=== PATIENT | female | born 1950 | race Caucasian/White ===

== ENCOUNTER 2019-02-04 12:34 | Outpatient (CLI) | payer MEDICARE, OTHER, SELFPAY ==
[2019-02-04 14:06] LABS: Albumin Level 4.3 g/dL (3.5-5.1); Blood Urea Nitrogen 23 mg/dL (7-17); Calcium 9.9 mg/dL (8.4-10.2); Carbon Dioxide 30 mmol/L (22-30); Chloride 105 mmol/L (98-107); Estimated Glomerular Filt Rate 50; Glucose 92 mg/dL (65-105); Phosphorus 3.5 mg/dL (2.5-4.5); Potassium 4.3 mmol/L (3.4-5.0); Sodium 142 mmol/L (137-145)
[2019-02-04 14:13] LABS: Complement C3 115 mg/dL (88-165)
[2019-02-04 16:04] LABS: Creatinine Urine 83.5 mg/dL; Total Protein Urine Random 10 mg/dL
[2019-02-04 16:12] LABS: Sodium Urine Random 110 meq/L
[2019-02-08 18:30] LABS: Chloride Rand Ur 101 mmol/L (32-290); Chloride/Creatinine Rand Ur 122 (38-318); Creatinine Random Urine 83 mg/dL (20-275)
[2019-02-09 09:13] LABS: Creatinine, Random Urine 81 mg/dL (20-275); Total Protein/Creatinine Ratio 148 mg/g creat (21-161)
[2019-02-09 16:35] LABS: Anti Glomerular Basement Memb <1.0 AI (<1.0)
[2019-02-09 22:10] LABS: ANCA Screen Negative (Negative)
[2019-02-10 14:15] LABS: Hematocrit 41.1 % (35.0-45.0); Hemoglobin 13.1 g/dL (11.7-15.5); MCH 28.6 pg (27.0-33.0); MCV 89.7 FL (80.0-100.0); RDW 16.9 % (11.0-15.0); Red Blood Cell Count 4.58 Mill/uL (3.80-5.10)
== END 2019-02-04 12:35 | disposition home or self-care (01) ==
PROVIDERS: PCP Internal Medicine; Visit Provider Internal Medicine Nephrology
DX: N18.3 Chronic kidney disease, stage 3 (moderate) (principal); I12.9 Hypertensive chronic kidney disease with stage 1 through stage 4 chronic kidney disease, or unspecified chronic kidney disease; E11.29 Type 2 diabetes mellitus with other diabetic kidney complication; R80.8 Other proteinuria
CPT/HCPCS: 36415; 80069; 82436; 82570; 83021; 83520; 84156; 84166; 84300; 85014; 85018; 85041; 85999; 86021; 86038; 86160; 86225

== ENCOUNTER 2019-04-13 09:19 | Outpatient (CLI) | payer MEDICARE, OTHER, SELFPAY ==
[2019-04-13 10:27] LABS: Alanine Aminotransferase 16 U/L (4-35); Albumin Level 4.2 g/dL (3.5-5.1); Alkaline Phosphatase 94 U/L (38-126); Aspartate Amino Transferase 27 U/L (14-36); Bilirubin,Total 0.4 mg/dL (0.2-1.3); Blood Urea Nitrogen 18 mg/dL (7-17); Calcium 9.6 mg/dL (8.4-10.2); Carbon Dioxide 28 mmol/L (22-30); Chloride 106 mmol/L (98-107); Cholesterol 157 mg/dL (0-200); Estimated Glomerular Filt Rate 38; Glucose 87 mg/dL (65-105); HDL Direct 38 mg/dL; Potassium 4.7 mmol/L (3.4-5.0); Sodium 143 mmol/L (137-145); Triglycerides 131 mg/dL (<150)
[2019-04-13 10:38] LABS: LDL Cholesterol Direct 84 mg/dL
[2019-04-13 10:46] LABS: Hemoglobin A1C 5.7 % (<5.7)
[2019-04-13 10:59] LABS: Creatinine Urine 161.1 mg/dL
[2019-04-13 11:03] LABS: Iron 45 ug/dL (37-170)
[2019-04-13 11:08] LABS: MALB Creatinine Ratio < 3.7 mg/g (0-30); Microalbumin Urine Random < 6.0 mg/L (0-16.7)
[2019-04-13 11:13] LABS: Percent Iron Saturation 14 % (20-50)
[2019-04-13 11:17] LABS: Vitamin D 25 Hydroxy 52.8 ng/mL
[2019-04-13 11:58] LABS: Basophils Absolute Auto 0.1 K/mm3 (0.0-0.1); Basophils Percent Auto 0.9 % (0.2-1.2); Eosinophils Absolute Auto 0.1 K/mm3 (0-0.3); Eosinophils Percent Auto 1.5 % (0-4.4); Hematocrit 42.3 % (37.0-47.0); Hemoglobin 13.1 g/dL (12.0-15.0); Immature Granulocyte Absolute 0.04 K/mm3 (0.00-0.031); Immature Granulocyte Percent A 0.5 % (0-0.5); Lymphocytes Absolute Auto 1.57 K/mm3 (0.9-3.2); Lymphocytes Percent Auto 18.5 % (18.3-44.2); Mean Corpuscular Hemoglobin 27.7 pg (26-34); Mean Corpuscular Volume 89.4 fl (80-100); Mean Platelet Volume 10.1 fl (7.4-10.4); Monocytes Absolute Auto 0.7 K/mm3 (0.1-0.6); Monocytes Percent Auto 8.2 % (2.6-8.5); Neutrophils Percent Auto 70.4 % (45.5-73.1); Platelet Count Result 339 k/mm3 (150-375); Red Blood Count 4.73 M/mm3 (4.2-5.4); Red Cell Distribution Width 15.8 % (11.5-14.5); White Blood Count 8.5 K/mm3 (4.5-10.0)
== END 2019-04-13 09:20 | disposition home or self-care (01) ==
PROVIDERS: PCP Internal Medicine; Visit Provider Internal Medicine
DX: E11.9 Type 2 diabetes mellitus without complications (principal); E03.9 Hypothyroidism, unspecified; G25.81 Restless legs syndrome; E78.5 Hyperlipidemia, unspecified; E55.9 Vitamin D deficiency, unspecified
CPT/HCPCS: 36415; 80053; 80061; 82043; 82306; 82728; 83036; 83540; 83550; 84439; 84443; 85025

== ENCOUNTER 2019-11-02 10:19 | Outpatient (CLI) | payer MEDICARE, OTHER, SELFPAY ==
[2019-11-02 11:30] LABS: Creatinine Urine 213.9 mg/dL; Total Protein Urine Random 8 mg/dL
[2019-11-02 11:32] LABS: Albumin Level 4.3 g/dL (3.5-5.1); Anion Gap 6 mmol/L (8-16); Blood Urea Nitrogen 16 mg/dL (7-17); Calcium 9.8 mg/dL (8.4-10.2); Carbon Dioxide 27 mmol/L (22-30); Chloride 105 mmol/L (98-107); Estimated Glomerular Filt Rate 41; Glucose 100 mg/dL (65-105); Phosphorus 3.5 mg/dL (2.5-4.5); Potassium 5.1 mmol/L (3.4-5.0); Sodium 138 mmol/L (137-145)
[2019-11-02 12:11] LABS: Parathyroid Intact 68.4 pg/mL (7.5-53.5)
[2019-11-02 12:13] LABS: Vitamin D 25 Hydroxy 40.7 ng/mL
== END 2019-11-02 10:20 | disposition home or self-care (01) ==
PROVIDERS: PCP Internal Medicine; Visit Provider Internal Medicine Nephrology
DX: R80.8 Other proteinuria (principal); I12.9 Hypertensive chronic kidney disease with stage 1 through stage 4 chronic kidney disease, or unspecified chronic kidney disease; N18.3 Chronic kidney disease, stage 3 (moderate); E11.29 Type 2 diabetes mellitus with other diabetic kidney complication
CPT/HCPCS: 36415; 80069; 82306; 82570; 83970; 84156

== ENCOUNTER 2019-11-15 10:24 | Outpatient (CLI) | payer MEDICARE, OTHER, SELFPAY | END 2019-11-15 10:25 | disposition home or self-care (01) | PROVIDERS: PCP Internal Medicine; Visit Provider Internal Medicine | DX: E03.9 Hypothyroidism, unspecified (principal) | CPT/HCPCS: 36415; 84443 ==

== ENCOUNTER 2019-11-30 08:52 | Emergency (ER) | payer MEDICARE, OTHER, SELFPAY ==
--- NOTE | ~2019-11-30 | CT_ITS ---
EXAMINATION: CTA chest PE protocol DATE: 11/30/2019 09:44 INDICATION: Hemoptysis. TECHNIQUE: Computed tomography angiography (CTA) of the chest was performed with 100 mL Omnipaque-350 intravenous contrast timed to evaluate the pulmonary arteries. Coronal maximum intensity projection 3D-reconstructions were created by the technologist. Automated exposure control and iterative reconst ruction technique were employed. The dose-length product was 249.16 mGy-cm. COMPARISON: Chest CT 11/25/2018 FINDINGS: There is symmetric scarring at the lung apices. There is moderate emphysema. There are new airspace and groundglass opacities in apicoposterior segment left upper lobe. There are new patchy gr oundglass opacities in left lower lobe. No pleural effusion. The heart size is normal. There are rolf nary artery calcifications. No pericardial effusion. There is an implant in right ventricle. There is a stent graft in descending thoracic aorta. There is no pulmonary embolus. Calcified periportal lymp h nodes are consistent with old granulomatous disease. There is mild thoracic spondylosis. There is m ild chronic height loss of multiple thoracic vertebral bodies. IMPRESSION: 1. No pulmonary embolus. 2. Airspace and groundglass opacities in apicoposterior segment left upper lobe and patchy groundglas s opacities in left lower lobe, consistent with pneumonia versus hemorrhage. 3. Moderate emphysema. Reviewed, dictated and finalized at location A. IMPRESSION: 1. No pulmonary embolus. 2. Airspace and groundglass opacities in apicoposterior segment left upper lobe and patchy groundglass opacities in left lower lobe, consistent with pneumonia versus hemorrhage. 3. Moderate emphysema.
[2019-11-30 08:49] VITALS: BP 162/79; PULSE 95; RESP 21; TEMP 36.8; O2SAT 96
--- NOTE | 2019-11-30 08:53 | ED.GENADULT ---
HPI - General Adult General Chief complaint: Unspecified Stated complaint: COUGHING UP BLOOD Time Seen by Provider: 11/30/19 08:53 History of Present Illness HPI narrative: 69 yo female w/ h/o head and neck cancer, ruptured thoracic aneurysm presents today for hemoptysis. She awoke this morning coughing up bright red blood. Approximately 50-100 mg estimated by EMS. No CP, SOB, fever. She had one previous episode that was very similar. At that time she was transfered to [facility] and had to be intubated and taken to the OR emergently for what sounds like a ruptured aortic aneurysm. No blood thinners Related Data Home Medications Medication Instructions Recorded Confirmed aspirin 81 mg tablet,delayed 81 mg PO DAILY 04/12/19 11/08/19 release magnesium amino acid chelate 100 mg PO 04/12/19 11/08/19 mg tablet omega-3 fatty acids 1,000 mg 1,000 mg PO BID 04/12/19 11/08/19 capsule Allergies Allergy/AdvReac Type Severity Reaction Status Date / Time No Known Allergies Allergy Unknown Unknown Uncoded 11/30/19 10:31 Review of Systems Review of Systems: All systems reviewed & are unremarkable except as noted in HPI and below Constitutional: Constitutional: Denies chills and Denies fever(s) ENT: Denies sore throat Cardiovascular: Cardiovascular: Denies chest pain Respiratory: Respiratory: Reports cough and Denies dyspnea Gastrointestinal: Gastrointestinal: Denies nausea and Denies vomiting Genitourinary: Genitourinary: Denies hematuria and Denies dysuria Musculoskeletal: Musculoskeletal: Denies back pain Neurologic: Denies dizziness and Denies weakness Hematologic/Lymphatic: Hematologic/Lymphatic: Denies easy bleeding and Denies easy bruising PMFSH Past Medical History Medical History History of throat cancer Type 2 diabetes mellitus without complication, without long-term current use of insulin Family History Family History Mother Acute myocardial infarction Patient's mother is Father Family history of heart disease in male family member before age 55 Patient's father is Sibling Acute myocardial infarction Family history of coronary artery disease Patient's brother is Grandparent Family history of malignant neoplasm of breast Social History Social History Alcohol intake: never Exam Const: General: healthy appearing, no acute distress and alert Orientation/consciousness: patient oriented x3 HENMT: Head: normal to inspection Neck: Neck: normal visual inspection and no lymphadenopathy Chest: Chest palpation & inspection: no tenderness Resp: Effort & Inspection: normal respiratory effort Auscultation: clear to auscultation bilaterally, no rales, no rhonchi and no wheezes Cardio: Jugular venous distension: no JVD Rate: regular rate Rhythm: regular rhythm Heart sounds: no murmurs GI: Inspection: non-distended GI Palp: Yes Soft to palpation and No Tenderness to palpation present (GI) Skin: General skin exam: normal color Neuro: General: patient oriented x3 and moves all extremities Speech: normal speech Extrem: General: no edema Psych: Appearance: well kempt Affect: normal affect Course Vital Signs Vital signs: Vital Signs Temperature 36.8 C 11/30/19 08:49 Pulse Rate 95 11/30/19 08:49 Respiratory Rate 21 H 11/30/19 08:49 Blood Pressure 162/79 H 11/30/19 08:49 Pulse Oximetry 96 11/30/19 08:49 Temperature 36.8 C 11/30/19 08:49 Pulse Rate 87 11/30/19 12:04 Respiratory Rate 18 11/30/19 12:04 Blood Pressure 138/63 11/30/19 12:04 Pulse Oximetry 13 L 11/30/19 12:04 Medical Decision Making MDM Narrative Medical decision making narrative: SHe is stable at this time, but had a similar presentation in the past which lead to very rapid decompensat
[2019-11-30 08:54] VITALS: PULSE 90
[2019-11-30 09:12] LABS: Basophils Absolute Auto 0.1 K/mm3 (0.0-0.1); Basophils Percent Auto 0.8 % (0.2-1.2); Eosinophils Absolute Auto 0.1 K/mm3 (0-0.3); Eosinophils Percent Auto 1.7 % (0-4.4); Hematocrit 41.4 % (37.0-47.0); Hemoglobin 13.3 g/dL (12.0-15.0); Immature Granulocyte Absolute 0.02 K/mm3 (0.00-0.031); Immature Granulocyte Percent A 0.2 % (0-0.5); Lymphocytes Absolute Auto 1.98 K/mm3 (0.9-3.2); Lymphocytes Percent Auto 23.5 % (18.3-44.2); Mean Corpuscular HGB Conc 32.1 g/dl (32-36); Mean Corpuscular Hemoglobin 27.9 pg (26-34); Mean Corpuscular Volume 86.8 fl (80-100); Mean Platelet Volume 9.7 fl (7.4-10.4); Monocytes Absolute Auto 0.7 K/mm3 (0.1-0.6); Monocytes Percent Auto 8.2 % (2.6-8.5); Neutrophils Absolute Auto 5.5 K/mm3 (1.3-6.7); Neutrophils Percent Auto 65.6 % (45.5-73.1); Platelet Count Result 311 k/mm3 (150-375); Red Blood Count 4.77 M/mm3 (4.2-5.4); Red Cell Distribution Width 15.5 % (11.5-14.5); White Blood Count 8.4 K/mm3 (4.5-10.0)
[2019-11-30 09:21] LABS: INR 0.9; Prothrombin Time 11.9 Seconds (11.1-14.7)
[2019-11-30 09:22] LABS: Partial Thromboplastin Time 33.3 SECONDS (22.3-36.8)
[2019-11-30 09:24] LABS: Alanine Aminotransferase 13 U/L (4-35); Albumin Level 4.2 g/dL (3.5-5.1); Alkaline Phosphatase 132 U/L (38-126); Anion Gap 9 mmol/L (8-16); Aspartate Amino Transferase 24 U/L (14-36); Bilirubin,Total 0.3 mg/dL (0.2-1.3); Blood Urea Nitrogen 17 mg/dL (7-17); Calcium 9.7 mg/dL (8.4-10.2); Carbon Dioxide 24 mmol/L (22-30); Chloride 108 mmol/L (98-107); Estimated CRCL calculation 31 ml/min; Estimated Glomerular Filt Rate 41; Glucose 113 mg/dL (65-105); Potassium 4.4 mmol/L (3.4-5.0); Sodium 141 mmol/L (137-145)
[2019-11-30 09:55] VITALS: BP 146/59; PULSE 79; RESP 19; O2SAT 98
[2019-11-30 10:43] VITALS: BP 172/86; PULSE 73; RESP 18; O2SAT 99
[2019-11-30 12:04] VITALS: BP 138/63; PULSE 87; RESP 18; O2SAT 13
== END 2019-11-30 12:10 | disposition short-term general hospital (02) ==
PROVIDERS: Emergency Provider Emergency Medicine; PCP Internal Medicine
DX: R04.2 Hemoptysis (principal); E11.9 Type 2 diabetes mellitus without complications; Z79.82 Long term (current) use of aspirin; J43.9 Emphysema, unspecified; Z85.818 Personal history of malignant neoplasm of other sites of lip, oral cavity, and pharynx; R91.8 Other nonspecific abnormal finding of lung field
CPT/HCPCS: 36415; 71275; 80053; 85025; 85610; 85730; 86850; 86900; 86901; 99285; Q9967

== ENCOUNTER 2019-12-21 10:44 | Outpatient (CLI) | payer MEDICARE, OTHER, SELFPAY ==
[2019-12-21 13:11] LABS: Thyroid Stimulating Hormone 0.751 uIU/mL (0.465-4.680)
== END 2019-12-21 10:45 | disposition home or self-care (01) ==
PROVIDERS: PCP Internal Medicine; Visit Provider Internal Medicine
DX: Z09 Encounter for follow-up examination after completed treatment for conditions other than malignant neoplasm (principal)
CPT/HCPCS: 36415; 84443

== ENCOUNTER 2020-04-23 10:33 | Outpatient (CLI) | payer MEDICARE, OTHER, SELFPAY ==
[2020-04-23 11:12] LABS: Basophils Absolute Auto 0.1 K/mm3 (0.0-0.1); Basophils Percent Auto 0.9 % (0.2-1.2); Eosinophils Absolute Auto 0.1 K/mm3 (0-0.3); Hematocrit 38.4 % (37.0-47.0); Hemoglobin 12.1 g/dL (12.0-15.0); Immature Granulocyte Absolute 0.06 K/mm3 (0.00-0.031); Immature Granulocyte Percent A 0.7 % (0-0.5); Lymphocytes Percent Auto 15.5 % (18.3-44.2); Mean Corpuscular HGB Conc 31.5 g/dl (32-36); Mean Corpuscular Hemoglobin 25.4 pg (26-34); Mean Corpuscular Volume 80.5 fl (80-100); Mean Platelet Volume 8.7 fl (7.4-10.4); Monocytes Absolute Auto 0.6 K/mm3 (0.1-0.6); Neutrophils Absolute Auto 6.8 K/mm3 (1.3-6.7); Neutrophils Percent Auto 74.9 % (45.5-73.1); Platelet Count Result 397 k/mm3 (150-375); Red Blood Count 4.77 M/mm3 (4.2-5.4); Red Cell Distribution Width 16.2 % (11.5-14.5)
[2020-04-23 11:21] LABS: Alanine Aminotransferase 11 U/L (4-35); Albumin Level 4.1 g/dL (3.5-5.1); Alkaline Phosphatase 124 U/L (38-126); Anion Gap 5 mmol/L (8-16); Aspartate Amino Transferase 22 U/L (14-36); Bilirubin,Total 0.5 mg/dL (0.2-1.3); Blood Urea Nitrogen 15 mg/dL (7-17); Calcium 9.9 mg/dL (8.4-10.2); Carbon Dioxide 28 mmol/L (22-30); Chloride 106 mmol/L (98-107); Cholesterol 142 mg/dL (0-200); Estimated Glomerular Filt Rate 41; Glucose 99 mg/dL (65-105); HDL Direct 41 mg/dL; Potassium 4.3 mmol/L (3.4-5.0); Sodium 139 mmol/L (137-145); Triglycerides 140 mg/dL (<150)
[2020-04-23 11:23] LABS: Hemoglobin A1C 5.5 % (<5.7)
[2020-04-23 11:32] LABS: LDL Cholesterol Direct 66 mg/dL
[2020-04-23 11:46] LABS: Microalbumin Urine Random 44.6 mg/L (0-16.7)
[2020-04-23 11:57] LABS: Vitamin D 25 Hydroxy 22.5 ng/mL
[2020-04-23 12:25] LABS: Creatinine Urine 386.1 mg/dL; MALB Creatinine Ratio 11.6 mg/g (0-30)
[2020-04-23 12:26] LABS: Folic Acid 5.1 ng/mL (2.76->20)
== END 2020-04-23 10:34 | disposition home or self-care (01) ==
PROVIDERS: PCP Internal Medicine; Visit Provider Internal Medicine
DX: E11.9 Type 2 diabetes mellitus without complications (principal); J43.9 Emphysema, unspecified; E03.9 Hypothyroidism, unspecified; E78.2 Mixed hyperlipidemia; E55.9 Vitamin D deficiency, unspecified; G62.9 Polyneuropathy, unspecified; I12.9 Hypertensive chronic kidney disease with stage 1 through stage 4 chronic kidney disease, or unspecified chronic kidney disease; N18.30 Chronic kidney disease, stage 3 unspecified
CPT/HCPCS: 36415; 80053; 80061; 82043; 82306; 82607; 82746; 83036; 84443; 85025

== ENCOUNTER 2020-05-01 09:33 | Outpatient (CLI) | payer MEDICARE, OTHER, SELFPAY ==
[2020-05-01 11:28] LABS: Iron 35 ug/dL (37-170)
[2020-05-01 11:37] LABS: Percent Iron Saturation 12 % (20-50)
== END 2020-05-01 09:34 | disposition home or self-care (01) ==
PROVIDERS: PCP Internal Medicine; Visit Provider Internal Medicine
DX: R71.8 Other abnormality of red blood cells (principal)
CPT/HCPCS: 36415; 82728; 83540; 83550

== ENCOUNTER 2020-08-04 08:48 | Outpatient (CLI) | payer MEDICARE, OTHER, SELFPAY ==
[2020-08-04 09:39] LABS: Albumin Level 4.1 g/dL (3.5-5.1); Anion Gap 9 mmol/L (8-16); Blood Urea Nitrogen 19 mg/dL (7-17); Calcium 9.5 mg/dL (8.4-10.2); Carbon Dioxide 24 mmol/L (22-30); Chloride 109 mmol/L (98-107); Estimated Glomerular Filt Rate 45; Glucose 93 mg/dL (65-105); Phosphorus 3.3 mg/dL (2.5-4.5); Potassium 4.7 mmol/L (3.4-5.0); Sodium 142 mmol/L (137-145)
[2020-08-04 09:51] LABS: Creatinine Urine 108.5 mg/dL; Total Protein Urine Random 8 mg/dL; Ur Ttl Prot Creatinine Ratio 0.07 mg/mg (0-0.20)
== END 2020-08-04 08:49 | disposition home or self-care (01) ==
PROVIDERS: PCP Internal Medicine; Visit Provider Internal Medicine Nephrology
DX: E11.29 Type 2 diabetes mellitus with other diabetic kidney complication (principal); E55.9 Vitamin D deficiency, unspecified; I12.9 Hypertensive chronic kidney disease with stage 1 through stage 4 chronic kidney disease, or unspecified chronic kidney disease; N18.32 Chronic kidney disease, stage 3b
CPT/HCPCS: 36415; 80069; 82570; 84156

== ENCOUNTER 2020-12-31 09:08 | Outpatient (CLI) | payer MEDICARE, OTHER, SELFPAY ==
[2020-12-31 09:40] LABS: Hematocrit 37.9 % (37.0-47.0); Hemoglobin 12.7 g/dL (12.0-15.0); Mean Corpuscular HGB Conc 33.5 g/dl (32-36); Mean Corpuscular Hemoglobin 29.1 pg (26-34); Mean Corpuscular Volume 86.7 fl (80-100); Platelet Count Result 293 k/mm3 (150-375); Red Blood Count 4.37 M/mm3 (4.2-5.4); Red Cell Distribution Width 17.3 % (11.5-14.5); White Blood Count 9.6 K/mm3 (4.5-10.0)
[2020-12-31 10:01] LABS: Vitamin D 25 Hydroxy 27.1 ng/mL
[2020-12-31 11:52] LABS: Alanine Aminotransferase 21 U/L (4-35); Albumin Level 4.3 g/dL (3.5-5.1); Alkaline Phosphatase 88 U/L (38-126); Anion Gap 7 mmol/L (8-16); Aspartate Amino Transferase 34 U/L (14-36); Blood Urea Nitrogen 21 mg/dL (7-17); Calcium 9.4 mg/dL (8.4-10.2); Carbon Dioxide 26 mmol/L (22-30); Chloride 106 mmol/L (98-107); Estimated Glomerular Filt Rate 45; Glucose 109 mg/dL (65-110); Potassium 4.7 mmol/L (3.4-5.0); Sodium 139 mmol/L (137-145)
[2020-12-31 17:36] LABS: Bilirubin,Total 0.5 mg/dL (0.2-1.3)
== END 2020-12-31 09:09 | disposition home or self-care (01) ==
LOC: ANHLAB 09:15
PROVIDERS: PCP Internal Medicine; Visit Provider Internal Medicine
DX: E03.9 Hypothyroidism, unspecified (principal); E55.9 Vitamin D deficiency, unspecified; G25.81 Restless legs syndrome; G62.9 Polyneuropathy, unspecified; I49.5 Sick sinus syndrome
CPT/HCPCS: 36415; 80053; 82306; 84443; 85027

== ENCOUNTER 2021-02-08 11:20 | Outpatient (CLI) | payer MEDICARE, OTHER, SELFPAY ==
[2021-02-08 12:13] LABS: Creatinine Urine 183.5 mg/dL; Total Protein Urine Random 7 mg/dL; Ur Ttl Prot Creatinine Ratio 0.04 mg/mg (0-0.20)
[2021-02-08 12:17] LABS: Albumin Level 4.2 g/dL (3.5-5.1); Anion Gap 9 mmol/L (8-16); Blood Urea Nitrogen 17 mg/dL (7-17); Calcium 9.6 mg/dL (8.4-10.2); Carbon Dioxide 25 mmol/L (22-30); Chloride 105 mmol/L (98-107); Estimated Glomerular Filt Rate 49; Glucose 107 mg/dL (65-110); Phosphorus 3.4 mg/dL (2.5-4.5); Potassium 4.2 mmol/L (3.4-5.0); Sodium 139 mmol/L (137-145)
[2021-02-08 12:27] LABS: Parathyroid Intact 87.9 pg/mL (7.5-53.5)
[2021-02-08 13:02] LABS: Vitamin D 25 Hydroxy 32.4 ng/mL
== END 2021-02-08 11:21 | disposition home or self-care (01) ==
LOC: ANHLAB 11:25
PROVIDERS: PCP Internal Medicine; Visit Provider Internal Medicine Nephrology
DX: R79.89 Other specified abnormal findings of blood chemistry (principal); E11.29 Type 2 diabetes mellitus with other diabetic kidney complication; I12.9 Hypertensive chronic kidney disease with stage 1 through stage 4 chronic kidney disease, or unspecified chronic kidney disease; N18.31 Chronic kidney disease, stage 3a; R80.8 Other proteinuria; R53.83 Other fatigue
CPT/HCPCS: 36415; 80069; 82306; 82570; 83970; 84156; 84443

== ENCOUNTER 2021-02-15 09:47 | Outpatient (CLI) | payer MEDICARE, OTHER, SELFPAY ==
--- NOTE | ~2021-02-15 | MM_ITS ---
EXAMINATION: MM screening freddie BI w lien HISTORY: Screening TECHNIQUE: Craniocaudal and mediolateral oblique 3-D tomosynthesis images were obtained and synthetic 2-D images were generated. CAD analysis was submitted and interpreted. COMPARISON: 08/24/2018 BREAST PARENCHYMAL COMPOSITION: The breasts are almost entirely fatty. FINDINGS: There is no evidence of suspicious mass, calcification, or architectural distortion to sugg est malignancy in either breast. There has been no suspicious interval change. IMPRESSION: 1. No mammographic evidence of malignancy. 2. Recommend routine screening mammography in one year. BI-RADS Category 1: Negative Reviewed, dictated and finalized at location A. 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
== END 2021-02-15 09:48 | disposition home or self-care (01) ==
LOC: ANHIMG 09:49
PROVIDERS: PCP Internal Medicine; Visit Provider Internal Medicine
DX: Z12.31 Encounter for screening mammogram for malignant neoplasm of breast (principal)
CPT/HCPCS: 77063; 77067

== ENCOUNTER 2021-02-21 10:12 | Outpatient (CLI) | payer MEDICARE, OTHER, SELFPAY ==
--- NOTE | ~2021-02-21 | US_ITS ---
EXAMINATION: US carotid duplex BI DATE: 02/21/2021 11:37 INDICATION: Carotid occlusion TECHNIQUE: Grayscale, color Doppler, and pulsed Doppler images of the cervical carotid arteries were obtained. The degree of vessel stenosis is placed in one of the following categories: normal, <50%, 5 0-69%, >=70% but less than near-occlusion, near-occlusion, or total occlusion. Note that percent sten osis relative to normal distal artery lumen diameter is indirectly measured from velocity measurement s as described by Alfonso, et al. Radiology 2003; [id number]:[id number]. Notes: Normal: Peak systolic velocity <125 centimeters/sec and no plaque <50%. Peak systolic velocity <125 ( EDV <40; ICA/CCA PSV ratio <2.0; used these factors only a tandem lesions or low cardiac output or co ntralateral disease) 50-69 %: PSV 125-230 (EDV 40-100; ratio 2-4) >= 70% but less than near occlusion: PSV greater than 230 (EDV > 100; ratio> 4.0) Near Occlusion: PSV that is variable; markedly narrowed lumen Occlusion: Absent flow on color/spectral Doppler and no lumen on larios scale. COMPARISON: 05/23/2027. FINDINGS: RIGHT: The right common carotid artery (CCA) peak systolic velocity (PSV) is 145 cm/s. The right internal ca rotid artery (ICA) PSV is 140 cm/s. The right ICA end-diastolic velocity (EDV) is 25 cm/s. The right ICA/CCA PSV ratio is 1.0. The external carotid artery (ECA) PSV is 112 cm/s. There is antegrade flow in the right vertebral artery. LEFT: The left CCA PSV is 158 cm/s. The left ICA PSV is 97 cm/s. The left ICA EDV is 31 cm/s. The left ICA/ CCA PSV ratio is 0.6. The ECA PSV is 43 cm/s. There is antegrade flow in the left vertebral artery. IMPRESSION: 1. 50-69% stenosis in the right internal carotid artery by sonographic criteria. 2. Less than 50% stenosis in the left internal carotid artery by sonographic criteria. Reviewed, dictated and finalized at location A. ER JOINTER HELPER IMPRESSION: 1. 50-69% stenosis in the right internal carotid artery by sonographic criteria . 2. Less than 50% stenosis in the left internal carotid artery by sonographic cr iteria.
== END 2021-02-21 10:13 | disposition home or self-care (01) ==
PROVIDERS: PCP Internal Medicine; Visit Provider Internal Medicine
DX: I65.23 Occlusion and stenosis of bilateral carotid arteries (principal)
CPT/HCPCS: 93880

== ENCOUNTER 2021-03-07 13:27 | Outpatient (CLI) | payer MEDICARE, OTHER, SELFPAY ==
--- NOTE | 2021-03-07 13:33 | ECHO_ITS ---
Patient Info Name: Ange Tavera Age: 70 years : 1950 Gender: Female Ht: 63 in Wt: 146 lbs BSA: 1.73 m2 HR: 75 bpm BP: 154 / 77 mmHg Technical Quality: Good Exam Date: 03/07/2021 1:45 PM Exam Location: [facility] Patient Status: Outpatient Admit Date: 03/07/2021 Staff Ordering Physician: Manan Gil MD Executive Vice President Business Development: Lupillo Blount, MARY, RT Attending Provider: Manan Gil MD Exam Type: CA echo doppler color flow Study Info Indications R01.1 - Cardiac murmur, unspecified Complete two-dimensional, color flow and Doppler transthoracic echocardiogram is performed. Strain analysis performed. Summary 1. Complete two-dimensional, color flow and Doppler transthoracic echocardiogram is performed. 2. Left ventricular chamber dimension is normal. 3. Left ventricular systolic function is normal, estimated at 60-65%. 4. The left ventricular diastolic function is grade II diastolic dysfunction. 5. E/e' 11 is mildly elevated. 6. Global longitudinal strain is normal at -17.8%. 7. There is mild aortic valve regurgitation. Left Ventricle E/e' 11 is mildly elevated. Global longitudinal strain is normal at -17.8%. Left ventricular chamber dimension is normal. Left ventricular systolic function is normal, estimated at 60-65%. The left ventricular diastolic function is grade II diastolic dysfunction. Right Ventricle Right ventricular systolic function is normal and with normal TAPSE 2.1 cm. Right ventricular chamber dimension is normal. Left Atria Left atrial chamber dimension is normal. Right Atria Right atrial chamber dimension is normal. Aortic Valve The aortic valve is trileaflet. There is no aortic valve stenosis. There is mild aortic valve regurgitation. Pulmonic Valve There is no pulmonic regurgitation. Mitral Valve There is no mitral valve stenosis. There is no mitral valve regurgitation. Tricuspid Valve There is no tricuspid valve regurgitation. Pericardium/Pleural There is no pericardial effusion. Inferior Vena Cava Normal inferior vena cava with >50% collapse upon inspiration consistent with normal right atrial pressure, 5 mmHg. Aorta The aortic root size at the sinus of Valsalva is normal. Left Ventricular Outflow Tract Name Value Normal LVOT 2D LVOT Diameter 1.9 cm LVOT Doppler LVOT Peak Gradient 4 mmHg LVOT Mean Gradient 2 mmHg LVOT VTI 22 cm LVOT VTI/AV VTI Ratio 0.7 LVOT Stroke Volume 60 ml LVOT CO 4.5 l/min LVOT CI 2.6 l/min/m2 Mitral Valve Name Value Normal MV Doppler MV Decel [place] 408 cm/s2 MV PHT 59 ms
== END 2021-03-07 13:28 | disposition home or self-care (01) ==
LOC: ANHCARD 13:29
PROVIDERS: PCP Internal Medicine; Visit Provider Internal Medicine
DX: R01.1 Cardiac murmur, unspecified (principal); I35.1 Nonrheumatic aortic (valve) insufficiency
CPT/HCPCS: 93306

== ENCOUNTER 2021-07-15 11:05 | Outpatient (CLI) | payer MEDICARE, OTHER, SELFPAY ==
[2021-07-15 11:44] LABS: Basophils Absolute Auto 0.1 K/mm3 (0.0-0.1); Basophils Percent Auto 0.9 % (0.2-1.2); Eosinophils Absolute Auto 0.1 K/mm3 (0-0.3); Eosinophils Percent Auto 1.5 % (0-4.4); Hematocrit 41.3 % (37.0-47.0); Hemoglobin 13.3 g/dL (12.0-15.0); Immature Granulocyte Absolute 0.05 K/mm3 (0.00-0.031); Immature Granulocyte Percent A 0.6 % (0-0.5); Immature Platelet Fraction Pct 2.4 % (0.9-11.2); Lymphocytes Absolute Auto 1.46 K/mm3 (0.9-3.2); Lymphocytes Percent Auto 16.4 % (18.3-44.2); Mean Corpuscular HGB Conc 32.2 g/dl (32-36); Mean Corpuscular Hemoglobin 27.5 pg (26-34); Mean Corpuscular Volume 85.3 fl (80-100); Mean Platelet Volume 9.9 fl (7.4-10.4); Monocytes Absolute Auto 0.6 K/mm3 (0.1-0.6); Monocytes Percent Auto 7.1 % (2.6-8.5); Neutrophils Absolute Auto 6.5 K/mm3 (1.3-6.7); Neutrophils Percent Auto 73.5 % (45.5-73.1); Nucleated Red Blood Cells Perc 0.2 % (0.0-0.2); Platelet Count Result 313 k/mm3 (150-375); Red Blood Count 4.84 M/mm3 (4.2-5.4); Red Cell Distribution Width 17.1 % (11.5-14.5); White Blood Count 8.9 K/mm3 (4.5-10.0)
[2021-07-15 11:51] LABS: Alanine Aminotransferase 22 U/L (6-35); Albumin Level 4.3 g/dL (3.5-5.1); Alkaline Phosphatase 120 U/L (38-126); Anion Gap 4 mmol/L (8-16); Aspartate Amino Transferase 40 U/L (14-36); Bilirubin,Total 0.5 mg/dL (0.2-1.3); Blood Urea Nitrogen 20 mg/dL (7-17); Calcium 9.4 mg/dL (8.4-10.2); Carbon Dioxide 27 mmol/L (22-30); Chloride 107 mmol/L (98-107); Cholesterol 181 mg/dL (0-200); Estimated Glomerular Filt Rate 45; Glucose 95 mg/dL (65-110); HDL Direct 43 mg/dL; Potassium 4.4 mmol/L (3.4-5.0); Sodium 138 mmol/L (137-145); Triglycerides 128 mg/dL (<150)
[2021-07-15 12:01] LABS: LDL Cholesterol Direct 88 mg/dL
[2021-07-15 12:08] LABS: Hemoglobin A1C 5.5 % (<5.7)
[2021-07-15 12:24] LABS: Iron 52 ug/dL (37-170)
[2021-07-15 12:33] LABS: Percent Iron Saturation 16 % (20-50)
[2021-07-15 12:40] LABS: Vitamin D 25 Hydroxy 33.1 ng/mL
[2021-07-15 12:43] LABS: Free T4 Free Thyroxine 1.94 ng/mL (0.78-2.19)
[2021-07-18 13:27] LABS: Methylmalonic Acid 119 nmol/L (87-318)
== END 2021-07-15 11:06 | disposition home or self-care (01) ==
PROVIDERS: PCP Internal Medicine; Visit Provider Internal Medicine
DX: N18.31 Chronic kidney disease, stage 3a (principal); G62.9 Polyneuropathy, unspecified; E55.9 Vitamin D deficiency, unspecified; J43.9 Emphysema, unspecified; E11.9 Type 2 diabetes mellitus without complications; E78.5 Hyperlipidemia, unspecified; I12.9 Hypertensive chronic kidney disease with stage 1 through stage 4 chronic kidney disease, or unspecified chronic kidney disease; I65.23 Occlusion and stenosis of bilateral carotid arteries; E03.9 Hypothyroidism, unspecified; G25.81 Restless legs syndrome
CPT/HCPCS: 36415; 80053; 80061; 82306; 82607; 82728; 82746; 83036; 83540; 83550; 83921; 84439; 84443; 85025; 85055

== ENCOUNTER 2022-01-27 09:09 | Outpatient (CLI) | payer MEDICARE, OTHER, SELFPAY ==
[2022-01-27 10:06] LABS: Alanine Aminotransferase 15 U/L (6-35); Albumin Level 4.2 g/dL (3.5-5.1); Alkaline Phosphatase 114 U/L (38-126); Anion Gap 13 mmol/L (8-16); Aspartate Amino Transferase 23 U/L (14-36); Bilirubin,Total 0.5 mg/dL (0.2-1.3); Blood Urea Nitrogen 19 mg/dL (7-17); Calcium 9.3 mg/dL (8.4-10.2); Carbon Dioxide 24 mmol/L (22-30); Chloride 105 mmol/L (98-107); Cholesterol 166 mg/dL (0-200); Estimated Glomerular Filt Rate 49; Glucose 86 mg/dL (65-110); HDL Direct 42 mg/dL; Hemoglobin A1C 5.7 % (<5.7); Potassium 4.7 mmol/L (3.4-5.0); Sodium 142 mmol/L (137-145); Triglycerides 114 mg/dL (<150)
[2022-01-27 10:19] LABS: LDL Cholesterol Direct 79 mg/dL
[2022-01-27 10:33] LABS: Vitamin D 25 Hydroxy 31.5 ng/mL
== END 2022-01-27 09:10 | disposition home or self-care (01) ==
PROVIDERS: PCP Internal Medicine; Visit Provider Internal Medicine
DX: E78.5 Hyperlipidemia, unspecified (principal); E11.9 Type 2 diabetes mellitus without complications; E55.9 Vitamin D deficiency, unspecified
CPT/HCPCS: 36415; 80053; 80061; 82306; 83036

== ENCOUNTER 2022-08-11 08:50 | Outpatient (CLI) | payer MEDICARE, OTHER, SELFPAY ==
[2022-08-11 10:56] LABS: Thyroid Stimulating Hormone 0.037 uIU/mL (0.465-4.680)
== END 2022-08-11 08:51 | disposition home or self-care (01) ==
PROVIDERS: PCP Family Medicine; Visit Provider Family Medicine
DX: E11.9 Type 2 diabetes mellitus without complications (principal)
CPT/HCPCS: 36415; 84443

== ENCOUNTER 2022-09-29 02:08 | Day surgery (SDC) | payer MEDICARE, OTHER, SELFPAY ==
[2022-09-17 14:03] VITALS: BMI 24.4
[2022-09-17 14:48] VITALS: BMI 24.4
--- NOTE | 2022-09-26 15:38 | PM.HPGS ---
History of Present Illness History of Present Illness Consent: Risks, benefits, and alternatives have been discussed and questions answered. Patient agrees to proceed with procedure. Chief complaint: Dysphagia, oropharyngeal phase Narrative: Ange Tavera is a 72 year old female Who is a survivor from Oropharyngeal cancer diagnosed in 2013-s/p surgical resection of tonsil with neck dissection and lymph node removal-underwent chemo and radiation-had esophagitis/phayngitis and anorexia at that time. Since her surgery she has had intermittent dysphagia for solid foods. Review of Systems Review of Systems: All systems reviewed & are unremarkable except as noted in HPI and below PMFSH Past Medical History Medical History AAA (abdominal aortic aneurysm) Benign essential hypertension Bilateral carotid artery stenosis Cardiac pacemaker CKD (chronic kidney disease) stage 3, GFR 30-59 ml/min Colon cancer screening Diverticulosis History of throat cancer Oropharyngeal dysphagia Pulmonary valve stenosis Type 2 diabetes mellitus without complication, without long-term current use of insulin Family History Family History Mother Acute myocardial infarction Patient's mother is Father Family history of heart disease in male family member before age 55 Patient's father is Sibling Acute myocardial infarction Family history of coronary artery disease Patient's brother is Grandparent Family history of malignant neoplasm of breast Social History Social History Smoking packs per day: 1 Smoking cigarettes per day: 20.0 Years smoked: 60 Smoking pack-years: 60.00 Smoking status: Current every day smoker Tobacco type: cigarettes Second hand tobacco smoke exposure: Yes Alcohol intake: never Substance use: never Substance use type: does not use Lack of Transportation: No Lack of Food: Never True Current Housing: I Do Not Have Housing Concerned About Future Housing: No Difficulty Paying Gas/Electric Bills: No Difficulty Paying for Meds: No Currently Unemployed: No Education: High School Diploma/GED Difficulty w/ Childcare or Family Care: No Living arrangements: with family Occupation/Education: other Additional occupation/education comments: disability Gender identity (if verbalized by the patient): Female Sexual Orientation (if Verbalized by the Patient): Straight or Heterosexual Spiritual care concerns: No Meds Home Medications and Allergies Home Medications Medication Instructions Recorded Confirmed Type magnesium amino acid chelate 100 100 mg PO DAILY 04/12/19 09/29/22 History mg tablet omega-3 fatty acids 1,000 mg 1,000 mg PO BID 04/12/19 09/29/22 History capsule (Fish Oil Concentrate) aspirin 81 mg tablet,delayed 81 mg PO DAILY #90 tabs 12/12/19 09/29/22 Rx release (Adult Low Dose Aspirin) mecobalamin (vitamin B12) 1,000 1,000 mcg sublingual DAILY #90 tabs 04/24/20 09/29/22 Rx mcg disintegrating tablet,sublingual budesonide 160 mcg-glycopyr 9 2 inh inhalation QAM 01/07/21 09/29/22 History mcg-formot 4.8 mcg/actuation HFA inhaler (Breztri Aerosphere) valsartan 160 mg tablet (Diovan) 160 mg PO DAILY #90 tabs 07/15/21 09/29/22 Rx atorvastatin 40 mg tablet 40 mg PO DAILY #90 tabs 12/06/21 09/29/22 Rx ropinirole 4 mg tablet 4 mg PO BID #180 tabs 07/01/22 09/29/22 Rx amlodipine 5 mg tablet 5 mg PO DAILY #90 tabs 07/10/22 09/29/22 Rx gabapentin 100 mg capsule 100 mg PO BID #60 caps 08/07/22 09/29/22 Rx levothyroxine 137 mcg tablet 137 mcg PO DAILY #60 tabs 08/12/22 09/29/22 Rx Allergies Allergy/AdvReac Type Severity Reaction Status Date / Time No Known Allergies Allergy Verified 09/29/22 09:16 Exam Const: General: alert Orientation/consciousness
[2022-09-29 08:58] VITALS: BP 163/70; PULSE 76; RESP 16; TEMP 36.4; O2SAT 100
[2022-09-29] MEDS: LACTATED RINGERS 1,000 ML 150 ML IV CONT (09:00)
--- NOTE | 2022-09-29 09:37 | WPDANESEPPF ---
Anes - Initial Pre Proc Eval Procedure: Operation Date: 09/29/22 10:30 Proposed Procedures p Esophagogastroduodenoscopy - Saleem Hassan MD Date/Time: 09/29/22 09:37 Surgeon: Saleem Hassan MD Pre Op Diagnosis: Dysphagia, oropharyngeal phase Patient Data Age: 72 Gender: F Height: 1.6 m Weight: 63 kg Last Vital Signs Temp 97.6 F 09/29/22 08:58 Pulse 76 09/29/22 08:58 Resp 16 09/29/22 08:58 BP 163/70 H 09/29/22 08:58 Pulse Ox 100 09/29/22 08:58 O2 Del Method Room Air 09/29/22 08:58 Allergies Allergy/AdvReac Type Severity Reaction Status Date / Time No Known Allergies Allergy Verified 09/29/22 09:16 Home Medications Medication Instructions Recorded Confirmed Type magnesium amino acid chelate 100 100 mg PO DAILY 04/12/19 09/29/22 History mg tablet omega-3 fatty acids 1,000 mg 1,000 mg PO BID 04/12/19 09/29/22 History capsule (Fish Oil Concentrate) aspirin 81 mg tablet,delayed 81 mg PO DAILY #90 tabs 12/12/19 09/29/22 Rx release (Adult Low Dose Aspirin) mecobalamin (vitamin B12) 1,000 1,000 mcg sublingual DAILY #90 tabs 04/24/20 09/29/22 Rx mcg disintegrating tablet,sublingual budesonide 160 mcg-glycopyr 9 2 inh inhalation QAM 01/07/21 09/29/22 History mcg-formot 4.8 mcg/actuation HFA inhaler (Breztri Aerosphere) valsartan 160 mg tablet (Diovan) 160 mg PO DAILY #90 tabs 07/15/21 09/29/22 Rx atorvastatin 40 mg tablet 40 mg PO DAILY #90 tabs 12/06/21 09/29/22 Rx ropinirole 4 mg tablet 4 mg PO BID #180 tabs 07/01/22 09/29/22 Rx amlodipine 5 mg tablet 5 mg PO DAILY #90 tabs 07/10/22 09/29/22 Rx gabapentin 100 mg capsule 100 mg PO BID #60 caps 08/07/22 09/29/22 Rx levothyroxine 137 mcg tablet 137 mcg PO DAILY #60 tabs 08/12/22 09/29/22 Rx Patient hx anesthesia problems: none Family hx anesthesia problems: none Results Review: All pre-operative results and documents have been reviewed as part of the pre-operative evaluation. REPLACED BY [facility] Past Medical History Medical History AAA (abdominal aortic aneurysm) Benign essential hypertension Bilateral carotid artery stenosis Cardiac pacemaker CKD (chronic kidney disease) stage 3, GFR 30-59 ml/min Colon cancer screening Diverticulosis History of throat cancer Oropharyngeal dysphagia Pulmonary valve stenosis Type 2 diabetes mellitus without complication, without long-term current use of insulin Family History Family History Mother Acute myocardial infarction Patient's mother is Father Family history of heart disease in male family member before age 55 Patient's father is Sibling Acute myocardial infarction Family history of coronary artery disease Patient's brother is Grandparent Family history of malignant neoplasm of breast Social History Social History Smoking packs per day: 1 Smoking cigarettes per day: 20.0 Years smoked: 60 Smoking pack-years: 60.00 Smoking status: Current every day smoker Tobacco type: cigarettes Second hand tobacco smoke exposure: Yes Alcohol intake: never Substance use: never Substance use type: does not use Lack of Transportation: No Lack of Food: Never True Current Housing: I Do Not Have Housing Concerned About Future Housing: No Difficulty Paying Gas/Electric Bills: No Difficulty Paying for Meds: No Currently Unemployed: No Education: High School Diploma/GED Difficulty w/ Childcare or Family Care: No Living arrangements: with family Occupation/Education: other Additional occupation/education comments: disability Gender identity (if verbalized by the patient): Female Sexual Orientation (if Verbalized by the Patient): Straight or Heterosexual Spiritual care concerns: No Anes - Eval Final PreProcedure Day of Procedure 09/29/22 0
[2022-09-29 09:47] VITALS: BP 133/65; PULSE 65; RESP 24; O2SAT 96
[2022-09-29 09:57] VITALS: BP 147/69; PULSE 71; RESP 27; O2SAT 97
[2022-09-29 10:07] VITALS: BP 152/56; PULSE 68; RESP 19; O2SAT 98
== END 2022-09-29 10:17 | disposition home or self-care (01) ==
PROVIDERS: PCP Family Medicine; Visit Provider Internal Medicine Gastroenterology
PROC: 0DJ08ZZ Inspection of Upper Intestinal Tract, Via Natural or Artificial Opening Endoscopic (ICD-10-PCS; CPT 43235; principal; 2022-09-29 10:30)
DX: R13.12 Dysphagia, oropharyngeal phase (principal); K57.90 Diverticulosis of intestine, part unspecified, without perforation or abscess without bleeding; I12.9 Hypertensive chronic kidney disease with stage 1 through stage 4 chronic kidney disease, or unspecified chronic kidney disease; N18.30 Chronic kidney disease, stage 3 unspecified; I71.40 Abdominal aortic aneurysm, without rupture, unspecified; K44.9 Diaphragmatic hernia without obstruction or gangrene; I65.23 Occlusion and stenosis of bilateral carotid arteries; I37.8 Other nonrheumatic pulmonary valve disorders; F17.210 Nicotine dependence, cigarettes, uncomplicated; E11.22 Type 2 diabetes mellitus with diabetic chronic kidney disease; Z79.82 Long term (current) use of aspirin; Z95.0 Presence of cardiac pacemaker
CPT/HCPCS: 43239; 87081; J7120

== ENCOUNTER 2022-12-29 11:04 | Outpatient (CLI) | payer MEDICARE, OTHER, SELFPAY ==
[2022-12-29 11:44] LABS: Cholesterol 161 mg/dL (0-200); HDL Direct 53 mg/dL; Triglycerides 120 mg/dL (<150)
[2022-12-29 11:57] LABS: LDL Cholesterol Direct 74 mg/dL
== END 2022-12-29 11:05 | disposition home or self-care (01) ==
PROVIDERS: PCP Family Medicine; Visit Provider Internal Medicine Interventional Cardiology
DX: E78.2 Mixed hyperlipidemia (principal)
CPT/HCPCS: 36415; 80061

== ENCOUNTER 2023-01-15 08:52 | Outpatient (CLI) | payer MEDICARE, OTHER, SELFPAY ==
[2023-01-15 10:13] LABS: Hemoglobin A1C 5.4 % (<5.7)
[2023-01-15 10:39] LABS: Thyroid Stimulating Hormone 0.252 uIU/mL (0.465-4.680)
[2023-01-18 11:30] LABS: Tissue Transglutaminase IgA Ab <1.0 U/mL (<15.0)
[2023-01-19 11:52] LABS: Tissue Transglutaminase IgG Ab <1.0 U/mL (<15.0)
[2023-01-19 13:12] LABS: Vitamin B1 7 nmol/L (8-30)
[2023-01-19 15:57] LABS: SS-A <1.0; SS-B <1.0
[2023-01-22 14:38] LABS: Vitamin B6 2.2 ng/mL (2.1-21.7)
[2023-01-28 04:46] LABS: Red Blood Cell Folate 325 ng/mL RBC (>280)
== END 2023-01-15 08:53 | disposition home or self-care (01) ==
PROVIDERS: PCP Family Medicine; Visit Provider Student in an Organized Health Care Education/Training Program
DX: G62.9 Polyneuropathy, unspecified (principal); E11.9 Type 2 diabetes mellitus without complications
CPT/HCPCS: 36415; 82607; 82728; 82747; 83036; 84207; 84425; 84443; 86038; 86235; 86334; 86335; 86364

== ENCOUNTER 2023-01-27 08:14 | Outpatient (CLI) | payer MEDICARE, OTHER, SELFPAY ==
--- NOTE | ~2023-01-27 | XR_ITS ---
EXAMINATION: XR barium swallow modified DATE: 01/27/2023 09:24 INDICATION: Dysphagia, oropharyngeal phase. TECHNIQUE: The patient was given barium-containing material of multiple consistencies to swallow by t merna speech pathologist while I performed fluoroscopy. Fluoroscopy exposure time was 1.1 minutes. The n umber of fluoroscopy images saved to the PACS was 1. Dose-area product was 0.8 Gy-cm^2. FINDINGS: There is reduced laryngeal elevation, reduced tongue base retraction, and vallecular residue. There i s trace laryngeal penetration with thin liquids and mildly thick liquids. IMPRESSION: 1. Trace laryngeal penetration with thin liquids and mildly thick liquids. 2. Please refer to the speech therapy report for recommendations. Reviewed, dictated and finalized at location A. 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
--- NOTE | 2023-02-13 14:53 | REHSTMBS ---
Assessment and note entered by Jamaica Medina, FILLER IN Modified Barium Swallow Evaluation ST Clinical Summary MODIFIED BARIUM SWALLOW STUDY This patient was seen for an outpatient Modified Barium Swallow study at the request of Dr. Hassan. Patient reports a history of throat cancer with surgery, chemotherapy and radiation five years ago. She reports she has had difficulty swallowing since that time, feeling like food or pills are getting caught in her throat. She also reports she has upper dentures but no lower dentures. Today the patient was viewed in the lateral position to the level of C5/C6. Patient was presented with thin liquid contrast medium, mildly (nectar) thick liquid contrast medium, pudding mixed with semi-solid contrast medium, but and cracker and fruit pieces coated with the semi- solid mixture. Patient exhibited trace penetration into the upper laryngeal vestibule on both thin liquid and mildly thick liquid with mild to moderate vallecular residue remaining after every swallow whether liquid, semi-solid, or solid, requiring secondary swallow to clear pooled material. Results indicate patient has at least a mild dysphagia characterized as reduced laryngeal elevation and base of tongue retraction contributing to airway penetration and vallecular residue. Patient may remain on her current diet however direct Speech Therapy to improve the strength of the swallow is indicated, including swallowing strengthening exercises and possibly electrical stimulation (VitalStim) to the throat with physician agreement, to increase the strength of the swallow. Results were discussed with patient who voiced understanding. Please order outpatient Speech Therapy at [facility] if you are in agreement with recommendation. Thank you for this referral.
== END 2023-01-27 08:15 | disposition home or self-care (01) ==
PROVIDERS: PCP Family Medicine; Visit Provider Internal Medicine Gastroenterology
DX: R13.12 Dysphagia, oropharyngeal phase (principal)
CPT/HCPCS: 92611

== ENCOUNTER 2023-02-10 14:27 | Outpatient (CLI) | payer MEDICARE, OTHER, SELFPAY ==
[2023-02-10 14:52] LABS: Basophils Absolute Auto 0.1 K/mm3 (0.0-0.1); Basophils Percent Auto 0.5 % (0.2-1.2); Eosinophils Absolute Auto 0.1 K/mm3 (0-0.3); Eosinophils Percent Auto 0.5 % (0-4.4); Hemoglobin 12.1 g/dL (12.0-15.0); Immature Granulocyte Absolute 0.08 K/mm3 (0.00-0.031); Immature Granulocyte Percent A 0.7 % (0-0.5); Lymphocytes Absolute Auto 1.67 K/mm3 (0.9-3.2); Lymphocytes Percent Auto 14.2 % (18.3-44.2); Mean Corpuscular Hemoglobin 25.9 pg (26-34); Mean Corpuscular Volume 83.5 fl (80-100); Mean Platelet Volume 9.7 fl (7.4-10.4); Monocytes Percent Auto 8.4 % (2.6-8.5); Neutrophils Absolute Auto 8.9 K/mm3 (1.3-6.7); Neutrophils Percent Auto 75.7 % (45.5-73.1); Platelet Count Result 374 k/mm3 (150-375); Red Blood Count 4.67 M/mm3 (4.2-5.4); Red Cell Distribution Width 17.3 % (11.5-14.5); White Blood Count 11.8 K/mm3 (4.5-10.0)
[2023-02-10 15:05] LABS: Alanine Aminotransferase 29 U/L (6-35); Alkaline Phosphatase 156 U/L (38-126); Anion Gap 6 mmol/L (8-16); Aspartate Amino Transferase 25 U/L (14-36); Bilirubin,Total 0.7 mg/dL (0.2-1.3); Blood Urea Nitrogen 23 mg/dL (7-17); Calcium 9.6 mg/dL (8.4-10.2); Carbon Dioxide 24 mmol/L (22-30); Chloride 109 mmol/L (98-107); Cholesterol 116 mg/dL (0-200); Estimated Glomerular Filt Rate 34; Glucose 96 mg/dL (65-110); HDL Direct 36 mg/dL; Potassium 4.9 mmol/L (3.4-5.0); Sodium 139 mmol/L (137-145); Triglycerides 129 mg/dL (<150)
[2023-02-10 15:15] LABS: LDL Cholesterol Direct 55 mg/dL
[2023-02-10 15:23] LABS: INR 1.1; Prothrombin Time 14.5 Seconds (11.1-14.7)
[2023-02-10 15:24] LABS: Partial Thromboplastin Time 32.8 SECONDS (22.3-36.8)
[2023-02-10 15:33] LABS: Thyroid Stimulating Hormone < 0.015 uIU/mL (0.465-4.680)
[2023-02-10 16:19] LABS: Free T4 Free Thyroxine 3.99 ng/mL (0.78-2.19); Vitamin D 25 Hydroxy 22.4 ng/mL
[2023-02-10 16:47] LABS: Creatinine Urine > 693.0 mg/dL
[2023-02-10 17:19] LABS: Hemoglobin A1C 5.8 % (<5.7)
== END 2023-02-10 14:28 | disposition home or self-care (01) ==
PROVIDERS: PCP Nurse Practitioner Family; Visit Provider Nurse Practitioner Family
DX: E78.5 Hyperlipidemia, unspecified (principal); Z72.0 Tobacco use; R13.12 Dysphagia, oropharyngeal phase; J43.9 Emphysema, unspecified; I10 Essential (primary) hypertension; E66.3 Overweight; E55.9 Vitamin D deficiency, unspecified; E11.9 Type 2 diabetes mellitus without complications; R04.2 Hemoptysis; E03.9 Hypothyroidism, unspecified; N18.30 Chronic kidney disease, stage 3 unspecified
CPT/HCPCS: 36415; 80053; 80061; 82043; 82306; 83036; 84439; 84443; 85025; 85610; 85730

== ENCOUNTER 2023-03-10 08:28 | Outpatient (CLI) | payer MEDICARE, OTHER, SELFPAY ==
--- NOTE | 2023-03-10 09:45 | NEURO_ITS ---
Impression: # Non-insulin dependent diabetic complains of numbness of all extremities. # Normal Nerve Conduction Study of upper extremities. # Lower extremities Nerve Conduction study reveals; 1. Left peroneal neuropathy. 2. Sensory neuropathy bilaterally. 3. Left posterior tibial proximal polyphasic responses. # Normal needle/EMG exam. Nerve Conduction Studies Anti Sensory Summary Table Stim Site NR Peak (ms) P-T Amp (?V) Site1 Site2 Delta-P (ms) Dist (cm) Nathan (m/s) Left Median Anti Sensory (2-3nd Digit) Wrist 2.8 18.9 Wrist 2-3nd Digit 2.8 14.0 50 Wrist 3.1 18.5 Wrist 2-3nd Digit 2.8 14.0 50 Right Median Anti Sensory (2-3nd Digit) Wrist 3.4 17.1 Wrist 2-3nd Digit 3.4 14.0 41 Wrist 3.7 14.8 Wrist 2-3nd Digit 3.4 14.0 41 Left Radial Anti Sensory (Base 1st Digit) Wrist 2.0 19.2 Wrist Base 1st Digit 2.0 0.0 Right Radial Anti Sensory (Base 1st Digit) Wrist 1.8 20.8 Wrist Base 1st Digit 1.8 0.0 Left Saphenous Anti Sensory (Ant Med Mall) NO RESPONSE 14cm NR 14cm Ant Med Mall 0.0 Right Saphenous Anti Sensory (Ant Med Mall) NO RESPONSE 14cm NR 14cm Ant Med Mall 0.0 Left Sup Fibular Anti Sensory (Ant Lat Mall) NO RESPONSE 14 cm NR 14 cm Ant Lat Mall 16.0 Right Sup Fibular Anti Sensory (Ant Lat Mall) NO RESPONSE 14 cm NR 14 cm Ant Lat Mall 16.0 Left Sural Anti Sensory (Lat Mall) NO RESPONSE Calf NR Calf Lat Mall 16.0 Right Sural Anti Sensory (Lat Mall) Calf 3.1 13.4 Calf Lat Mall 3.1 16.0 52 Left Ulnar Anti Sensory (5th Digit) Wrist 2.8 69.0 Wrist 5th Digit 2.8 14.0 50 Right Ulnar Anti Sensory (5th Digit) Wrist 2.9 29.8 Wrist 5th Digit 2.9 14.0 48 Motor Summary Table Stim Site NR Onset (ms) O-P Amp (mV) Site1 Site2 Delta-0 (ms) Dist (cm) Nathan (m/s) Left Median Motor (Abd Poll Brev) Wrist 2.8 2.3 Elbow Wrist 5.2 30.0 58 Elbow 8.0 2.0 Right Median Motor (Abd Poll Brev) Wrist 3.5 3.3 Elbow Wrist 5.3 29.0 55 Elbow 8.8 2.3 Left Peroneal Motor (Vastus Med) NO RESPONSE Ankle NR Popit Ankle 0.0 Popit NR Right Peroneal Motor (Vastus Med) Ankle 3.2 2.6 Popit Ankle 9.2 39.0 42 Popit 12.4 1.8 Left Tibial Motor (Abd Naylor Brev) Ankle 3.7 1.4 Knee Ankle 9.7 41.0 42 Knee 13.4 1.2 Right Tibial Motor (Abd Naylor Brev) Ankle 3.7 2.5 Knee Ankle 10.1 42.0 42 Knee 13.8 1.0 Left Ulnar Motor (Abd Dig Minimi) Wrist 2.4 4.3 A Elbow Wrist 5.6 32.0 57 A Elbow 8.0 3.2 Right Ulnar Motor (Abd Dig Minimi) Wrist 2.5 6.2 A Elbow Wrist 5.5 30.0 55 A Elbow 8.0 4.2 F Wave Studies NR F-Lat (ms) L-R F-Lat (ms) Left Median (Mrkrs) (Abd Poll Brev) 27.94 0.88 Right Median (Mrkrs) (Abd Poll Brev) 27.06 0.88 Left Peroneal (Mrkrs) (EDB) NO RESPONSE NR Right Peroneal (Mrkrs) (EDB) 50.63 Left Tibial (Mrkrs) (Abd Hallucis) NO RESPONSE NR Right Tibial (Mrkrs) (Abd Hallucis) 52.63 Left Ulnar (Mrkrs) (Abd Dig Min) 28.58 1.40 Right Ulnar (Mrkrs) (Abd Dig Min) 27.18 1.40 EMG Side Muscle Nerve Root Ins Act Fibs Amp Dur Recrt Comment Right 1
== END 2023-03-10 08:29 | disposition home or self-care (01) ==
LOC: ANHNEURO 08:29
PROVIDERS: PCP Nurse Practitioner Family; Visit Provider Student in an Organized Health Care Education/Training Program
DX: G62.89 Other specified polyneuropathies (principal); E11.9 Type 2 diabetes mellitus without complications
CPT/HCPCS: 95886; 95913

== ENCOUNTER 2023-03-19 11:00 | Outpatient (RCR) | payer MEDICARE, OTHER, SELFPAY ==
--- NOTE | 2023-03-04 15:01 | STOPEVAL1 ---
Assessment and note entered by Jamaica Medina ANKLE PATCH MOLDER Evaluation Information Assessment Status Evaluation Reported Pain Level Pain Score 0: Self Report Assessment ST Clinical Summary BEDSIDE SWALLOW EVALUATION This patient was seen for a Bedside Swallow Evaluation in order to initiate outpatient Speech Therapy services. Patient underwent outpatient Modified Barium Swallow study 01/27/23 and was found to have laryngeal penetration on thin liquids and significant vallecular residue after swallowing. 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 She denied pneumonia contributing to the coughing up blood. She reports she has an inhaler that she uses only periodically. Patient was given water per straw, pudding per spoon, and tony crackers. She exhibited no coughing but had a wet vocal quality before and throughout this evaluation.This cleared mildly with throat clearing. Initially patient sustained an ah sound for just over 1 second but on second attempt, sustained ah for 7 seconds; 15 seconds is average. Vocal loudness ranged from 64 to 73 decibels which are within the normal range however patient reported that she is unable to yell or scream as needed and that others report her voice is too soft. Patient presents with a mild dysphagia characterized as risk for laryngeal penetration, and significant vallecular residue when swallowing, and also as mildly reduced vocal loudness as reported by the patient. Neuromuscular electrical stimulation (NMES, also known as VitalStim) will also be offered if her physicians are in agreement. Patient will be seen twice weekly for four weeks to address strengthening exercises in order to increase the safety of the swallow and instruction of compensatory strategies for safe swallowing. Patient voiced understanding and is in agreement with results and recommendations.
--- NOTE | 2023-03-19 15:51 | STOPDC ---
Assessment and note entered by [place] Medina BLOCK BREAKER OPERATOR Evaluation Information Assessment Status Discharge Reported Pain Level Pain Score 0: Self Report Pain Score 0: Self Report Assessment ST Clinical Summary TREATMENT SUMMARY AND DISCHARGE SUMMARY This patient has been seen for a Modified Barium Swallow study on 01/27, then an outpatient evaluation on 03/04 with four subsequent treatment sessions for instruction of safe swallowing techniques, swallowing strengthening exercises and assessment of swallowing of thin liquids. Patient was instructed in the use of head flexion, and she voiced and demonstrated good use of head flexion throughout final two sessions. Patient was instructed to take small bites and sips, and to be and remain upright during and after meals. Patient was also instructed to let the knife and fork do the work and cut pieces of solid foods into smaller pieces. Again, she voiced and demonstrated good understanding of recommendations. Patient was instructed in the use of hard, effortful swallows, swallows with chin tuck against resistance, the Eli procedure, the Hima maneuver, and several other laryngeal elevation, laryngeal adduction, and base of tongue retraction exercises. Patient was also instructed in the use of exercises to improve vocal loudness and strength to avoid instances of aspiration and to assist with improved vocal loudness and she demonstrated and voiced good understanding. Patient voiced that she has not gotten tickled or choked on foods, liquids, and pills in several weeks and she denies coughing when drinking liquids. She drank a cup of water today with no coughing noted although coughing was noted last session. She completed all exercises up to 10 repetitions with good strength and loudness. Patient reports she completes her exercise home program daily. Patient is discharged today with goals met, home program established, and no longer requiring skilled Speech Therapy. Plan of Care ST Services Indicated No
== END 2023-03-19 16:07 | disposition home or self-care (01) ==
LOC: ANHST 11:00
PROVIDERS: PCP Nurse Practitioner Family; Visit Provider Internal Medicine Gastroenterology
DX: R13.10 Dysphagia, unspecified (principal)
CPT/HCPCS: 92526; 92610

== ENCOUNTER 2023-08-18 09:49 | Outpatient (CLI) | payer MEDICARE, OTHER, SELFPAY ==
[2023-08-18 10:17] LABS: Hematocrit 42.8 % (37.0-47.0); Hemoglobin 13.2 g/dL (12.0-15.0); Mean Corpuscular HGB Conc 30.8 g/dl (32-36); Mean Corpuscular Volume 87.7 fl (80-100); Mean Platelet Volume 9.2 fl (7.4-10.4); Platelet Count Result 334 k/mm3 (150-375); Red Blood Count 4.88 M/mm3 (4.2-5.4); Red Cell Distribution Width 15.9 % (11.5-14.5); White Blood Count 9.8 K/mm3 (4.5-10.0)
[2023-08-18 10:24] LABS: Appearance Urine Cloudy (Clear); Bacteria Urine 4+ /hpf; Bilirubin Urine Negative (Negative); Blood Urine Negative (Negative); Color Urine Yellow (Yellow); Glucose Urine UA Negative (Negative); Ketones Urine Negative (Negative); Leukocyte Esterase Ur 1+ LEU/UL (Negative); Nitrate Urine Negative (Negative); Protein Urine 1+ mg/dL (Negative); RBC Urine 0-2 /hpf (0-2); Specific Grav Ur 1.019 (1.001-1.035); Squamous Epithelial Cell Urine Many /hpf (Few)
[2023-08-18 10:25] LABS: Add Urine Microscopic? YES
[2023-08-18 10:28] LABS: Alanine Aminotransferase 13 U/L (6-35); Albumin Level 4.4 g/dL (3.5-5.1); Alkaline Phosphatase 124 U/L (38-126); Anion Gap 7 mmol/L (4-12); Aspartate Amino Transferase 25 U/L (14-36); Bilirubin,Total 0.7 mg/dL (0.2-1.3); Blood Urea Nitrogen 16 mg/dL (7-17); Calcium 9.7 mg/dL (8.4-10.2); Carbon Dioxide 27 mmol/L (22-30); Chloride 106 mmol/L (98-107); Cholesterol 170 mg/dL (0-200); Estimated Glomerular Filt Rate 44; Glucose 101 mg/dL (65-110); HDL Direct 43 mg/dL; Potassium 4.4 mmol/L (3.4-5.0); Sodium 140 mmol/L (137-145); Triglycerides 129 mg/dL (<150)
[2023-08-18 10:37] LABS: Hemoglobin A1C 5.5 % (<5.7)
[2023-08-18 10:39] LABS: LDL Cholesterol Direct 99 mg/dL
[2023-08-18 14:48] LABS: Free T4 Free Thyroxine Reflex 2.03 ng/dL (0.78-2.19)
[2023-08-18 16:25] LABS: Total Triiodothyronine (T3) 1.21 NG/ML (0.97-1.69)
== END 2023-08-18 09:50 | disposition home or self-care (01) ==
PROVIDERS: PCP Nurse Practitioner Family; Visit Provider Nurse Practitioner Family
DX: E03.9 Hypothyroidism, unspecified (principal); E55.9 Vitamin D deficiency, unspecified; E61.1 Iron deficiency; E66.3 Overweight; E78.5 Hyperlipidemia, unspecified; G25.81 Restless legs syndrome; G47.61 Periodic limb movement disorder; G62.9 Polyneuropathy, unspecified; I10 Essential (primary) hypertension; I37.0 Nonrheumatic pulmonary valve stenosis; I49.5 Sick sinus syndrome; I65.23 Occlusion and stenosis of bilateral carotid arteries; I71.40 Abdominal aortic aneurysm, without rupture, unspecified; J43.9 Emphysema, unspecified; K57.90 Diverticulosis of intestine, part unspecified, without perforation or abscess without bleeding; M19.90 Unspecified osteoarthritis, unspecified site; M47.812 Spondylosis without myelopathy or radiculopathy, cervical region; R01.1 Cardiac murmur, unspecified; R13.10 Dysphagia, unspecified; Z72.0 Tobacco use; Z95.0 Presence of cardiac pacemaker; R73.03 Prediabetes; R10.2 Pelvic and perineal pain; N18.30 Chronic kidney disease, stage 3 unspecified
CPT/HCPCS: 36415; 80053; 80061; 81001; 82306; 83036; 84439; 84443; 84480; 85027; 87086

== ENCOUNTER 2023-09-16 08:17 | Outpatient (CLI) | payer MEDICARE, OTHER, SELFPAY ==
--- NOTE | ~2023-09-16 | XR_ITS ---
Right Shoulder Technique: AP and scapular Y views were obtained. Clinical History: Pain Findings: No fracture or dislocation is seen. Osseous alignment is anatomic. The glenohumeral and acr omioclavicular joints demonstrate mild degenerative change. Soft tissues are unremarkable. Impression: Mild degenerative change, as above. Reviewed, dictated and finalized at location . Impression: Mild degenerative change, as above.
--- NOTE | ~2023-09-16 | XR_ITS ---
Right Humerus Technique: AP and lateral views were obtained. Clinical History: Pain Findings: No fracture or dislocation is seen. Osseous alignment is anatomic. Moderate AC joint degene rative change present. Remaining visualized joint spaces are intact. Soft tissues are unremarkable. Impression: Moderate AC joint degenerative change. Reviewed, dictated and finalized at location . Impression: Moderate AC joint degenerative change.
== END 2023-09-16 08:18 | disposition home or self-care (01) ==
PROVIDERS: PCP Nurse Practitioner Family; Visit Provider Nurse Practitioner Family
DX: M19.011 Primary osteoarthritis, right shoulder (principal); M19.021 Primary osteoarthritis, right elbow
CPT/HCPCS: 73030; 73060

== ENCOUNTER 2024-01-08 15:53 | Outpatient (CLI) | payer MEDICARE, OTHER, SELFPAY ==
[2024-01-08 17:55] LABS: Free T4 Free Thyroxine Reflex 2.04 ng/dL (0.78-2.19)
[2024-01-08 18:44] LABS: Total Triiodothyronine (T3) 1.32 NG/ML (0.97-1.69)
== END 2024-01-08 15:54 | disposition home or self-care (01) ==
LOC: ANHLAB 15:55
PROVIDERS: PCP Nurse Practitioner Family; Visit Provider Nurse Practitioner Family
DX: R13.12 Dysphagia, oropharyngeal phase (principal); R79.89 Other specified abnormal findings of blood chemistry
CPT/HCPCS: 36415; 84439; 84443; 84480

== ENCOUNTER 2024-02-17 09:19 | Outpatient (CLI) | payer MEDICARE, OTHER, SELFPAY ==
--- NOTE | ~2024-02-17 | XR_ITS ---
Right Knee Technique: AP, lateral, and sunrise views were obtained. Clinical History: Injury Findings: No fracture or dislocation is seen. Osseous alignment is anatomic. Joint spaces are preserv ed without degenerative or erosive change. Soft tissues are unremarkable. No joint effusion is seen. Impression: Unremarkable right knee radiographs. Reviewed, dictated and finalized at [facility]. 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
--- NOTE | ~2024-02-17 | XR_ITS ---
AP and lateral views of the right tibia/fibula Clinical History: Injury Findings: No acute fracture or dislocation is seen. Osseous alignment is anatomic. Joint spaces are p reserved without significant erosive or degenerative change. Soft tissues are unremarkable. Impression: Unremarkable right tib-fib radiographs. Reviewed, dictated and finalized at [facility]. LRY OFFICER Impression: Unremarkable right tib-fib radiographs.
[2024-02-17 10:06] LABS: Hematocrit 40.1 % (37.0-47.0); Hemoglobin 12.9 g/dL (12.0-15.0); Mean Corpuscular HGB Conc 32.2 g/dl (32-36); Mean Corpuscular Hemoglobin 28.8 pg (26-34); Mean Corpuscular Volume 89.5 fl (80-100); Mean Platelet Volume 9.2 fl (7.4-10.4); Platelet Count Result 358 k/mm3 (150-375); Red Blood Count 4.48 M/mm3 (4.2-5.4); Red Cell Distribution Width 15.6 % (11.5-14.5); White Blood Count 15.9 K/mm3 (4.5-10.0)
[2024-02-17 10:20] LABS: Alanine Aminotransferase 12 U/L (6-35); Albumin Level 4.2 g/dL (3.5-5.1); Alkaline Phosphatase 115 U/L (38-126); Anion Gap 4 mmol/L (4-12); Aspartate Amino Transferase 23 U/L (14-36); Bilirubin,Total 0.8 mg/dL (0.2-1.3); Blood Urea Nitrogen 17 mg/dL (7-17); Calcium 9.7 mg/dL (8.4-10.2); Carbon Dioxide 28 mmol/L (22-30); Chloride 104 mmol/L (98-107); Cholesterol 124 mg/dL (0-200); Estimated Glomerular Filt Rate 40; Glucose 102 mg/dL (65-110); HDL Direct 50 mg/dL; Potassium 4.7 mmol/L (3.4-5.0); Sodium 136 mmol/L (137-145); Triglycerides 94 mg/dL (<150)
[2024-02-17 10:27] LABS: Add Urine Microscopic? YES; Appearance Urine Turbid (Clear); Bacteria Urine 4+ /hpf; Bilirubin Urine Negative (Negative); Blood Urine Negative (Negative); Color Urine Yellow (Yellow); Glucose Urine UA Negative (Negative); Ketones Urine Trace mg/dL (Negative); Leukocyte Esterase Ur 2+ LEU/UL (Negative); Need Manual Microscopic Reviewed; Nitrate Urine Negative (Negative); Non Pathogenic Casts 0-2; Protein Urine 2+ mg/dL (Negative); Specific Grav Ur 1.024 (1.001-1.035); Squamous Epithelial Cell Urine Many /hpf (Few); Urobilinogen Urine 0.2 mg/dL (<2.0); WBC Urine 21-50 /hpf (0-3); pH Urine 5.5 (5.0-9.0)
[2024-02-17 10:33] LABS: LDL Cholesterol Direct 41 mg/dL
[2024-02-17 10:45] LABS: Iron 28 ug/dL (37-170)
[2024-02-17 10:58] LABS: Percent Iron Saturation 8 % (20-50)
[2024-02-17 14:09] LABS: Free T4 Free Thyroxine Reflex 1.41 ng/dL (0.78-2.19)
[2024-02-17 16:39] LABS: Total Triiodothyronine (T3) 1.02 NG/ML (0.97-1.69)
== END 2024-02-17 09:20 | disposition home or self-care (01) ==
PROVIDERS: PCP Nurse Practitioner Family; Visit Provider Nurse Practitioner Family
DX: S89.91XA Unspecified injury of right lower leg, initial encounter (principal); R32 Unspecified urinary incontinence; E78.5 Hyperlipidemia, unspecified; E03.9 Hypothyroidism, unspecified; I10 Essential (primary) hypertension; E61.1 Iron deficiency; X58.XXXA Exposure to other specified factors, initial encounter
CPT/HCPCS: 36415; 73564; 73590; 80053; 80061; 81001; 82728; 83540; 83550; 84439; 84443; 84480; 85027; 87086

== ENCOUNTER 2024-07-07 10:55 | Outpatient (CLI) | payer MEDICARE, OTHER, SELFPAY ==
--- OUTSIDE RECORDS SUMMARY | 2024-07-07 11:09 | XMS_ITS | Encounter Summary ---
Author Organization [facility] Address [address] [facility] [address] [place] [address] Phone Care Team Providers Care Marine Propulsion Technician Name Role Phone Sinan Arriola MD Primary Care Provider [phone] Manan Gil MD Primary Care Provider [phone] Hien Rogel NP Primary Care Provider [phone] Encounter Details Date Type Department Care Team (Late st Contact Info) Description 04/07/2017 Orders Only [facility] Carmine Devine MD [address] [facility] [place] [id number] [place], [place] [id number] Social History Tobacco Use Types Packs/Day Years Used Date Smoking Tobacco: Never Assessed Comments Unknown Sex and Gender Information Value Date Recorded Sex Assigned at Not on file Legal Sex Female 2:35 AM [employer] Gender Identity Not on file Sexual Orientation Not on file documented as of this encounter Plan of Treatment Not on file documented as of this encounter Procedures Procedure Name Priority Date/Time Associated Diagnosis Comments CARDIOLOGY REPORT 04/07/2017 documented in this encounter Results * CARDIOLOGY REPORT (04/07/2017) Anatomical Region Laterality Modality Other Carmine Devine MD CV CARDIAC SERVICES PROCED URES Final Result documented in this encounter Visit Diagnoses Not on filedocumented in this encounter Additional Health Concerns Infection Onset Date Last Indicated Resolved Time COVID: Suspected 11/30/2019 11/30/2019 11/30/2019 6:09 PM CDT Respiratory Infection (SUZY), contact + droplet Comment:11/30/2019 Patient classified as Low Risk for COVID-19 and has one negative COVID-19 test. Patient meets criteria for COVID-19 isolation discontinuation Varsha Fu RN Automatically added due to negative COVID-19 result. 11/30/2019 11/30/2019 11/30/2019 7:39 PM C DT COVID: Suspected 06/14/2020 06/14/2020 06/14/2020 2:35 PM CDT documented as of this encounter Care Teams Marine Propulsion Technician Relationship Specialty Start Date End Date Sinan Arriola MD [address] [place] [address] PCP - General 03/13/17 10/13/18 Manan Gil MD [address] [facility] [address] [place] [address] PCP - General Internal Medicine 10/14/18 10/06/23 Hien Rogel NP [address] [place] [address] PCP - General Family Medicine 10/07/23 documented as of this encounter
--- OUTSIDE RECORDS SUMMARY | 2024-07-07 11:09 | XMS_ITS ---
Author Organization [facility] Address [address] [place] [address] Care Team Providers Care Head Cashier Name Role Phone Hien Rogel NP Primary Care Provider [phone] Active Problems Problem Noted Date Diagnosed Date Bilateral carotid artery stenosis 04/05/2021 Assessment & Plan (10/08/2023 12:42 PM CDT): Impression: Moderate stenosis to bilateral internal carotid artery seen on carotid duplex. She remains asymptomatic. Plan: Continue ongoing risk factor modifications. -patient follow-up in 1 year for re-evaluation with repeat carotid duplex. Assessment & Plan (04/16/2021 3:55 PM SLAGGER): Patient has bilateral carotid artery stenosis measuring 50-79% on today's duplex. She is currently on medications for blood pressure control, aspirin and a statin which she will remain on at this time. I also told her that she absolutely must stop smoking. I will have her follow up in 1 year with a repeat carotid artery duplex. Assessment & Plan (04/05/2021 7:37 AM SLAGGER): Patient has bilateral carotid artery stenosis but no symptoms of stroke or TIA at this time. Her previous study was done several months ago and plan will be to have her follow-up with a carotid duplex in 2 weeks. At that time will determine if anything needs to be done or if we can continue to follow her carotid stenosis. Hyperlipidemia 09/04/2020 Assessment & Plan (10/08/2023 12:42 PM CDT): Impression: Chronic and stable. Plan: Continue atorvastatin Assessment & Plan (04/16/2021 3:55 PM SLAGGER): Followed by her PCP chronic and stable. She is on Lipitor for a lipid lowering medication and I recommend she continue it. Assessment & Plan (04/05/2021 7:38 AM SLAGGER): Followed by her PCP. Chronic and stable. She is on Lipitor for lipid lowering medication and I recommend that she continue her Lipitor. Hemoptysis 11/30/2019 Assessment & Plan (06/15/2020 12:10 PM CDT): Resolved Cont cap coverage for total 7 days pulm will f/u results OP Assessment & Plan (06/14/2020 12:35 PM CDT): Unclear etiology. 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 Presented again in 11/30/19 with vascular surgery evaluation without concern for involvement of graft or new fistula. Bronch 12/02/19 with old blood primarily in CHRISTI apical segment but no active sources of bleeding. Now presents again with 1 episode of small volume hemoptysis. Her hemoptysis appears to have, at least for now, self-resolved. Coags within normal limits. Satting well on RA -CXR pending. -Continue to monitor closely. Telemetry, continuous spo2 -CT from 06/10 over read by radiology -Pulm consulted -treat for cap with ctx, azithromycin -SCDs for DVT ppx. -Bronch, BAL, trans bronh biopsies of CHRISTI performed 06/14; await results Assessment & Plan (06/13/2020 10:26 AM CDT): Unclear etiology. 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 Presented again in 11/30/19 with vascular surgery evaluation without concern for involvement of graft or new fistula. Bronch 12/02/19 with old blood primarily in CHRISTI apical segment but no active sources of bleeding. Now presents again with 1 episode of small volume hemoptysis. Her hemoptysis appears to have, at least for now, self-resolved. Coags within normal limits. Satting well on RA -CXR pending. -Continue to monitor closely. Telemetry, continuous spo2 -CT from 06/10 over read by radiology -Pulm consulted -treat for cap with ctx, azithromycin -SCDs for DVT ppx. -NPO @ [facility] for bronch on 06/14 Assessment & Plan (06/12/2020 2:19 PM CDT): Unclear etiology. 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 Presented again in 11/30/19 with vascular surgery evaluation without concern for involvement of graft or new fistula. Bronch 12/02/19 with old blood primarily in CHRISTI apical segment but no active sources of bleeding. Now presents again with 1 episode of small volume hemoptysis. Her hemoptysis appears to have, at least for now, self-resolved. Coags within normal limits. Satting well on RA -CXR pending. -Continue to monitor closely. Telemetry, continuous spo2 -CT from 06/10 over read by radiology -Pulm consult -SCDs for DVT ppx. -NPO @ [facility] Assessment & Plan (06/15/2020 1:54 PM CDT): 2nd episode of hemoptysis since TEVAR 03/2017, with first episode 12/2019. No etiology was identified in 12/2019 during bronchoscopy, but clot originating from the CHRISTI apical segment was visualized. This admission, her CT Chest shows worsening consolidation in the CHRISTI compared to 6 months ago. Imaging findings plus her significant smoking history raise concern for possibly underlying malignancy, less likely fistula given small amount of bleeding or primary PNA given no systemic signs of infection (however no interval imaging to determine if CHRISTI lesion improved between admissions) -Bronchoscopy cultures and pathology pending. Cultures NGTD -F/u bronchoscopy cultures and cyto/path -Will plan for a total of 7 days of CAP coverage -We will f/u pathology and if negative will plan for f/u in clinic in [address] at that time Assessment & Plan (06/11/2020 11:45 PM CDT): Unclear etiology. 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 Presented again in 11/30/19 with vascular surgery evaluation without concern for involvement of graft or new fistula. Bronch 12/02/19 with old blood primarily in CHRISTI apical segment but no active sources of bleeding. Now presents again with 1 episode of small volume hemoptysis. Her hemoptysis appears to have, at least for now, self-resolved. Coags within normal limits. Satting well on RA -CXR pending. -Continue to monitor closely. Telemetry, continuous pulse-ox overnight -Will upload OSH CT to [facility] for review -Would touch base with IP and consider VIR consult pending radiology read of OSH scan -SCDs for DVT ppx. NPO after midnight pending procedural decision Assessment & Plan (12/02/2019 12:02 PM CDT): -hemoptysis now resolved, Hgb stable, HD stable -CT Chest revealed left lung hemorrhage vs pneumonia, no PE and no acute aortic syndrome. -COVID PCR negative. -s/p vascular surgery cs: No evidence of graft dysfunction or vascular/aortic issue. -s/p IP bronchoscopy 11/30->Large amt clot from CHRISTI. No active areas of bleeding were identified. No endobronchial lesions -Bronch washing NGTD -would hold asa until PCP f/u -Complete 5 day course of antibx for CAP->patient instructed to return if further hemoptysis reoccurs. -If significant re-bleeding, would recommend consultation with radiology for possible embolization procedure with attention to the left upper lobe Assessment & Plan (12/01/2019 11:06 AM CDT): -hemoptysis x 1, now resolved -CT Chest reveals left lung hemorrhage vs pneumonia, no PE and no acute aortic syndrome. HDS. Hgb 12.4 (baseline). -COVID PCR negative. - s/p vascular surgery cs: No evidence of graft dysfunction or vascular/aortic issue. - s/p Pulm cs: No indication for ICU admission given HD stability. IP consult- >for bronchoscopy today. - holding ASA, SCDs for DVT ppx. NPO for possible bronchoscopy - T&S. Consented for blood. Monitor H/H q6h. -antibx ordered per ED for CAP Assessment & Plan (11/30/2019 11:03 PM CDT): Patient presents with hemoptysis since this am. CT Chest reveals left lung hemorrhage vs pneumonia, no PE and no acute aortic syndrome. HDS. Hgb 12.4 (baseline). COVID PCR negative. - vascular surgery consulted. No evidence of graft dysfunction or vascular/aortic issue. - pulm consulted. No indication for ICU admission. Will evaluate in am to determine need for bronchoscopy. - hold ASA, SCDs for DVT ppx - T&S. Consented for blood. Monitor H/H q6h. - if patient has large bleed, contact ICU for immediate transfer, intubation and bronchoscopy - keep NPO for likely bronchoscopy in am - given absence of infectious symptoms, normal WBC, suspicion for pneumonia is lower. Will hold off abx. Can initiate if patient decompensates. SSS (sick sinus syndrome) 11/30/2019 Assessment & Plan (12/02/2019 11:59 AM CDT): S/p PPM. - Remains SR on tele Assessment & Plan (12/01/2019 11:09 AM CDT): S/p PPM. - SR on tele Assessment & Plan (11/30/2019 10:55 PM CDT): S/p PPM. - EKG - tele HTN (hypertension) 11/30/2019 Assessment & Plan (10/08/2023 12:42 PM CDT): Impression: Chronic and stable. Plan: Continue losartan, amlodipine and valsartan Assessment & Plan (04/16/2021 3:56 PM SLAGGER): Followed by her PCP chronic and stable. I recommend she continue her amlodipine and Diovan for blood pressure control. Assessment & Plan (04/05/2021 7:38 AM SLAGGER): Followed by her PCP. Chronic and stable. I recommend she continue her amlodipine and Diovan for blood pressure control. Assessment & Plan (06/15/2020 12:10 PM CDT): Resume home bp meds Assessment & Plan (06/14/2020 12:35 PM CDT): Home regimen of amlodipine and losartan. Hold these for now. If remains clinically stable, likely ok to resume in near future. Assessment & Plan (06/13/2020 10:26 AM CDT): Home regimen of amlodipine and losartan. Hold these for now. If remains clinically stable, likely ok to resume in near future. Assessment & Plan (06/12/2020 2:19 PM CDT): Home regimen of amlodipine and losartan. Hold these for now. If remains clinically stable, likely ok to resume in near future. Assessment & Plan (06/11/2020 11:45 PM CDT): Home regimen of amlodipine and losartan. Hold these for now. If remains clinically stable, likely ok to resume in near future. Assessment & Plan (12/02/2019 11:57 AM CDT): Hypertensive on admission. - continue home amlodipine and losartan Assessment & Plan (12/01/2019 11:05 AM CDT): Hypertensive on admission. - continue home amlodipine and losartan Assessment & Plan (11/30/2019 10:54 PM CDT): Hypertensive on admission. - continue amlodipine and losartan Hypothyroidism 11/30/2019 Assessment & Plan (06/15/2020 12:10 PM CDT): Continue home synthroid 125mcg Assessment & Plan (06/14/2020 12:35 PM CDT): Continue home synthroid 125mcg Assessment & Plan (06/13/2020 10:27 AM CDT): Continue home synthroid 125mcg Assessment & Plan (06/12/2020 2:19 PM CDT): Continue home synthroid 125mcg Assessment & Plan (06/11/2020 11:45 PM CDT): Continue home synthroid 125mcg Assessment & Plan (12/02/2019 11:57 AM CDT): - continue home synthroid 125 mcg daily. Assessment & Plan (12/01/2019 11:08 AM CDT): - continue home synthroid 125 mcg daily. Assessment & Plan (11/30/2019 10:54 PM CDT): - continue synthroid 125 mcg daily Tobacco abuse 11/30/2019 Assessment & Plan (10/08/2023 12:43 PM CDT): Plan: Patient with history of tobacco abuse who is a current everyday half pack per day. Plan: Discussed with the patient greater than 3 minute discussion with the patient on the importance of smoking cessation and the negative affects on their cardiovascular health. The patient is currently not interested in quitting. Assessment & Plan (04/16/2021 3:56 PM SLAGGER): Patient is a current everyday smoker. I spent more than 3 minutes discussing with her smoking cessation and the effects of smoking on her overall cardiovascular health. She says she does understand and knows that it will be hard but she will try to quit. Assessment & Plan (12/02/2019 12:00 PM CDT): 1 PPD x 50 years. - counseled on cessation. Not interested in quitting. - nicotine patch used while inpatient Assessment & Plan (12/01/2019 11:11 AM CDT): 1 PPD x 50 years. - counseled on cessation. Not interested in quitting. - nicotine patch while inpatient Assessment & Plan (11/30/2019 10:54 PM CDT): 1 PPD x 50 years. - counseled on cessation. Not interested in quitting. - nicotine patch Stage 3 chronic kidney disease 11/30/2019 Assessment & Plan (06/15/2020 12:10 PM CDT): stable Assessment & Plan (06/14/2020 12:35 PM CDT): Baseline creatinine 1.2-1.3. Creatinine currently 1.24. Appears euvolemic on exam. No significant metabolic derangements otherwise Resume losartan in near future if remains clinically stable Avoid nephrotoxins. CTM Assessment & Plan (06/13/2020 10:27 AM CDT): Baseline creatinine 1.2-1.3. Creatinine currently 1.24. Appears euvolemic on exam. No significant metabolic derangements otherwise Resume losartan in near future if remains clinically stable Avoid nephrotoxins. CTM Assessment & Plan (06/12/2020 2:19 PM CDT): Baseline creatinine 1.2-1.3. Creatinine currently 1.24. Appears euvolemic on exam. No significant metabolic derangements otherwise Resume losartan in near future if remains clinically stable Avoid nephrotoxins. CTM Assessment & Plan (06/11/2020 11:47 PM CDT): Baseline creatinine 1.2-1.3. Creatinine currently 1.24. Appears euvolemic on exam. No significant metabolic derangements otherwise Resume losartan in near future if remains clinically stable Avoid nephrotoxins. CTM Assessment & Plan (12/02/2019 12:00 PM CDT): Cr 1.29. At baseline. - renally dose medications. Avoid nephrotoxic agents as able -f/u Renal as planned 12/25 Assessment & Plan (12/01/2019 11:10 AM CDT): Cr 1.29. At baseline. - renally dose medications. Avoid nephrotoxic agents as able Assessment & Plan (11/30/2019 11:01 PM CDT): Cr 1.40. At baseline. - renally dose medications. Avoid nephrotoxic agents. 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 Continues to smoke unfortunately. 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 Continues to smoke unfortunately. 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 Continues to smoke unfortunately. 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 Continues to smoke unfortunately. 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 Continues to smoke unfortunately. 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 Unfortunately patient continues to smoke. 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 Unfortunately patient continues to smoke. - outpatient follow-up-> looks like she had an appt today which will need to be rescheduled. 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 Unfortunately patient continues to smoke. - outpatient follow-up Arteriosclerosis of artery of extremity 04/09/19 18 Rupture of iliac artery 04/09/2017 Thoracic aortic aneurysm without rupture 018 Presence of cardiac pacemaker 04/07/2017 Diabetes mellitus 02/08/2013 Restless legs syndrome (RLS) 02/08/2013 Encounter for preventive health examination 01/01 Current Treatment and Therapy Plans No current plan information found. Past Treatment and Therapy Plans No past plan information found. Lifetime Dose Tracking * Chemical Lifetime Dose Automatic Entry Manual Entr y DLP 4,065 mGycm 4,065 mGycm 0 mGycm Resolved Problems Problem Noted Date Diagnosed Date Resolved Date Bilateral carotid artery stenosis 04/05/2021 023 10/08/2023 Overview (09/24/2022): Last Assessment & Plan: Patient has bilateral carotid artery stenosis measuring 50-79% on today's duplex. She is currently on medications for blood pressure control, aspirin and a statin which she will remain on at this time. I also told her that she absolutely must stop smoking. I will have her follow up in 1 year with a repeat carotid artery duplex. Rash 06/13/2020 10/08/2023 Assessment & Plan (06/15/2020 12:10 PM CDT): L shoulder Reports sun burn over 1 year ago; since not healing with open wounds Pictures uploaded in media Derm consulted- does not think this is concerning for malignancy. Recommend Allevyn patch daily. Assessment & Plan (06/14/2020 12:36 PM CDT): L shoulder Reports sun burn over 1 year ago; since not healing with open wounds Pictures uploaded in media Derm consulted- does not think this is concerning for malignancy. Recommend Allevyn patch daily. Assessment & Plan (06/13/2020 10:27 AM CDT): L shoulder Reports sun burn over 1 year ago; since not healing with open wounds Pictures uploaded in media Consult derm
--- OUTSIDE RECORDS SUMMARY | 2024-07-07 11:09 | XMS_ITS | Referral Summary ---
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 Active magnesium gluconate (MAGONATE) 500 mg (27 mg elemental) tabletIndicatio ns:hypomagnesem ia Take 0.5 tablets (250 mg total) by mouth daily Active amLODIPine (NORVASC) 5 mg tabletIndicatio ns:hypertension Take 1 tablet (5 mg total) by mouth daily 1 9 Active losartan (COZAAR) 100 mg tabletIndicatio ns:hypertension Take 100 mg by mouth daily 1 9 Active aspirin 81 mg enteric coated tablet Take 1 tablet (81 mg total) by mouth daily Active atorvastatin (LIPITOR) 40 mg tablet Take 1 tablet (40 mg total) by mouth daily 0 Active cyanocobalamin (Vitamin B-12) 100 mcg tablet Take 0.5 tablets (50 mcg total) by mouth daily Active docosahexaenoic acid-epa 120-180 mg capsule Take 1,000 mg by mouth daily Active gabapentin (NEURONTIN) 100 mg capsule Take 1 capsule (100 mg total) by mouth nightly 0 Active magnesium oxide (MAG-OX) 400 mg (241.3 mg elemental magnesium) tablet Take 800 mg by mouth daily Active magnesium oxide-Mg AA chelate 133 mg of elemental magnesium Take 1 tablet by mouth 2 (two) times a day Active traZODone (DESYREL) 100 mg tablet Take 100 mg by mouth nightly as needed Active valsartan (DIOVAN) 160 mg tablet Take 160 mg by mouth daily 0 Active amoxicillin-cla vulanate (AUGMENTIN) 875-125 mg per tablet Take 1 tablet by mouth 2 (two) times a day 1 Active azithromycin (ZITHROMAX) 250 mg tablet Take 2 tablets by mouth on day one then 1 daily for four days. 1 Active ferrous sulfate 325 mg (65 mg of elemental iron) tablet Take 1 tablet (325 mg total) by mouth daily Active folic acid (FOLVITE) 1 mg tablet Take 1 tablet (1 mg total) by mouth daily Active albuterol HFA (PROVENTIL HFA,VENTOLIN HFA,PROAIR HFA) 90 mcg/actuation inhaler Inhale 2 puffs every 6 (six) hours as needed 2 Active Active Problems Problem Noted Date Diagnosed Date Bilateral carotid artery stenosis 04/05/2021 Assessment & Plan (10/08/2023 12:42 PM CDT): Impression: Moderate stenosis to bilateral internal carotid artery seen on carotid duplex. She remains asymptomatic. Plan: Continue ongoing risk factor modifications. -patient follow-up in 1 year for re-evaluation with repeat carotid duplex. Assessment & Plan (04/16/2021 3:55 PM SENIOR CONSULTANT): Patient has bilateral carotid artery stenosis measuring 50-79% on today's duplex. She is currently on medications for blood pressure control, aspirin and a statin which she will remain on at this time. I also told her that she absolutely must stop smoking. I will have her follow up in 1 year with a repeat carotid artery duplex. Assessment & Plan (04/05/2021 7:37 AM SENIOR CONSULTANT): Patient has bilateral carotid artery stenosis but [...] atorvastatin Assessment & Plan (04/16/2021 3:55 PM SENIOR CONSULTANT): Followed by her PCP chronic and stable. She is on Lipitor for a lipid lowering medication and I recommend she continue it. Assessment & Plan (04/05/2021 7:38 AM SENIOR CONSULTANT): Followed by her PCP. Chronic and stable. [...] valsartan Assessment & Plan (04/16/2021 3:56 PM SENIOR CONSULTANT): Followed by her PCP chronic and stable. I recommend she continue her amlodipine and Diovan for blood pressure control. Assessment & Plan (04/05/2021 7:38 AM SENIOR CONSULTANT): Followed by her PCP. Chronic and stable. [...] quitting. Assessment & Plan (04/16/2021 3:56 PM SENIOR CONSULTANT): Patient is a current everyday smoker. 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 Continues to smoke unfortunately. 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 Continues to smoke unfortunately. 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 Continues to smoke unfortunately. 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 Continues to smoke unfortunately. 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 Continues to smoke unfortunately. 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 Unfortunately patient continues to smoke. 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 Unfortunately patient continues to smoke. - outpatient follow-up-> looks like she had an appt today which will need to be rescheduled. 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 Unfortunately patient continues to smoke. - outpatient follow-up Arteriosclerosis of artery of extremity 04/09/19 18 Rupture of iliac artery 04/09/2017 Thoracic aortic aneurysm without rupture 018 Presence of cardiac pacemaker 04/07/2017 Diabetes mellitus 02/08/2013 Restless legs syndrome (RLS) 02/08/2013 Encounter for preventive health examination 01/01 Resolved Problems Problem Noted Date Diagnosed Date [...] wounds Pictures uploaded in media Consult derm Immunizations Immunization Administration Dates Next Due Influenza, Quadrivalent, Hig h Dose, Preservative Free, Intrr 12/02/2019(Deferred: Patient Refused),11/15/2019 Influenza, Quadrivalent, Spl it, Intramuscular 12/01/2018 Influenza, Trivalent, High D ose, Split, Preservative Free, Intramuscular 12/10/2018,11/10/2017 Influenza, Unspecified 12/03/2017 Pneumococcal Conjugate 7-Valent 02/15/2013 Pneumococcal Conjugate PCV 13 11/10/2017 Pneumococcal Conjugate, Unspecified 02/15/2013 Pneumococcal Polysaccharide PPV23 10/22/2018, Social History Tobacco Use Types Packs/Day Years Used Date Smoking Tobacco: Every Day Cigarettes 2 50 Smokeless Tobacco: Never Tobacco Cessation:Ready to Q uit: Not Asked; Counseling Given: Not Answered Alcohol Use Standard Drinks/Week Comments No 0 (1 standard drink = 0.6 oz pur e alcohol) Comments Unknown Sex and Gender Information Value Date Recorded Sex Assigned at Not on file Legal Sex Female 2:35 AM SENIOR CONSULTANT Gender Identity Not on file Sexual Orientation Not on file Last Filed Vital Signs Vital Sign Reading Time Taken Comments Blood Pressure 144/76 10/07/2023 1:01 PM CDT Pulse 85 10/07/2023 1:01 PM CDT Temperature 36.7 C (98 F) 06/15/2020 7:47 AM CDT Respiratory Rate 18 06/15/2020 7:47 AM CDT Oxygen Saturation 98% 06/15/2020 7:47 AM CDT Inhaled Oxygen Concentration - - Weight 66.2 kg (146 lb) 10/07/2023 1:01 PM CDT Height 160 cm (5' 3 ) 10/07/2023 1:01 PM CDT Body Mass Index 25.86 10/07/2023 1:01 PM CDT Plan of Treatment Not on file Procedures Procedure Name Priority Date/Time Associated Diagnosis Comments HEMOGLOBIN A1C STAT 06/11/2020 6:30 PM CDT LIPID PANEL STAT 06/11/2020 6:30 PM CDT from Last 3 Months or Most Recently Relevant to Health Maintenance Results * Hemoglobin A1c (06/11/2020 6:30 PM CDT) Hgb A1C 5.4 4.0 - 5.6 % [facility] Estimated Average Glucose 108 mg/dL [facility] Comment: The ADA recommends reporting an estimated Average Glucose (eAG) with all Hemoglobin A1c results using the equation derived from a study of 507 normal and diabetic adults. Minority populations were underrepresented and children were not included. (Diabetes Care 2020; 43/51): 566-576. The eAG is not equivalent to a fasting glucose. Blood specimen (specimen) 06/11/2020 6:30 PM CDT 06/11/2020 7:17 PM CDT us Makeda Orozco MD LAB BLOOD ORDERABLES Samira juarez Result [facility] Department [place] [address] * (ABNORMAL) Lipid panel (06/11/2020 6:30 PM CDT) Cholesterol 169 30 - 199 mg/dL [facility] Comment: Interpretive Data Ages < or = 19 years Acceptable: <170 mg/dL Borderline high: 170-199 mg/dL High: >or= 200 mg/dL Ages > or = 20 years Desirable: <200 mg/dL Borderline high: 200-239 mg/dL High: >or= 240 mg/dL Literature References: 1. Expert Panel on Integrated Guidelines for Cardiovascular Health and Risk Reduction in Children and Adolescents. Pediatrics 2011;128:S213 2. NCEP Expert Panel. Circulation 2004;110:227 Current Interpretive Data was last revised on 2017. Triglycerides 137 <=149 mg/dL [facility] Comment: Interpretive Data Ages < or = 9 years Acceptable: <75 mg/dL Borderline high: 75-99 mg/dL High: >or= 100 mg/dL Ages 10 to 20 years Acceptable: <90 mg/dL Borderline high: 90-129 mg/dL High: >or= 130 mg/dL Ages > or = 20 years Desirable: <150 mg/dL Borderline high: 150-199 mg/dL High: 200-499 mg/dL Very high: >or= 499 mg/dL Literature References: 1. Expert Panel on Integrated Guidelines for Cardiovascular Health and Risk Reduction in Children and Adolescents. Pediatrics 2011;128:S213 2. NCEP Expert Panel. Circulation 2004;110:227 Current Interpretive Data was last revised on 2017. HDL 34(L) >=40 mg/dL [facility] Comment: Interpretive Data Ages < or = 19 years Acceptable: >45 mg/dL Borderline low: 40-45 mg/dL Low: <40 mg/dL Ages > or = 20 years Desirable: >or= 60 mg/dL Low: <40 mg/dL Literature References: 1. Expert Panel on Integrated Guidelines for Cardiovascular Health and Risk Reduction in Children and Adolescents. Pediatrics 2011;128:S213 2. NCEP Expert Panel. Circulation 2004;110:227 Current Interpretive Data was last revised on 2017. LDL, calculated 108 <=129 mg/dL [facility] Comment: Interpretive Data Ages < or = 19 years Acceptable: <110 mg/dL Borderline high: 110-129 mg/dL High: >or= 130 mg/dL Ages > or = 20 years Optimal: <100 mg/dL Near optimal: 100-129 mg/dL Borderline high: 130-159 mg/dL High: >160 mg/dL Literature References: 1. Expert Panel on Integrated Guidelines for Cardiovascular Health and Risk Reduction in Children and Adolescents. Pediatrics 2011;128:S213 2. NCEP Expert Panel. Circulation 2004;110:227 Current Interpretive Data was last revised on 2017. Non-HDL Cholesterol 135 mg/dL [facility] Comment: Interpretive Data Ages < or = 19 years Acceptable: <120 mg/dL Borderline high: 120-144 mg/dL High: >145 mg/dL Ages > or = 20 years When triglycerides are >200 mg/dL, Non-HDL cholesterol is a secondary target of therapy with treatment goals that are 30 mg/dL greater than the LDL cholesterol target. Literature References: 1. Expert Panel on Integrated Guidelines for Cardiovascular Health and Risk Reduction in Children and Adolescents. Pediatrics 2011;128:S213 2. NCEP Expert Panel. Circulation 2004;110:227 Current Interpretive Data was last revised on 2017. Chol/HDL ratio 5 [facility] Blood specimen (specimen) 06/11/2020 6:30 PM CDT 06/11/2020 7:15 PM CDT Narrative [facility] - 06/12/2020 12:03 AM CDT Reflex us Makeda Orozco MD LAB BLOOD ORDERABLES Samira juarez Result [facility] Department [place] [address] from Last 3 Months or Most Recently Relevant to Health Maintenance Insurance MEDICARE [facility] MEDICARE [employer] [place] [place] [facility] MEDICARE Advance Directives For more information, please contact: [phone] * Full Code (Latest Code Status on File) Date Activated Date Inactivated Comments 06/11/2020 5:44 PM 06/15/2020 6:17 PM * Full Code Date Activated Date Inactivated Comments 12/01/2019 4:10 PM 12/02/2019 5:34 PM Care Teams Drum Operator Relationship Specialty Start Date End Date Hien Rogel NP [address] [place] [address] PCP - General Family Medicine 10/07/23
--- OUTSIDE RECORDS SUMMARY | 2024-07-07 11:09 | XMS_ITS | Clinical Summary ---
Author Organization [facility] Address [address] [place] [address] Care Team Providers Care Database Marketing Manager Name Role Phone Carmine Devine MD Unavailable Ely Wisdom MD Unavailable [phone] Carmine Daniel MD Unavailable [phone] Evans Garcia MD Unavailable [phone] Hien Rogel NP Primary Care Provider [phone] Allergies No known active allergies Medications rOPINIRole 4 MG tablet Take 1 tablet (4 mg total) by mouth 2 (two) times a day. 05/14/2020 Active fish oil 1000 MG Cap capsule Take 1 capsule (1,000 mg total) by mouth daily. Active aspirin EC 81 MG tablet Take 1 tablet (81 mg total) by mouth daily. Active magnesium oxide 250 MG tablet Take 1 tablet (250 mg total) by mouth daily. Active Cyanocobalamin 100 MCG Tab Take 100 mcg by mouth daily. Active amLODIPine (NORVASC) 10 MG tablet Take 1 tablet (10 mg total) by mouth daily. Active gabapentin (NEURONTIN) 100 MG capsule Take 1 capsule (100 mg total) by mouth daily. Active valsartan (DIOVAN) 160 MG tablet Take 1 tablet (160 mg total) by mouth daily. 09/29/2023 Active atorvastatin (LIPITOR) 40 MG tablet Take 1 tablet (40 mg total) by mouth daily. 08/30/2023 Active levothyroxine (SYNTHROID) 100 MCG tablet Take 1 tablet (100 mcg total) by mouth daily. 10/15/2023 Active FEROSUL 325 (65 Fe) MG tablet Take 1 tablet (325 mg total) by mouth daily. 10/27/2023 Active budesonide-formo terol (BREYNA) 80-4.5 MCG/ACT inhalerIndicatio ns:Pulmonary emphysema, unspecified emphysema type ([facility]) Inhale 2 puffs into the lungs 2 (two) times daily. 6.9 g 6 03/18/2024 Active ezetimibe (ZETIA) 10 MG tablet Take 1 tablet (10 mg total) by mouth daily. 30 tablet 3 03/24/2024 Active Active Problems Problem Noted Date Diagnosed Date Bilateral carotid artery stenosis 04/05/2021 Overview (07/21/2022): Last Assessment & Plan: Patient has bilateral carotid artery stenosis measuring 50-79% on today's duplex. She is currently on medications for blood pressure control, aspirin and a statin which she will remain on at this time. I also told her that she absolutely must stop smoking. I will have her follow up in 1 year with a repeat carotid artery duplex. Hemoptysis 09/04/2020 Diabetes mellitus ([facility]) 09/04/2020 Hyperlipidemia 09/04/2020 Restless legs syndrome (RLS) 09/04/2020 Hypertension 11/30/2019 Overview (09/04/2020): Last Assessment & Plan: Resume home bp meds Last Assessment & Plan: Resume home bp meds Hypothyroidism 11/30/2019 Overview (09/04/2020): Last Assessment & Plan: - continue home synthroid 125 mcg daily. Last Assessment & Plan: Continue home synthroid 125mcg Last Assessment & Plan: Continue home synthroid 125mcg Sick sinus syndrome ([facility]) 11/30/2019 Overview (09/04/2020): Last Assessment & Plan: S/p PPM. - Remains SR on tele Last Assessment & Plan: S/p PPM. - Remains SR on tele Last Assessment & Plan: S/p PPM. - Remains SR on tele CKD (chronic kidney disease) 11/30/2019 Overview (09/04/2020): Last Assessment & Plan: stable Last Assessment & Plan: stable Tobacco user 11/30/2019 Overview (09/04/2020): Last Assessment & Plan: 1 PPD x 50 years. - counseled on cessation. Not interested in quitting. - nicotine patch used while inpatient Last Assessment & Plan: 1 PPD x 50 years. - counseled on cessation. Not interested in quitting. - nicotine patch used while inpatient Last Assessment & Plan: 1 PPD x 50 years. - counseled on cessation. Not interested in quitting. 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 Continues to smoke unfortunately. 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 Continues to smoke unfortunately. Currently in contemplative stage of quitting Thoracic aortic aneurysm without rupture 018 Cardiac pacemaker in situ 03/02/2017 Overview (12/09/2022): Micra leadless pacemaker implanted in 2018 for frequent pauses Encounters Date Type Department Care Team Description 06/10/2024 Telephone [facility] [address], [address] [place] [address] Erin Azevedo MA Information 06/08/2024 Telephone TRADE [facility] [address], [address] [place] [address] Erin Azevedo MA Follow Up Call 05/18/2024 Telephone [facility] [address], [address] [place] [address] Blanca Mccabe RN Information 05/17/2024 2:00 PM CDT Allied Health/Nurse Visit [place] [facility] [address], [address] [place] [address] Wilmer Holman MD Remote Device Check 05/17/2024 Travel from Last 3 Months Immunizations Immunization Administration Dates Next Due Fluzone High Dose - >Age 65 (Prefilled Syringe) 11/15/2019,12/10/2018,11/10/2017 Influenza (Generic) 12/03/2017 Influenza Adult (Generic) 12/10/2018,04/2018,11/10/2017,2016 PFIZER COVID-19 (ORIGINAL FORMULATION, PURPLE CAP) mRNA, LNP-S, PF, 30 MCG/0.3 ML DOSE 05/18/2020,04/26/2020 Pneumococcal (Pneumovax 23) 10/22/2018 Pneumococcal (Prevnar 13) 11/10/2017 Pneumococcal (Prevnar 7) 02/15/2013 Typhoid 11/15/2019 Family History Medical History Relation Comments Heart Disease Brother 1 Heart Disease Brother 2 Heart Disease Brother 3 Heart Disease Brother 4 Heart Disease Brother 5 Heart Disease Brother 6 Heart Disease Father Heart Disease Mother Diabetes Sister 1 Kidney Disease Sister 1 Kidney Disease Sister 2 Asthma Neg Hx Relation Status Comments Brother 1 Alive Brother 2 Brother 3 Brother 4 Brother 5 Brother 6 Daughter Alive Father Mother Sister 1 Alive Sister 2 Son 1 Alive Son 2 Alive Social History Tobacco Use Types Packs/Day Years Used Date Smoking Tobacco: Every Day Cigarettes 1 50 Smokeless Tobacco: Never Tobacco Cessation:Ready to Q uit: Not Asked; Counseling Given: Yes Comments:Smoking 0.50 pack a day Alcohol Use Standard Drinks/Week Comments Never 0 (1 standard drink = 0.6 oz pur e alcohol) AUDIT-C Answer Date Recorded Q1: How often do you have a drink containing alc ohol? Never 06/10/2020 Average Number of Drinks Not on file 021 Frequency of Binge Drinking Not on file 05/31 PHQ-2 Answer Date Recorded PHQ-2 Score - If the patient scores above 3, please move on to questions 3-9 0 01/20/2022 Comments No Sex and Gender Information Value Date Recorded Sex Assigned at Not on file Legal Sex Female 9:56 AM MOBILE APPLICATION ARCHITECT Gender Identity Not on file Sexual Orientation Not on file Last Filed Vital Signs Vital Sign Reading Time Taken Comments Blood Pressure 172/78 03/18/2024 10:36 AM MOBILE APPLICATION ARCHITECT Pulse 77 03/18/2024 10:08 AM MOBILE APPLICATION ARCHITECT Temperature 37.1 C (98.8 F) 03/03/2024 12:10 PM MOBILE APPLICATION ARCHITECT Respiratory Rate 16 03/18/2024 10:08 AM MOBILE APPLICATION ARCHITECT Oxygen Saturation 97% 03/18/2024 10:08 AM MOBILE APPLICATION ARCHITECT ra Inhaled Oxygen Concentration - - Weight 63.5 kg (140 lb) 03/18/2024 10:08 AM MOBILE APPLICATION ARCHITECT Height 160 cm (5' 3 ) 03/18/2024 10:08 AM MOBILE APPLICATION ARCHITECT Body Mass Index 24.8 03/18/2024 10:08 AM MOBILE APPLICATION ARCHITECT Plan of Treatment Upcoming Encounters Date Type Department Care Team (Late st Contact Info) Description 07/11/2024 9:45 AM CDT [facility] [address] [place] [address] Nita Alex, ANP-BC [facility]. [address] [place] [address] 08/15/2024 3:00 PM CDT Allied Health/Nurse Visit [place] [facility] [address], [address] [place] [address] Wilmer Holman MD [address] [facility] [place] [address] 09/15/2024 7:40 AM CDT Office Visit [facility] - [facility] [address] [place] [id number] Maribel Downs DO [address] [place], [place] [id number] Health Maintenance Due Date Last Done Comments Colorectal Cancer Screening Colonoscopy (10 Years) 1952 Kidney Health Evaluation 1952 Diabetes: Retinopathy Eye Exam 1970 Hepatitis C 1970 DTaP, Tdap and Td Vaccines (1 - Tdap) 1971 Mammogram Screening 1992 Zoster Vaccines (1 of 2) 2002 RSV Immunization or 60+ Years (1 - Risk 60-74 years 1-dose series) 2012 Annual Medicare Wellness Visit 2017 Dexa Scan (General) 2017 Hemoglobin A1C 03/08/2021 09/05/2020, 04/04/2020, 12/01/2019 COVID-19 Vaccine ( season) 2023 05/18/2020, 04/26/2020 PHQ-2 (Physician [place]) 03/02/2024 Lipid Panel 08/17/2024 08/18/2023 Lung Cancer Screening 08/20/2024 08/21/2023 , 07/12/2022, 07/18/2021, Additional history exists Pneumococcal Vaccine: 50+ Years Completed 10/22/2018, 11/10/2017, 02/15/2013 Meningococcal B Vaccine Aged Out No l onger eligible based on patient's age to complete this topic Meningococcal Vaccine Aged Out No bobby danyell eligible based on patient's age to complete this topic RSV Immunizations Under 20 Months Aged Out No longer eligible based on patient's age to complete this topic Medical Devices Implanted Type Area Formation Testing Operator Device Identifier Shelf Expiration Date Model / Serial / Lot Mdt Micra Pacemaker-04/06/19 18 Implanted:2017 by Evans Garcia, RT Student (Quantity not on file) Pacemaker [employer] CARDIAC RHYTHM AND HEART FAILURE - DIV M [id number] / [id number] / Description:MRI Conditional under following conditions: Static magnetic field of 1.5 T or 3 T, Max spatial gradient field of 2500 Gauss/cm or less, Max slew rate 200 T/m/s, Max whole body VIJAYA of 4 W/kg or less, Head VIJAYA 3.2 W/kg or less, Do not use local transmit coils on the chest, trunk, or shoulder area Procedures Procedure Name Priority Date/Time Associated Diagnosis Comments CT LUNG SCREENING Routine 08/21/2023 12: 38 PM CDT Nicotine dependence, cigarettes, with other nicotine-induced disorders LIPID PANEL Routine 08/18/2023 HEMOGLOBIN, GLYCOSYLATED Routine 09/05/2020 4:40 AM CDT from Last 3 Months or Most Recently Relevant to Health Maintenance Results * CT LUNG SCREENING (08/21/2023 12:38 PM CDT) Anatomical Region Laterality Modality Chest Computed Tomogra phy 08/24/2023 3:01 AM CDT Impressions 08/24/2023 3:05 AM CDT IMPRESSION: 1. Stable chronic lung changes without suspicious pulmonary nodule. Recommend annual screen 2. Extensive atherosclerotic changes, coronary arterial calcifications, vascular stent, small hiatal hernia and colonic diverticuli Lung-RADS: (2) Benign Appearance or Behavior RECOMMENDATION: Continue annual screening with a low dose lung CT in 12 months as long as patient meets screening criteria Referred By: MARIBEL DOWNS Interpreted By: Anthony Boyce MD, 08/24/2023 3:01 AM Narrative 08/24/2023 3:05 AM CDT INDICATION: 73 year-old with significant smoking history DOSE OPTIMIZATION: This facility uses dose optimization techniques as appropriate to perform exams, including at least one of the following techniques: 1. Automated exposure control. 2. Adjustment of the mA and/or kV according to patient size (this includes techniques or standardized protocols for targeted exams where dose is matched to the indication/reason for exam, i.e. extremities or head). 3. Use of iterative reconstructive technique. TECHNIQUE: CT chest was performed without IV contrast COMPARISON: 01/10/2023 FINDINGS: Extensive atherosclerotic changes are noted. No mediastinal lymphadenopathy by size criteria is noted. Coronary arterial calcifications are seen. There is a stent in the descending aorta. There is a small hiatal hernia. There is a nonobstructing left renal calculi or vascular calcification measuring 1 mm colonic diverticuli are noted. Emphysematous changes are noted. Scarring in the apices are seen and stable. Scarring in the left lung base is noted. Mild atelectasis or subpleural fibrotic changes in the right are noted. There are degenerative changes in the spine. Procedure Note Randy Boyce MD - 08/24/2023 INDICATION: 73 year-old with significant smoking history DOSE OPTIMIZATION: This facility uses dose optimization techniques asappropriate to perform exams, including at least one of the followingtechniques: 1. Automated exposure control. 2. Adjustment of the mA and/or kV according to patient size (thisincludes techniques or standardized protocols for targeted exams wheredose is matched to the indication/reason for exam, i.e. extremities orhead). 3. Use of iterative reconstructive technique. TECHNIQUE: CT chest was performed without IV contrast COMPARISON: 01/10/2023 FINDINGS: Extensive atherosclerotic changes are noted. No mediastinallymphadenopathy by size criteria is noted. Coronary arterialcalcifications are seen. There is a stent in the descending aorta. Thereis a small hiatal hernia. There is a nonobstructing left renal calculi orvascular calcification measuring 1 mm colonic diverticuli are noted. Emphysematous changes are noted. Scarring in the apices are seen andstable. Scarring in the left lung base is noted. Mild atelectasis orsubpleural fibrotic changes in the right are noted. There are degenerative changes in the spine. IMPRESSION: 1. Stable chronic lung changes without suspicious pulmonary nodule.Recommend annual screen 2. Extensive atherosclerotic changes, coronary arterial calcifications,vascular stent, small hiatal hernia and colonic diverticuli Lung-RADS: (2) Benign Appearance or Behavior RECOMMENDATION: Continue annual screening with a low dose lung CT in 12months as long as patient meets screening criteria Referred By: MARIBEL DOWNS Interpreted By: Anthony Boyce MD, 08/24/2023 3:01 AM Maribel Downs DO CT Final Resu lt * LIPID PANEL (08/18/2023) CHOLESTEROL 170 HDL 43 TRIGLYCERIDES 129 DIRECT LDL 99 08/18/2023 us Default History Genericprovider LABORATORY Edited Result - Final * HEMOGLOBIN, GLYCOSYLATED (09/05/2020 4:40 AM CDT) HGB A1C 5.5 <5.7 % 09/05/2020 9:57 AM CDT [facility] Comment: ADA GUIDELINES 2010 5.7 TO 6.4% INCREASED RISK OF DIABETES > OR = 6.5% CONSISTENT WITH DIABETES ESTIMATED AVG GLUCOSE 111 mg/dL 09/05/2020 9:57 AM CDT [facility] 09/05/2020 4:40 AM CDT us Miya Hurst PA-C LABORATORY Final Result [facility] [address] [place] [address], [place] [phone] from Last 3 Months or Most Recently Relevant to Health Maintenance Insurance MEDICARE [facility] Advance Directives * Full Code (Latest Code Status on File) Date Activated Date Inactivated Comments 07/12/2022 10:50 PM 07/14/2022 1:43 PM * Full Code Date Activated Date Inactivated Comments 09/04/2020 1:40 PM 09/05/2020 7:04 PM Care Teams Database Marketing Manager Relationship Specialty Start Date End Date Hien Rogel NP [address] [phone] PCP - General Nurse Practitioner Family 03/03/24 Carmine Devine MD [address] [facility] [address] [place] [address] VASCULAR SURGERY 07/14/22 Ely Wisdom MD [address] [facility] [address] [place] [address] Referring Physician NEPHROLOGY 07/14/22 Carmine Daniel MD [address] [place] [address] [place] [address] INTERNAL MEDICINE 07/14/22 Evans Garcia MD [address] [place] [id number] INTERNAL MEDICINE 07/15/22
--- OUTSIDE RECORDS SUMMARY | 2024-07-07 11:09 | XMS_ITS | Clinical Summary ---
Author Organization [facility] Address [address] [place] [phone] Phone Care Team Providers Care Periodicals Clerk Name Role Phone Manan Gil MD Primary Care Provider [phone] Allergies No known active allergies Medications aspirin 81 MG tablet Take 81 mg by mouth 1 (one) time each day Active omega-3 (FISH OIL) 1000 MG capsule Take 1,000 mg by mouth 2 (two) times a day Active Specialty Vitamins Products (MAGNESIUM, AMINO ACID CHELATE,) 133 MG tablet Take 1 tablet by mouth 2 (two) times a day Active rOPINIRole (REQUIP) 4 MG tablet Take 4 mg by mouth 2 (two) times a day Active traZODone (DESYREL) 100 MG tablet Take 100 mg by mouth at night if needed for sleep Active amLODIPine (NORVASC) 5 MG tablet Take 5 mg by mouth 1 (one) time each day Active gabapentin (NEURONTIN) 100 MG capsule Take 100 mg by mouth every night 06/14/2019 Active levothyroxine (SYNTHROID) 150 MCG tablet Take 150 mcg by mouth 1 (one) time each day 11/18/2019 Active valsartan (DIOVAN) 160 MG tablet Take 160 mg by mouth 1 (one) time each day 12/13/2019 Active magnesium gluconate (MAGONATE) 500 MG tablet Take 250 mg by mouth daily Active atorvastatin (LIPITOR) 40 MG tablet 06/25/2020 Active cyanocobalamin (VITAMIN B-12) 100 MCG tablet Take 50 mcg by mouth daily Active Active Problems Problem Noted Date Diagnosed Date Rash 06/13/2020 Overview (08/22/2020): Last Assessment & Plan: L shoulder Reports sun burn over 1 year ago; since not healing with open wounds Pictures uploaded in media Derm consulted- does not think this is concerning for malignancy. Recommend Allevyn patch daily. Stage 3 chronic kidney disease 11/30/2019 Overview (08/22/2020): Last Assessment & Plan: stable Hypertensive disorder 11/30/2019 Overview (08/22/2020): Last Assessment & Plan: Resume home bp meds Hemoptysis 11/30/2019 Overview (12/26/2019): Last Assessment & Plan: -hemoptysis now resolved, Hgb stable, HD stable [...] with attention to the left upper lobe Hypothyroidism 11/30/2019 Overview (08/22/2020): Last Assessment & Plan: - continue home synthroid 125 mcg daily. Last Assessment & Plan: Continue home synthroid 125mcg Sick sinus syndrome 11/30/2019 Overview (08/22/2020): Last Assessment & Plan: S/p PPM. - Remains SR on tele Last Assessment & Plan: S/p PPM. - Remains SR on tele Tobacco user 11/30/2019 Overview (08/22/2020): Last Assessment & Plan: 1 PPD x 50 years. - counseled on cessation. Not interested in quitting. - nicotine patch used while inpatient Last Assessment & Plan: 1 PPD x 50 years. - counseled on cessation. Not interested in quitting. 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 Continues to smoke unfortunately. Currently in contemplative stage of quitting Diabetes mellitus Hyperlipidemia Restless legs syndrome (RLS) Immunizations Immunization Administration Dates Next Due Fluzone High-Dose 11/15/2019 Influenza Split High Dose Preservative Free IM 0 11/10/2017 Influenza, Injectable, Quadrivalent 12/01/2018 Influenza, Unspecified 12/03/2017 Pfizer Sars-cov-2 Vaccination 05/18/2020, 021 Pneumococcal Conjugate 02/15/2013 Pneumococcal Conjugate 13-Valent 11/10/2017 Pneumococcal Polysaccharide 10/22/2018, 3 Family History Medical History Relation Comments Kidney disease Brother Kidney disease Sister Nephrolithiasis Neg Hx Relation Status Comments Brother Sister Social History Tobacco Use Types Packs/Day Years Used Date Smoking Tobacco: Former Cigarettes 1.5 45 1 970 - 2014 Smokeless Tobacco: Never Alcohol Use Standard Drinks/Week Comments Not Currently 0 (1 standard drink = 0.6 oz pur e alcohol) Comments Unknown Sex and Gender Information Value Date Recorded Sex Assigned at Not on file Legal Sex Female 10:00 AM MDT Gender Identity Not on file Sexual Orientation Not on file Last Filed Vital Signs Vital Sign Reading Time Taken Comments Blood Pressure 132/70 02/13/2021 11:08 AM CONTACT LENS POLISHER Pulse - - Temperature 36.9 C (98.5 F) 02/13/2021 11:08 AM CONTACT LENS POLISHER Respiratory Rate 18 02/13/2021 11:08 AM CONTACT LENS POLISHER Oxygen Saturation - - Inhaled Oxygen Concentration - - Weight 67.6 kg (149 lb) 02/13/2021 11:08 AM CONTACT LENS POLISHER Height 160 cm (5' 3 ) 02/13/2021 11:08 AM CONTACT LENS POLISHER Body Mass Index 26.39 02/13/2021 11:08 AM CONTACT LENS POLISHER Plan of Treatment Health Maintenance Due Date Last Done Comments Diabetic Foot Exam 1960 Ophthalmology Exam 1960 COVID-19 Vaccine (3 - Pfizer risk series) 06/15/2020 05/18/2020, 04/26/2020 Influenza Vaccine (Season Ended) 2024 12/04/19 18 Pneumococcal PPSV23/PCV13 65 + Years / High and Highest Risk Completed 10/22/2018, 11/10/2017, 02/15/2013 Insurance MEDICARE [employer] MEDICARE SUPPLEMENT Care Teams Periodicals Clerk Relationship Specialty Start Date End Date Manan Gil MD [address] [place] [address] PCP - General Family Medicine 12/07/18
--- OUTSIDE RECORDS SUMMARY | 2024-07-07 11:09 | XMS_ITS | Clinical Summary ---
Author Organization [facility] Address [address] [place] [address] Care Team Providers Care Faculty Research Assistant Name Role Phone Hien Rogel NP Primary Care Provider [phone] Allergies No known active allergies Medications levothyroxine (SYNTHROID) 125 mcg tabletIndicatio ns:hypothyroidi sm Take 1 tablet (125 mcg total) by mouth nurse monitoring before breakfast 8 Active rOPINIRole (REQUIP) 4 mg tabletIndicatio ns:Restless Legs Syndrome Take 1 tablet (4 mg total) by mouth 2 (two) times a day 8 Active qnorc-3-asu-epa -dpa-fish oil 1,050-1,200 mg capsuleIndicati ons:hypertrigly ceridemia [...] duplex. Assessment & Plan (04/16/2021 3:55 PM COMPUTER SYSTEMS HARDWARE ANALYST): Patient has bilateral carotid artery stenosis measuring 50-79% on today's duplex. She is currently on medications for blood pressure control, aspirin and a statin which she will remain on at this time. I also told her that she absolutely must stop smoking. I will have her follow up in 1 year with a repeat carotid artery duplex. Assessment & Plan (04/05/2021 7:37 AM COMPUTER SYSTEMS HARDWARE ANALYST): Patient has bilateral carotid artery stenosis but [...] atorvastatin Assessment & Plan (04/16/2021 3:55 PM COMPUTER SYSTEMS HARDWARE ANALYST): Followed by her PCP chronic and stable. She is on Lipitor for a lipid lowering medication and I recommend she continue it. Assessment & Plan (04/05/2021 7:38 AM COMPUTER SYSTEMS HARDWARE ANALYST): Followed by her PCP. Chronic and stable. [...] valsartan Assessment & Plan (04/16/2021 3:56 PM COMPUTER SYSTEMS HARDWARE ANALYST): Followed by her PCP chronic and stable. I recommend she continue her amlodipine and Diovan for blood pressure control. Assessment & Plan (04/05/2021 7:38 AM COMPUTER SYSTEMS HARDWARE ANALYST): Followed by her PCP. Chronic and stable. [...] quitting. Assessment & Plan (04/16/2021 3:56 PM COMPUTER SYSTEMS HARDWARE ANALYST): Patient is a current everyday smoker. 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 Continues to smoke unfortunately. 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 Continues to smoke unfortunately. 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 Continues to smoke unfortunately. 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 Continues to smoke unfortunately. 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 Continues to smoke unfortunately. 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 Unfortunately patient continues to smoke. 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 Unfortunately patient continues to smoke. - outpatient follow-up-> looks like she had an appt today which will need to be rescheduled. 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 Unfortunately patient continues to smoke. [...] Conjugate, Unspecified 02/15/2013 Pneumococcal Polysaccharide PPV23 10/22/2018, Surgical History Surgery Date Site/Laterality Comments GA DELIVERY ONLY Section - (Added by TW Conv) GA BX/EXC LYMPH NODE OPEN SUPERFICIAL Biopsy Lymph Node - (Added by TW Conv) COLONOSCOPY THORACIC ENDOVASCULAR AORTIC REPAIR 03/02/2017 - 04/01/2017 Medical History Medical History Date Comments Oropharyngeal cancer (HCC) Diabetes mellitus (HCC) Bronchial fistula (HCC) Pseudoaneurysm of aorta HTN (hypertension) Hypothyroidism Restless leg syndrome Complete heart block (HCC) Family History Medical History Relation Name Comments Heart attack Father Family history of myocardial infarction - (Added by TW Conv) Heart failure Father Family history of congestive heart failure - (Added by TW Conv) Heart attack Mother Family history of myocardial infarction - (Added by TW Conv) Heart failure Mother Family history of congestive heart failure - (Added by TW Conv) Heart failure Sister 1 Family history of congestive heart failure - (Added by TW Conv) Diabetes Sister 2 Family history of diabetes mellitus - (Added by TW Conv) Heart attack Sister 3 Family history of myocardial infarction - (Added by TW Conv) Diabetes Sister 4 Family history of diabetes mellitus - (Added by TW Conv) Relation Name Status Comments Father Mother Sister 1 Sister 2 Sister 3 Sister 4 Social History Tobacco Use Types Packs/Day Years [...] on file Legal Sex Female 2:35 AM COMPUTER SYSTEMS HARDWARE ANALYST Gender Identity Not on file Sexual Orientation Not on file Obstetrics History Last Filed Vital Signs Vital Sign Reading [...] 10/07/2023 1:01 PM CDT Plan of Treatment Health Maintenance Due Date Last Done Comments Albumin Creatinine Ratio, Urine 1952 Breast Cancer Screening-Mammogram 1952 Colon Cancer Screening-Colonoscopy 1952 Depression Screening 1952 Hepatitis C Screening 1952 Osteoporosis Screening-Bone Density Scan 1952 eGFR 1952 Dilated Eye Exam 1952 Foot Exam 1952 DTaP/Tdap/Td Vaccine (1 - Tdap) 1963 Hepatitis B Screening 1970 Lung Cancer Screening 2002 Zoster Vaccine (1 of 2) 2002 Well Visit 65+ 2017 Hemoglobin A1C 12/11/2020 06/11/2020, 100 03/2019, 03/30/2017 Lipid Panel 06/11/2021 06/11/2020, 100 03/2019, 03/30/2017, Additional history exists Fall Risk Assessment 06/15/2021 06/15/2020 Covid-19 Vaccine (3 - 2023-2 5 season) 2023 05/18/2020, 04/26/2020 Influenza Vaccine (#1) 2023 0, 12/10/2018, 12/01/2018, Additional history exists Pneumococcal vaccine 65+ Completed 019, 11/10/2017, 02/15/2013, Additional history exists Procedures Procedure Name Priority Date/Time Associated Diagnosis Comments HEMOGLOBIN A1C STAT 06/11/2020 6:30 PM CDT LIPID PANEL STAT 06/11/2020 6:30 PM CDT from Last 3 Months or Most Recently Relevant to Health Maintenance Results * Hemoglobin A1c (06/11/2020 6:30 PM CDT) Hgb A1C 5.4 4.0 - 5.6 % [facility] Estimated Average Glucose 108 mg/dL [facility] Comment: The ADA recommends reporting [...] MD LAB BLOOD ORDERABLES Samira juarez Result [facility] Department [place] [address] * (ABNORMAL) Lipid panel (06/11/2020 6:30 PM CDT) Cholesterol 169 30 - 199 mg/dL [facility] Comment: Interpretive Data Ages < [...] on 2017. Triglycerides 137 <=149 mg/dL [facility] Comment: Interpretive Data Ages < [...] on 2017. HDL 34(L) >=40 mg/dL [facility] Comment: Interpretive Data Ages < or = 19 years Acceptable: >45 mg/dL Borderline low: 40-45 mg/dL Low: <40 mg/dL Ages > or = 20 years Desirable: >or= 60 mg/dL Low: <40 mg/dL Literature References: 1. Expert Panel on Integrated Guidelines for Cardiovascular Health and Risk Reduction in Children and Adolescents. Pediatrics 2011;128:S213 2. NCEP Expert Panel. Circulation 2003;110:227 Current Interpretive Data was last revised on 2017. LDL, calculated 108 <=129 mg/dL [facility] Comment: Interpretive Data Ages < [...] last revised on 2017. Chol/HDL ratio 5 [facility] Blood specimen (specimen) 06/11/2020 6:30 PM CDT 06/11/2020 7:15 PM CDT Narrative [facility] - 06/12/2020 12:03 AM CDT Reflex us Makeda Orozco MD LAB BLOOD ORDERABLES Samira juarez Result [facility] [place] [address] from Last 3 Months or Most Recently Relevant to Health Maintenance [place] [address] [facility] MEDICARE [employer] [place] [id number] MEDICARE Advance Directives For more information, please contact: [phone] * Full Code (Latest Code Status on File) Date Activated Date Inactivated Comments 06/11/2020 5:44 PM 06/15/2020 6:17 PM * Full Code Date Activated Date Inactivated Comments 12/01/2019 4:10 PM 12/02/2019 5:34 PM Care Teams Faculty Research Assistant Relationship Specialty Start Date End Date Hien Rogel NP [address] [place] [address] PCP - General Family Medicine 10/07/23
--- OUTSIDE RECORDS SUMMARY | 2024-07-07 11:09 | XMS_ITS | Encounter Summary ---
Author Organization [facility] Address [facility]ly [facility] [place] [address] Care Team Providers Care Business Leader Name Role Phone Carmine Devine MD Unavailable Ely Wisdom MD Unavailable [phone] Carmine Daniel MD Unavailable [phone] Evans Garcia MD Unavailable [phone] Juan Ricketts MD Primary Care Provider [phone] Hien Rogel NP Primary Care Provider [phone] Encounter Details Date Type Department Care Team (Late st Contact Info) Description 01/11/2024 Abstract [facility] [address] Jose Barrow MA Social History Tobacco Use Types Packs/Day Years Used Date Smoking Tobacco: Every Day Cigarettes 1 50 Smokeless Tobacco: Never Comments:Smoking 0.50 pack a day Alcohol Use [...] on file Legal Sex Female 9:56 AM ARTISTS' BOOKING REPRESENTATIVE Gender Identity Not on file Sexual Orientation Not on file documented as of this encounter Functional Status * Are you deaf or do you have serious difficulty hearing Answer Date of Assessment Author Status No 07/12/2022 11:18 PM CDT Maida Salmeron R N Active * Are you blind or do you have serious difficulty seeing, even when wearing glasses? Answer Date of Assessment Author Status No 07/12/2022 11:18 PM CDT Stefano Alvarez RN Active * Do you have serious difficulty walking or climbing stairs? Answer Date of Assessment Author Status No 07/12/2022 11:18 PM CDT Stefano Alvarez RN Active * Do you have difficulty dressing or bathing? Answer Date of Assessment Author Status No 07/12/2022 11:18 PM CDT Stefano Alvarez RN Active * Because of a physical, mental, or emotional condition, do you have difficulty doing errands alone such as visiting a doctor's office or shopping? Answer Date of Assessment Author Status No 07/12/2022 11:18 PM CDT Stefano Alvarez RN Active documented as of this encounter Mental Status * Because of a physical, mental, or emotional condition, do you have serious difficulty concentrating, remembering, or making decisions? Answer Entry Date Author Status No 07/12/2022 11:18 PM SHAUNNAT Stefano Alvarez RN Active documented in this encounter Plan of Treatment Upcoming Encounters Date Type Department Care Team (Late st Contact Info) Description 07/11/2024 9:45 AM CDT [facility] [address] [place] [address] Nita Alex, ANP-BC [facility] [address] [place] [address] 08/15/2024 3:00 PM CDT Allied Health/Nurse [facility] [address] [place], [place] [address] Wilmer Holman MD [facility] [address] [place] [address] 09/15/2024 7:40 AM CDT Office Visit [facility] Multispecialty Care - [facility] [address] [place] [address] Logan Justin DO [address] [place] [address] documented as of this encounter Procedures Procedure Name Priority Date/Time Associated Diagnosis Comments CBC (OUTSIDE LAB) Routine 08/18/2023 COMPREHENSIVE METABOLIC PANEL Routine 08/18/2023 LIPID PANEL Routine 08/18/2023 documented in this encounter Results * (ABNORMAL) COMPREHENSIVE METABOLIC PANEL (08/18/2023) SODIUM S/P/B 140 POTASSIUM S/P/B 4.4 CO2 27 CHLORIDE S/P/B 106 GLUCOSE 101 mg/dL CALCIUM S/P/B 9.7 BUN 16 CREATININE S/P/B 1.20(A) 0.5 - 1.0 GFR ESTIMATE 44 ALKALINE PHOSPHATASE S/P/B 124 ALT 13 AST 25 BILIRUBIN TOTAL S/P/B 0.7 ALBUMIN S/P/B 4.4 3.5 - 5.0 TOTAL PROTEIN S/P/B 8.0 08/18/2023 us Default History Genericprovider LABORATORY Final Result * LIPID PANEL (08/18/2023) CHOLESTEROL 170 HDL 43 TRIGLYCERIDES 129 DIRECT LDL 99 08/18/2023 us Default History Genericprovider LABORATORY Edited Result - Final * CBC (OUTSIDE LAB) (08/18/2023) WBC 9.8 HGB 13.2 HCT 42.8 PLT 334 08/18/2023 us Default History Genericprovider LAB-OUTSIDE/ABST RACTED Final Result documented in this encounter Visit Diagnoses Not on filedocumented in this encounter Care Teams Business Leader Relationship Specialty Start Date End Date Juan Ricketts MD [address] [place] [address] PCP - General FAMILY PRACTICE 11/30/22 03/02/24 Hien Rogel NP [address] [place] [address] PCP - General Nurse Practitioner Family 03/03/24 Carmine Devine MD [address] [facility] [address] [place] [address] VASCULAR SURGERY 07/14/22 Ely Wisdom MD [address] [facility] [address] [place] [address] Referring Physician NEPHROLOGY 07/14/22 Carmine Daniel MD [address] [facility] [address] [place] [address] INTERNAL MEDICINE 07/14/22 Evans Garcia MD [address] [facility] [address] [place] [address] INTERNAL MEDICINE 07/15/22 documented as of this encounter
[2024-07-07 11:56] LABS: Albumin Level 4.2 g/dL (3.5-5.1); Anion Gap 6 mmol/L (4-12); Blood Urea Nitrogen 26 mg/dL (7-17); Calcium 9.6 mg/dL (8.4-10.2); Carbon Dioxide 27 mmol/L (22-30); Chloride 105 mmol/L (98-107); Estimated Glomerular Filt Rate 48; Glucose 93 mg/dL (65-110); Phosphorus 3.7 mg/dL (2.5-4.5); Potassium 4.6 mmol/L (3.4-5.0); Sodium 138 mmol/L (137-145)
[2024-07-07 12:05] LABS: Parathyroid Intact 39.7 pg/mL (14.5-75.2)
[2024-07-07 12:12] LABS: Creatinine Urine 69.6 mg/dL; Total Protein Urine Random 14 mg/dL
[2024-07-07 12:21] LABS: Vitamin D 25 Hydroxy 51.3 ng/mL
== END 2024-07-07 10:56 | disposition home or self-care (01) ==
PROVIDERS: PCP Nurse Practitioner Family; Visit Provider Internal Medicine Nephrology
DX: I12.9 Hypertensive chronic kidney disease with stage 1 through stage 4 chronic kidney disease, or unspecified chronic kidney disease (principal); E11.22 Type 2 diabetes mellitus with diabetic chronic kidney disease; N18.32 Chronic kidney disease, stage 3b; N25.81 Secondary hyperparathyroidism of renal origin; E55.9 Vitamin D deficiency, unspecified
CPT/HCPCS: 36415; 80069; 82306; 82570; 83970; 84156

== ENCOUNTER 2024-07-14 10:50 | Outpatient (CLI) | payer MEDICARE, OTHER, SELFPAY ==
--- OUTSIDE RECORDS SUMMARY | 2024-07-14 11:03 | XMS_ITS | Clinical Summary ---
Author Organization [facility] Address [address] [place] [address] Care Team Providers Care Tester Armature Or Fields Name Role Phone Carmine Devine MD Unavailable Ely Wisdom MD Unavailable [phone] Carmine Daniel MD Unavailable [phone] Evans Garcia MD Unavailable [phone] Hien Rogel NP Primary Care Provider [phone] Allergies No known active allergies Medications rOPINIRole [...] MCG/ACT inhalerIndicatio ns:Pulmonary emphysema, unspecified emphysema type ([facility]) Inhale 2 puffs into the lungs [...] carotid artery duplex. Hemoptysis 09/04/2020 Diabetes mellitus ([facility]) 09/04/2020 Hyperlipidemia 09/04/2020 Restless legs syndrome (RLS) 09/04/2020 Hypertension 11/30/2019 Overview (09/04/2020): Last Assessment & Plan: Resume home bp meds Last Assessment & Plan: Resume home bp meds Hypothyroidism 11/30/2019 Overview (09/04/2020): Last Assessment & Plan: - continue home synthroid 125 mcg daily. 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 Continues to smoke unfortunately. 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 Continues to smoke unfortunately. Currently in contemplative stage of quitting Thoracic aortic aneurysm without rupture 018 Cardiac pacemaker in situ 03/02/2017 Overview (12/09/2022): Micra leadless pacemaker implanted in 2018 for frequent pauses Encounters Date Type Department Care Team Description 07/11/2024 9:45 AM CDT Office Visit [facility] [address] [place] [address] Nita Alex, ANP- Follow Up 07/11/2024 Travel 07/08/2024 Telephone [facility] [address], [address] [place] [address] Erin Azevedo MA Follow Up Call 06/10/2024 [facility]phone [facility] [address], [address] [place] [address] Erin Azevedo MA Information 06/08/2024 Telephone [facility] [address], [address] [place] [address] Erin Azevedo MA Follow Up Call 05/18/2024 Telephone [facility] [address], [address] [place] [address] Blanca Mccabe RN Information 05/17/2024 2:00 PM CDT Allied Health/Nurse Visit [facility] [address], [address] [place] [address] Wilmer Holman MD Remote Device Check 05/17/2024 [...] on file Legal Sex Female 9:56 AM SUPERVISOR LEAF SPRING FABRICATION Gender Identity Not on file Sexual Orientation Not on file Last Filed Vital Signs Vital Sign Reading Time Taken Comments Blood Pressure 110/60 07/11/2024 10:12 AM CDT Pulse 86 07/11/2024 10:12 AM CDT Temperature 37.1 C (98.8 F) 03/03/2024 12:10 PM SUPERVISOR LEAF SPRING FABRICATION Respiratory Rate 16 03/18/2024 10:08 AM SUPERVISOR LEAF SPRING FABRICATION Oxygen Saturation 95% 07/11/2024 10:12 AM CDT Inhaled Oxygen Concentration - - Weight 61.2 kg (135 lb) 07/11/2024 10:12 AM CDT Height 160 cm (5' 3 ) 07/11/2024 10:12 AM CDT Body Mass Index 23.91 07/11/2024 10:12 AM CDT Plan of Treatment Upcoming Encounters Date Type Department Care Team (Late st Contact Info) Description 08/05/2024 11:00 AM CDT Appointment [facility] [address] [place] [address] Maryam Proctor PA [address] [facility] [address] [place] [address] 08/15/2024 3:00 PM CDT [facility] [address] [facility], [address] [place] [address] Wilmer Holman MD Three [facility]. [address] [place] [address] 09/15/2024 7:40 AM CDT Office Visit [facility] Medical Group Multispecialty Care - [facility] [address] [place] [id number] Maribel Downs DO [address] [place] [address] 01/23/2025 9:00 AM SUPERVISOR LEAF SPRING FABRICATION Office Visit [facility] [address] [facility] [place] [address] Nita Alex, ANP-BC [facility] [address] [place] [address] Health Maintenance Due Date Last Done Comments [...] Scan (General) 2017 Hemoglobin A1C 03/08/2021 09/05/2020, 05/31, 12/01/2019 COVID-19 Vaccine ( season) 2023 05/18/2020, 04/26/2020 PHQ-2 (Physician [place]) 03/02/2024 Lipid Panel 08/17/2024 08/18/2023 Lung Cancer [...] this topic Medical Devices Implanted Type Area Harness Maker Device Identifier Shelf Expiration Date Model / Serial / Lot Mdt Micra Pacemaker-04/06/19 18 Implanted:2017 by Evans Garcia RT Student (Quantity not on file) Pacemaker [employer] CARDIAC RHYTHM AND HEART FAILURE - DIV M [id number] / [id number] / Description:MRI Conditional under following conditions: Static [...] 5.5 <5.7 % 09/05/2020 9:57 AM CDT [facility] Comment: ADA GUIDELINES 2010 5.7 TO 6.4% INCREASED RISK OF DIABETES > OR = 6.5% CONSISTENT WITH DIABETES ESTIMATED AVG GLUCOSE 111 mg/dL 09/05/2020 9:57 AM CDT [facility] 09/05/2020 4:40 AM CDT Miya Hurst PA-C LABORATORY Final Result [facility] [address] [place] [address], from Last 3 Months or Most Recently Relevant to Health Maintenance Insurance [facility]ICARE [facility] Advance Directives * Full Code (Latest Code Status on File) Date Activated Date Inactivated Comments 07/12/2022 10:50 PM 07/14/2022 1:43 PM * Full Code Date Activated Date Inactivated Comments 09/04/2020 1:40 PM 09/05/2020 7:04 PM Care Teams Tester Armature Or Fields Relationship Specialty Start Date End Date Hien Rogel NP [address] [place] [address] PCP - General Nurse Practitioner Family 03/03/24 Carmine Devine MD [address] [facility] [address] [place] [address] VASCULAR SURGERY 07/14/22 Ely Wisdom MD [address] [facility] [address] [place] [address] Referring Physician NEPHROLOGY 07/14/22 Carmine Daniel MD [facility] [address] [place] [address] INTERNAL MEDICINE 07/14/22 Evans Garcia MD [address] [facility] [address] [place] [address] INTERNAL MEDICINE 07/15/22
--- OUTSIDE RECORDS SUMMARY | 2024-07-14 11:03 | XMS_ITS | Encounter Summary ---
Author Organization [facility] Address [facility] [place] [address] Care Team Providers Care Multimedia Manager Name Role Phone Carmine Devine MD Unavailable Ely Wisdom MD Unavailable [phone] Carmine Daniel MD Unavailable [phone] Evans Garcia MD Unavailable [phone] Juan Ricketts MD Primary Care Provider [phone] Hien Rogel NP Primary Care Provider [phone] Encounter Details Date Type Department Care Team (Late st Contact Info) Description 01/11/2024 Abstract [facility] [address] Jose Barrow MA Social History Tobacco Use [...] on file Legal Sex Female 9:56 AM CLAIMS REPRESENTATIVE Gender Identity Not on file Sexual [...] Date Author Status No 07/12/2022 11:18 PM CDT Stefano Alvarez RN Active documented in this encounter Plan of Treatment Upcoming Encounters Date Type Department Care Team (Late st Contact Info) Description 08/05/2024 11:00 AM CDT Appointment [facility] [place] [address] Maryam Proctor PA [address] [id number] 08/15/2024 3:00 PM CDT [facility] THREE [facility] [address] [place] [address] Wilmer Holman MD Three [facility]. [facility] [address] [place] [address] 09/15/2024 7:40 AM CDT Office Visit [facility] Multispecialty Care - [facility] [address] [place] [address] Logan Justin DO [address] [facility] [facility] [address] [place] [address] 01/23/2025 9:00 AM CLAIMS REPRESENTATIVE Office Visit [facility] [address] [facility] [address], [address] [place] [address] Nita Alex, ANP-BC [facility] [address] [place] [address] documented as of this encounter Procedures Procedure [...] on filedocumented in this encounter Care Teams Multimedia Manager Relationship Specialty Start Date End Date Juan Ricketts MD [address] [place] [address] PCP - General FAMILY PRACTICE 11/30/22 03/02/24 Hien Rogel NP [address] [facility] [address] [place] [address] PCP - General Nurse Practitioner Family 03/03/24 Carmine Devine MD [address] [facility] [address] [place] [address] VASCULAR SURGERY 07/14/22 Ely Wisdom MD [address] [facility] [address] [place] [address] Referring Physician NEPHROLOGY 07/14/22 Carmine Daniel MD [address] [place] [address] [address] BUILDING [address] [place] [address] INTERNAL MEDICINE 07/14/22 Evans Garcia MD [address] [address] INTERNAL MEDICINE 07/15/22 documented as of this encounter
--- OUTSIDE RECORDS SUMMARY | 2024-07-14 11:03 | XMS_ITS | Clinical Summary ---
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 Continues to smoke unfortunately. Currently [...] Comments Blood Pressure 132/70 02/13/2021 11:08 AM MANAGER CULTURE Pulse - - Temperature 36.9 C (98.5 F) 02/13/2021 11:08 AM MANAGER CULTURE Respiratory Rate 18 02/13/2021 11:08 AM MANAGER CULTURE Oxygen Saturation - - Inhaled Oxygen Concentration - - Weight 67.6 kg (149 lb) 02/13/2021 11:08 AM MANAGER CULTURE Height 160 cm (5' 3 ) 02/13/2021 11:08 AM MANAGER CULTURE Body Mass Index 26.39 02/13/2021 11:08 AM MANAGER CULTURE Plan of Treatment Health Maintenance Due Date Last Done Comments COVID-19 Vaccine ( season) 2023, 04/26/2020 Influenza Vaccine (Season Ended) 2024 12/04/19 18 Pneumococcal PPSV23/PCV13 65 + Years / Low and Medium Risk Completed 10/22/2018, 11/10/2017, 02/15/2013 Insurance MEDICARE [employer] [place] MEDICARE SUPPLEMENT Care Teams Head Inspector And Center Marker Relationship Specialty Start Date End Date Manan Gil MD [address] [place] [address] PCP - General Family Medicine 12/07/18
--- OUTSIDE RECORDS SUMMARY | 2024-07-14 11:03 | XMS_ITS ---
Author Organization [facility] Address [address] [place] [address] Care Team Providers Care Awning Assembler Name Role Phone Hien Rogel NP Primary Care Provider [phone] Active Problems Problem Noted Date Diagnosed Date Bilateral carotid artery stenosis 04/05/2021 Assessment & Plan (10/08/2023 12:42 PM CDT): Impression: Moderate stenosis to bilateral internal carotid artery seen on carotid duplex. She remains asymptomatic. Plan: Continue ongoing risk factor modifications. -patient follow-up in 1 year for re-evaluation with repeat carotid duplex. Assessment & Plan (04/16/2021 3:55 PM HYPOID GEAR TESTER): Patient has bilateral carotid artery stenosis measuring 50-79% on today's duplex. She is currently on medications for blood pressure control, aspirin and a statin which she will remain on at this time. I also told her that she absolutely must stop smoking. I will have her follow up in 1 year with a repeat carotid artery duplex. Assessment & Plan (04/05/2021 7:37 AM HYPOID GEAR TESTER): Patient has bilateral carotid artery stenosis but [...] atorvastatin Assessment & Plan (04/16/2021 3:55 PM HYPOID GEAR TESTER): Followed by her PCP chronic and stable. She is on Lipitor for a lipid lowering medication and I recommend she continue it. Assessment & Plan (04/05/2021 7:38 AM HYPOID GEAR TESTER): Followed by her PCP. Chronic and stable. [...] valsartan Assessment & Plan (04/16/2021 3:56 PM HYPOID GEAR TESTER): Followed by her PCP chronic and stable. I recommend she continue her amlodipine and Diovan for blood pressure control. Assessment & Plan (04/05/2021 7:38 AM HYPOID GEAR TESTER): Followed by her PCP. Chronic and stable. [...] quitting. Assessment & Plan (04/16/2021 3:56 PM HYPOID GEAR TESTER): Patient is a current everyday smoker. 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 Continues to smoke unfortunately. 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 Continues to smoke unfortunately. 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 Continues to smoke unfortunately. 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 Continues to smoke unfortunately. 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 Continues to smoke unfortunately. 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 Unfortunately patient continues to smoke. 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 Unfortunately patient continues to smoke. - outpatient follow-up-> looks like she had an appt today which will need to be rescheduled. 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 Unfortunately patient continues to smoke. [...]
--- OUTSIDE RECORDS SUMMARY | 2024-07-14 11:03 | XMS_ITS | Encounter Summary ---
Author Organization [facility] Address [address] [facility] [address] [place] [address] Phone Care Team Providers Care Co Teacher Name Role Phone Sinan Arriola MD Primary Care Provider [phone] Manan Gil MD Primary Care Provider [phone] Hien Rogel NP Primary Care Provider [phone] Encounter Details Date Type Department Care Team (Late st Contact Info) Description 04/07/2017 Orders Only [facility] Carmine Devine MD [address] [facility] [id number] [place], [place] [id number] Social History Tobacco Use Types Packs/Day Years Used Date Smoking Tobacco: Never Assessed Comments Unknown Sex and Gender Information Value Date Recorded Sex Assigned at Not on file Legal Sex Female 2:35 AM SENSOR TECHNICIAN Gender Identity Not on file Sexual Orientation [...] documented as of this encounter Care Teams Co Teacher Relationship Specialty Start Date End Date Sinan Arriola MD [address] [place] [address] PCP - General 03/13/17 10/13/18 Manan Gil MD [address] [facility] [address] [place] [address] PCP - General Internal Medicine 10/14/18 10/06/23 Hien Rogel NP [address] [place] [address] PCP - General Family Medicine 10/07/23 documented as of this encounter
--- OUTSIDE RECORDS SUMMARY | 2024-07-14 11:03 | XMS_ITS | Clinical Summary ---
Author Organization [facility] Address [address] [place] [address] Care Team Providers Care Brake Operator Heavy Duty Name Role Phone Hien Rogel NP Primary Care Provider [phone] Allergies No known active allergies Medications levothyroxine (SYNTHROID) 125 mcg tabletIndicatio ns:hypothyroidi sm Take 1 tablet (125 mcg total) by mouth instrument and controls technician before breakfast 8 Active rOPINIRole (REQUIP) 4 mg tabletIndicatio ns:Restless Legs Syndrome Take 1 tablet (4 mg total) by mouth 2 (two) times a day 8 Active nqinh-3-hcx-epa -dpa-fish oil 1,050-1,200 mg capsuleIndicati ons:hypertrigly ceridemia [...] duplex. Assessment & Plan (04/16/2021 3:55 PM RETAIL EVENT ASSISTANT): Patient has bilateral carotid artery stenosis measuring 50-79% on today's duplex. She is currently on medications for blood pressure control, aspirin and a statin which she will remain on at this time. I also told her that she absolutely must stop smoking. I will have her follow up in 1 year with a repeat carotid artery duplex. Assessment & Plan (04/05/2021 7:37 AM RETAIL EVENT ASSISTANT): Patient has bilateral carotid artery stenosis but [...] atorvastatin Assessment & Plan (04/16/2021 3:55 PM RETAIL EVENT ASSISTANT): Followed by her PCP chronic and stable. She is on Lipitor for a lipid lowering medication and I recommend she continue it. Assessment & Plan (04/05/2021 7:38 AM RETAIL EVENT ASSISTANT): Followed by her PCP. Chronic and stable. [...] valsartan Assessment & Plan (04/16/2021 3:56 PM RETAIL EVENT ASSISTANT): Followed by her PCP chronic and stable. I recommend she continue her amlodipine and Diovan for blood pressure control. Assessment & Plan (04/05/2021 7:38 AM RETAIL EVENT ASSISTANT): Followed by her PCP. Chronic and stable. [...] quitting. Assessment & Plan (04/16/2021 3:56 PM RETAIL EVENT ASSISTANT): Patient is a current everyday smoker. 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 Continues to smoke unfortunately. 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 Continues to smoke unfortunately. 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 Continues to smoke unfortunately. Currently in contemplative stage of quitting Assessment & Plan (06/12/2020 2:16 PM CDT): Tonsillar cancer (dx 2012) s/p surgery and TILE SHADER in remission. Continues to smoke unfortunately. Currently in contemplative stage of quitting Assessment & Plan (06/11/2020 11:45 PM CDT): Tonsillar cancer (dx 2012) s/p surgery and TILE SHADER in remission. Continues to smoke unfortunately. 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 Unfortunately patient continues to smoke. - outpatient follow-up-> looks like she had an appt yesterday which will need to be rescheduled: patient aware Assessment & Plan (12/01/2019 11:09 AM CDT): Tonsillar cancer (dx 2012) s/p surgery and TILE SHADER in remission. Unfortunately patient continues to smoke. - outpatient follow-up-> looks like she had an appt today which will need to be rescheduled. Assessment & Plan (11/30/2019 10:59 PM CDT): Tonsillar cancer (dx 2012) s/p surgery and TILE SHADER in remission. Unfortunately patient continues to smoke. [...] 10/22/2018, Surgical History Surgery Date Site/Laterality Comments [place] DELIVERY ONLY Section - (Added by TW Conv) [place] BX/EXC LYMPH NODE OPEN SUPERFICIAL Biopsy Lymph [...] on file Legal Sex Female 2:35 AM RETAIL EVENT ASSISTANT Gender Identity Not on file Sexual Orientation [...] 5 season) 2023 05/18/2020, 04/26/2020 Influenza Vaccine (Season Ended) 2024 11/15/2019, 12/10/2018, 12/01/2018, Additional history exists Pneumococcal vaccine [...] A1C 5.4 4.0 - 5.6 % [facility] Estimated Average Glucose 108 mg/dL [facility] Comment: The ADA recommends reporting an estimated [...] LAB BLOOD ORDERABLES Samira juarez Result [facility] Department [place] [address] * (ABNORMAL) Lipid panel (06/11/2020 6:30 PM CDT) Cholesterol 169 30 - 199 mg/dL [facility] Comment: Interpretive Data Ages < or = [...] on 2017. Triglycerides 137 <=149 mg/dL [facility] Comment: Interpretive Data Ages < or = [...] on 2017. HDL 34(L) >=40 mg/dL [facility] Comment: Interpretive Data Ages < or = [...] revised on 2017. Chol/HDL ratio 5 [facility] Blood specimen (specimen) 06/11/2020 6:30 PM CDT 06/11/2020 7:15 PM CDT Narrative [facility] - 06/12/2020 12:03 AM CDT Reflex us Makeda Orozco MD LAB BLOOD ORDERABLES Samira juarez Result [facility] One [facility] Department [place] [address] from Last 3 Months or Most Recently Relevant to Health Maintenance Insurance MEDICARE [facility] MEDICARE [employer] [place] [employer] [place] [id number] MEDICARE Advance Directives For more information, please contact: [phone] * Full Code (Latest Code Status on File) Date Activated Date Inactivated Comments 06/11/2020 5:44 PM 06/15/2020 6:17 PM * Full Code Date Activated Date Inactivated Comments 12/01/2019 4:10 PM 12/02/2019 5:34 PM Care Teams Brake Operator Heavy Duty Relationship Specialty Start Date End Date Hien Rogel NP [address] [place] [address] PCP - General Family Medicine 10/07/23
--- OUTSIDE RECORDS SUMMARY | 2024-07-14 11:03 | XMS_ITS | Referral Summary ---
Author Organization [facility] Address [address] [place] [address] Care Team Providers Care Sole Filler Name Role Phone Hien Rogel NP Primary Care Provider [phone] Allergies No known active allergies Medications levothyroxine (SYNTHROID) 125 mcg tabletIndicatio ns:hypothyroidi sm Take 1 tablet (125 mcg total) by mouth practicing urologist before breakfast 8 Active rOPINIRole (REQUIP) 4 mg tabletIndicatio ns:Restless Legs Syndrome Take 1 tablet (4 mg total) by mouth 2 (two) times a day 8 Active spcnh-5-omo-epa -dpa-fish oil 1,050-1,200 mg capsuleIndicati ons:hypertrigly ceridemia [...] duplex. Assessment & Plan (04/16/2021 3:55 PM HOUSEHOLD ASSISTANT): Patient has bilateral carotid artery stenosis [...] duplex. Assessment & Plan (04/05/2021 7:37 AM HOUSEHOLD ASSISTANT): Patient has bilateral carotid artery stenosis [...] atorvastatin Assessment & Plan (04/16/2021 3:55 PM HOUSEHOLD ASSISTANT): Followed by her PCP chronic and stable. She is on Lipitor for a lipid lowering medication and I recommend she continue it. Assessment & Plan (04/05/2021 7:38 AM HOUSEHOLD ASSISTANT): Followed by her PCP. Chronic and [...] valsartan Assessment & Plan (04/16/2021 3:56 PM HOUSEHOLD ASSISTANT): Followed by her PCP chronic and stable. I recommend she continue her amlodipine and Diovan for blood pressure control. Assessment & Plan (04/05/2021 7:38 AM HOUSEHOLD ASSISTANT): Followed by her PCP. Chronic and [...] quitting. Assessment & Plan (04/16/2021 3:56 PM HOUSEHOLD ASSISTANT): Patient is a current everyday smoker. 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 Continues to smoke unfortunately. 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 Continues to smoke unfortunately. 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 Continues to smoke unfortunately. 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 Continues to smoke unfortunately. 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 Continues to smoke unfortunately. Currently in contemplative stage of quitting Assessment & Plan (12/02/2019 11:59 AM CDT): Tonsillar cancer (dx 2012) s/p surgery and CARPET SEWER in remission. Unfortunately patient continues to smoke. - outpatient follow-up-> looks like she had an appt yesterday which will need to be rescheduled: patient aware Assessment & Plan (12/01/2019 11:09 AM CDT): Tonsillar cancer (dx 2012) s/p surgery and CARPET SEWER in remission. Unfortunately patient continues to smoke. - outpatient follow-up-> looks like she had an appt today which will need to be rescheduled. 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 Unfortunately patient continues to smoke. [...] on file Legal Sex Female 2:35 AM HOUSEHOLD ASSISTANT Gender Identity Not on file Sexual [...] A1C 5.4 4.0 - 5.6 % [facility] Estimated Average Glucose 108 mg/dL [facility] Comment: The ADA recommends [...] MD LAB BLOOD ORDERABLES Samira juarez Result [facility] Department [place] [address] * (ABNORMAL) Lipid panel (06/11/2020 6:30 PM CDT) Cholesterol 169 30 - 199 mg/dL [facility] Comment: Interpretive Data Ages [...] on 2017. Triglycerides 137 <=149 mg/dL [facility] Comment: Interpretive Data Ages [...] last revised on 2017. Chol/HDL ratio 5 [facility] Blood specimen (specimen) 06/11/2020 6:30 PM CDT 06/11/2020 7:15 PM CDT Narrative [facility] - 06/12/2020 12:03 AM CDT Reflex us Makeda Orozco MD LAB BLOOD ORDERABLES Samira juarez Result [facility] Department [place] [address] from Last 3 Months or Most Recently Relevant to Health Maintenance Insurance MEDICARE [facility] MEDICARE [employer] [place] [facility] [place] [address] Advance Directives For more information, please contact: [phone] * Full Code (Latest Code Status on File) Date Activated Date Inactivated Comments 06/11/2020 5:44 PM 06/15/2020 6:17 PM * Full Code Date Activated Date Inactivated Comments 12/01/2019 4:10 PM 12/02/2019 5:34 PM Care Teams Sole Filler Relationship Specialty Start Date End Date Hien Rogel NP [address] [place] [address] PCP - General Family Medicine 10/07/23
[2024-07-14 12:16] LABS: Cholesterol 182 mg/dL (0-200); HDL Direct 46 mg/dL; Triglycerides 117 mg/dL (<150)
[2024-07-14 12:26] LABS: LDL Cholesterol Direct 88 mg/dL
== END 2024-07-14 10:51 | disposition home or self-care (01) ==
LOC: ANHLAB 10:58
PROVIDERS: PCP Nurse Practitioner Family
DX: E78.2 Mixed hyperlipidemia (principal)
CPT/HCPCS: 36415; 80061

== ENCOUNTER 2024-08-18 08:44 | Outpatient (CLI) | payer MEDICARE, OTHER, SELFPAY ==
--- OUTSIDE RECORDS SUMMARY | 2024-08-18 08:58 | XMS_ITS | Clinical Summary ---
Author Organization [facility] Address [address] [place] [address] Phone Care Team Providers Care Forestry Conservation Worker Name Role Phone Manan Gil MD Primary Care Provider [phone] Allergies No known active allergies Medications aspirin [...] Tonsillar cancer (dx 2012) s/p surgery and BOAT TENDER in remission. Continues to smoke unfortunately. Currently [...] Comments Blood Pressure 132/70 02/13/2021 11:08 AM COMMERCIAL INSULATOR Pulse - - Temperature 36.9 C (98.5 F) 02/13/2021 11:08 AM COMMERCIAL INSULATOR Respiratory Rate 18 02/13/2021 11:08 AM COMMERCIAL INSULATOR Oxygen Saturation - - Inhaled Oxygen Concentration - - Weight 67.6 kg (149 lb) 02/13/2021 11:08 AM COMMERCIAL INSULATOR Height 160 cm (5' 3) 02/13/2021 11:08 AM COMMERCIAL INSULATOR Body Mass Index 26.39 02/13/2021 11:08 AM COMMERCIAL INSULATOR Plan of Treatment Health Maintenance Due Date Last Done Comments COVID-19 Vaccine ( season) 2023, 04/26/2020 Influenza Vaccine (Season Ended) 2024 12/04/19 18 Pneumococcal PPSV23/PCV13 65 + Years / Low and Medium Risk Completed 10/22/2018, 11/10/2017, 02/15/2013 Insurance MEDICARE [employer] [place] MEDICARE SUPPLEMENT Care Teams Forestry Conservation Worker Relationship Specialty Start Date End Date Manan Gil MD [address] [place] [address] PCP - General Family Medicine 12/07/18
--- OUTSIDE RECORDS SUMMARY | 2024-08-18 08:58 | XMS_ITS | Clinical Summary ---
Author Organization [facility] Address [address] [place] [address] Care Team Providers Care Wind Turbine Technician Name Role Phone Hien Rogel NP Primary Care Provider [phone] Allergies No known active allergies Medications levothyroxine (SYNTHROID) 125 mcg tabletIndicatio ns:hypothyroidi sm Take 1 tablet (125 mcg total) by mouth early learning teacher before breakfast 8 Active rOPINIRole (REQUIP) 4 mg tabletIndicatio ns:Restless Legs Syndrome Take 1 tablet (4 mg total) by mouth 2 (two) times a day 8 Active pzmom-0-bgy-epa -dpa-fish oil 1,050-1,200 mg capsuleIndicati ons:hypertrigly ceridemia [...] duplex. Assessment & Plan (04/16/2021 3:55 PM REAL ESTATE EXECUTIVE ASSISTANT): Patient has bilateral carotid artery stenosis [...] duplex. Assessment & Plan (04/05/2021 7:37 AM REAL ESTATE EXECUTIVE ASSISTANT): Patient has bilateral carotid artery stenosis [...] atorvastatin Assessment & Plan (04/16/2021 3:55 PM REAL ESTATE EXECUTIVE ASSISTANT): Followed by her PCP chronic and stable. She is on Lipitor for a lipid lowering medication and I recommend she continue it. Assessment & Plan (04/05/2021 7:38 AM REAL ESTATE EXECUTIVE ASSISTANT): Followed by her PCP. Chronic and [...] valsartan Assessment & Plan (04/16/2021 3:56 PM REAL ESTATE EXECUTIVE ASSISTANT): Followed by her PCP chronic and stable. I recommend she continue her amlodipine and Diovan for blood pressure control. Assessment & Plan (04/05/2021 7:38 AM REAL ESTATE EXECUTIVE ASSISTANT): Followed by her PCP. Chronic and [...] quitting. Assessment & Plan (04/16/2021 3:56 PM REAL ESTATE EXECUTIVE ASSISTANT): Patient is a current everyday smoker. [...] Tonsillar cancer (dx 2012) s/p surgery and AUTOMOTIVE PARTS COUNTER ASSISTANT in remission. Continues to smoke unfortunately. 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 Continues to smoke unfortunately. 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 Continues to smoke unfortunately. Currently in contemplative stage of quitting Assessment & Plan (06/12/2020 2:16 PM CDT): Tonsillar cancer (dx 2012) s/p surgery and AUTOMOTIVE PARTS COUNTER ASSISTANT in remission. Continues to smoke unfortunately. 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 Continues to smoke unfortunately. 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 Unfortunately patient continues to smoke. - outpatient follow-up-> looks like she had an appt yesterday which will need to be rescheduled: patient aware Assessment & Plan (12/01/2019 11:09 AM CDT): Tonsillar cancer (dx 2012) s/p surgery and AUTOMOTIVE PARTS COUNTER ASSISTANT in remission. Unfortunately patient continues to smoke. - outpatient follow-up-> looks like she had an appt today which will need to be rescheduled. Assessment & Plan (11/30/2019 10:59 PM CDT): Tonsillar cancer (dx 2012) s/p surgery and AUTOMOTIVE PARTS COUNTER ASSISTANT in remission. Unfortunately patient continues to smoke. [...] 10/22/2018, Surgical History Surgery Date Site/Laterality Comments [place] DELIVERY ONLY Section - (Added by TW Conv) [place] BX/EXC LYMPH NODE OPEN SUPERFICIAL Biopsy Lymph [...] on file Legal Sex Female 2:35 AM REAL ESTATE EXECUTIVE ASSISTANT Gender Identity Not on file Sexual [...] 1:01 PM CDT Height 160 cm (5' 3) 10/07/2023 1:01 PM CDT Body Mass Index [...] MD LAB BLOOD ORDERABLES Samira juarez Result [facility] Department [place] [address] * (ABNORMAL) Lipid panel (06/11/2020 6:30 PM CDT) Cholesterol 169 30 - 199 mg/dL [facility] Comment: Interpretive Data Ages < or [...] on 2017. Triglycerides 137 <=149 mg/dL [facility] Comment: Interpretive Data Ages < or [...] on 2017. HDL 34(L) >=40 mg/dL [facility] Comment: Interpretive Data Ages < or [...] last revised on 2017. Chol/HDL ratio 5 [facility] Blood specimen (specimen) 06/11/2020 6:30 PM CDT 06/11/2020 7:15 PM CDT Narrative [facility] - 06/12/2020 12:03 AM CDT Reflex us Makeda Orozco MD LAB BLOOD ORDERABLES Samira juarez Result [facility] Department [place] [address] from Last 3 Months or Most Recently Relevant to Health Maintenance Insurance MEDICARE [facility] MEDICARE [employer] [place] [employer] [place] [id number] MEDICARE Advance Directives For more information, please contact: [phone] * Full Code (Latest Code Status on File) Date Activated Date Inactivated Comments 06/11/2020 5:44 PM 06/15/2020 6:17 PM * Full Code Date Activated Date Inactivated Comments 12/01/2019 4:10 PM 12/02/2019 5:34 PM Care Teams Wind Turbine Technician Relationship Specialty Start Date End Date Hien Rogel NP [address] [place] [address] PCP - General Family Medicine 10/07/23
--- OUTSIDE RECORDS SUMMARY | 2024-08-18 08:58 | XMS_ITS | Encounter Summary ---
Author Organization [facility] Address [address] [facility] [address] [place] [address] Phone Care Team Providers Care Cardiographer Name Role Phone Sinan Arriola MD Primary Care Provider [phone] Manan Gil MD Primary Care Provider [phone] Hien Rogel NP Primary Care Provider [phone] Encounter Details Date Type Department Care Team (Late st Contact Info) Description 04/07/2017 Orders Only [facility] Carmine Devine MD [address] [facility] [address] [place], [place] [id number] Social History Tobacco Use Types Packs/Day Years Used Date Smoking Tobacco: Never Assessed Comments Unknown Sex and Gender Information Value Date Recorded Sex Assigned at Not on file Legal Sex Female 2:35 AM TESTER VIBRATOR EQUIPMENT Gender Identity Not on file Sexual Orientation [...] documented as of this encounter Care Teams Cardiographer Relationship Specialty Start Date End Date Sinan Arriola MD [address] [place] [address] PCP - General 03/13/17 10/13/18 Manan Gil MD [address] [facility] [address] [place] [address] PCP - General Internal Medicine 10/14/18 10/06/23 Hine Rogel NP [address] [place] [address] PCP - General Family Medicine 10/07/23 documented as of this encounter
--- OUTSIDE RECORDS SUMMARY | 2024-08-18 08:58 | XMS_ITS | Referral Summary ---
Author Organization [facility] Address [address] [place] [address] Care Team Providers Care Office Secretary Name Role Phone Hien Rogel NP Primary Care Provider [phone] Allergies No known active allergies Medications levothyroxine (SYNTHROID) 125 mcg tabletIndicatio ns:hypothyroidi sm Take 1 tablet (125 mcg total) by mouth wood last maker before breakfast 8 Active rOPINIRole (REQUIP) 4 mg tabletIndicatio ns:Restless Legs Syndrome Take 1 tablet (4 mg total) by mouth 2 (two) times a day 8 Active qumyo-9-ebc-epa -dpa-fish oil 1,050-1,200 mg capsuleIndicati ons:hypertrigly ceridemia [...] duplex. Assessment & Plan (04/16/2021 3:55 PM RADIOLOGY SPECIAL PROCEDURE TECH): Patient has bilateral carotid artery stenosis measuring 50-79% on today's duplex. She is currently on medications for blood pressure control, aspirin and a statin which she will remain on at this time. I also told her that she absolutely must stop smoking. I will have her follow up in 1 year with a repeat carotid artery duplex. Assessment & Plan (04/05/2021 7:37 AM RADIOLOGY SPECIAL PROCEDURE TECH): Patient has bilateral carotid artery stenosis but [...] atorvastatin Assessment & Plan (04/16/2021 3:55 PM RADIOLOGY SPECIAL PROCEDURE TECH): Followed by her PCP chronic and stable. She is on Lipitor for a lipid lowering medication and I recommend she continue it. Assessment & Plan (04/05/2021 7:38 AM RADIOLOGY SPECIAL PROCEDURE TECH): Followed by her PCP. Chronic and stable. [...] valsartan Assessment & Plan (04/16/2021 3:56 PM RADIOLOGY SPECIAL PROCEDURE TECH): Followed by her PCP chronic and stable. I recommend she continue her amlodipine and Diovan for blood pressure control. Assessment & Plan (04/05/2021 7:38 AM RADIOLOGY SPECIAL PROCEDURE TECH): Followed by her PCP. Chronic and stable. [...] quitting. Assessment & Plan (04/16/2021 3:56 PM RADIOLOGY SPECIAL PROCEDURE TECH): Patient is a current everyday smoker. 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 Continues to smoke unfortunately. 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 Continues to smoke unfortunately. 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 Continues to smoke unfortunately. 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 Continues to smoke unfortunately. 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 Continues to smoke unfortunately. 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 Unfortunately patient continues to smoke. 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 Unfortunately patient continues to smoke. - outpatient follow-up-> looks like she had an appt today which will need to be rescheduled. 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 Unfortunately patient continues to smoke. [...] on file Legal Sex Female 2:35 AM RADIOLOGY SPECIAL PROCEDURE TECH Gender Identity Not on file Sexual Orientation [...] A1C 5.4 4.0 - 5.6 % [facility] Estimated Average Glucose 108 mg/dL [facility] Comment: The ADA recommends reporting an estimated [...] LAB BLOOD ORDERABLES Samira juarez Result [facility] Department [place] [address] * (ABNORMAL) Lipid panel (06/11/2020 6:30 PM CDT) Cholesterol 169 30 - 199 mg/dL [facility] Comment: Interpretive Data Ages < or [...] on 2017. Triglycerides 137 <=149 mg/dL [facility] Comment: Interpretive Data Ages < or [...] last revised on 2017. Chol/HDL ratio 5 [facility] Blood specimen (specimen) 06/11/2020 6:30 PM CDT 06/11/2020 7:15 PM CDT Narrative [facility] - 06/12/2020 12:03 AM CDT Reflex us Makeda Orozco MD LAB BLOOD ORDERABLES Samira juarez Result [facility] Department [place] [address] from Last 3 Months or Most Recently Relevant to Health Maintenance Insurance MEDICARE [facility] MEDICARE [employer] [place] [facility] MEDICARE Advance Directives For more information, please contact: [phone] * Full Code (Latest Code Status on File) Date Activated Date Inactivated Comments 06/11/2020 5:44 PM 06/15/2020 6:17 PM * Full Code Date Activated Date Inactivated Comments 12/01/2019 4:10 PM 12/02/2019 5:34 PM Care Teams Office Secretary Relationship Specialty Start Date End Date Hien Rogel NP [address] [place] [address] PCP - General Family Medicine 10/07/23
--- OUTSIDE RECORDS SUMMARY | 2024-08-18 08:58 | XMS_ITS ---
Author Organization [facility] Address [address] [place] [address] Care Team Providers Care Equipment Operator/Laborer Name Role Phone Hien Rogel NP Primary Care Provider [phone] Active Problems Problem Noted Date Diagnosed Date Bilateral carotid artery stenosis 04/05/2021 Assessment & Plan (10/08/2023 12:42 PM CDT): Impression: Moderate stenosis to bilateral internal carotid artery seen on carotid duplex. She remains asymptomatic. Plan: Continue ongoing risk factor modifications. -patient follow-up in 1 year for re-evaluation with repeat carotid duplex. Assessment & Plan (04/16/2021 3:55 PM SUPERVISOR PAYROLL): Patient has bilateral carotid artery stenosis measuring 50-79% on today's duplex. She is currently on medications for blood pressure control, aspirin and a statin which she will remain on at this time. I also told her that she absolutely must stop smoking. I will have her follow up in 1 year with a repeat carotid artery duplex. Assessment & Plan (04/05/2021 7:37 AM SUPERVISOR PAYROLL): Patient has bilateral carotid artery stenosis but [...] atorvastatin Assessment & Plan (04/16/2021 3:55 PM SUPERVISOR PAYROLL): Followed by her PCP chronic and stable. She is on Lipitor for a lipid lowering medication and I recommend she continue it. Assessment & Plan (04/05/2021 7:38 AM SUPERVISOR PAYROLL): Followed by her PCP. Chronic and stable. [...] valsartan Assessment & Plan (04/16/2021 3:56 PM SUPERVISOR PAYROLL): Followed by her PCP chronic and stable. I recommend she continue her amlodipine and Diovan for blood pressure control. Assessment & Plan (04/05/2021 7:38 AM SUPERVISOR PAYROLL): Followed by her PCP. Chronic and stable. [...] quitting. Assessment & Plan (04/16/2021 3:56 PM SUPERVISOR PAYROLL): Patient is a current everyday smoker. 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 Continues to smoke unfortunately. 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 Continues to smoke unfortunately. 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 Continues to smoke unfortunately. 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 Continues to smoke unfortunately. 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 Continues to smoke unfortunately. 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 Unfortunately patient continues to smoke. 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 Unfortunately patient continues to smoke. - outpatient follow-up-> looks like she had an appt today which will need to be rescheduled. 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 Unfortunately patient continues to smoke. [...]
[2024-08-18 09:24] LABS: Hematocrit 40.6 % (37.0-47.0); Hemoglobin 12.7 g/dL (12.0-15.0); Mean Corpuscular HGB Conc 31.3 g/dl (32-36); Mean Corpuscular Hemoglobin 28.5 pg (26-34); Mean Corpuscular Volume 91.2 fl (80-100); Mean Platelet Volume 8.9 fl (7.4-10.4); Platelet Count Result 365 k/mm3 (150-375); Red Blood Count 4.45 M/mm3 (4.2-5.4); Red Cell Distribution Width 15.2 % (11.5-14.5); White Blood Count 9.1 K/mm3 (4.5-10.0)
[2024-08-18 09:35] LABS: Iron 56 ug/dL (37-170)
[2024-08-18 09:44] LABS: Percent Iron Saturation 18 % (20-50)
[2024-08-18 10:21] LABS: Add Urine Microscopic? YES; Appearance Urine Clear (Clear); Bacteria Urine None Seen /hpf; Bilirubin Urine Negative (Negative); Blood Urine Negative (Negative); Color Urine Yellow (Yellow); Glucose Urine UA Negative (Negative); Ketones Urine Negative (Negative); Leukocyte Esterase Ur Negative LEU/UL (Negative); Nitrate Urine Negative (Negative); Non Pathogenic Casts 0-2; Protein Urine Trace mg/dL (Negative); RBC Urine 0-2 /hpf (0-2); Specific Grav Ur 1.016 (1.001-1.035); Squamous Epithelial Cell Urine None Seen /hpf (Few); Urobilinogen Urine 0.2 mg/dL (<2.0); WBC Urine 0-5 /hpf (0-3); pH Urine 6.5 (5.0-9.0)
== END 2024-08-18 08:45 | disposition home or self-care (01) ==
PROVIDERS: PCP Nurse Practitioner Family; Visit Provider Nurse Practitioner Family
DX: N39.3 Stress incontinence (female) (male) (principal); E03.9 Hypothyroidism, unspecified; E61.1 Iron deficiency
CPT/HCPCS: 36415; 81001; 82728; 83540; 83550; 84443; 85027; 87086

== ENCOUNTER 2024-09-22 11:32 | Outpatient (CLI) | payer MEDICARE, OTHER, SELFPAY ==
--- OUTSIDE RECORDS SUMMARY | 2024-09-22 11:38 | XMS_ITS | Encounter Summary ---
Author Organization [facility] Address [facility] [place] [address] Care Team Providers Care Landfill Gas Plant Field Technician Name Role Phone Carmine Devine MD Unavailable Ely Wisdom MD Unavailable [phone] Carmine Daniel MD Unavailable [phone] Evans Garcia MD Unavailable [phone] Juan Ricketts MD Primary Care Provider [phone] Hien Rogel NP Primary Care Provider [phone] Encounter Details Date Type Department Care Team (Late st Contact Info) Description 01/11/2024 Abstract [facility] [address] Jose Barrow MA Social History Tobacco Use [...] Information Value Date Recorded Sex Assigned at Female 08/23/2024 8:17 AM CDT Legal Sex Female 9:56 AM SOIL SURVEYOR Gender Identity Not on file Sexual Orientation [...] Status No 07/12/2022 11:18 PM CDT Stefano Alvarez, ADSHA Active * Do you have serious difficulty [...] Care Team (Late st Contact Info) Description 11/21/2024 2:05 PM CDT [facility] [address] [place] [address] Wilmer Holman MD [facility]. [facility] [address] [place], [place] [address] 01/23/2025 8:30 AM SOIL SURVEYOR Allied Health/Nurse [facility] [address] [place], [place] [address] Wilmer Holman MD [address] [place] [address] 01/23/2025 9:00 AM SOIL SURVEYOR Office Visit [facility] [address] [place] [address] Nita Alex, ANP- [address] [place] [address] 09/15/2025 8:00 AM CDT Office Visit [facility] Multispecialty Care - [facility] [address] [place] [address] Logan Justin DO [address] [place] [address] documented as of this encounter Procedures Procedure Name Priority Date/Time Associated Diagnosis Comments LIPID PANEL Routine 07/14/2024 CBC (OUTSIDE LAB) Routine 08/18/2023 COMPREHENSIVE METABOLIC PANEL Routine 08/18/2023 LIPID PANEL Routine 08/18/2023 documented in this encounter Results * LIPID PANEL (07/14/2024) CHOLESTEROL 182 TRIGLYCERIDES 117 HDL 46 DIRECT LDL 88 us Default History Genericprovider LABORATORY Edited Result - Final * (ABNORMAL) COMPREHENSIVE METABOLIC PANEL (08/18/2023) SODIUM [...] on filedocumented in this encounter Care Teams Landfill Gas Plant Field Technician Relationship Specialty Start Date End Date Juan Ricketts MD [address] [place] [address] PCP - General FAMILY PRACTICE 11/30/22 03/02/24 Hien Rogel NP [address] [address] PCP - General Nurse Practitioner Family 03/03/24 Carmine Devine MD [address] [place] [address] VASCULAR SURGERY 07/14/22 Ely Wisdom MD [address] [place] [address] Referring Physician NEPHROLOGY 07/14/22 Carmine Daniel MD [address] [place] [address] MEDICAL OFFICE BUILDING [address] [place] [address] INTERNAL MEDICINE 07/14/22 [place] [address] [place] [address] [address] [place] [address] INTERNAL MEDICINE 07/15/22 documented as of this encounter
--- OUTSIDE RECORDS SUMMARY | 2024-09-22 11:38 | XMS_ITS | Clinical Summary ---
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 Continues to smoke unfortunately. Currently [...] Comments Blood Pressure 132/70 02/13/2021 11:08 AM MAINFRAME SOFTWARE DEVELOPER Pulse - - Temperature 36.9 C (98.5 F) 02/13/2021 11:08 AM MAINFRAME SOFTWARE DEVELOPER Respiratory Rate 18 02/13/2021 11:08 AM MAINFRAME SOFTWARE DEVELOPER Oxygen Saturation - - Inhaled Oxygen Concentration - - Weight 67.6 kg (149 lb) 02/13/2021 11:08 AM MAINFRAME SOFTWARE DEVELOPER Height 160 cm (5' 3) 02/13/2021 11:08 AM MAINFRAME SOFTWARE DEVELOPER Body Mass Index 26.39 02/13/2021 11:08 AM MAINFRAME SOFTWARE DEVELOPER Plan of Treatment Health Maintenance Due Date Last Done Comments COVID-19 Vaccine ( season) 2023, 04/26/2020 Influenza Vaccine (#1) 2024 12/03/2017 Pneumococcal PPSV23/PCV13 65 + Years / Low and Medium Risk Completed 10/22/2018, 11/10/2017, 02/15/2013 Insurance MEDICARE [employer] [place] MEDICARE SUPPLEMENT Care Teams Packer Relationship Specialty Start Date End Date Manan Gil MD [address] [place] [address] PCP - General Family Medicine 12/07/18
--- OUTSIDE RECORDS SUMMARY | 2024-09-22 11:38 | XMS_ITS | Clinical Summary ---
Author Organization [facility] Address [address] [place] [address] Care Team Providers Care Sergeant Missile Crewman Name Role Phone Carmine Devine MD Unavailable Ely Wisdom MD Unavailable [phone] Carmine Daniel MD Unavailable [phone] Evans Garcia MD Unavailable [phone] Hien Rogel NP Primary Care Provider Allergies No known active allergies Medications rOPINIRole 4 MG tablet Take 1 tablet (4 mg total) by mouth 2 (two) times a day. 1 Active fish oil 1000 MG Cap capsule [...] tablet (160 mg total) by mouth daily. 4 Active atorvastatin (LIPITOR) 40 MG tablet Take 1 tablet (40 mg total) by mouth daily. 4 Active levothyroxine (SYNTHROID) 100 MCG tablet Take 1 tablet (100 mcg total) by mouth daily. 4 Active FEROSUL 325 (65 Fe) MG tablet Take 1 tablet (325 mg total) by mouth daily. 4 Active budesonide-formo terol (BREYNA) 80-4.5 MCG/ACT inhalerIndicatio ns:Pulmonary emphysema, unspecified emphysema type ([facility]) Inhale 2 puffs into the lungs 2 (two) times daily. 6.9 g 6 5 Active Additional Information Patient taking differently:2 puff Inhalation 2 times daily,Takes PRN, Reported on 09/15/2024 ezetimibe (ZETIA) 10 MG tablet Take 1 tablet (10 mg total) by mouth daily. 30 tablet 3 5 Active HYDROcodone-acet aminophen (NORCO) 5-325 MG tablet TAKE 1 TO 2 TABLETS BY MOUTH EVERY 12 HOURS NEEDED FOR PAIN 5 Active Active Problems Problem Noted Date Diagnosed [...] carotid artery duplex. Hemoptysis 09/04/2020 Diabetes mellitus ([facility]) 09/04/2020 Hyperlipidemia 09/04/2020 Restless legs syndrome (RLS) 09/04/2020 Hypertension 11/30/2019 Overview (09/04/2020): Last Assessment & Plan: Resume home bp meds Last Assessment & Plan: Resume home bp meds Hypothyroidism 11/30/2019 Overview (09/04/2020): Last Assessment & Plan: - continue home synthroid 125 mcg daily. Last Assessment & Plan: Continue home synthroid 125mcg Last Assessment & Plan: Continue home synthroid 125mcg Sick sinus syndrome (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 Continues to smoke unfortunately. 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 Continues to smoke unfortunately. Currently in contemplative stage of quitting Thoracic aortic aneurysm without rupture 018 Cardiac pacemaker in situ 03/02/2017 Overview (12/09/2022): Micra leadless pacemaker implanted in 2018 for frequent pauses Encounters Date Type Department Care Team Description 09/15/2024 7:40 AM CDT Office Visit [facility] Multispecialty Care - [facility] [address] [place] [address] Maribel Downs DO Follow Up (Need pulmonary clearance for hip replacement; denies any worsening SOB; denies any coughing at this time ) 09/15/2024 Travel 09/06/2024 Scan [employer] INFO SRVCS Scanned, [facility] 08/23/2024 8:20 AM CDT - 08/23/2024 11:59 PM CDT Hospital Encounter [facility] [place] [address] Maribel Downs, Discharge Disposition: Home or Self Care (Routine Discharge) 08/23/2024 Travel 08/17/2024 2:10 PM CDT Allied Health/Nurse Visit [facility], [address] [address] Wilmer Holman MD Remote Device Check 08/17/2024 Travel 08/17/2024 Telephone [facility], [address] [address] Erin Azevedo MA No Show 08/05/2024 10:26 AM CDT - 08/05/2024 11:59 PM CDT Hospital Encounter [facility] [place] [address] Jarod Aparicio PA Discharge Disposition: Home or Self Care (Routine Discharge) 08/05/2024 Travel 07/18/2024 Telephone [facility], [facility] [address] [place] [address] Capri Ny, contract lead Results 07/14/2024 Results Follow-Up [facility], [address] [address] Capri Ny, DASHA LIPID PANEL 07/11/2024 9:45 AM CDT Office Visit [facility], [address] [place] [address] Nita Alex ANP- Follow Up 07/11/2024 Travel 07/08/2024 Telephone [facility], [address] [address] Erin Azevedo MA Follow Up Call from Last 3 Months Immunizations Immunization Administration [...] Years Used Date Smoking Tobacco: Former Cigarettes 1 50 Smokeless Tobacco: Never Tobacco Cessation:Counseling Given: Yes Comments:Quit smoking for 24 days - per patient on 09/15/2024 Alcohol Use Standard Drinks/Week Comments Never 0 [...] AM CDT Legal Sex Female 9:56 AM DEFECTIVE CIGARETTE SLITTER Gender Identity Not on file Sexual Orientation Not on file Last Filed Vital Signs Vital Sign Reading Time Taken Comments Blood Pressure 135/70 09/15/2024 7:21 AM CDT Pulse 76 09/15/2024 7:21 AM CDT Temperature 37.2 C (99 F) 09/15/2024 7:21 AM CDT Respiratory Rate 16 09/15/2024 7:21 AM CDT Oxygen Saturation 98% 09/15/2024 7:21 AM CDT RA Inhaled Oxygen Concentration - - Weight 64.4 kg (142 lb) 09/15/2024 7:21 AM CDT Height 160 cm (5' 3) 09/15/2024 7:21 AM CDT Body Mass Index 25.15 09/15/2024 7:21 AM CDT Plan of Treatment Upcoming Encounters Date Type Department Care Team (Late st Contact Info) Description 11/21/2024 2:05 PM CDT [facility] [address] [place] [address] Wilmer Holman MD [facility]. [address] [place] [address] 01/23/2025 8:30 AM DEFECTIVE CIGARETTE SLITTER Allied Health/Nurse Visit [facility], [address] [place] [address] Wilmer Holman MD [facility]. [address] [place] [address] 01/23/2025 9:00 AM DEFECTIVE CIGARETTE SLITTER Office Visit [facility], [address] [place], [place] [id number] Nita Alex, [facility]- [facility]. [address] [place] [address] 09/15/2025 8:00 AM CDT Office Visit [facility] Multispecialty Care - [facility] [address] [place] [id number] Maribel Downs DO [address] [facility] [address] [place] [address] Health Maintenance Due Date Last Done Comments Colorectal Cancer Screening Colonoscopy (10 Years) 1952 Kidney Health Evaluation 1952 Diabetes: Retinopathy Eye Exam 1970 Hepatitis C 1970 DTaP, Tdap and Td Vaccines ( 1 - Tdap) 1971 Mammogram Screening 1992 Zoster Vaccines (1 of 2) 2002 RSV Immunization or 60+ Years (1 - Risk 60-74 years 1-dose series) 2012 Annual Medicare Wellness Visit 2017 Dexa Scan (General) 2017 Hemoglobin A1C 03/08/2021 09/05/2020, 06/11/2020, 12/01/2019 COVID-19 Vaccine (3 - 2023-2 5 season) 2023 05/18/2020, 04/26/2020 PHQ-2 (Physician [place]) 03/02/2024 Lipid Panel 07/14/2025 07/14/2024, 08/18/2023 Pneumococcal Vaccine: 50+ Years Completed 10/22/2018, 11/10/2017, 02/15/2013 Meningococcal B Vaccine Aged Out No l onger eligible based on patient's age to complete this topic Meningococcal Vaccine Aged Out No bobby danyell eligible based on patient's age to complete this topic RSV Immunizations Under 20 Months Aged Out No longer eligible b ased on patient's age to complete this topic Medical Devices Implanted Type Area Forest Fire Fighter Device Identifier Shelf Expiration Date Model / Serial / Lot Mdt Micra Pacemaker-04/06/19 18 Implanted:2017 by Evans Garcia RT Student (Quantity not on file) Pacemaker [employer] CARDIAC RHYTHM AND HEART FAILURE - DIV M [id number] / [id number] / Description:MRI Conditional under following conditions: Static [...] Associated Diagnosis Comments CT LUNG SCREENING Routine 08/23/2024 8:5 8 AM CDT Nicotine dependence, cigarettes, with other nicotine-induced disorders MRI KNEE RT WO CON Routine 08/05/2024 12 :08 PM CDT Unspecified internal derangement of right knee XR CHEST PA OR AP 1V STAT 08/05/2024 10:42 AM CDT S/P placement of cardiac pacemaker LIPID PANEL Routine 07/14/2024 HEMOGLOBIN, GLYCOSYLATED Routine 09/05/2020 4:40 AM CDT from Last 3 Months or Most Recently Relevant to Health Maintenance Results * CT LUNG SCREENING (08/23/2024 8:58 AM CDT) Anatomical Region Laterality Modality Chest Computed Tomogra phy 09/05/2024 12:1 8 PM CDT Impressions 09/05/2024 12:22 PM CDT IMPRESSION: 1. LUNG-RADS category 2: Benign findings. See above. RECOMMENDATIONS: Continued routine annual LDCT lung screening. Suggest next exam on or around July 2025 Thank you for choosing the [facility] Lung Screening Program. Ordered By: MARIBEL DOWNS Interpreted By: Jules Hallman MD, 09/05/2024 12:18 PM Narrative 09/05/2024 12:[address] PM CDT [address] [address] EXAM: LUNG SCREENING LOW-DOSE CT THORAX WITHOUT CONTRAST DATE: 08/23/2024 HISTORY: Asymptomatic patient with history of smoking meeting CMS high-risk criteria for lung screening. * 74 years * 30 pack years or greater * Current smoker or have quit smoking within the last 15 years COMPARISON: 03/03/2024 TECHNIQUE: Noncontrast, helical, low-dose CT (LDCT) chest per standard departmental protocol. A dose lowering technique was used for this procedure, which may include, but is not limited to, dose reduction techniques, automated exposure control, and/or the use of iterative reconstruction, in accordance with ALARA (As Low As Reasonably Achievable)/Image Gently principle. FINDINGS: Lung Screening Specific (LUNG-RADS): No malignant appearing nodular finding. Potentially Significant Incidentals (LUNG-RADS category S): Patchy atelectasis, scar or infiltrate in the lingula base. Pulmonary Incidentals: COPD. Nodular scarring in the apices. Linear bands of scarring. Retained secretions in airways. Other Incidentals: Thoracic aortic stent graft. Arterial and aortic wall calcifications. This includes heavy calcifications at the aortic arch branches and coronary arteries. Also with heavy calcifications in the visceral arteries of the upper abdomen. Colonic diverticulosis. Spondylosis. Osteoporosis. Procedure Note Jules Hallman MD - 09/05/2024 [facility] [address] [place], [place] [address] EXAM: LUNG SCREENING LOW-DOSE CT THORAX WITHOUT CONTRAST DATE: 08/23/2024 HISTORY: Asymptomatic patient with history of smoking meeting CMShigh-risk criteria for lung screening. * 74 years * 30 pack years or greater * Current smoker or have quit smoking within the last 15 years COMPARISON: 03/03/2024 TECHNIQUE: Noncontrast, helical, low-dose CT (LDCT) chest per standarddepartmental protocol. A dose lowering technique was used for thisprocedure, which may include, but is not limited to, dose reductiontechniques, automated exposure control, and/or the use of iterativereconstruction, in accordance with ALARA (As Low As ReasonablyAchievable)/Image Gently principle. FINDINGS: Lung Screening Specific (LUNG-RADS): No malignant appearing nodularfinding. Potentially Significant Incidentals (LUNG-RADS category S): Patchyatelectasis, scar or infiltrate in the lingula base. Pulmonary Incidentals: COPD. Nodular scarring in the apices. Linear bandsof scarring. Retained secretions in airways. Other Incidentals: Thoracic aortic stent graft. Arterial and aortic wallcalcifications. This includes heavy calcifications at the aortic archbranches and coronary arteries. Also with heavy calcifications in thevisceral arteries of the upper abdomen. Colonic diverticulosis.Spondylosis. Osteoporosis. IMPRESSION: 1. LUNG-RADS category 2: Benign findings. See above. RECOMMENDATIONS: Continued routine annual LDCT lung screening. Suggestnext exam on or around July 2025 Thank you for choosing the [facility] Lung ScreeningProgram. Ordered By: MARIBEL DOWNS Interpreted By: Jules Hallman MD, 09/05/2024 12:18 PM us Maribel Downs DO CT Final Resu lt * MRI KNEE RT WO CON (08/05/2024 12:08 PM CDT) Anatomical Region Laterality Modality Knee Magnetic Resonan ce 08/05/2024 2:59 PM CDT Impressions 08/05/2024 3:20 PM CDT IMPRESSION: Apical tear body and posterior horn medial meniscus. Small joint effusion. Ordered By: JAROD APARICIO Interpreted By: Joel Park MD, 08/05/2024 2:59 PM Narrative 08/05/2024 3:[address] PM [address] [address] 08/05/2024, 11:59 AM. HISTORY: Injured knee in December 2023. Anterior pain. Feels like knee was give out. Internal derangement. EXAM: MR imaging of the right knee was performed in the axial, the sagittal and the coronal planes utilizing T1, proton density and fat sat proton density sequence imaging. No comparison. FINDINGS: Image detail is limited secondary to motion artifact. Apical tear body medial meniscus. Degeneration of the body the medial meniscus which is attenuated in size. There may be minimal medial extrusion of the body the medial meniscus. Possible occult inferior apical tear posterior horn medial meniscus. Anterior horn of the medial meniscus and the lateral meniscus are intact. There is some increased signal in the posterior horn medial meniscus which may indicate myxoid degeneration versus an occult tear to the inferior surface. I favor the former possibility. No remarkable thinning of the articular cartilage on the femoral condyles, tibial plateaus nor dorsal patellar surfaces. A joint effusion is present. No popliteal cyst. No periarticular soft tissue mass. The cruciate ligaments, medial collateral ligament, distal quadriceps tendon and patellar tendons are intact. No marrow replacement or gross bone destruction distal femur nor proximal tibia. Slight soft tissue swelling or edema anterior to the patellar tendon. Procedure Note Joel Park MD - 08/05/[address] [address] 08/05/2024, 11:59 AM. HISTORY: Injured knee in December 2023. Anterior pain. Feels like knee wasgive out. Internal derangement. EXAM: MR imaging of the right knee was performed in the axial, thesagittal and the coronal planes utilizing T1, proton density and fat satproton density sequence imaging. No comparison. FINDINGS: Image detail is limited secondary to motion artifact. Apical tear body medial meniscus. Degeneration of the body the medialmeniscus which is attenuated in size. There may be minimal medialextrusion of the body the medial meniscus. Possible occult inferior apicaltear posterior horn medial meniscus. Anterior horn of the medial meniscusand the lateral meniscus are intact. There is some increased signal in theposterior horn medial meniscus which may indicate myxoid degenerationversus an occult tear to the inferior surface. I favor the formerpossibility. No remarkable thinning of the articular cartilage on thefemoral condyles, tibial plateaus nor dorsal patellar surfaces. A jointeffusion is present. No popliteal cyst. No periarticular soft tissue mass.The cruciate ligaments, medial collateral ligament, distal quadricepstendon and patellar tendons are intact. No marrow replacement or grossbone destruction distal femur nor proximal tibia. Slight soft tissueswelling or edema anterior to the patellar tendon. IMPRESSION: Apical tear body and posterior horn medial meniscus. Small jointeffusion. Ordered By: JAROD APARICIO Interpreted By: Joel Park MD, 08/05/2024 2:59 PM Jarod Aparicio PA MRI Final Result * XR CHEST PA OR AP 1V (08/05/2024 10:42 AM CDT) Anatomical Region Laterality Modality Chest Radiographic Blanca ging 08/05/2024 11:2 3 AM CDT Impressions 08/05/2024 11:30 AM CDT ======== IMPRESSION: ======== 1. Leadless pacemaker seen grossly stable in position on single view from prior study. 2. Change in appearance of right apical scarring. Subtle increase is possible. Consider CT scan without contrast for further evaluation. Ordered By: JAROD APARICIO Interpreted By: Omar Santizo MD, 08/05/2024 11:23 AM Narrative 08/05/2024 11:30 AM CDT [address] [address] Examination: Chest Radiograph, 1 view Exam Date/Time: 08/05/2024 10:30 AM Reason For Exam: check pacemaker and leads prior to MRI Comparison: 01/10/2023, 03/03/2024 Technique: Single AP view of the chest. Findings: Pacemaker device is faintly visualized. This overlies portions of the spine, vascular stent in heart. This is grossly stable in position on this single view to prior studies. No leads are present and therefore cannot be evaluated on present exam. Right apical pleural thickening is noted. This appears more prominent than prior studies possibly due to differing technique. No pleural effusion, pulmonary edema or cardiomegaly is seen. Postoperative change in the left neck is noted. Procedure Note Omar Santizo MD - 08/05/[address] [address] Examination: Chest Radiograph, 1 view Exam Date/Time: 08/05/2024 10:30 AM Reason For Exam: check pacemaker and leads prior to MRI Comparison: 01/10/2023, 03/03/2024 Technique: Single AP view of the chest. Findings: Pacemaker device is faintly visualized. This overlies portionsof the spine, vascular stent in heart. This is grossly stable in positionon this single view to prior studies. No leads are present and thereforecannot be evaluated on present exam. Right apical pleural thickening is noted. This appears more prominent thanprior studies possibly due to differing technique. No pleural effusion,pulmonary edema or cardiomegaly is seen. Postoperative change in the leftneck is noted. ======== IMPRESSION: ======== 1. Leadless pacemaker seen grossly stable in position on single view fromprior study. 2. Change in appearance of right apical scarring. Subtle increase ispossible. Consider CT scan without contrast for further evaluation. Ordered By: JAROD APARICIO Interpreted By: Omar Santizo MD, 08/05/2024 11:23 AM Jarod Aparicio PA GENERAL IMAGING Final Result * LIPID PANEL (07/14/2024) CHOLESTEROL 182 TRIGLYCERIDES 117 HDL 46 DIRECT LDL 88 Default History Genericprovider LABORATORY Edited Result - Final * HEMOGLOBIN, GLYCOSYLATED (09/05/2020 4:40 AM CDT) HGB A1C 5.5 <5.7 % 09/05/2020 9:57 AM CDT [facility] Comment: ADA GUIDELINES 2010 5.7 TO 6.4% INCREASED RISK OF DIABETES > OR = 6.5% CONSISTENT WITH DIABETES ESTIMATED AVG GLUCOSE 111 mg/dL 09/05/2020 9:57 AM CDT [facility] 09/05/2020 4:40 AM CDT Miya Hurst PA-C LABORATORY Final Result [facility] [address] [place] [address], [place] [phone] from Last 3 Months or Most Recently Relevant to Health Maintenance Insurance MEDICARE [facility] Advance Directives * Full Code (Latest Code Status on File) Date Activated Date Inactivated Comments 07/12/2022 10:50 PM 07/14/2022 1:43 PM * Full Code Date Activated Date Inactivated Comments 09/04/2020 1:40 PM 09/05/2020 7:04 PM Care Teams Sergeant Missile Crewman Relationship Specialty Start Date End Date Hien Rogel NP [address] [place] [id number] PCP - General Nurse Practitioner Family 03/03/24 Carmine Devine MD [address] [facility] [address] [place] [address] VASCULAR SURGERY 07/14/22 Ely Wisdom MD [address] [facility] [address] [place] [address] Referring Physician NEPHROLOGY 07/14/22 Carmine Daniel MD [address] [place] [address] [address] [address] INTERNAL MEDICINE 07/14/22 Evans Garcia MD [address] [address] INTERNAL MEDICINE 07/15/22
--- OUTSIDE RECORDS SUMMARY | 2024-09-22 11:38 | XMS_ITS ---
Author Organization [facility] Address [address] [place] [address] Care Team Providers Care Gold Prospector Name Role Phone Hien Rogel NP Primary Care Provider [phone] Active Problems Problem Noted Date Diagnosed Date Bilateral carotid artery stenosis 04/05/2021 Assessment & Plan (10/08/2023 12:42 PM CDT): Impression: Moderate stenosis to bilateral internal carotid artery seen on carotid duplex. She remains asymptomatic. Plan: Continue ongoing risk factor modifications. -patient follow-up in 1 year for re-evaluation with repeat carotid duplex. Assessment & Plan (04/16/2021 3:55 PM METAL MELTER): Patient has bilateral carotid artery stenosis measuring 50-79% on today's duplex. She is currently on medications for blood pressure control, aspirin and a statin which she will remain on at this time. I also told her that she absolutely must stop smoking. I will have her follow up in 1 year with a repeat carotid artery duplex. Assessment & Plan (04/05/2021 7:37 AM METAL MELTER): Patient has bilateral carotid artery stenosis but [...] atorvastatin Assessment & Plan (04/16/2021 3:55 PM METAL MELTER): Followed by her PCP chronic and stable. She is on Lipitor for a lipid lowering medication and I recommend she continue it. Assessment & Plan (04/05/2021 7:38 AM METAL MELTER): Followed by her PCP. Chronic and stable. [...] valsartan Assessment & Plan (04/16/2021 3:56 PM METAL MELTER): Followed by her PCP chronic and stable. I recommend she continue her amlodipine and Diovan for blood pressure control. Assessment & Plan (04/05/2021 7:38 AM METAL MELTER): Followed by her PCP. Chronic and stable. [...] quitting. Assessment & Plan (04/16/2021 3:56 PM METAL MELTER): Patient is a current everyday smoker. 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 Continues to smoke unfortunately. 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 Continues to smoke unfortunately. 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 Continues to smoke unfortunately. 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 Continues to smoke unfortunately. 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 Continues to smoke unfortunately. 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 Unfortunately patient continues to smoke. 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 Unfortunately patient continues to smoke. - outpatient follow-up-> looks like she had an appt today which will need to be rescheduled. 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 Unfortunately patient continues to smoke. [...]
--- OUTSIDE RECORDS SUMMARY | 2024-09-22 11:38 | XMS_ITS | Referral Summary ---
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 Assessment & Plan (04/16/2021 3:55 PM AUTOMATIC I THREADING MACHINE FEEDER): Patient has bilateral carotid artery stenosis measuring 50-79% on today's duplex. She is currently on medications for blood pressure control, aspirin and a statin which she will remain on at this time. I also told her that she absolutely must stop smoking. I will have her follow up in 1 year with a repeat carotid artery duplex. Assessment & Plan (04/05/2021 7:37 AM AUTOMATIC I THREADING MACHINE FEEDER): Patient has bilateral carotid artery stenosis but [...] atorvastatin Assessment & Plan (04/16/2021 3:55 PM AUTOMATIC I THREADING MACHINE FEEDER): Followed by her PCP chronic and stable. She is on Lipitor for a lipid lowering medication and I recommend she continue it. Assessment & Plan (04/05/2021 7:38 AM AUTOMATIC I THREADING MACHINE FEEDER): Followed by her PCP. Chronic and stable. [...] valsartan Assessment & Plan (04/16/2021 3:56 PM AUTOMATIC I THREADING MACHINE FEEDER): Followed by her PCP chronic and stable. I recommend she continue her amlodipine and Diovan for blood pressure control. Assessment & Plan (04/05/2021 7:38 AM AUTOMATIC I THREADING MACHINE FEEDER): Followed by her PCP. Chronic and stable. [...] quitting. Assessment & Plan (04/16/2021 3:56 PM AUTOMATIC I THREADING MACHINE FEEDER): Patient is a current everyday smoker. 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 Continues to smoke unfortunately. 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 Continues to smoke unfortunately. 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 Continues to smoke unfortunately. 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 Continues to smoke unfortunately. 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 Continues to smoke unfortunately. 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 Unfortunately patient continues to smoke. 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 Unfortunately patient continues to smoke. - outpatient follow-up-> looks like she had an appt today which will need to be rescheduled. 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 Unfortunately patient continues to smoke. [...] on file Legal Sex Female 2:35 AM AUTOMATIC I THREADING MACHINE FEEDER Gender Identity Not on file Sexual Orientation [...] A1C 5.4 4.0 - 5.6 % [facility] Estimated Average Glucose 108 mg/dL [facility] Comment: The ADA recommends reporting an [...] MD LAB BLOOD ORDERABLES Samira juarez Result [facility] Department [place] [address] * (ABNORMAL) Lipid panel (06/11/2020 6:30 PM CDT) Cholesterol 169 30 - 199 mg/dL [facility] Comment: Interpretive Data Ages < or [...] on 2017. Triglycerides 137 <=149 mg/dL [facility] Comment: Interpretive Data Ages < or [...] last revised on 2017. Chol/HDL [facility] 5 [facility] Blood specimen (specimen) 06/11/2020 6:30 PM CDT 06/11/2020 7:15 PM CDT Narrative [facility] - 06/12/2020 12:03 AM CDT Reflex us Makeda Orozco MD LAB BLOOD ORDERABLES Samira juarez Result [facility] Department [place] [address] from Last 3 Months or Most Recently Relevant to Health Maintenance Insurance MEDICARE [facility] MEDICARE [employer] [facility] [place] [address] Advance Directives For more information, please contact: [phone] * Full Code (Latest Code Status on File) Date Activated Date Inactivated Comments 06/11/2020 5:44 PM 06/15/2020 6:17 PM * Full Code Date Activated Date Inactivated Comments 12/01/2019 4:10 PM 12/02/2019 5:34 PM Care Teams Shield Cleaner Relationship Specialty Start Date End Date Hien Rogel NP [address] [place] [address] PCP - General Family Medicine 10/07/23
--- OUTSIDE RECORDS SUMMARY | 2024-09-22 11:38 | XMS_ITS | Encounter Summary ---
Author Organization [facility] Address [address] [facility] [address] [place] [address] Phone Care Team Providers Care Metalizing Machine Operator Automatic Name Role Phone Sinan Arriola MD Primary Care Provider [phone] Manan Gil MD Primary Care Provider [phone] Hien Rogel NP Primary Care Provider [phone] Encounter Details Date Type Department Care Team (Late st Contact Info) Description 04/07/2017 Orders Only [facility] Carmine Devine MD [address] [facility] [address] [place], [place] [id number] Social History Tobacco Use Types Packs/Day Years Used Date Smoking Tobacco: Never Assessed Comments Unknown Sex and Gender Information Value Date Recorded Sex Assigned at Not on file Legal Sex Female 2:35 AM EXPERIENTIAL THERAPIST Gender Identity Not on file Sexual Orientation [...] documented as of this encounter Care Teams Metalizing Machine Operator Automatic Relationship Specialty Start Date End Date Sinan Arriola MD [address] [place] [address] PCP - General 03/13/17 10/13/18 Manan Gil MD [address] [facility] [address] [place] [address] PCP - General Internal Medicine 10/14/18 10/06/23 Hien Rogel NP [address] [place] [address] PCP - General Family Medicine 10/07/23 documented as of this encounter
--- OUTSIDE RECORDS SUMMARY | 2024-09-22 11:38 | XMS_ITS | Clinical Summary ---
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 Assessment & Plan (04/16/2021 3:55 PM BROOMMAKING SUPERVISOR): Patient has bilateral carotid artery stenosis measuring 50-79% on today's duplex. She is currently on medications for blood pressure control, aspirin and a statin which she will remain on at this time. I also told her that she absolutely must stop smoking. I will have her follow up in 1 year with a repeat carotid artery duplex. Assessment & Plan (04/05/2021 7:37 AM BROOMMAKING SUPERVISOR): Patient has bilateral carotid artery stenosis but [...] atorvastatin Assessment & Plan (04/16/2021 3:55 PM BROOMMAKING SUPERVISOR): Followed by her PCP chronic and stable. She is on Lipitor for a lipid lowering medication and I recommend she continue it. Assessment & Plan (04/05/2021 7:38 AM BROOMMAKING SUPERVISOR): Followed by her PCP. Chronic and stable. [...] valsartan Assessment & Plan (04/16/2021 3:56 PM BROOMMAKING SUPERVISOR): Followed by her PCP chronic and stable. I recommend she continue her amlodipine and Diovan for blood pressure control. Assessment & Plan (04/05/2021 7:38 AM BROOMMAKING SUPERVISOR): Followed by her PCP. Chronic and stable. [...] quitting. Assessment & Plan (04/16/2021 3:56 PM BROOMMAKING SUPERVISOR): Patient is a current everyday smoker. I [...] Tonsillar cancer (dx 2012) s/p surgery and AIR CONDITIONING SPECIALIST in remission. Continues to smoke unfortunately. 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 Continues to smoke unfortunately. Currently in contemplative stage of quitting Assessment & Plan (06/13/2020 10:26 AM CDT): Tonsillar cancer (dx 2012) s/p surgery and AIR CONDITIONING SPECIALIST in remission. Continues to smoke unfortunately. 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 Continues to smoke unfortunately. 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 Continues to smoke unfortunately. 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 Unfortunately patient continues to smoke. - outpatient follow-up-> looks like she had an appt yesterday which will need to be rescheduled: patient aware Assessment & Plan (12/01/2019 11:09 AM CDT): Tonsillar cancer (dx 2012) s/p surgery and AIR CONDITIONING SPECIALIST in remission. Unfortunately patient continues to smoke. - outpatient follow-up-> looks like she had an appt today which will need to be rescheduled. Assessment & Plan (11/30/2019 10:59 PM CDT): Tonsillar cancer (dx 2012) s/p surgery and AIR CONDITIONING SPECIALIST in remission. Unfortunately patient continues to [...] 10/22/2018, Surgical History Surgery Date Site/Laterality Comments DC DELIVERY ONLY Section - (Added by TW Conv) DC BX/EXC LYMPH NODE OPEN SUPERFICIAL Biopsy Lymph [...] on file Legal Sex Female 2:35 AM BROOMMAKING SUPERVISOR Gender Identity Not on file Sexual Orientation [...] MD LAB BLOOD ORDERABLES Samira juarez Result [facility] [place] [address] * (ABNORMAL) Lipid panel (06/11/2020 6:30 PM [...] last revised on 2017. Chol/HDL ratio 5 [facility] Blood specimen (specimen) 06/11/2020 6:30 PM CDT 06/11/2020 7:15 PM CDT Narrative [facility] - 06/12/2020 12:03 AM CDT Reflex us Makeda Orozco MD LAB BLOOD ORDERABLES Samira juarez Result [facility] [place] [address] from Last 3 Months or Most Recently Relevant to Health Maintenance Insurance MEDICARE [facility] MEDICARE [employer] [place] [employer] [employer] [place] [id number] MEDICARE Advance Directives For more information, please contact: [phone] * Full Code (Latest Code Status on File) Date Activated Date Inactivated Comments 06/11/2020 5:44 PM 06/15/2020 6:17 PM * Full Code Date Activated Date Inactivated Comments 12/01/2019 4:10 PM 12/02/2019 5:34 PM Care Teams Director Investment Banking Relationship Specialty Start Date End Date Hien Rogel NP [address] [place] [address] PCP - General Family Medicine 10/07/23
== END 2024-09-22 11:33 | disposition home or self-care (01) ==
PROVIDERS: PCP Nurse Practitioner Family; Visit Provider Orthopaedic Surgery
DX: Z79.899 Other long term (current) drug therapy (principal)
CPT/HCPCS: 80307

== ENCOUNTER 2024-11-09 15:35 | Outpatient (CLI) | payer MEDICARE, OTHER, SELFPAY ==
--- OUTSIDE RECORDS SUMMARY | 2024-11-09 15:53 | XMS_ITS | Encounter Summary ---
Author Organization [facility] Address [facility] [place] [address] Care Team Providers Care Volunteer Assistant Name Role Phone Carmine Devine MD Unavailable Ely Wisdom MD Unavailable [phone] Carmine Daniel MD Unavailable [phone] Evans Garcia MD Unavailable [phone] Juan Ricketts MD Primary Care Provider [phone] Hien Rogel NP Primary Care Provider [phone] Encounter Details Date Type Department Care Team (Late st Contact Info) Description 01/11/2024 Abstract [facility] [address] Jose Barrow MA Social History Tobacco Use [...] AM CDT Legal Sex Female 9:56 AM FILM TESTS CHECKER Gender Identity Not on file Sexual Orientation [...] No 07/12/2022 11:18 PM CDT Stefano Alvarez, DASHA Active * Do you have serious difficulty [...] 11/21/2024 2:05 PM CDT Allied Health[facility] [address] [place] [address] Wilmer Holman MD [facility] [address] [place], [place] [address] 01/23/2025 8:30 AM FILM TESTS CHECKER Allied Health/Nurse [facility] [address] [place], [place] [address] Wilmer Holman MD [address] [place] [address] 01/23/2025 9:00 AM FILM TESTS CHECKER Office Visit [facility] [address], [address] [place] [address] Nita Alex, ANP- [address] [place] [address] 09/15/2025 8:00 AM CDT Office Visit [facility] - [facility] [address] [place] [address] Logan Justin DO [address] [place] [address] documented as of this encounter Procedures Procedure [...] on filedocumented in this encounter Care Teams Volunteer Assistant Relationship Specialty Start Date End Date Juan Ricketts MD [address] [place] [address] PCP - General FAMILY PRACTICE 11/30/22 03/02/24 Hien Rogel NP [address] [address] PCP - General Nurse Practitioner Family 03/03/24 Carmine Devine MD [address] [place] [address] VASCULAR SURGERY 07/14/22 Ely Wisdom MD [address] [place] [address] Referring Physician NEPHROLOGY 07/14/22 Carmine Daniel MD [address] [place] [address] MEDICAL OFFICE BUILDING [address] [place] [address] INTERNAL MEDICINE 07/14/22 [place] [address] [place] [address] [address] [place] [address] INTERNAL MEDICINE 07/15/22 documented as of this encounter
--- OUTSIDE RECORDS SUMMARY | 2024-11-09 15:53 | XMS_ITS | Clinical Summary ---
Author Organization [facility] Address [address] [place] [address] Care Team Providers Care Reinforcer Name Role Phone Hien Rogel NP Primary Care Provider [phone] Allergies No known active allergies Medications levothyroxine (SYNTHROID) 125 mcg tabletIndicatio ns:hypothyroidi sm Take 1 tablet (125 mcg total) by mouth gluer and slicer hand before breakfast 8 Active rOPINIRole (REQUIP) 4 mg tabletIndicatio ns:Restless Legs Syndrome Take 1 tablet (4 mg total) by mouth 2 (two) times a day 8 Active vsujy-3-exc-epa -dpa-fish oil 1,050-1,200 mg capsuleIndicati ons:hypertrigly ceridemia [...] 6 (six) hours as needed 2 Active ezetimibe (ZETIA) 10 mg tablet Take 1 tablet (10 mg total) by mouth daily 5 Active HYDROcodone-jannette taminophen (NORCO) 5-325 mg per tablet TAKE 1 TO 2 TABLETS BY MOUTH EVERY 12 HOURS NEEDED FOR PAIN 5 Active omega-3 fatty acids-fish oil 300-1,000 mg capsule Take 2 capsules (2 g total) by mouth daily Active Active Problems Problem Noted Date Diagnosed Date Bilateral carotid artery stenosis 04/05/2021 Assessment & Plan (10/17/2024 3:08 PM CDT): Stable moderate right ICA stenosis. No significant left ICA stenosis. Continue risk factor modification with ASA statin therapy and good blood pressure control. Follow up in 1 year with repeat carotid duplex. Assessment & Plan (10/08/2023 12:42 PM CDT): Impression: Moderate stenosis to bilateral internal carotid artery seen on carotid duplex. She remains asymptomatic. Plan: Continue ongoing risk factor modifications. -patient follow-up in 1 year for re-evaluation with repeat carotid duplex. Assessment & Plan (04/16/2021 3:55 PM COIN TELLER): Patient has bilateral carotid artery stenosis measuring 50-79% on today's duplex. She is currently on medications for blood pressure control, aspirin and a statin which she will remain on at this time. I also told her that she absolutely must stop smoking. I will have her follow up in 1 year with a repeat carotid artery duplex. Assessment & Plan (04/05/2021 7:37 AM COIN TELLER): Patient has bilateral carotid artery stenosis but [...] carotid stenosis. Hyperlipidemia 09/04/2020 Assessment & Plan (10/17/2024 3:08 PM CDT): Stable continue Lipitor Assessment & Plan (10/08/2023 12:42 PM CDT): Impression: Chronic and stable. Plan: Continue atorvastatin Assessment & Plan (04/16/2021 3:55 PM COIN TELLER): Followed by her PCP chronic and stable. She is on Lipitor for a lipid lowering medication and I recommend she continue it. Assessment & Plan (04/05/2021 7:38 AM COIN TELLER): Followed by her PCP. Chronic and stable. [...] tele HTN (hypertension) 11/30/2019 Assessment & Plan (10/17/2024 3:08 PM CDT): Stable continue amlodipine Assessment & Plan (10/08/2023 12:42 PM CDT): Impression: Chronic and stable. Plan: Continue losartan, amlodipine and valsartan Assessment & Plan (04/16/2021 3:56 PM COIN TELLER): Followed by her PCP chronic and stable. I recommend she continue her amlodipine and Diovan for blood pressure control. Assessment & Plan (04/05/2021 7:38 AM COIN TELLER): Followed by her PCP. Chronic and stable. [...] quitting. Assessment & Plan (04/16/2021 3:56 PM COIN TELLER): Patient is a current everyday smoker. I [...] future if remains clinically stable Avoid nephrotoxins. 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 Continues to smoke unfortunately. 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 Continues to smoke unfortunately. 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 Continues to smoke unfortunately. 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 Continues to smoke unfortunately. 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 Continues to smoke unfortunately. 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 Unfortunately patient continues to smoke. 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 Unfortunately patient continues to smoke. - outpatient follow-up-> looks like she had an appt today which will need to be rescheduled. 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 Unfortunately patient continues to [...] wounds Pictures uploaded in media Consult derm Encounters Date Type Department Care Team Description 10/11/2024 Orders Only [facility] Vascular and Vein Surgery [address] [place] [address] [address] [place] [address] Adriana Zimmerman MD Bilateral carotid artery stenosis (Primary Dx) 10/10/2024 1:30 PM CDT Office Visit [facility] Vascular and Vein Surgery [address] [place] [address] [address] [place] [address] Adriana Zimmerman MD Bilateral carotid artery stenosis (Primary Dx); Mixed hyperlipidemia; Arteriosclerosis of artery of extremity; Primary hypertension 10/10/2024 12:19 PM CDT - 10/10/2024 11:59 PM CDT Hospital Encounter [facility] Medical Office Building [address] [place] [address] [address] [place] [address] Bilateral carotid artery stenosis Discharge Disposition: Discharge to home or self care from Last 3 Months Immunizations Immunization Administration Dates Next Due Influenza, Quadrivalent, Hig h Dose, Preservative Free, Intrr 12/02/2019(Deferred: Patient Refused),11/15/2019 Influenza, Quadrivalent, Spl it, Intramuscular 12/01/2018 Influenza, Trivalent, High D ose, Split, Preservative Free, Intramuscular 12/10/2018,11/10/2017 Influenza, Unspecified 12/03/2017 Pneumococcal Conjugate 7-Valent 02/15/2013 Pneumococcal Conjugate PCV 13 11/10/2017 Pneumococcal Conjugate, Unspecified 02/15/2013 Pneumococcal Polysaccharide PPV23 10/22/2018, Surgical History Surgery Date Site/Laterality Comments NC DELIVERY ONLY Section - (Added by TW Conv) NC BX/EXC LYMPH NODE OPEN SUPERFICIAL Biopsy Lymph [...] on file Legal Sex Female 2:35 AM COIN TELLER Gender Identity Not on file Sexual Orientation Not on file Obstetrics History Last Filed Vital Signs Vital Sign Reading Time Taken Comments Blood Pressure 142/80 10/10/2024 1:17 PM CDT Pulse 76 10/10/2024 1:17 PM CDT Temperature 36.7 C (98 F) 06/15/2020 7:47 AM CDT Respiratory Rate 18 06/15/2020 7:47 AM CDT Oxygen Saturation 98% 06/15/2020 7:47 AM CDT Inhaled Oxygen Concentration - - Weight 63.5 kg (140 lb) 10/10/2024 1:17 PM CDT Height 160 cm (5' 3) 10/10/2024 1:17 PM CDT Body Mass Index 24.8 10/10/2024 1:17 PM CDT Plan of Treatment Health Maintenance [...] Visit 65+ 2017 Hemoglobin A1C 12/11/2020 06/11/2020, 10/0 03/2019, 03/30/2017 Fall Risk Assessment 06/15/2021 06/15/2020 Covid-19 Vaccine (3 - 2023-2 5 season) 2023 05/18/2020, 04/26/2020 Influenza Vaccine (#1) 2024 , 12/10/2018, 12/01/2018, Additional history exists Lipid Panel 07/14/2025 07/14/2024, 0404/2020, 12/01/2019, Additional history exists Pneumococcal vaccine 65+ Completed 019, 11/10/2017, 02/15/2013, Additional history exists Procedures Procedure Name Priority Date/Time Associated Diagnosis Comments US CAROTIDS DUPLEX BILATERAL Schedule Routine, Read Routine (OP Routine) 10/10/2024 1:12 PM CDT Bilateral carotid artery stenosis HEMOGLOBIN A1C STAT 06/11/2020 6:30 PM CDT LIPID PANEL STAT 06/11/2020 6:30 PM CDT from Last 3 Months or Most Recently Relevant to Health Maintenance Results * US Carotids Duplex Bilateral (10/10/2024 1:12 PM CDT) Anatomical Region Laterality Modality Vascular Bilateral Ultrasound 10/10/2024 12:3 8 PM CDT Narrative 10/10/2024 1:23 PM CDT Carotid Duplex Ultrasound Report Patient Name: ANGE TAVERA J : 1950 (74y 5m) Study Date: 10/10/2024 12:38:47 PM Gender: F Survey Compiler: Adriane Meyer Provider: ADRIANA ZIMMERMAN Quality: Adequate Order Provider: ADRIANA ZIMMERMAN PROCEDURES: Carotid Report: Carotid duplex examination of the extracranial arteries was performed using 2D, color and spectral Doppler. Blood Pressure: Right: 124/70 mmHg. Left: 116/71 mmHg. INDICATIONS: I65.23 Occlusion and stenosis of bilateral carotid arteries. COMPARISONS: The previous exam was completed on 09/30/23. MEASUREMENTS: Right Value Left Value RT Prox CCA PSV 103 cm/sec LT Prox CCA PSV 165 cm/sec RT Prox CCA EDV 10 cm/sec LT Prox CCA EDV 30 cm/sec RT Distal CCA PSV 189 cm/sec LT Distal CCA PSV 150 cm/sec RT Distal CCA EDV 28 cm/sec LT Distal CCA EDV 16 cm/sec RT Prox ICA PSV 142 cm/sec LT Prox ICA PSV 95 cm/sec RT Prox ICA EDV 20 cm/sec LT Prox ICA EDV 24 cm/sec RT Mid ICA PSV 100 cm/sec LT Mid ICA PSV 118 cm/sec RT Mid ICA EDV 17 cm/sec LT Mid ICA EDV 23 cm/sec RT Distal ICA PSV 86 cm/sec LT Distal ICA PSV 87 cm/sec RT Distal ICA EDV 17 cm/sec LT Distal ICA EDV 23 cm/sec RT ECA Prx PSV 492 cm/sec LT ECA Prx PSV 135 cm/sec RT ECA Prx EDV 29 cm/sec LT ECA Prx EDV 23 cm/sec RT ECA Mid PSV 492 cm/sec LT ECA Mid PSV 135 cm/sec RT ECA EDV 29 cm/sec LT ECA EDV 23 cm/sec RT ICA/CCA 0.75 ratio LT ICA/CCA 0.72 ratio Rt Vert PSV 127 cm/sec Lt Vert PSV 87 cm/sec FINDINGS: Rt Common Carotid Artery: The plaque in the right CCA appears to be heterogeneous, calcified and smooth. Rt Internal Carotid Artery: The plaque in the right internal carotid artery appears to be heterogeneous and smooth. Significant atherosclerotic changes of the right internal carotid artery with elevated peak systolic velocity and end diastolic velocity, as above. 50-69% stenosis. Rt External Carotid Artery: Patent right external carotid artery with evidence of atherosclerotic disease present. shadowed. Rt Vertebral Artery: The right vertebral artery is patent with antegrade flow. velocity elevatd. Lt Common Carotid Artery: The plaque in the left CCA appears to be heterogeneous and irregular. Lt Internal Carotid Artery: The plaque in the left internal carotid artery appears to be heterogeneous and calcified. Atherosclerotic changes of the left internal carotid artery without hemodynamically significant Doppler findings. <50% stenosis. unable to reproduce previously elevated velocities in mid Ica. Lt External Carotid Artery: Patent left external carotid artery with evidence of atherosclerotic disease present. Lt Vertebral Artery: The left vertebral artery is patent with antegrade flow. CONCLUSIONS: 1. The right internal carotid artery disease is consistent with moderate 50-69% stenosis. 2. The left internal carotid artery disease is consistent with a less than 50% stenosis. 3. Normal, antegrade flow is noted in bilateral vertebral arteries. ATTESTATION: I have reviewed and interpreted the pertinent images and measurements of this study. I attest to the conclusions in the final report that is provided above. Electronically Signed By: Smith Zimmerman MD 10/10/2024 1:14:05 PM CDT Procedure Note Smith Zimmerman MD - 10/10/2024 Carotid Duplex Ultrasound Report Patient Name: ANGE TAVERA J : 1950 (74y 5m) Study Date: 10/10/2024 12:38:47 PM Gender: F Survey Compiler: Adriane Meyer Provider: ADRIANA ZIMMERMAN Quality: Adequate Order Provider: ADRIANA ZIMMERMAN PROCEDURES: Carotid Report: Carotid duplex examination of the extracranial arterieswas performed using 2D, color and spectral Doppler. Blood Pressure: Right: 124/70 mmHg. Left: 116/71 mmHg. INDICATIONS: I65.23 Occlusion and stenosis of bilateral carotid arteries. COMPARISONS: The previous exam was completed on 09/30/23. MEASUREMENTS: Right Value Left Value RT Prox CCA PSV 103 cm/sec LT Prox CCA PSV 165 cm/sec RT Prox CCA EDV 10 cm/sec LT Prox CCA EDV 30 cm/sec RT Distal CCA PSV 189 cm/sec LT Distal CCA PSV 150 cm/sec RT Distal CCA EDV 28 cm/sec LT Distal CCA EDV 16 cm/sec RT Prox ICA PSV 142 cm/sec LT Prox ICA PSV 95 cm/sec RT Prox ICA EDV 20 cm/sec LT Prox ICA EDV 24 cm/sec RT Mid ICA PSV 100 cm/sec LT Mid ICA PSV 118 cm/sec RT Mid ICA EDV 17 cm/sec LT Mid ICA EDV 23 cm/sec RT Distal ICA PSV 86 cm/sec LT Distal ICA PSV 87 cm/sec RT Distal ICA EDV 17 cm/sec LT Distal ICA EDV 23 cm/sec RT ECA Prx PSV 492 cm/sec LT ECA Prx PSV 135 cm/sec RT ECA Prx EDV 29 cm/sec LT ECA Prx EDV 23 cm/sec RT ECA Mid PSV 492 cm/sec LT ECA Mid PSV 135 cm/sec RT ECA EDV 29 cm/sec LT ECA EDV 23 cm/sec RT ICA/CCA 0.75 ratio LT ICA/CCA 0.72 ratio Rt Vert PSV 127 cm/sec Lt Vert PSV 87 cm/sec FINDINGS: Rt Common Carotid Artery: The plaque in the right CCA appears to beheterogeneous, calcified and smooth. Rt Internal Carotid Artery: The plaque in the right internal carotidartery appears to be heterogeneous and smooth. Significant atherosclerotic changes of the rightinternal carotid artery with elevated peak systolic velocity and end diastolicvelocity, as above. 50-69% stenosis. Rt External Carotid Artery: Patent right external carotid artery withevidence of atherosclerotic disease present. shadowed. Rt Vertebral Artery: The right vertebral artery is patent with antegradeflow. velocity elevatd. Lt Common Carotid Artery: The plaque in the left CCA appears to beheterogeneous and irregular. Lt Internal Carotid Artery: The plaque in the left internal carotid arteryappears to be heterogeneous and calcified. Atherosclerotic changes of the left internalcarotid artery without hemodynamically significant Doppler findings. <50% stenosis.unable to reproduce previously elevated velocities in mid Ica. Lt External Carotid Artery: Patent left external carotid artery withevidence of atherosclerotic disease present. Lt Vertebral Artery: The left vertebral artery is patent with antegradeflow. CONCLUSIONS: 1. The right internal carotid artery disease is consistent with [id number]% stenosis. 2. The left internal carotid artery disease is consistent with a less than50% stenosis. 3. Normal, antegrade flow is noted in bilateral vertebral arteries. ATTESTATION: I have reviewed and interpreted the pertinent images and measurements ofthis study. I attest to the conclusions in the final report that is provided above. Electronically Signed By: Smith Zimmerman MD 10/10/2024 1:14:05 PM CDT Adriana Zimmerman MD IMG US PROCEDURES Final Result * Hemoglobin A1c (06/11/2020 6:30 PM CDT) Hgb A1C 5.4 4.0 - 5.6 % [facility] Estimated Average Glucose 108 mg/dL [facility] Comment: The ADA recommends reporting an [...] Makeda Orozco MD LAB BLOOD ORDERABLES Samira l Result [facility] Department [place] [address] * (ABNORMAL) Lipid panel (06/11/2020 6:30 PM CDT) Pathologist [facility] Cholesterol 169 30 - 199 mg/dL [facility] Comment: Interpretive Data Ages < or [...] revised on 2017. Triglycerides 137 <=149 mg/dL [facility] Comment: Interpretive Data Ages < or [...] revised on 2017. HDL 34(L) >=40 mg/dL [facility] Comment: Interpretive Data Ages < or [...] 2017. LDL, calculated 108 <=129 mg/dL [facility] Comment: Interpretive Data Ages < or [...] revised on 2017. Non-HDL Cholesterol 135 mg/dL [facility] Comment: Interpretive Data Ages < or = [...] last revised on 2017. Chol/HDL ratio 5 [facility] Blood specimen (specimen) 06/11/2020 6:30 PM CDT 06/11/2020 7:15 PM CDT Narrative [facility] - 06/12/2020 12:03 AM CDT Reflex Makeda Orozco MD LAB BLOOD ORDERABLES Samira juarez Result [facility] Department [place] [address] from Last 3 Months or Most Recently Relevant to Health Maintenance Insurance MEDICARE [facility] MEDICARE [place] [facility] [place] [facility] [place] [id number] MEDICARE Advance Directives For more information, please contact: [phone] * Full Code (Latest Code Status on File) Date Activated Date Inactivated Comments 06/11/2020 5:44 PM 06/15/2020 6:17 PM * Full Code Date Activated Date Inactivated Comments 12/01/2019 4:10 PM 12/02/2019 5:34 PM Care Teams Reinforcer Relationship Specialty Start Date End Date Hien Rogel NP [address] [place] [address] PCP - General Family Medicine 10/07/23
--- OUTSIDE RECORDS SUMMARY | 2024-11-09 15:53 | XMS_ITS | Clinical Summary ---
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 Continues to smoke unfortunately. Currently [...] Comments Blood Pressure 132/70 02/13/2021 11:08 AM TRACK SUBWAY REPAIR SUPERVISOR Pulse - - Temperature 36.9 C (98.5 F) 02/13/2021 11:08 AM TRACK SUBWAY REPAIR SUPERVISOR Respiratory Rate 18 02/13/2021 11:08 AM TRACK SUBWAY REPAIR SUPERVISOR Oxygen Saturation - - Inhaled Oxygen Concentration - - Weight 67.6 kg (149 lb) 02/13/2021 11:08 AM TRACK SUBWAY REPAIR SUPERVISOR Height 160 cm (5' 3) 02/13/2021 11:08 AM TRACK SUBWAY REPAIR SUPERVISOR Body Mass Index 26.39 02/13/2021 11:08 AM TRACK SUBWAY REPAIR SUPERVISOR Plan of Treatment Health Maintenance Due Date Last Done Comments COVID-19 Vaccine ( season) 2024, 04/26/2020 Influenza Vaccine (#1) 2024 12/03/2017 Pneumococcal PPSV23/PCV13 65 + Years / Low and Medium Risk Completed 10/22/2018, 11/10/2017, 02/15/2013 Insurance MEDICARE [employer] MEDICARE SUPPLEMENT Care Teams Set Up Mold Technician Relationship Specialty Start Date End Date Manan Gil MD [address] [place] [address] PCP - General Family Medicine 12/07/18
--- OUTSIDE RECORDS SUMMARY | 2024-11-09 15:53 | XMS_ITS | Clinical Summary ---
Author Organization [facility] Address [address] [place] [address] Care Team Providers Care Spiritual Counselor Name Role Phone Carmine Devine MD Unavailable Ely Wisdom MD Unavailable [phone] Carmine Daniel MD Unavailable [phone] Evans Garcia MD Unavailable [phone] Hien Rogel NP Primary Care Provider [phone] Allergies No known active allergies Medications rOPINIRole [...] MCG/ACT inhalerIndicatio ns:Pulmonary emphysema, unspecified emphysema type ([facility]) Inhale 2 puffs into the [...] carotid artery duplex. Hemoptysis 09/04/2020 Diabetes mellitus ([facility]) 09/04/2020 Hyperlipidemia 09/04/2020 Restless legs [...] Continue home synthroid 125mcg Sick sinus syndrome ([facility]) 11/30/2019 Overview (09/04/2020): Last Assessment [...] used while inpatient Malignant neoplasm of oropharynx ([facility]/ C) 12/01/2017 Overview (09/04/2020): Last Assessment & Plan: 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 Continues to smoke unfortunately. 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 Continues to smoke unfortunately. Currently in contemplative stage of quitting Thoracic aortic aneurysm without rupture 018 Cardiac pacemaker in situ 03/02/2017 Overview (12/09/2022): Micra leadless pacemaker implanted in 2018 for frequent pauses Encounters Date Type Department Care Team Description 10/18/2024 6:51 AM CDT - 10/18/2024 11:59 PM CDT Hospital Encounter [facility] [place] [address] Wilmer Holman MD Discharge Disposition: Home or Self Care (Routine Discharge) 10/18/2024 Results [facility], [address] [address] Capri Ny RN NM PHARM NUC STRESS TEST 1 DAY W TRACING 10/18/2024 Travel 09/22/2024 Telephone [facility], [address] [address] Wilmer Holman MD Surgical Clearance (CARDIAC CLEARANCE REQUEST FROM DR. JENNY ELIAS) 09/15/2024 7:40 AM CDT Office Visit [facility] Multispec[facility] - [address] [place] [address] Maribel Downs, Follow Up (Need pulmonary clearance for hip replacement; denies any worsening SOB; denies any coughing at this time ) 09/15/2024 Travel 09/06/2024 Scan [employer] INFO SRVCS Scanned, [facility] 08/23/2024 8:20 AM CDT - 08/23/2024 11:59 PM CDT Hospital Encounter [facility] [place] [address] [place] [address] Maribel Downs DO Discharge Disposition: Home or Self Care (Routine Discharge) 08/23/2024 Travel 08/17/2024 2:10 PM CDT Allied Health/Nurse Visit [facility], [address] [address] Wilmer Holman MD Remote Device Check 08/17/2024 Travel 08/17/2024 Telephone [facility], [facility] [address] [place] [address] Erin Azevedo MA No Show from Last 3 Months Immunizations Immunization Administration [...] AM CDT 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 [facility] [address] [place] [place], [place] [address] 01/23/2025 8:30 AM MACHINE SHOP INSTRUCTOR Allied Health/Nurse Visit [facility], [facility] [address] [place], [place] [id number] Wilmer Holman MD [facility]. [facility] [address] [place], [place] [id number] 01/23/2025 9:00 AM MACHINE SHOP INSTRUCTOR Office Visit [facility], [address] [place] [address] Nita Alex, ANP-BC [address] [place] [address] 09/15/2025 8:00 AM CDT Office Visit [facility] Multispecialty Care - [facility] [address] [facility] [address] [place] [id number] Maribel Downs DO [address] [facility] [address] [place], [place] [id number] Health Maintenance Due Date Last Done Comments [...] Scan (General) 2017 Hemoglobin A1C 03/08/2021 09/05/2020, 0404/2020, 12/01/2019 PHQ-2 (Physician [place]) 03/02/2024 COVID-19 Vaccine ( - 2024- season) 2024 05/18/2020, 04/26/2020 Lipid Panel 07/14/2025 07/14/2024, 08/18/2023 Lung Cancer Screening 08/23/2025 08/23/2024 , 08/21/2023, 07/12/2022, Additional history exists Pneumococcal Vaccine: 50+ Years [...] this topic Medical Devices Implanted Type Area Instructional Aide Device Identifier Shelf Expiration Date Model / Serial / Lot Mdt Micra Pacemaker-04/06/19 18 Implanted:2017 by Evans Garcia RT Student (Quantity not on file) Pacemaker [employer] CARDIAC RHYTHM AND HEART FAILURE - DIV M [id number] / [id number] / Description:MRI Conditional under following conditions: Static [...] Procedure Name Priority Date/Time Associated Diagnosis Comments NM PHARM NUC STRESS TEST 1DAY W TRACING Routine 10/18/2024 8:35 AM CDT Coronary artery calcification Pre-op testing CARDIOLOGY STRESS TEST ONLY, EXERCISE Routine 10/18/2024 6:55 AM CDT Coronary artery calcification Diabetes mellitus ([facility]) Hyperlipidemia Hypertension CT LUNG SCREENING Routine 08/23/2024 8:5 8 AM CDT Nicotine dependence, cigarettes, with other nicotine-induced disorders LIPID PANEL Routine 07/14/2024 HEMOGLOBIN, GLYCOSYLATED Routine 09/05/2020 4:40 AM CDT from Last 3 Months or Most Recently Relevant to Health Maintenance Results * NM PHARM NUC STRESS TEST 1 DAY W TRACING (10/18/2024 8:35 AM CDT) Anatomical Region Laterality Modality Cardiac Nuclear Medicine 10/18/2024 7:06 AM CDT Narrative 10/18/2024 3:50 PM CDT Myocardial Perfusion Imaging Pat.Name: DESTIN TAVERA Pat.ID: [id number] .Date: 10/18/2024 Refer.MD: Wilmer Holman [id number] Exam Time: 7:06:00 AM Study Type:SAMINA NC HT MUSCLE IMAGE SPECT MULTI Height: 63 in Weight: 142 lb BSA: 1.67 m2 Age: 2 1950,74Y Sex: F Sonogrphr: Adela Doty [facility] Pat. Stat.:Outpatient Reason for Study:Shortness of breath, Evaluation of known CAD, Pre-Operative Cardiovascular Examination History / Clinical:Smoker, Diabetes, Renal Insufficiency, Carotid Stenosis, Hypertension, COPD, Dyslipidemia, Hypothyroidism Procedures: Nuclear Stress Test with Lexiscan Surgery: Pacemaker, CTA ++++++++++++++++++++++++++++++++++++ SUMMARY: ++++++++++++++++++++++++++++++++++++ Stress conclusion: 1. Clinically negative. 2. Electrocardiographically negative stress test for ischemia. 3. Scintigraphic images to follow. Perfusion conclusion: 1. Good study quality. No motion correction was applied to images. No attenuation is noted. Prone imaging was performed. 2. Normal myocardial perfusion SPECT imaging. 3. Normal wall motion with an ejection fraction of 72%. 4. Stress test with myocardial perfusion imaging shows overall low risk for a cardiac event. ++++++++++++++++++++++++++++++++++++ FINDINGS: ++++++++++++++++++++++++++++++++++++ Protocol: Lexiscan 0.4mg was given as a rapid injection IV over a period of 10 seconds with the radiopharmaceutical injected at 20 seconds. The images were processed using the standard SPECT technique. A gated study was performed on the stress images. Impr: SPECT images demonstrate normal perfusion of normal intensity. Hrt size: The left ventricle is normal. WM: The LVEF is calculated to be 72%. Gated SPECT images reveal normal wall motion. Transient Ischemic Dilatation: The TID is 0.84. ++++++++++++++++++++++++++++++++++++ STRESS: ++++++++++++++++++++++++++++++++++++ Baseline Vital Signs: Baseline ECG: Normal sinus rhythm HR: 76 bmp Rest BP: 163/69 Regadenoson Peak Dose: 0.4 mg Stress Test Results: Max HR: 92 bmp Target HR: 148 bmp % Target: 62 % Max BP: 142/58 Max RPP: 88782 O2 sat: 98 % Symptoms and Complications: Arrhythmias: None Reason for Stopping Test: Protocol completed Stress Induced Symptoms: None Complications: None ECG Findings: No significant changes <Signed> 10/18/2024 09:14 AM Wilmer Holman M.D. Stress interpretation <Electronic Signature> 10/18/2024 03:50 PM Otis Graham M.D. Nuclear interpretation Procedure Note Otis Graham MD - 10/18/2024 Myocardial Perfusion Imaging Pat.Name: DESTIN TAVERA Pat.ID: [id number] .Date: 10/18/2024 Refer.MD: Wilmer Holman [id number] Exam Time: 7:06:00 AM Study Type:SAMINA NC HT MUSCLE IMAGE SPECT MULTI Height: 63 in Weight: 142 lb BSA: 1.67 m2 Age: 2 1950,74Y Sex: F Sonogrphr: Adela Doty [facility] Pat. Stat.:Outpatient Reason for Study:Shortness of breath, Evaluation of known CAD, Pre-Operative Cardiovascular Examination History / Clinical:Smoker, Diabetes, Renal Insufficiency, Carotid Stenosis, Hypertension, COPD, Dyslipidemia, Hypothyroidism Procedures: Nuclear Stress Test with Lexiscan Surgery: Pacemaker, CTA ++++++++++++++++++++++++++++++++++++ SUMMARY: ++++++++++++++++++++++++++++++++++++ Stress conclusion: 1. Clinically negative. 2. Electrocardiographically negative stress test for ischemia. 3. Scintigraphic images to follow. Perfusion conclusion: 1. Good study quality. No motion correction was applied to images. No attenuation is noted. Prone imaging was performed. 2. Normal myocardial perfusion SPECT imaging. 3. Normal wall motion with an ejection fraction of 72%. 4. Stress test with myocardial perfusion imaging shows overall low risk for a cardiac event. ++++++++++++++++++++++++++++++++++++ FINDINGS: ++++++++++++++++++++++++++++++++++++ Protocol: Lexiscan 0.4mg was given as a rapid injection IV over a period of 10 seconds with the radiopharmaceutical injected at 20 seconds. The images were processed using the standard SPECT technique. A gated study was performed on the stress images. Impr: SPECT images demonstrate normal perfusion of normal intensity. Hrt size: The left ventricle is normal. WM: The LVEF is calculated to be 72%. Gated SPECT images reveal normal wall motion. Transient Ischemic Dilatation: The TID is 0.84. ++++++++++++++++++++++++++++++++++++ STRESS: ++++++++++++++++++++++++++++++++++++ Baseline Vital Signs: Baseline ECG: Normal sinus rhythm HR: 76 bmp Rest BP: 163/69 Regadenoson Peak Dose: 0.4 mg Stress Test Results: Max HR: 92 bmp Target HR: 148 bmp % Target: 62 % Max BP: 142/58 Max RPP: 41700 O2 sat: 98 % Symptoms and Complications: Arrhythmias: None Reason for Stopping Test: Protocol completed Stress Induced Symptoms: None Complications: None ECG Findings: No significant changes <Signed> 10/18/2024 09:14 AM Wilmer Holman M.D. Stress interpretation <Electronic Signature> 10/18/2024 03:50 PM Otis Graham M.D. Nuclear interpretation us Wilmer Holman MD [facility] Final Result * CT LUNG SCREENING (08/23/2024 8:58 AM CDT) Anatomical Region Laterality Modality Chest Computed Tomogra phy 09/05/2024 12:1 8 PM CDT Impressions 09/05/2024 12:22 PM CDT IMPRESSION: 1. LUNG-RADS category 2: Benign findings. See above. RECOMMENDATIONS: Continued routine annual LDCT lung screening. Suggest next exam on or around July 2025 Thank you for choosing the [facility] Lung Screening Program. Ordered By: MARIBEL DOWNS Interpreted By: Jules Hallman MD, 09/05/2024 12:18 PM Narrative 09/05/2024 12:[address] PM [address]T [address] [address] EXAM: LUNG SCREENING LOW-DOSE CT THORAX WITHOUT [...] Procedure Note Jules Hallman MD - 09/05/2024 [facility] [address] [place], [place] [address] EXAM: LUNG SCREENING LOW-DOSE CT THORAX WITHOUT [...] July 2025 Thank you for choosing the [facility] Lung ScreeningProgram. Ordered By: MARIBEL DOWNS Interpreted By: Jules Hallman MD, 09/05/2024 12:18 PM us Maribel Downs DO CT Final Resu lt * LIPID PANEL (07/14/2024) CHOLESTEROL 182 TRIGLYCERIDES 117 HDL 46 DIRECT LDL 88 us Default History Genericprovider LABORATORY Edited Result - Final * HEMOGLOBIN, GLYCOSYLATED (09/05/2020 4:40 AM CDT) HGB A1C 5.5 <5.7 % 09/05/2020 9:57 AM CDT [facility] Comment: ADA GUIDELINES 2010 5.7 TO 6.4% INCREASED RISK OF DIABETES > OR = 6.5% CONSISTENT WITH DIABETES ESTIMATED AVG GLUCOSE 111 mg/dL 09/05/2020 9:57 AM CDT [facility] 09/05/2020 4:40 AM CDT Miya Hurst PA-C LABORATORY Final Result [facility] [address] [place] [address], from Last 3 Months or Most Recently Relevant to Health [place] [id number] [facility] Advance Directives * Full Code (Latest Code Status on File) Date Activated Date Inactivated Comments 07/12/2022 10:50 PM 07/14/2022 1:43 PM * Full Code Date Activated Date Inactivated Comments 09/04/2020 1:40 PM 09/05/2020 7:04 PM Care Teams Spiritual Counselor Relationship Specialty Start Date End Date Hien Rogel NP [address] [place] [phone] PCP - General Nurse Practitioner Family 03/03/24 Carmine Devine MD [address] [facility] [address] [place] [address] VASCULAR SURGERY 07/14/22 Ely Wisdom MD [address] [facility] [address] [place] [address] Referring Physician NEPHROLOGY 07/14/22 Carmine Daniel MD [facility] [address] [place] [address] INTERNAL MEDICINE 07/14/22 Evans Garcia MD [address] [facility] [address] [place] [address] INTERNAL MEDICINE 07/15/22
--- OUTSIDE RECORDS SUMMARY | 2024-11-09 15:53 | XMS_ITS | Encounter Summary ---
Author Organization [facility] [employer] [facility] Address [address] [facility] [address] [place] [address] Phone Care Team Providers Care Wolf Hunter Name Role Phone Sinan Arriola MD Primary Care Provider [phone] Manan Gil MD Primary Care Provider [phone] Hien Rogel NP Primary Care Provider [phone] Encounter Details Date Type Department Care Team (Late st Contact Info) Description 04/07/2017 Orders Only [facility] Carmine Devine MD [address] [facility] [id number] [place], [place] [id number] Social History Tobacco Use Types Packs/Day Years Used Date Smoking Tobacco: Never Assessed Comments Unknown Sex and Gender Information Value Date Recorded Sex Assigned at Not on file 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
--- OUTSIDE RECORDS SUMMARY | 2024-11-09 15:53 | XMS_ITS ---
Author Organization [facility] Address [address] [place] [address] Care Team Providers Care Decator Operator Name Role Phone Hien Rogel NP Primary Care Provider [phone] Active Problems Problem Noted Date Diagnosed Date [...] duplex. Assessment & Plan (04/16/2021 3:55 PM ASSISTANT PROFESSOR OF ART): Patient has bilateral carotid artery stenosis measuring 50-79% on today's duplex. She is currently on medications for blood pressure control, aspirin and a statin which she will remain on at this time. I also told her that she absolutely must stop smoking. I will have her follow up in 1 year with a repeat carotid artery duplex. Assessment & Plan (04/05/2021 7:37 AM ASSISTANT PROFESSOR OF ART): Patient has bilateral carotid artery stenosis but [...] atorvastatin Assessment & Plan (04/16/2021 3:55 PM ASSISTANT PROFESSOR OF ART): Followed by her PCP chronic and stable. She is on Lipitor for a lipid lowering medication and I recommend she continue it. Assessment & Plan (04/05/2021 7:38 AM ASSISTANT PROFESSOR OF ART): Followed by her PCP. Chronic and stable. [...] valsartan Assessment & Plan (04/16/2021 3:56 PM ASSISTANT PROFESSOR OF ART): Followed by her PCP chronic and stable. I recommend she continue her amlodipine and Diovan for blood pressure control. Assessment & Plan (04/05/2021 7:38 AM ASSISTANT PROFESSOR OF ART): Followed by her PCP. Chronic and stable. [...] quitting. Assessment & Plan (04/16/2021 3:56 PM ASSISTANT PROFESSOR OF ART): Patient is a current everyday smoker. 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 Continues to smoke unfortunately. 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 Continues to smoke unfortunately. 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 Continues to smoke unfortunately. 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 Continues to smoke unfortunately. 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 Continues to smoke unfortunately. Currently in contemplative stage of quitting Assessment & Plan (12/02/2019 11:59 AM CDT): Tonsillar cancer (dx 2013) s/p surgery and ASSISTANT PRESSMAN in remission. Unfortunately patient continues to smoke. - outpatient follow-up-> looks like she had an appt yesterday which will need to be rescheduled: patient aware Assessment & Plan (12/01/2019 11:09 AM CDT): Tonsillar cancer (dx 2013) s/p surgery and ASSISTANT PRESSMAN in remission. Unfortunately patient continues to smoke. - outpatient follow-up-> looks like she had an appt today which will need to be rescheduled. 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 Unfortunately patient continues to smoke. [...]
[2024-11-09 16:18] LABS: Hematocrit 32.9 % (37.0-47.0); Hemoglobin 10.1 g/dL (12.0-15.0)
[2024-11-09 16:24] LABS: Albumin Level 4.1 g/dL (3.5-5.1); Estimated Glomerular Filt Rate 35
== END 2024-11-09 15:36 | disposition home or self-care (01) ==
PROVIDERS: PCP Nurse Practitioner Family; Visit Provider Orthopaedic Surgery
DX: I12.9 Hypertensive chronic kidney disease with stage 1 through stage 4 chronic kidney disease, or unspecified chronic kidney disease (principal); N18.31 Chronic kidney disease, stage 3a; E61.1 Iron deficiency
CPT/HCPCS: 36415; 82040; 82565; 85014; 85018

== ENCOUNTER 2024-11-14 10:55 | Outpatient (CLI) | payer MEDICARE, OTHER, SELFPAY ==
--- NOTE | 2024-11-14 11:06 | ECG_ITS ---
Test Date: 2024-11-14 11:20:05 Measurements Intervals [place] Rate: 67 P: 46 OR: 186 QRS: 33 QRSD: 76 T: 56 QT: 370 QTc: 392 Interpretive Statements SINUS RHYTHM NORMAL ECG No previous ECG available for comparison Electronically Signed On 11-14-2024 12:52:27 CDT by Rafael Carney M.D.
--- OUTSIDE RECORDS SUMMARY | 2024-11-14 12:52 | XMS_ITS | Clinical Summary ---
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 Continues to smoke unfortunately. Currently [...] Comments Blood Pressure 132/70 02/13/2021 11:08 AM NETWORK DIAGNOSTIC SUPPORT SPECIALIST Pulse - - Temperature 36.9 C (98.5 F) 02/13/2021 11:08 AM NETWORK DIAGNOSTIC SUPPORT SPECIALIST Respiratory Rate 18 02/13/2021 11:08 AM NETWORK DIAGNOSTIC SUPPORT SPECIALIST Oxygen Saturation - - Inhaled Oxygen Concentration - - Weight 67.6 kg (149 lb) 02/13/2021 11:08 AM NETWORK DIAGNOSTIC SUPPORT SPECIALIST Height 160 cm (5' 3) 02/13/2021 11:08 AM NETWORK DIAGNOSTIC SUPPORT SPECIALIST Body Mass Index 26.39 02/13/2021 11:08 AM NETWORK DIAGNOSTIC SUPPORT SPECIALIST Plan of Treatment Health Maintenance Due Date Last Done Comments COVID-19 Vaccine ( season) 2024, 04/26/2020 Influenza Vaccine (#1) 2024 12/03/2017 Pneumococcal PPSV23/PCV13 65 + Years / Low and Medium Risk Completed 10/22/2018, 11/10/2017, 02/15/2013 Insurance MEDICARE [employer] MEDIC[employer] SUPPLEMENT Care Teams Chief Librarian Extension Department Relationship Specialty Start Date End Date Manan Gil MD [address] [place] [address] PCP - General Family Medicine 12/07/18
--- OUTSIDE RECORDS SUMMARY | 2024-11-14 12:52 | XMS_ITS ---
Author Organization [facility] Address [address] [place] [address] Care Team Providers Care Ceo And President Name Role Phone Hien Rogel NP Primary Care Provider [phone] Active Problems Problem Noted Date Diagnosed Date [...] duplex. Assessment & Plan (04/16/2021 3:55 PM COMMUNITY THEATER ACTOR): Patient has bilateral carotid artery stenosis measuring 50-79% on today's duplex. She is currently on medications for blood pressure control, aspirin and a statin which she will remain on at this time. I also told her that she absolutely must stop smoking. I will have her follow up in 1 year with a repeat carotid artery duplex. Assessment & Plan (04/05/2021 7:37 AM COMMUNITY THEATER ACTOR): Patient has bilateral carotid artery stenosis but [...] atorvastatin Assessment & Plan (04/16/2021 3:55 PM COMMUNITY THEATER ACTOR): Followed by her PCP chronic and stable. She is on Lipitor for a lipid lowering medication and I recommend she continue it. Assessment & Plan (04/05/2021 7:38 AM COMMUNITY THEATER ACTOR): Followed by her PCP. Chronic and stable. [...] valsartan Assessment & Plan (04/16/2021 3:56 PM COMMUNITY THEATER ACTOR): Followed by her PCP chronic and stable. I recommend she continue her amlodipine and Diovan for blood pressure control. Assessment & Plan (04/05/2021 7:38 AM COMMUNITY THEATER ACTOR): Followed by her PCP. Chronic and stable. [...] quitting. Assessment & Plan (04/16/2021 3:56 PM COMMUNITY THEATER ACTOR): Patient is a current everyday smoker. 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 Continues to smoke unfortunately. 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 Continues to smoke unfortunately. 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 Continues to smoke unfortunately. 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 Continues to smoke unfortunately. 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 Continues to smoke unfortunately. Currently in contemplative stage of quitting Assessment & Plan (12/02/2019 11:59 AM CDT): Tonsillar cancer (dx 2013) s/p surgery and HELIARC WELDER in remission. Unfortunately patient continues to smoke. - outpatient follow-up-> looks like she had an appt yesterday which will need to be rescheduled: patient aware Assessment & Plan (12/01/2019 11:09 AM CDT): Tonsillar cancer (dx 2013) s/p surgery and HELIARC WELDER in remission. Unfortunately patient continues to smoke. - outpatient follow-up-> looks like she had an appt today which will need to be rescheduled. 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 Unfortunately patient continues to smoke. [...]
--- OUTSIDE RECORDS SUMMARY | 2024-11-14 12:52 | XMS_ITS | Clinical Summary ---
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 Assessment & Plan (04/16/2021 3:55 PM WRINGER OPERATOR): Patient has bilateral carotid artery stenosis measuring 50-79% on today's duplex. She is currently on medications for blood pressure control, aspirin and a statin which she will remain on at this time. I also told her that she absolutely must stop smoking. I will have her follow up in 1 year with a repeat carotid artery duplex. Assessment & Plan (04/05/2021 7:37 AM WRINGER OPERATOR): Patient has bilateral carotid artery stenosis but [...] atorvastatin Assessment & Plan (04/16/2021 3:55 PM WRINGER OPERATOR): Followed by her PCP chronic and stable. She is on Lipitor for a lipid lowering medication and I recommend she continue it. Assessment & Plan (04/05/2021 7:38 AM WRINGER OPERATOR): Followed by her PCP. Chronic and stable. [...] valsartan Assessment & Plan (04/16/2021 3:56 PM WRINGER OPERATOR): Followed by her PCP chronic and stable. I recommend she continue her amlodipine and Diovan for blood pressure control. Assessment & Plan (04/05/2021 7:38 AM WRINGER OPERATOR): Followed by her PCP. Chronic and stable. [...] quitting. Assessment & Plan (04/16/2021 3:56 PM WRINGER OPERATOR): Patient is a current everyday smoker. 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 Continues to smoke unfortunately. 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 Continues to smoke unfortunately. 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 Continues to smoke unfortunately. 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 Continues to smoke unfortunately. 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 Continues to smoke unfortunately. 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 Unfortunately patient continues to smoke. 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 Unfortunately patient continues to smoke. - outpatient follow-up-> looks like she had an appt today which will need to be rescheduled. 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 Unfortunately patient continues to smoke. [...] Department Care Team Description 10/11/2024 Orders Only [facility] Vascular and Vein Surgery [address] [place] [address] [address] [place] [address] Adriana Zimmerman MD Bilateral carotid artery stenosis (Primary Dx) 10/10/2024 1:30 PM CDT Office Visit [facility] Vascular and Vein Surgery [address] [place] [address] [address] [place] [address] Adriana Zimmerman MD Bilateral carotid artery stenosis (Primary Dx); Mixed hyperlipidemia; Arteriosclerosis of artery of extremity; Primary hypertension 10/10/2024 12:19 PM CDT - 10/10/2024 11:59 PM CDT Hospital Encounter [facility] Medical Office Building [address] [place] [address] [address] [place] [address] Bilateral carotid artery stenosis Discharge Disposition: Discharge [...] 10/22/2018, Surgical History Surgery Date Site/Laterality Comments [place] DELIVERY ONLY Section - (Added by TW Conv) [place] BX/EXC LYMPH NODE OPEN SUPERFICIAL Biopsy Lymph [...] on file Legal Sex Female 2:35 AM WRINGER OPERATOR Gender Identity Not on file Sexual Orientation [...] Assessment 06/15/2021 06/15/2020 Covid-19 Vaccine (3 - 2024-2 6 season) 2024 05/18/2020, 04/26/2020 Influenza Vaccine (#1) 2024 , [...] Study Date: 10/10/2024 12:38:47 PM Gender: F Senior Windows Administrator: Adriane Meyer Provider: ADRIANA ZIMMERMAN Quality: Adequate [...] Study Date: 10/10/2024 12:38:47 PM Gender: F Senior Windows Administrator: Adriane Meyer Provider: ADRIANA ZIMMERMAN Quality: Adequate [...] internal carotid artery disease is consistent with -45% stenosis. 2. The left internal carotid artery [...] Hgb A1C 5.4 4.0 - 5.6 % [facility] Estimated Average Glucose 108 mg/dL [facility] Comment: The ADA recommends reporting an estimated [...] MD LAB BLOOD ORDERABLES Samira l Result [facility] Department [place] [address] * (ABNORMAL) Lipid panel (06/11/2020 6:30 PM CDT) Pathologist [facility] Cholesterol 169 30 - 199 mg/dL [facility] Comment: Interpretive Data Ages < or = [...] revised on 2017. Triglycerides 137 <=149 mg/dL [facility] Comment: Interpretive Data Ages < or = [...] revised on 2017. HDL 34(L) >=40 mg/dL [facility] Comment: Interpretive Data Ages < or = [...] 2017. LDL, calculated 108 <=129 mg/dL [facility] Comment: Interpretive Data Ages < or = [...] revised on 2017. Non-HDL Cholesterol 135 mg/dL [facility] Comment: Interpretive Data Ages < or [...] last revised on 2017. Chol/HDL ratio 5 [facility] Blood specimen (specimen) 06/11/2020 6:30 PM CDT 06/11/2020 7:15 PM CDT Narrative [facility] - 06/12/2020 12:03 AM CDT Reflex Makeda Orozco MD LAB BLOOD ORDERABLES Samira juarez Result [facility] Department [place] [address] from Last 3 Months or Most Recently Relevant to Health Maintenance Insurance MEDICARE [facility] MEDICARE [employer] [place] [facility] [place] [id number] MEDICARE Advance Directives For more information, please contact: [phone] * Full Code (Latest Code Status on File) Date Activated Date Inactivated Comments 06/11/2020 5:44 PM 06/15/2020 6:17 PM * Full Code Date Activated Date Inactivated Comments 12/01/2019 4:10 PM 12/02/2019 5:34 PM Care Teams Php Website Developer Relationship Specialty Start Date End Date Hien Rogel NP [address] [place] [address] PCP - General Family Medicine 10/07/23
--- OUTSIDE RECORDS SUMMARY | 2024-11-14 12:52 | XMS_ITS | Encounter Summary ---
Author Organization [facility] [employer] [facility] Address [address] [facility] [address] [place] [address] Phone Care Team Providers Care Nuclear Monitoring Technician Name Role Phone Sinan Arriola MD Primary Care Provider [phone] Manan Gil MD Primary Care Provider [phone] Hien Rogel NP Primary Care Provider [phone] Encounter Details Date Type Department Care Team (Late st Contact Info) Description 04/07/2017 Orders Only [facility] Carmine Devine MD [address] [facility] [id number] [place], [place] [id number] Social History Tobacco Use Types Packs/Day Years Used Date Smoking Tobacco: Never Assessed Comments Unknown Sex and Gender Information Value Date Recorded Sex Assigned at Not on file Legal Sex Female 2:35 AM EXTRUSION PRESS SUPERVISOR Gender Identity Not on file Sexual [...] documented as of this encounter Care Teams Nuclear Monitoring Technician Relationship Specialty Start Date End Date Sinan Arriola MD [address] [place] [address] PCP - General 03/13/17 10/13/18 Manan Gil MD [address] [facility] [address] [place] [address] PCP - General Internal Medicine 10/14/18 10/06/23 Hien Rogel NP [address] [place] [address] PCP - General Family Medicine 10/07/23 documented as of this encounter
== END 2024-11-14 10:56 | disposition home or self-care (01) ==
PROVIDERS: PCP Nurse Practitioner Family; Visit Provider Orthopaedic Surgery
DX: Z79.899 Other long term (current) drug therapy (principal); I65.23 Occlusion and stenosis of bilateral carotid arteries
CPT/HCPCS: 80307; 93005

== ENCOUNTER 2024-11-28 13:44 | Outpatient (CLI) | payer MEDICARE, OTHER, SELFPAY ==
--- NOTE | ~2024-11-28 | CT_ITS ---
EXAMINATION: CT_LERTCHWO_CT DATE: 11/28/2024 13:59 INDICATION: Right hip osteoarthritis. Preoperative planning. TECHNIQUE: Computed tomography (CT) of the right hip was performed without intravenous contrast. Automated exposure control and iterative reconstruction technique were employed. The dose-length product was 885.87 mGy-cm. COMPARISON: Right hip radiograph 08/12/2024 FINDINGS: There is diverticulosis of the colon without evidence of diverticulitis. There is a stent in right common iliac artery. There is a left inguinal hernia containing fat. Bone alignment is normal. No fracture. There is severe right hip osteoarthritis and moderate left hip osteoarthritis. There is moderate lumbar spondylosis. There is mild osteoarthritis of the knees. No knee joint effusion. IMPRESSION: 1. Severe right hip osteoarthritis and moderate left hip osteoarthritis. Reviewed, dictated and finalized at location E.
--- OUTSIDE RECORDS SUMMARY | 2024-11-28 14:10 | XMS_ITS | Clinical Summary ---
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 Assessment & Plan (04/16/2021 3:55 PM KEELER POLYGRAPH OPERATOR): Patient has bilateral carotid artery stenosis [...] duplex. Assessment & Plan (04/05/2021 7:37 AM KEELER POLYGRAPH OPERATOR): Patient has bilateral carotid artery stenosis [...] atorvastatin Assessment & Plan (04/16/2021 3:55 PM KEELER POLYGRAPH OPERATOR): Followed by her PCP chronic and stable. She is on Lipitor for a lipid lowering medication and I recommend she continue it. Assessment & Plan (04/05/2021 7:38 AM KEELER POLYGRAPH OPERATOR): Followed by her PCP. Chronic and [...] valsartan Assessment & Plan (04/16/2021 3:56 PM KEELER POLYGRAPH OPERATOR): Followed by her PCP chronic and stable. I recommend she continue her amlodipine and Diovan for blood pressure control. Assessment & Plan (04/05/2021 7:38 AM KEELER POLYGRAPH OPERATOR): Followed by her PCP. Chronic and [...] quitting. Assessment & Plan (04/16/2021 3:56 PM KEELER POLYGRAPH OPERATOR): Patient is a current everyday smoker. [...] Tonsillar cancer (dx 2012) s/p surgery and LINK CUTTER in remission. Continues to smoke unfortunately. 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 Continues to smoke unfortunately. 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 Continues to smoke unfortunately. Currently in contemplative stage of quitting Assessment & Plan (06/12/2020 2:16 PM CDT): Tonsillar cancer (dx 2012) s/p surgery and LINK CUTTER in remission. Continues to smoke unfortunately. 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 Continues to smoke unfortunately. 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 Unfortunately patient continues to smoke. - outpatient follow-up-> looks like she had an appt yesterday which will need to be rescheduled: patient aware Assessment & Plan (12/01/2019 11:09 AM CDT): Tonsillar cancer (dx 2012) s/p surgery and LINK CUTTER in remission. Unfortunately patient continues to smoke. - outpatient follow-up-> looks like she had an appt today which will need to be rescheduled. Assessment & Plan (11/30/2019 10:59 PM CDT): Tonsillar cancer (dx 2012) s/p surgery and LINK CUTTER in remission. Unfortunately patient continues to smoke. [...] Department Care Team Description 10/11/2024 Orders Only [facility] Medical [facility] Vascular and Vein Surgery [address] [place] [address] [address] [place] [address] Adriana Zimmerman MD Bilateral carotid artery stenosis (Primary Dx) 10/10/2024 1:30 PM CDT Office Visit [facility] Medical [facility] Vascular and Vein Surgery [address] [place] [address] [address] [place] [address] Adriana Zimmerman MD Bilateral carotid artery stenosis (Primary Dx); Mixed hyperlipidemia; Arteriosclerosis of artery of extremity; Primary hypertension 10/10/2024 12:19 PM CDT - 10/10/2024 11:59 PM CDT Hospital Encounter [facility] Medical Office Building [address] [place] [address] [address] [place] [address] Bilateral carotid artery stenosis Discharge Disposition: Discharge [...] 10/22/2018, Surgical History Surgery Date Site/Laterality Comments [place] DELIVERY ONLY Section - (Added by TW Conv) [place] BX/EXC LYMPH NODE OPEN SUPERFICIAL Biopsy Lymph Node - (Added by TW Conv) COLONOSCOPY THORACIC ENDOVASCULAR AORTIC REPAIR 03/02/2017 - 04/01/2017 Medical History Medical History Date Comments Oropharyngeal cancer (HCC) Diabetes mellitus 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 2. The left internal carotid artery disease is consistent with a less than50% stenosis. 3. Normal, antegrade flow is noted in bilateral vertebral arteries. ATTESTATION: I have reviewed and interpreted the pertinent images and measurements ofthis study. I attest to the conclusions in the final report that is provided above. Electronically Signed By: Smith Zimmerman MD 10/10/2024 1:14:05 PM CDT us Adriana Zimmerman MD IMG US PROCEDURES Final Result * Hemoglobin A1c (06/11/2020 6:30 PM CDT) Hgb A1C 5.4 4.0 - 5.6 % [facility] Estimated Average Glucose 108 mg/dL [facility] Comment: The ADA recommends reporting [...] juarez Result [facility] Department [place] [address] * (ABNORMAL) Lipid panel (06/11/2020 6:30 PM CDT) Cholesterol 169 30 - 199 mg/dL [facility] Comment: Interpretive Data Ages < [...] revised on 2017. Triglycerides 137 <=149 mg/dL [facility] Comment: Interpretive Data Ages < [...] revised on 2017. HDL 34(L) >=40 mg/dL [facility] Comment: Interpretive Data Ages < [...] on 2017. LDL, calculated 108 <=129 mg/dL [facility] Comment: Interpretive Data Ages < [...] revised on 2017. Non-HDL Cholesterol 135 mg/dL [facility] Comment: Interpretive Data Ages < or [...] last revised on 2017. Chol/HDL ratio 5 [facility] Blood specimen (specimen) 06/11/2020 6:30 PM CDT 06/11/2020 7:15 PM CDT Narrative [facility] - 06/12/2020 12:03 AM CDT Reflex us Makeda Orozco MD LAB BLOOD ORDERABLES Samira juarez Result [facility] Department [place] [address] from Last 3 Months or Most Recently Relevant to Health Maintenance Insurance MEDICARE [facility] MEDICARE [facility] [place] [address] MEDICARE Advance Directives For more information, please contact: [phone] * Full Code (Latest Code Status on File) Date Activated Date Inactivated Comments 06/11/2020 5:44 PM 06/15/2020 6:17 PM * Full Code Date Activated Date Inactivated Comments 12/01/2019 4:10 PM 12/02/2019 5:34 PM Care Teams Defense Analyst Relationship Specialty Start Date End Date Hien Rogel NP [address] [place] [address] PCP - General Family Medicine 10/07/23
--- OUTSIDE RECORDS SUMMARY | 2024-11-28 14:10 | XMS_ITS | Clinical Summary ---
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 Continues to smoke unfortunately. [...] Comments Blood Pressure 132/70 02/13/2021 11:08 AM FUR NAILER Pulse - - Temperature 36.9 C (98.5 F) 02/13/2021 11:08 AM FUR NAILER Respiratory Rate 18 02/13/2021 11:08 AM FUR NAILER Oxygen Saturation - - Inhaled Oxygen Concentration - - Weight 67.6 kg (149 lb) 02/13/2021 11:08 AM FUR NAILER Height 160 cm (5' 3) 02/13/2021 11:08 AM FUR NAILER Body Mass Index 26.39 02/13/2021 11:08 AM FUR NAILER Plan of Treatment Health Maintenance Due Date Last Done Comments COVID-19 Vaccine ( season) 2024, 04/26/2020 Influenza Vaccine (#1) 2024 12/03/2017 Pneumococcal PPSV23/PCV13 65 + Years / Low and Medium Risk Completed 10/22/2018, 11/10/2017, 02/15/2013 Insurance MEDICARE [employer] MEDICARE SUPPLEMENT Care Teams Agronomy Manager Relationship Specialty Start Date End Date Manan Gil MD [address] [place] [address] PCP - General Family Medicine 12/07/18
--- OUTSIDE RECORDS SUMMARY | 2024-11-28 14:10 | XMS_ITS | Encounter Summary ---
Author Organization [facility] [employer] [facility] Address [address] [facility] [address] [place] [address] Phone Care Team Providers Care Cushion Sewer Name Role Phone Sinan Arriola MD Primary Care Provider [phone] Manan Gil MD Primary Care Provider [phone] Hien Rogel NP Primary Care Provider [phone] Encounter Details Date Type Department Care Team (Late st Contact Info) Description 04/07/2017 Orders Only [facility] Carmine Devine MD [address] [facility] [address] [place], [place] [id number] Social History Tobacco Use Types Packs/Day Years Used Date Smoking Tobacco: Never Assessed Comments Unknown Sex and Gender Information Value Date Recorded Sex Assigned at Not on file Legal Sex Female 2:35 AM ORTHOPAEDIC TECHNOLOGIST Gender Identity Not on file Sexual Orientation [...] documented as of this encounter Care Teams Cushion Sewer Relationship Specialty Start Date End Date Sinan Arriola MD [address] [place] [address] PCP - General 03/13/17 10/13/18 Manan Gil MD [address] [facility] [address] [place] [address] PCP - General Internal Medicine 10/14/18 10/06/23 Hien Rogel NP [address] [place] [address] PCP - General Family Medicine 10/07/23 documented as of this encounter
--- OUTSIDE RECORDS SUMMARY | 2024-11-28 14:10 | XMS_ITS ---
Author Organization [facility] Address [address] [place] [address] Care Team Providers Care Crisis Intervention Counselor Name Role Phone Hien Rogel NP Primary Care Provider [phone] Active Problems Problem Noted Date Diagnosed Date [...] duplex. Assessment & Plan (04/16/2021 3:55 PM SPRAY MACHINE TENDER): Patient has bilateral carotid artery stenosis measuring 50-79% on today's duplex. She is currently on medications for blood pressure control, aspirin and a statin which she will remain on at this time. I also told her that she absolutely must stop smoking. I will have her follow up in 1 year with a repeat carotid artery duplex. Assessment & Plan (04/05/2021 7:37 AM SPRAY MACHINE TENDER): Patient has bilateral carotid artery stenosis but [...] atorvastatin Assessment & Plan (04/16/2021 3:55 PM SPRAY MACHINE TENDER): Followed by her PCP chronic and stable. She is on Lipitor for a lipid lowering medication and I recommend she continue it. Assessment & Plan (04/05/2021 7:38 AM SPRAY MACHINE TENDER): Followed by her PCP. Chronic and stable. [...] valsartan Assessment & Plan (04/16/2021 3:56 PM SPRAY MACHINE TENDER): Followed by her PCP chronic and stable. I recommend she continue her amlodipine and Diovan for blood pressure control. Assessment & Plan (04/05/2021 7:38 AM SPRAY MACHINE TENDER): Followed by her PCP. Chronic and stable. [...] quitting. Assessment & Plan (04/16/2021 3:56 PM SPRAY MACHINE TENDER): Patient is a current everyday smoker. 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 Continues to smoke unfortunately. 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 Continues to smoke unfortunately. 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 Continues to smoke unfortunately. 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 Continues to smoke unfortunately. 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 Continues to smoke unfortunately. Currently in contemplative stage of quitting Assessment & Plan (12/02/2019 11:59 AM CDT): Tonsillar cancer (dx 2013) s/p surgery and PERFORMANCE INSTRUCTOR in remission. Unfortunately patient continues to smoke. - outpatient follow-up-> looks like she had an appt yesterday which will need to be rescheduled: patient aware Assessment & Plan (12/01/2019 11:09 AM CDT): Tonsillar cancer (dx 2013) s/p surgery and PERFORMANCE INSTRUCTOR in remission. Unfortunately patient continues to smoke. - outpatient follow-up-> looks like she had an appt today which will need to be rescheduled. Assessment & Plan (11/30/2019 10:59 PM CDT): Tonsillar cancer (dx 2012) s/p surgery and PERFORMANCE INSTRUCTOR in remission. Unfortunately patient continues to smoke. [...]
== END 2024-11-28 13:45 | disposition home or self-care (01) ==
LOC: ANHIMG 13:45
PROVIDERS: PCP Nurse Practitioner Family; Visit Provider Orthopaedic Surgery
DX: Z01.818 Encounter for other preprocedural examination (principal); M16.0 Bilateral primary osteoarthritis of hip
CPT/HCPCS: 73700

== ENCOUNTER 2025-01-09 07:43 | Outpatient (CLI) | payer MEDICARE, OTHER, SELFPAY ==
--- OUTSIDE RECORDS SUMMARY | 2025-01-09 07:50 | XMS_ITS | Clinical Summary ---
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 Continues to smoke unfortunately. Currently [...] Comments Blood Pressure 132/70 02/13/2021 11:08 AM MECHANICAL ENGINEERING COOP Pulse - - Temperature 36.9 C (98.5 F) 02/13/2021 11:08 AM MECHANICAL ENGINEERING COOP Respiratory Rate 18 02/13/2021 11:08 AM MECHANICAL ENGINEERING COOP Oxygen Saturation - - Inhaled Oxygen Concentration - - Weight 67.6 kg (149 lb) 02/13/2021 11:08 AM MECHANICAL ENGINEERING COOP Height 160 cm (5' 3) 02/13/2021 11:08 AM MECHANICAL ENGINEERING COOP Body Mass Index 26.39 02/13/2021 11:08 AM MECHANICAL ENGINEERING COOP Plan of Treatment Health Maintenance Due Date Last Done Comments COVID-19 Vaccine ( season) 2024, 04/26/2020 Influenza Vaccine (#1) 2024 12/03/2017 Pneumococcal PPSV23/PCV13 65 + Years / Low and Medium Risk Completed 10/22/2018, 11/10/2017, 02/15/2013 Insurance MEDICARE [employer] MEDICARE SUPPLEMENT Care Teams Magnetic Resonance Imaging Coordinator Relationship Specialty Start Date End Date Manan Gil MD [address] [place] [address] PCP - General Family Medicine 12/07/18
--- OUTSIDE RECORDS SUMMARY | 2025-01-09 07:50 | XMS_ITS | Clinical Summary ---
Author Organization [facility] Address [address] [place] [address] Care Team Providers Care Collection Support Specialist Name Role Phone Hien Rogel NP Primary Care Provider [phone] Allergies No known active allergies Medications levothyroxine (SYNTHROID) 125 mcg tabletIndicatio ns:hypothyroidi sm Take 1 tablet (125 mcg total) by mouth general expeditor before breakfast 8 Active rOPINIRole (REQUIP) 4 mg tabletIndicatio ns:Restless Legs Syndrome Take 1 tablet (4 mg total) by mouth 2 (two) times a day 8 Active umkaq-8-npe-epa -dpa-fish oil 1,050-1,200 mg capsuleIndicati ons:hypertrigly ceridemia [...] duplex. Assessment & Plan (04/16/2021 3:55 PM ORACLE SCM CONSULTANT): Patient has bilateral carotid artery stenosis [...] duplex. Assessment & Plan (04/05/2021 7:37 AM ORACLE SCM CONSULTANT): Patient has bilateral carotid artery stenosis [...] atorvastatin Assessment & Plan (04/16/2021 3:55 PM ORACLE SCM CONSULTANT): Followed by her PCP chronic and stable. She is on Lipitor for a lipid lowering medication and I recommend she continue it. Assessment & Plan (04/05/2021 7:38 AM ORACLE SCM CONSULTANT): Followed by her PCP. Chronic and [...] valsartan Assessment & Plan (04/16/2021 3:56 PM ORACLE SCM CONSULTANT): Followed by her PCP chronic and stable. I recommend she continue her amlodipine and Diovan for blood pressure control. Assessment & Plan (04/05/2021 7:38 AM ORACLE SCM CONSULTANT): Followed by her PCP. Chronic and [...] quitting. Assessment & Plan (04/16/2021 3:56 PM ORACLE SCM CONSULTANT): Patient is a current everyday smoker. 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 Continues to smoke unfortunately. 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 Continues to smoke unfortunately. 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 Continues to smoke unfortunately. 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 Continues to smoke unfortunately. 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 Continues to smoke unfortunately. 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 Unfortunately patient continues to smoke. - outpatient follow-up-> looks like she had an appt yesterday which will need to be rescheduled: patient aware Assessment & Plan (12/01/2019 11:09 AM CDT): Tonsillar cancer (dx 2012) s/p surgery and CAMP BOSS in remission. Unfortunately patient continues to smoke. - outpatient follow-up-> looks like she had an appt today which will need to be rescheduled. Assessment & Plan (11/30/2019 10:59 PM CDT): Tonsillar cancer (dx 2012) s/p surgery and CAMP BOSS in remission. Unfortunately patient continues to smoke. [...] Department Care Team Description 10/11/[address] [facility] Medical [facility] Vascular and Vein Surgery [address] [place] [address] [address] [place] [address] Adriana Zimmerman MD Bilateral carotid artery stenosis (Primary Dx) 10/10/2024 1:30 PM CDT Office Visit [facility] Medical [facility] Vascular and Vein Surgery [address] [place] [address] [address] [place] [address] Adriana Zimmerman MD Bilateral carotid artery stenosis (Primary Dx); Mixed hyperlipidemia; Arteriosclerosis of artery of extremity; Primary hypertension 10/10/2024 12:19 PM CDT - 10/10/2024 11:59 PM CDT Hospital Encounter [facility] Medical Office Building [address] [place] [address] [address] [place] [address] Bilateral carotid artery stenosis Discharge Disposition: Discharge [...] 10/22/2018, Surgical History Surgery Date Site/Laterality Comments [place] DELIVERY ONLY Section - (Added by TW Conv) NV BX/EXC LYMPH NODE OPEN SUPERFICIAL Biopsy Lymph [...] on file Legal Sex Female 2:35 AM ORACLE SCM CONSULTANT Gender Identity Not on file Sexual [...] Study Date: 10/10/2024 12:38:47 PM Gender: F Optical Engineer: Adriane Meyer Provider: ADRIANA ZIMMERMAN Quality: Adequate [...] Study Date: 10/10/2024 12:38:47 PM Gender: F Optical Engineer: Adriane Meyer Provider: ADRIANA ZIMMERMAN Quality: Adequate [...] internal carotid artery disease is consistent with [id number]% stenosis. 2. The left internal carotid artery [...] A1C 5.4 4.0 - 5.6 % [facility] Estimated Average Glucose 108 mg/dL [facility] Comment: The ADA recommends reporting [...] MD LAB BLOOD ORDERABLES Samira l Result [facility] Department [place] [address] * (ABNORMAL) Lipid panel (06/11/2020 6:30 PM CDT) Cholesterol 169 30 - 199 mg/dL [facility] Comment: Interpretive Data Ages < [...] revised on 2017. Triglycerides 137 <=149 mg/dL [facility] Comment: Interpretive Data Ages < [...] revised on 2017. HDL 34(L) >=40 mg/dL [facility] Comment: Interpretive Data Ages < [...] 2017. LDL, calculated 108 <=129 mg/dL [facility] Comment: Interpretive Data Ages < [...] revised on 2017. Non-HDL Cholesterol 135 mg/dL [facility] Comment: Interpretive Data Ages < or [...] last revised on 2017. Chol/HDL ratio 5 [facility] Blood specimen (specimen) 06/11/2020 6:30 PM CDT 06/11/2020 7:15 PM CDT Narrative [facility] - 06/12/2020 12:03 AM CDT Reflex us Makeda Orozco MD LAB BLOOD ORDERABLES Samira juarez Result [facility] Department [place] [address] from Last 3 Months or Most Recently Relevant to Health Maintenance Insurance MEDICARE [facility] MEDICARE [facility] [place] [address] MEDICARE Advance Directives For more information, please contact: [phone] * Full Code (Latest Code Status on File) Date Activated Date Inactivated Comments 06/11/2020 5:44 PM 06/15/2020 6:17 PM * Full Code Date Activated Date Inactivated Comments 12/01/2019 4:10 PM 12/02/2019 5:34 PM Care Teams Collection Support Specialist Relationship Specialty Start Date End Date Hien Rogel NP [address] [place] [address] PCP - General Family Medicine 10/07/23
--- OUTSIDE RECORDS SUMMARY | 2025-01-09 07:50 | XMS_ITS | Encounter Summary ---
Author Organization [facility] Address [address] [facility] [address] [place] [address] Phone Care Team Providers Care Tailer In Name Role Phone Sinan Arroila MD Primary Care Provider [phone] Manan Gil MD Primary Care Provider [phone] Hien Rogel NP Primary Care Provider [phone] Encounter Details Date Type Department Care Team (Late st Contact Info) Description 04/07/2017 Orders Only [facility] Carmine Devine MD [address] [facility] [id number] [place], [place] [id number] Social History Tobacco Use Types Packs/Day Years Used Date Smoking Tobacco: Never Assessed Comments Unknown Sex and Gender Information Value Date Recorded Sex Assigned at Not on file Legal Sex Female 2:35 AM GOVERNMENT AFFAIRS FELLOW Gender Identity Not on file Sexual Orientation Not on file documented as of this encounter Functional Status documented as of this encounter Plan of Treatment Not on file documented as of this encounter Procedures Procedure Name Priority Date/Time Associated Diagnosis Comments CARDIOLOGY REPORT 04/07/2017 documented in this encounter Results * CARDIOLOGY REPORT (04/07/2017) Anatomical Region Laterality Modality Other us Carmine Devine MD CV CARDIAC SERVICES PROCED [...] documented as of this encounter Care Teams Tailer In Relationship Specialty Start Date End Date Sinan Arriola MD PCP - General 03/13/17 10/13/18 Manan Gil MD [address] [facility] [address] [place] [address] PCP - General Internal Medicine 10/14/18 10/06/23 Hien Rogel NP [address] [place] [address] PCP - General Family Medicine 10/07/23 documented as of this encounter
--- OUTSIDE RECORDS SUMMARY | 2025-01-09 07:50 | XMS_ITS ---
Author Organization [facility] Address [address] [place] [address] Care Team Providers Care Paid Intern Name Role Phone Hien Rogel NP Primary Care Provider [phone] Active Problems Problem Noted Date Diagnosed Date [...] duplex. Assessment & Plan (04/16/2021 3:55 PM BUSINESS REPORTER): Patient has bilateral carotid artery stenosis measuring 50-79% on today's duplex. She is currently on medications for blood pressure control, aspirin and a statin which she will remain on at this time. I also told her that she absolutely must stop smoking. I will have her follow up in 1 year with a repeat carotid artery duplex. Assessment & Plan (04/05/2021 7:37 AM BUSINESS REPORTER): Patient has bilateral carotid artery stenosis but [...] atorvastatin Assessment & Plan (04/16/2021 3:55 PM BUSINESS REPORTER): Followed by her PCP chronic and stable. She is on Lipitor for a lipid lowering medication and I recommend she continue it. Assessment & Plan (04/05/2021 7:38 AM BUSINESS REPORTER): Followed by her PCP. Chronic and stable. [...] valsartan Assessment & Plan (04/16/2021 3:56 PM BUSINESS REPORTER): Followed by her PCP chronic and stable. I recommend she continue her amlodipine and Diovan for blood pressure control. Assessment & Plan (04/05/2021 7:38 AM BUSINESS REPORTER): Followed by her PCP. Chronic and stable. [...] quitting. Assessment & Plan (04/16/2021 3:56 PM BUSINESS REPORTER): Patient is a current everyday smoker. 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 Continues to smoke unfortunately. 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 Continues to smoke unfortunately. 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 Continues to smoke unfortunately. 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 Continues to smoke unfortunately. Currently in contemplative stage of quitting Assessment & Plan (06/11/2020 11:45 PM CDT): Tonsillar cancer (dx 2012) s/p surgery and FINANCIAL COST ANALYST in remission. Continues to smoke unfortunately. Currently in contemplative stage of quitting Assessment & Plan (12/02/2019 11:59 AM CDT): Tonsillar cancer (dx 2013) s/p surgery and FINANCIAL COST ANALYST in remission. Unfortunately patient continues to smoke. - outpatient follow-up-> looks like she had an appt yesterday which will need to be rescheduled: patient aware Assessment & Plan (12/01/2019 11:09 AM CDT): Tonsillar cancer (dx 2013) s/p surgery and FINANCIAL COST ANALYST in remission. Unfortunately patient continues to smoke. - outpatient follow-up-> looks like she had an appt today which will need to be rescheduled. Assessment & Plan (11/30/2019 10:59 PM CDT): Tonsillar cancer (dx 2012) s/p surgery and FINANCIAL COST ANALYST in remission. Unfortunately patient continues to smoke. [...]
[2025-01-09 09:18] LABS: Hematocrit 35.2 % (37.0-47.0); Hemoglobin 10.8 g/dL (12.0-15.0); Immature Granulocyte Percent A 0.6 % (0-0.5); Lymphocytes Absolute Auto 1.11 K/mm3 (0.9-3.2); Mean Corpuscular HGB Conc 30.7 g/dl (32-36); Mean Corpuscular Hemoglobin 27.6 pg (26-34); Mean Corpuscular Volume 89.8 fl (80-100); Nucleated Red Blood Cells Absolute Auto 0.000 K/mm3 (0.0-0.012); Nucleated Red Blood Cells Perc 0.0 % (0.0-0.2); Platelet Count Result 302 k/mm3 (150-375); Red Blood Count 3.92 M/mm3 (4.2-5.4); White Blood Count 9.3 K/mm3 (4.5-10.0)
[2025-01-09 09:24] LABS: Hemoglobin A1C 5.1 % (<5.7)
[2025-01-09 09:27] LABS: INR 1.0; Prothrombin Time 13.0 Seconds (11.1-14.7)
[2025-01-09 09:28] LABS: Partial Thromboplastin Time 32.4 Seconds (22.3-36.8)
[2025-01-09 09:33] LABS: Albumin Level 4.3 g/dL (3.5-5.1)
[2025-01-09 09:36] LABS: Anion Gap 6 mmol/L (4-12); Blood Urea Nitrogen 34 mg/dL (7-17); Calcium 9.5 mg/dL (8.4-10.2); Carbon Dioxide 28 mmol/L (22-30); Chloride 104 mmol/L (98-107); Estimated Glomerular Filt Rate 38; Glucose 94 mg/dL (65-110); Potassium 4.4 mmol/L (3.4-5.0); Sodium 138 mmol/L (137-145)
[2025-01-09 10:32] LABS: MRSA (PCR) NOT DETECTED (NOT DETECTE)
== END 2025-01-09 07:44 | disposition home or self-care (01) ==
LOC: ANHSURGERY 07:48
PROVIDERS: Anesthesiology; PCP Nurse Practitioner Family; Visit Provider Orthopaedic Surgery
DX: Z01.818 Encounter for other preprocedural examination (principal); M16.11 Unilateral primary osteoarthritis, right hip; N18.31 Chronic kidney disease, stage 3a
CPT/HCPCS: 36415; 80048; 80307; 82040; 83036; 85025; 85610; 85730; 87641

== ENCOUNTER 2025-01-09 08:00 | Outpatient (CLI) | payer MEDICARE, OTHER, SELFPAY ==
--- OUTSIDE RECORDS SUMMARY | 2025-01-09 08:11 | XMS_ITS | Clinical Summary ---
Author Organization [facility] Address [address] [place] [address] Care Team Providers Care Obiee Architect Name Role Phone Hien Rogel NP Primary Care Provider [phone] Allergies No known active allergies Medications levothyroxine (SYNTHROID) 125 mcg tabletIndicatio ns:hypothyroidi sm Take 1 tablet (125 mcg total) by mouth copy lathe operator before breakfast 8 Active rOPINIRole (REQUIP) 4 mg tabletIndicatio ns:Restless Legs Syndrome Take 1 tablet (4 mg total) by mouth 2 (two) times a day 8 Active judrm-0-vyx-epa -dpa-fish oil 1,050-1,200 mg capsuleIndicati ons:hypertrigly ceridemia [...] duplex. Assessment & Plan (04/16/2021 3:55 PM TURKEY PICKER): Patient has bilateral carotid artery stenosis measuring 50-79% on today's duplex. She is currently on medications for blood pressure control, aspirin and a statin which she will remain on at this time. I also told her that she absolutely must stop smoking. I will have her follow up in 1 year with a repeat carotid artery duplex. Assessment & Plan (04/05/2021 7:37 AM TURKEY PICKER): Patient has bilateral carotid artery stenosis but [...] atorvastatin Assessment & Plan (04/16/2021 3:55 PM TURKEY PICKER): Followed by her PCP chronic and stable. She is on Lipitor for a lipid lowering medication and I recommend she continue it. Assessment & Plan (04/05/2021 7:38 AM TURKEY PICKER): Followed by her PCP. Chronic and stable. [...] valsartan Assessment & Plan (04/16/2021 3:56 PM TURKEY PICKER): Followed by her PCP chronic and stable. I recommend she continue her amlodipine and Diovan for blood pressure control. Assessment & Plan (04/05/2021 7:38 AM TURKEY PICKER): Followed by her PCP. Chronic and stable. [...] quitting. Assessment & Plan (04/16/2021 3:56 PM TURKEY PICKER): Patient is a current everyday smoker. 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 Continues to smoke unfortunately. 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 Continues to smoke unfortunately. 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 Continues to smoke unfortunately. 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 Continues to smoke unfortunately. 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 Continues to smoke unfortunately. 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 Unfortunately patient continues to smoke. 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 Unfortunately patient continues to smoke. - outpatient follow-up-> looks like she had an appt today which will need to be rescheduled. Assessment & Plan (11/30/2019 10:59 PM CDT): Tonsillar cancer (dx 2012) s/p surgery and STAGECRAFT TEACHER in remission. Unfortunately patient continues to smoke. [...] Department Care Team Description 10/11/2024 Orders Only [facility] Medical [facility] Vascular and Vein Surgery [address] [place] [address] [address] [place] [address] Adriana Zimmerman MD Bilateral carotid artery stenosis (Primary Dx) 10/10/2024 1:30 PM CDT Office Visit [facility] Medical [facility] Vascular and Vein Surgery [address] [place] [address] [address] [place] [address] Adriana Zimmerman MD Bilateral carotid artery stenosis (Primary Dx); Mixed hyperlipidemia; Arteriosclerosis of artery of extremity; Primary hypertension 10/10/2024 12:19 PM CDT - 10/10/2024 11:59 PM CDT Hospital Encounter [facility] Medical Office Building [address] [place] [address] [address] [place] [address] Bilateral carotid artery stenosis Discharge Disposition: Discharge [...] 10/22/2018, Surgical History Surgery Date Site/Laterality Comments NE DELIVERY ONLY Section - (Added by TW Conv) NE BX/EXC LYMPH NODE OPEN SUPERFICIAL Biopsy Lymph [...] on file Legal Sex Female 2:35 AM TURKEY PICKER Gender Identity Not on file Sexual Orientation [...] Study Date: 10/10/2024 12:38:47 PM Gender: F Chro: Adriane Meyer Provider: ADRIANA ZIMMERMAN Quality: Adequate [...] Study Date: 10/10/2024 12:38:47 PM Gender: F Chro: Adriane Meyer Provider: ADRIANA ZIMMERMAN Quality: Adequate [...] internal carotid artery disease is consistent with [id number]% stenosis. 2. The left internal carotid artery [...] Hgb A1C 5.4 4.0 - 5.6 % [facility] Estimated Average Glucose 108 mg/dL [facility] Comment: The ADA recommends reporting an [...] MD LAB BLOOD ORDERABLES Samira l Result [facility] Department [place] [address] * (ABNORMAL) Lipid panel (06/11/2020 6:30 PM CDT) Cholesterol 169 30 - 199 mg/dL [facility] Comment: Interpretive Data Ages < or [...] revised on 2017. Triglycerides 137 <=149 mg/dL [facility] Comment: Interpretive Data Ages < or [...] revised on 2017. HDL 34(L) >=40 mg/dL [facility] Comment: Interpretive Data Ages < or [...] 2017. LDL, calculated 108 <=129 mg/dL [facility] Comment: Interpretive Data Ages < or [...] revised on 2017. Non-HDL Cholesterol 135 mg/dL [facility] Comment: Interpretive Data Ages < or = [...] last revised on 2017. Chol/HDL ratio 5 [facility] Blood specimen (specimen) 06/11/2020 6:30 PM CDT 06/11/2020 7:15 PM CDT Narrative [facility] - 06/12/2020 12:03 AM CDT Reflex us Makeda Orozco MD LAB BLOOD ORDERABLES Samira juarez Result [facility] Department [place] [address] from Last 3 Months or Most Recently Relevant to Health Maintenance [place] [address] [facility] MEDICARE [facility] [place] [address] [place] [address] Advance Directives For more information, please contact: [phone] * Full Code (Latest Code Status on File) Date Activated Date Inactivated Comments 06/11/2020 5:44 PM 06/15/2020 6:17 PM * Full Code Date Activated Date Inactivated Comments 12/01/2019 4:10 PM 12/02/2019 5:34 PM Care Teams Obiee Architect Relationship Specialty Start Date End Date Hien Rogel NP [address] [place] [address] PCP - General Family Medicine 10/07/23
--- OUTSIDE RECORDS SUMMARY | 2025-01-09 08:11 | XMS_ITS | Clinical Summary ---
Author Organization [facility] Address [address] [place] [address] Phone Care Team Providers Care Tunnel Heading Supervisor Name Role Phone Manan Gil MD Primary Care Provider [phone] Allergies No known active allergies Medications aspirin [...] Tonsillar cancer (dx 2012) s/p surgery and IS SUPPORT ANALYST in remission. Continues to smoke unfortunately. [...] Comments Blood Pressure 132/70 02/13/2021 11:08 AM RN CASE MGR Pulse - - Temperature 36.9 C (98.5 F) 02/13/2021 11:08 AM RN CASE MGR Respiratory Rate 18 02/13/2021 11:08 AM RN CASE MGR Oxygen Saturation - - Inhaled Oxygen Concentration - - Weight 67.6 kg (149 lb) 02/13/2021 11:08 AM RN CASE MGR Height 160 cm (5' 3) 02/13/2021 11:08 AM RN CASE MGR Body Mass Index 26.39 02/13/2021 11:08 AM RN CASE MGR Plan of Treatment Health Maintenance Due Date Last Done Comments COVID-19 Vaccine ( season) 2024, 04/26/2020 Influenza Vaccine (#1) 2024 12/03/2017 Pneumococcal PPSV23/PCV13 65 + Years / Low and Medium Risk Completed 10/22/2018, 11/10/2017, 02/15/2013 Insurance MEDICARE [employer] MEDICARE SUPPLEMENT Care Teams Tunnel Heading Supervisor Relationship Specialty Start Date End Date Manan Gil MD [address] [place] [address] PCP - General Family Medicine 12/07/18
--- OUTSIDE RECORDS SUMMARY | 2025-01-09 08:11 | XMS_ITS | Clinical Summary ---
Author Organization [facility] Address [address] [place] [address] Care Team Providers Care Nurseryperson Name Role Phone Carmine Devine MD Unavailable Ely Wisdom MD Unavailable [phone] Carmine Daniel MD Unavailable [phone] Evans Garcia MD Unavailable [phone] Hien Rogel NP Primary Care Provider [phone] Allergies No known active allergies Medications rOPINIRole [...] MCG/ACT inhalerIndicatio ns:Pulmonary emphysema, unspecified emphysema type (CMS/HCC HHS/HCC) Inhale 2 puffs into the lungs 2 (two) times daily. 6.9 g 6 5 Active Additional Information Patient taking differently:2 puff Inhalation 2 times daily,Takes PRN, Reported on 09/15/2024 HYDROcodone-acet aminophen (NORCO) 5-325 MG tablet TAKE 1 TO 2 TABLETS BY MOUTH EVERY 12 HOURS NEEDED FOR PAIN 5 Active ezetimibe (ZETIA) 10 MG tablet TAKE 1 TABLET(10 MG) BY MOUTH DAILY 30 tablet 3 5 Active Active Problems Problem Noted Date [...] carotid artery duplex. 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 Continues to smoke unfortunately. 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 Continues to smoke unfortunately. Currently in contemplative stage of quitting Thoracic aortic aneurysm without rupture 018 Cardiac pacemaker in situ 03/02/2017 Overview (12/09/2022): Micra leadless pacemaker implanted in 2018 for frequent pauses Encounters Date Type Department Care Team Description 11/29/2024 2:05 PM CDT Allied Health/Nurse Visit [facility] [address] [place] [address] Wilmer Holman MD Remote Device Check 11/29/2024 Travel 10/18/2024 6:51 AM CDT - 10/18/2024 11:59 PM CDT Hospital Encounter [facility] [place] [address] Wilmer Holman MD Discharge Disposition: Home or Self Care (Routine Discharge) 10/18/2024 Results Follow-Up [facility] [address] [place] [address] Capri Ny RN NM PHARM NUC STRESS TEST 1 DAY W TRACING 10/18/2024 Travel from Last 3 Months Immunizations Immunization [...] AM CDT Legal Sex Female 9:56 AM MEDICAL OFFICE MANAGER Gender Identity Not on file Sexual Orientation [...] Care Team (Late st Contact Info) Description 01/23/2025 8:30 AM MEDICAL OFFICE MANAGER Allied Health/[facility] [address] [address] Wilmer Holman MD [facility]. [address] [place] [address] 01/23/2025 9:00 AM MEDICAL OFFICE MANAGER Office Visit [place] [facility], [address] [place] [address] Nita Alex, ANP-BC [facility]. [address] [place] [address] 02/27/2025 2:35 PM MEDICAL OFFICE MANAGER Allied Health/Nurse Visit [place] [facility] [address] [place] [address] Wilmer Holman MD [facility] [address] [place] [address] 09/15/2025 8:00 AM CDT Office Visit [facility] Medical Group Multispecialty Care - [facility] [address] [place] [address] Maribel Downs DO [address] [place] [address] Health Maintenance Due Date Last Done Comments [...] Scan (General) 2017 Hemoglobin A1C 03/08/2021 09/05/2020, /04/2020, 12/01/2019 PHQ-2 (Physician [place]) 03/02/2024 COVID-19 Vaccine ( season) 2024 12/17/2020, 05/18/2020, 04/26/2020 Influenza Adult (#1) 2024 01/07/2021, 11/15/2019, 12/10/2018, Additional history exists Lipid Panel 07/14/2025 07/14/2024, 08/18/2023 Lung Cancer Screening 08/23/2025 08/23/2024 , 08/21/2023, 07/12/2022, Additional history exists Pneumococcal Vaccine: 50+ Years Completed 10/22/2018, 11/10/2017, 02/15/2013 Hepatitis A Vaccines Aged Out No long er eligible based on patient's age to complete this topic Meningococcal B Vaccine Aged Out No l onger eligible based on patient's age to complete this topic Meningococcal Vaccine Aged Out No bobby danyell eligible based on patient's age to complete this topic RSV Immunizations Under 20 Months Aged Out No longer eligible based on patient's age to complete this topic Medical Devices Implanted Type Area Processing Associate Device Identifier Shelf Expiration Date Model / Serial / Lot Mdt Micra Pacemaker-04/06/19 18 Implanted:2017 by Evans Garcia RT Student (Quantity not on file) Pacemaker [employer] CARDIAC RHYTHM AND HEART FAILURE - DIV M [id number] / [id number] / Description:MRI Conditional under following conditions: Static [...] AM CDT Coronary artery calcification Diabetes mellitus ([facility]) Hyperlipidemia Hypertension CT LUNG SCREENING Routine 08/23/2024 [...] Myocardial Perfusion Imaging Pat.Name: DESTIN TAVERA Pat.ID: [id number] St.Date: 10/18/2024 Refer.MD: Wilmer Holman [id number] Exam Time: 7:06:00 AM Study Type:SAMINA NC HT MUSCLE IMAGE SPECT MULTI Height: 63 in Weight: 142 lb BSA: 1.67 m2 Age: 2 1950,74Y Sex: F Sonogrphr: Adela Doty NUCLEAR POWERPLANT MECHANIC HELPER Pat. Stat.:Outpatient Reason for Study:Shortness of breath, [...] 62 % Max BP: 142/58 Max RPP: [id number] O2 sat: 98 % Symptoms and Complications: Arrhythmias: None Reason for Stopping Test: Protocol completed Stress Induced Symptoms: None Complications: None ECG Findings: No significant changes <Signed> 10/18/2024 09:14 AM Wilmer Holman M.D. Stress interpretation <Electronic Signature> 10/18/2024 03:50 PM Otis Graham M.D. Nuclear interpretation Procedure Note Otis Graham MD - 10/18/2024 Myocardial Perfusion Imaging Pat.Name: DESTIN TAVERA Pat.ID: [id number] St.Date: 10/18/2024 Refer.MD: Wilmer Holman [id number] Exam Time: 7:06:00 AM Study Type:SAMINA NC HT MUSCLE IMAGE SPECT MULTI Height: 63 in Weight: 142 lb BSA: 1.67 m2 Age: 2 1950,74Y Sex: F Sonogrphr: Adela Doty, [facility] Pat. Stat.:Outpatient Reason for Study:Shortness of breath, [...] 62 % Max BP: 142/58 Max RPP: [id number] O2 sat: 98 % Symptoms and Complications: Arrhythmias: None Reason for Stopping Test: Protocol completed Stress Induced Symptoms: None Complications: None ECG Findings: No significant changes <Signed> 10/18/2024 09:14 AM Wilmer Holman M.D. Stress interpretation <Electronic Signature> 10/18/2024 03:50 PM Otis Graham M.D. Nuclear interpretation us Wilmer Holman MD NUC MED Final Result * CT LUNG SCREENING (08/23/2024 8:58 AM CDT) Anatomical Region Laterality Modality Chest Computed Tomogra phy 09/05/2024 12:1 8 PM CDT Impressions 09/05/2024 12:22 PM CDT IMPRESSION: 1. LUNG-RADS category 2: Benign findings. See above. RECOMMENDATIONS: Continued routine annual LDCT lung screening. Suggest next exam on or around July 2025 Thank you for choosing the [facility] Lung Screening Program. Ordered By: MARIBEL DOWNS Interpreted By: Jules Hallman MD, 09/05/2024 12:18 PM Narrative 09/05/2024 12:[address]T [address] [address] EXAM: LUNG SCREENING LOW-DOSE CT THORAX WITHOUT [...] Procedure Note Jules Hallman MD - 09/05/[address] [address] EXAM: LUNG SCREENING LOW-DOSE CT THORAX WITHOUT [...] July 2025 Thank you for choosing the [facility] Lung ScreeningProgram. Ordered By: MARIBEL ODWNS Interpreted By: Jules Hallman MD, 09/05/2024 12:18 PM us Maribel Downs DO CT Final Resu lt * LIPID PANEL (07/14/2024) CHOLESTEROL 182 TRIGLYCERIDES 117 HDL 46 DIRECT LDL 88 us Default History Genericprovider LABORATORY Edited Result - Final * HEMOGLOBIN, GLYCOSYLATED (09/05/2020 4:40 AM CDT) HGB A1C 5.5 <5.7 % 09/05/2020 9:57 AM CDT [facility] Comment: ADA GUIDELINES 2010 5.7 TO 6.4% INCREASED RISK OF DIABETES > OR = 6.5% CONSISTENT WITH DIABETES ESTIMATED AVG GLUCOSE 111 mg/dL 09/05/2020 9:57 AM CDT [facility] 09/05/2020 4:40 AM CDT us Miya Hurst PA-C LABORATORY Final Result [facility] [address] [place] [address], [place] [phone] from Last 3 Months or Most Recently Relevant to Health Maintenance Insurance MEDICARE [facility] Advance Directives * Full Code (Latest Code Status on File) Date Activated Date Inactivated Comments 07/12/2022 10:50 PM 07/14/2022 1:43 PM * Full Code Date Activated Date Inactivated Comments 09/04/2020 1:40 PM 09/05/2020 7:04 PM Care Teams Nurseryperson Relationship Specialty Start Date End Date Hien Rogel NP [address] [place] [phone] PCP - General Nurse Practitioner Family 03/03/24 Carmine Devine MD [address] [facility] [address] [place] [address] VASCULAR SURGERY 07/14/22 Ely Wisdom MD [address] [facility] [address] [place] [address] Referring Physician NEPHROLOGY 07/14/22 Carmine Daniel MD [address] [place] [address] [address] [address] INTERNAL MEDICINE 07/14/22 Evans Garcia MD [address] [place] [address] INTERNAL MEDICINE 07/15/22
--- OUTSIDE RECORDS SUMMARY | 2025-01-09 08:11 | XMS_ITS | Encounter Summary ---
Author Organization [facility] Address [facility] [place] [address] Care Team Providers Care Blue Crabber Name Role Phone Carmine Devine MD Unavailable Ely Wisdom MD Unavailable [phone] Carmine Daniel MD Unavailable [phone] Evans Garcia MD Unavailable [phone] Juan Ricketts MD Primary Care Provider [phone] Hien Rogel NP Primary Care Provider [phone] Encounter Details Date Type Department Care Team (Late st Contact Info) Description 01/11/2024 Abstract [facility] [address] Jose Barrow [place] Social History Tobacco Use [...] AM CDT Legal Sex Female 9:[address]PERVISOR Gender Identity Not on file Sexual [...] Date Author Status No 07/12/2022 11:18 PM Stefano Chow RN Active documented in this encounter Plan of Treatment Upcoming Encounters Date Type Department Care Team (Late st Contact Info) Description 01/23/2025 8:[address] SUPERVISOR [facility] [address] [place], [place] [address] Wilmer Holman MD [facility] [address] [place], [place] [address] 01/23/2025 9:[address] SUPERVISOR [facility] [address] [place], [place] [id number] Nita Alex, ANP-BC [facility] [address] [place] [address] 02/27/2025 2:[address] SUPERVISOR Allied Health/Nurse Visit [facility] [address] [place] [address] Wilmer Holman MD [facility] [address] [place] [address] 09/15/2025 8:00 AM CDT Office Visit [facility] Medical Group Multispecialty Care - [facility] [address] [facility] [address] [place] [address] Logan Justin DO [facility] [address] [place] [address] documented as of this encounter Procedures Procedure [...] on filedocumented in this encounter Care Teams Blue Crabber Relationship Specialty Start Date End Date Juan Ricketts MD [address] [place] [address] PCP - General FAMILY PRACTICE 11/30/22 03/02/24 Hien Rogel NP [address] [address] PCP - General Nurse Practitioner Family 03/03/24 Carmine Devine MD [address] [place] [address] VASCULAR SURGERY 07/14/22 Ely Wisdom MD [address] [place] [address] Referring Physician NEPHROLOGY 07/14/22 Carmine Daniel MD [address] [place] [address] MEDICAL OFFICE [facility] [address] [place] [address] INTERNAL MEDICINE 07/14/22 Evans Garcia MD [address] [place] [address] [address] [place] [address] INTERNAL MEDICINE 07/15/22 documented as of this encounter
--- OUTSIDE RECORDS SUMMARY | 2025-01-09 08:12 | XMS_ITS | Encounter Summary ---
Author Organization [facility] Address [address] [facility] [address] [place] [address] Phone Care Team Providers Care Base Filler Operator Name Role Phone Sinan Arriola MD Primary Care Provider [phone] Manan Gil MD Primary Care Provider [phone] Hien Rogel NP Primary Care Provider [phone] Encounter Details Date Type Department Care Team (Late st Contact Info) Description 04/07/2017 Orders Only [facility] Carmine Devine MD [address] [facility] [id number] [place], [place] [id number] Social History Tobacco Use Types Packs/Day Years Used Date Smoking Tobacco: Never Assessed Comments Unknown Sex and Gender Information Value Date Recorded Sex Assigned at Not on file Legal Sex Female 2:35 AM BUTT WELDER Gender Identity Not on file Sexual Orientation [...] documented as of this encounter Care Teams Base Filler Operator Relationship Specialty Start Date End Date Sinan Arriola MD PCP - General 03/13/17 10/13/18 Manan Gil MD [address] [facility] [address] [place] [address] PCP - General Internal Medicine 10/14/18 10/06/23 Hien Rogel NP [address] [place] [address] PCP - General Family Medicine 10/07/23 documented as of this encounter
--- OUTSIDE RECORDS SUMMARY | 2025-01-09 08:12 | XMS_ITS ---
Author Organization [facility] Address [address] [place] [address] Care Team Providers Care Hospital Housekeeper Name Role Phone Hien Rogel NP Primary Care Provider [phone] Active Problems Problem Noted Date Diagnosed Date [...] duplex. Assessment & Plan (04/16/2021 3:55 PM STRUCTURAL ENGINEERING DRAFTING OFFICER): Patient has bilateral carotid artery stenosis measuring 50-79% on today's duplex. She is currently on medications for blood pressure control, aspirin and a statin which she will remain on at this time. I also told her that she absolutely must stop smoking. I will have her follow up in 1 year with a repeat carotid artery duplex. Assessment & Plan (04/05/2021 7:37 AM STRUCTURAL ENGINEERING DRAFTING OFFICER): Patient has bilateral carotid artery stenosis but [...] atorvastatin Assessment & Plan (04/16/2021 3:55 PM STRUCTURAL ENGINEERING DRAFTING OFFICER): Followed by her PCP chronic and stable. She is on Lipitor for a lipid lowering medication and I recommend she continue it. Assessment & Plan (04/05/2021 7:38 AM STRUCTURAL ENGINEERING DRAFTING OFFICER): Followed by her PCP. Chronic and stable. [...] valsartan Assessment & Plan (04/16/2021 3:56 PM STRUCTURAL ENGINEERING DRAFTING OFFICER): Followed by her PCP chronic and stable. I recommend she continue her amlodipine and Diovan for blood pressure control. Assessment & Plan (04/05/2021 7:38 AM STRUCTURAL ENGINEERING DRAFTING OFFICER): Followed by her PCP. Chronic and stable. [...] quitting. Assessment & Plan (04/16/2021 3:56 PM STRUCTURAL ENGINEERING DRAFTING OFFICER): Patient is a current everyday smoker. I [...] cancer (dx 2012) s/p surgery and MEDICAL CENTER MANAGER in remission. Continues to smoke unfortunately. 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 Continues to smoke unfortunately. 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 Continues to smoke unfortunately. 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 Continues to smoke unfortunately. 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 Continues to smoke unfortunately. 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 Unfortunately patient continues to smoke. 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 Unfortunately patient continues to smoke. - outpatient follow-up-> looks like she had an appt today which will need to be rescheduled. 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 Unfortunately patient continues to smoke. [...]
[2025-01-09 09:37] LABS: Total Protein Urine Random 28 mg/dL; Ur Ttl Prot Creatinine Ratio 0.54 mg/mg (0-0.20)
[2025-01-10 10:38] LABS: Albumin Level 4.3 g/dL (3.5-5.1); Anion Gap 9 mmol/L (4-12); Blood Urea Nitrogen 34 mg/dL (7-17); Calcium 9.5 mg/dL (8.4-10.2); Carbon Dioxide 24 mmol/L (22-30); Chloride 105 mmol/L (98-107); Estimated Glomerular Filt Rate 37; Glucose 88 mg/dL (65-110); Potassium 4.6 mmol/L (3.4-5.0); Sodium 138 mmol/L (137-145)
== END 2025-01-09 08:01 | disposition home or self-care (01) ==
LOC: ANHLAB 08:09
PROVIDERS: PCP Nurse Practitioner Family; Visit Provider Internal Medicine Nephrology
DX: I12.9 Hypertensive chronic kidney disease with stage 1 through stage 4 chronic kidney disease, or unspecified chronic kidney disease (principal); N18.31 Chronic kidney disease, stage 3a
CPT/HCPCS: 36415; 80069; 82570; 84156

== ENCOUNTER 2025-01-12 11:47 | Emergency (ER) | payer MEDICARE, OTHER, SELFPAY ==
[2025-01-12 11:57] VITALS: BP 104/50; PULSE 82; RESP 17; TEMP 36.8; O2SAT 97
[2025-01-12 12:26] VITALS: BP 136/59; PULSE 77; RESP 14; O2SAT 97
--- OUTSIDE RECORDS SUMMARY | 2025-01-12 12:48 | XMS_ITS | Encounter Summary ---
Author Organization [facility] Address [address] [place] [address] Care Team Providers Care Veterinary Science Teacher Name Role Phone Carmine Dveine MD Unavailable Ely Wisdom MD Unavailable Carmine Daniel MD Unavailable [phone] Evans Garcia MD Unavailable [phone] Hien Rogel NP Primary Care Provider [phone] Reason for Visit * Reason Onset Date Comments Information 01/09/2025 CRMD form Encounter Details Date Type Department Care Team ([facility] Contact Info) Description 01/09/2025 Telephone [facility], [facility] [address] [place] [address] Wilmer Holman MD [facility]. [facility] [address] [place] [address] Information (CRMD form) Social History Tobacco Use Types Packs/Day Years Used Date Smoking Tobacco: Former Cigarettes 1 50 Smokeless Tobacco: Never Comments:Quit smoking for 24 days - per [...] AM CDT Legal Sex Female 9:56 AM WINDOWS VMWARE ENGINEER Gender Identity Not on file Sexual Orientation [...] Alvarez RN Active documented in this encounter Progress Notes * Bernie Faulkner RN - 01/09/2025 9:00 AM CST CRMD form for Arnav/procedure faxed OWS VMWARE ENGINEER documented in this encounter Plan of Treatment Upcoming Encounters Date Type Department Care Team (Late st Contact Info) Description 01/23/2025 8:30 AM WINDOWS VMWARE ENGINEER [facility] [address] [place] [address] Wilmer Holman MD [facility]. [address] [place] [address] 01/23/2025 9:00 AM WINDOWS VMWARE ENGINEER Office Visit [facility] [facility], [address] [place] [address] Nita Alex, ANP- [facility]. [address] [place] [address] 02/27/2025 2:35 PM WINDOWS VMWARE ENGINEER Allied Health/Nurse Visit [facility] THREE [facility], [address] [place] [address] Wilmer Holman MD [facility]. [address] [place] [address] 09/15/2025 8:00 AM CDT Office Visit [facility] Multispecialty Care - [facility] [place] [address] [facility] [place] [address] Logan Justin DO 3 [facility] [address] [place] [address] documented as of this encounter Visit Diagnoses Not on filedocumented in this encounter Care Teams Veterinary Science Teacher Relationship Specialty Start Date End Date Hien Rogel NP [address] [place] [address] PCP - General Nurse Practitioner Family 03/03/24 Carmine Devine MD [address] [place] [address] VASCULAR SURGERY 07/14/22 Ely Wisdom MD [address] [facility] [address] [place] [address] Referring Physician NEPHROLOGY 07/14/22 Carmine Daniel MD [address] [place] [address] MEDICAL OFFICE BUILDING [address] [place] [address] INTERNAL MEDICINE 07/14/22 Evans Garcia MD [address] [facility] [address] [place] [address] INTERNAL MEDICINE 07/15/22 documented as of this encounter
--- OUTSIDE RECORDS SUMMARY | 2025-01-12 12:48 | XMS_ITS | Clinical Summary ---
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 Continues to smoke unfortunately. 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 Continues to smoke unfortunately. Currently in contemplative stage of quitting Thoracic aortic aneurysm without rupture 018 Cardiac pacemaker in situ 03/02/2017 Overview (12/09/2022): Micra leadless pacemaker implanted in 2018 for frequent pauses Encounters Date Type Department Care Team Description 01/09/2025 [facility]phone [facility] THREE [facility], [address] [address] Wilmer Holman MD Information (CRMD form) 11/29/2024 2:05 PM CDT Allied Health/Nurse [facility] THREE [facility], [address] [address] Wilmer Holman MD Remote Device Check 11/29/2024 Travel 10/18/2024 6:51 AM CDT - 10/18/2024 11:59 PM CDT Hospital Encounter [facility] [place] [address] Wilmer Holman MD Discharge Disposition: Home or Self Care (Routine Discharge) 10/18/2024 Results Follow-Up [facility] THREE [facility], [address] [address] Capri Ny RN NM PHARM NUC STRESS [...] AM CDT Legal Sex Female 9:56 AM NORMALIZER Gender Identity Not on file Sexual Orientation [...] st Contact Info) Description 01/23/2025 8:30 AM NORMALIZER Allied Health/Nurse Visit [facility] THREE [facility], [address] [place] [address] Wilmer Holman MD Three [facility]. [address] [place], [place] [address] 01/23/2025 9:00 AM NORMALIZER Office Visit [facility] THREE [facility], [address] [place] [address] Nita Alex, [facility]- Three [facility]. [address] [place] [address] 02/27/2025 2:35 PM NORMALIZER Allied Health/Nurse Visit [facility] THREE [facility], [address] [place] [address] Wilmer Holman MD Three [facility]. [address] [place] [address] 09/15/2025 8:00 AM CDT Office Visit [facility] Multispecialty Care - [facility] [address] [place] [address] Maribel Downs DO [address] [place], [place] [id number] Health Maintenance Due Date Last Done Comments [...] Scan (General) 2017 Hemoglobin A1C 03/08/2021 09/05/2020, 04/1 04/2020, 12/01/2019 PHQ-2 (Physician [place]) 03/02/2024 COVID-19 Vaccine ( season) 2024 12/17/2020, [...] this topic Medical Devices Implanted Type Area Employment Clerk Device Identifier Shelf Expiration Date Model / Serial / Lot Mdt Micra Pacemaker-04/06/19 18 Implanted:2017 by Evans Garcia RT Student (Quantity not on file) Pacemaker [employer] CARDIAC RHYTHM AND HEART FAILURE - DIV M [id number] / [id number] / Description:MRI Conditional under following conditions: Static [...] AM CDT Coronary artery calcification Diabetes mellitus ([facility]/HCC HHS/HCC) Hyperlipidemia Hypertension CT LUNG SCREENING Routine 08/23/2024 [...] Myocardial Perfusion Imaging Pat.Name: DESTIN TAVERA Pat.ID: [id number] St.Date: 10/18/2024 Refer.MD: Wilmer Holman [id number] Exam Time: 7:06:00 AM Study Type:SAMINA NC HT MUSCLE IMAGE SPECT MULTI Height: 63 in Weight: 142 lb BSA: 1.67 m2 Age: 2 1950,74Y Sex: F Sonogrphr: TREVOR Wynne Pat. Stat.:Outpatient Reason for Study:Shortness of breath, [...] 62 % Max BP: 142/58 Max RPP: [id number] O2 sat: 98 % Symptoms and Complications: Arrhythmias: None Reason for Stopping Test: Protocol completed Stress Induced Symptoms: None Complications: None ECG Findings: No significant changes <Signed> 10/18/2024 09:14 AM Wilmer Holman M.D. Stress interpretation <Electronic Signature> 10/18/2024 03:50 PM Otis Graham M.D. Nuclear interpretation Procedure Note Otis Graham MD - 10/18/2024 Myocardial Perfusion Imaging Pat.Name: DESTIN TAVERA Pat.ID: [id number] .Date: 10/18/2024 Refer.MD: Wilmer Holman [id number] Exam Time: 7:06:00 AM Study Type:SAMINA NC HT MUSCLE IMAGE SPECT MULTI Height: 63 in Weight: 142 lb BSA: 1.67 m2 Age: 2 1950,74Y Sex: F Sonogrphr: Adela Doty [facility] Pat. Stat.:Outpatient Reason for Study:Shortness of breath, [...] 62 % Max BP: 142/58 Max RPP: [id number] O2 sat: 98 % Symptoms and Complications: [...] July 2025 Thank you for choosing the [facility] Lung Screening Program. Ordered By: MARIBEL DOWNS Interpreted By: Jules Hallman MD, 09/05/2024 12:18 PM Narrative 09/05/2024 12:22 PM CDT [place] [id number] EXAM: LUNG SCREENING LOW-DOSE CT THORAX WITHOUT [...] Procedure Note Jules Hallman MD - 09/05/2024 [facility] [address] [place], [place] [address] EXAM: LUNG SCREENING LOW-DOSE CT THORAX WITHOUT [...] July 2025 Thank you for choosing the [facility] Lung ScreeningProgram. Ordered By: MARIBEL DOWNS Interpreted By: Jules Hallman MD, 09/05/2024 12:18 PM Maribel Downs DO CT Final Resu lt * LIPID PANEL (07/14/2024) CHOLESTEROL 182 TRIGLYCERIDES 117 HDL 46 DIRECT LDL 88 us Default History Genericprovider LABORATORY Edited Result - Final * HEMOGLOBIN, GLYCOSYLATED (09/05/2020 4:40 AM CDT) HGB A1C 5.5 <5.7 % 09/05/2020 9:[address] [facility] Comment: ADA GUIDELINES 2010 5.7 TO 6.4% INCREASED RISK OF DIABETES > OR = 6.5% CONSISTENT WITH DIABETES ESTIMATED AVG GLUCOSE 111 mg/dL 09/05/2020 9:[address] [facility] 09/05/2020 4:40 AM CDT Miya Hurst PA-C LABORATORY Final Result [facility] [address] [place] [address], from Last 3 Months or Most Recently Relevant to Health Maintenance Insurance MEDICARE [facility] Advance Directives * Full Code (Latest Code Status on File) Date Activated Date Inactivated Comments 07/12/2022 10:50 PM 07/14/2022 1:43 PM * Full Code Date Activated Date Inactivated Comments 09/04/2020 1:40 PM 09/05/2020 7:04 PM Care Teams Rating Examiner Relationship Specialty Start Date End Date Hien Rogel NP [address] [place] [address] PCP - General Nurse Practitioner Family 03/03/24 Carmine Devine MD [address] [place] [address] VASCULAR SURGERY 07/14/22 Ely Wisdom MD [address] [facility] [address] [place] [address] Referring Physician NEPHROLOGY 07/14/22 Carmine Daniel MD [address] [place] [address] MEDICAL OFFICE BUILDING [address] [place] [address] INTERNAL MEDICINE 07/14/22 Evans Garcia MD [address] [place] [address] INTERNAL MEDICINE 07/15/22
--- OUTSIDE RECORDS SUMMARY | 2025-01-12 12:48 | XMS_ITS ---
Author Organization [facility] Address [address] [place] [address] Care Team Providers Care Prefabricator Name Role Phone Hien Rogel NP Primary Care Provider [phone] Active Problems Problem Noted Date Diagnosed Date [...] Assessment & Plan (04/16/2021 3:55 PM ASSISTANT BOILER OPERATOR): Patient has bilateral carotid artery stenosis [...] Assessment & Plan (04/05/2021 7:37 AM ASSISTANT BOILER OPERATOR): Patient has bilateral carotid artery stenosis [...] Assessment & Plan (04/16/2021 3:55 PM ASSISTANT BOILER OPERATOR): Followed by her PCP chronic and stable. She is on Lipitor for a lipid lowering medication and I recommend she continue it. Assessment & Plan (04/05/2021 7:38 AM ASSISTANT BOILER OPERATOR): Followed by her PCP. Chronic and [...] Assessment & Plan (04/16/2021 3:56 PM ASSISTANT BOILER OPERATOR): Followed by her PCP chronic and stable. I recommend she continue her amlodipine and Diovan for blood pressure control. Assessment & Plan (04/05/2021 7:38 AM ASSISTANT BOILER OPERATOR): Followed by her PCP. Chronic and [...] Assessment & Plan (04/16/2021 3:56 PM ASSISTANT BOILER OPERATOR): Patient is a current everyday smoker. 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 Continues to smoke unfortunately. 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 Continues to smoke unfortunately. 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 Continues to smoke unfortunately. 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 Continues to smoke unfortunately. 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 Continues to smoke unfortunately. 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 Unfortunately patient continues to smoke. 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 Unfortunately patient continues to smoke. - outpatient follow-up-> looks like she had an appt today which will need to be rescheduled. 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 Unfortunately patient continues to smoke. [...]
--- OUTSIDE RECORDS SUMMARY | 2025-01-12 12:48 | XMS_ITS | Clinical Summary ---
Author Organization [facility] Address [address] [place] [address] Phone Care Team Providers Care Insurance Marketing Rep Name Role Phone Manan Gil MD Primary Care Provider [phone] Allergies No known active allergies Medications aspirin [...] Tonsillar cancer (dx 2012) s/p surgery and PROJECT SCHEDULER in remission. Continues to smoke unfortunately. Currently [...] Comments Blood Pressure 132/70 02/13/2021 11:08 AM MATERIAL EXPEDITER Pulse - - Temperature 36.9 C (98.5 F) 02/13/2021 11:08 AM MATERIAL EXPEDITER Respiratory Rate 18 02/13/2021 11:08 AM MATERIAL EXPEDITER Oxygen Saturation - - Inhaled Oxygen Concentration - - Weight 67.6 kg (149 lb) 02/13/2021 11:08 AM MATERIAL EXPEDITER Height 160 cm (5' 3) 02/13/2021 11:08 AM MATERIAL EXPEDITER Body Mass Index 26.39 02/13/2021 11:08 AM MATERIAL EXPEDITER Plan of Treatment Health Maintenance Due Date Last Done Comments COVID-19 Vaccine ( season) 2024, 04/26/2020 Influenza Vaccine (#1) 2024 12/03/2017 Pneumococcal PPSV23/PCV13 65 + Years / Low and Medium Risk Completed 10/22/2018, 11/10/2017, 02/15/2013 Insurance MEDICARE [employer] MEDICARE SUPPLEMENT Care Teams Insurance Marketing Rep Relationship Specialty Start Date End Date Manan Gil MD [address] [place] [address] PCP - General Family Medicine 12/07/18
--- OUTSIDE RECORDS SUMMARY | 2025-01-12 12:48 | XMS_ITS | Encounter Summary ---
Author Organization [facility] Address [address] [facility] [address] [place] [address] Phone Care Team Providers Care Patient Account Representative Name Role Phone Sinan Arriola MD Primary Care Provider [phone] Manan Gil MD Primary Care Provider [phone] Hien Rogel NP Primary Care Provider [phone] Encounter Details Date Type Department Care Team (Late st Contact Info) Description 04/07/2017 Orders Only [facility] Carmine Devine MD [address] [facility] [address] [place], [place] [address] Social History Tobacco Use Types Packs/Day Years Used Date Smoking Tobacco: Never Assessed Comments Unknown Sex and Gender Information Value Date Recorded Sex Assigned at Not on file Legal Sex Female 2:35 AM CARPENTER PROTOTYPE Gender Identity Not on file Sexual Orientation [...] documented as of this encounter Care Teams Patient Account Representative Relationship Specialty Start Date End Date Sinan Arriola MD PCP - General 03/13/17 10/13/18 Manan Gil MD [address] [facility] [address] [place] [address] PCP - General Internal Medicine 10/14/18 10/06/23 Hien Rogel NP [address] [place] [address] PCP - General Family Medicine 10/07/23 documented as of this encounter
--- OUTSIDE RECORDS SUMMARY | 2025-01-12 12:48 | XMS_ITS | Encounter Summary ---
Author Organization [facility] Address [facility] [place] [address] Care Team Providers Care Lead Medical Technologist Name Role Phone Carmine Devine MD Unavailable Ely Wisdom MD Unavailable [phone] Carmine Daniel MD Unavailable [phone] Evans Garcia MD Unavailable [phone] Juan Ricketts MD Primary Care Provider [phone] Hien Rogel NP Primary Care Provider [phone] Encounter Details Date Type Department Care Team (Late st Contact Info) Description 01/11/2024 [facility] [address] Jsoe Barrow [place] Social History Tobacco Use Types [...] AM CDT Legal Sex Female 9:56 AM SOLAR ENERGY ADVISOR Gender Identity Not on file Sexual Orientation [...] st Contact Info) Description 01/23/2025 8:30 AM SOLAR ENERGY ADVISOR [facility] [address] [place], [place] [address] Wilmer Holman MD [facility]. [facility] [address] [place], [place] [address] 01/23/2025 9:00 AM SOLAR ENERGY ADVISOR [facility] [address] [place], [place] [id number] Nita Alex, ANP-BC [facility] [address] [place] [address] 02/27/2025 2:35 PM SOLAR ENERGY ADVISOR Allied Health/Nurse Visit [facility] [address] [place] [address] Wilmer Holman MD [facility] [address] [place] [address] 09/15/2025 8:00 AM CDT Office Visit [facility] Group Multispecialty Care - [facility] [address] [place] [address] Logan Justin DO [address] [facility] [address] [place] [address] documented as of this encounter Procedures Procedure [...] on filedocumented in this encounter Care Teams Lead Medical Technologist Relationship Specialty Start Date End Date Juan Ricketts MD [address] [place] [address] PCP - General FAMILY PRACTICE 11/30/22 03/02/24 Hien Rogel NP [address] [address] PCP - General Nurse Practitioner Family 03/03/24 Carmine Devine MD [address] [place] [address] VASCULAR SURGERY 07/14/22 Ely Wisdom MD [address] [place] [address] Referring Physician NEPHROLOGY 07/14/22 Carmine Daniel MD [address] [place] [address] MEDICAL OFFICE [facility] [address] [place] [address] INTERNAL MEDICINE 07/14/22 Evans Garcia MD [address] [place] [address] [address] [place] [address] INTERNAL MEDICINE 07/15/22 documented as of this encounter
--- OUTSIDE RECORDS SUMMARY | 2025-01-12 12:48 | XMS_ITS | Clinical Summary ---
Author Organization [facility] Address [address] [place] [address] Care Team Providers Care Electrocardiograph Repairer Name Role Phone Hien Rogel NP Primary Care Provider [phone] Allergies No known active allergies Medications levothyroxine (SYNTHROID) 125 mcg tabletIndicatio ns:hypothyroidi sm Take 1 tablet (125 mcg total) by mouth radio communications mechanician before breakfast 8 Active rOPINIRole (REQUIP) 4 mg tabletIndicatio ns:Restless Legs Syndrome Take 1 tablet (4 mg total) by mouth 2 (two) times a day 8 Active qyset-0-blu-epa -dpa-fish oil 1,050-1,200 mg capsuleIndicati ons:hypertrigly ceridemia [...] duplex. Assessment & Plan (04/16/2021 3:55 PM LEAD WORKER OF HOUSEKEEPING AND LAUNDRY): Patient has bilateral carotid artery stenosis measuring 50-79% on today's duplex. She is currently on medications for blood pressure control, aspirin and a statin which she will remain on at this time. I also told her that she absolutely must stop smoking. I will have her follow up in 1 year with a repeat carotid artery duplex. Assessment & Plan (04/05/2021 7:37 AM LEAD WORKER OF HOUSEKEEPING AND LAUNDRY): Patient has bilateral carotid artery stenosis but [...] atorvastatin Assessment & Plan (04/16/2021 3:55 PM LEAD WORKER OF HOUSEKEEPING AND LAUNDRY): Followed by her PCP chronic and stable. She is on Lipitor for a lipid lowering medication and I recommend she continue it. Assessment & Plan (04/05/2021 7:38 AM LEAD WORKER OF HOUSEKEEPING AND LAUNDRY): Followed by her PCP. Chronic and stable. [...] valsartan Assessment & Plan (04/16/2021 3:56 PM LEAD WORKER OF HOUSEKEEPING AND LAUNDRY): Followed by her PCP chronic and stable. I recommend she continue her amlodipine and Diovan for blood pressure control. Assessment & Plan (04/05/2021 7:38 AM LEAD WORKER OF HOUSEKEEPING AND LAUNDRY): Followed by her PCP. Chronic and stable. [...] quitting. Assessment & Plan (04/16/2021 3:56 PM LEAD WORKER OF HOUSEKEEPING AND LAUNDRY): Patient is a current everyday smoker. I [...] Tonsillar cancer (dx 2012) s/p surgery and ADVANCE SCOUT in remission. Continues to smoke unfortunately. 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 Continues to smoke unfortunately. Currently in contemplative stage of quitting Assessment & Plan (06/13/2020 10:26 AM CDT): Tonsillar cancer (dx 2012) s/p surgery and ADVANCE SCOUT in remission. Continues to smoke unfortunately. 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 Continues to smoke unfortunately. Currently in contemplative stage of quitting Assessment & Plan (06/11/2020 11:45 PM CDT): Tonsillar cancer (dx 2012) s/p surgery and ADVANCE SCOUT in remission. Continues to smoke unfortunately. Currently in contemplative stage of quitting Assessment & Plan (12/02/2019 11:59 AM CDT): Tonsillar cancer (dx 2012) s/p surgery and ADVANCE SCOUT in remission. Unfortunately patient continues to smoke. - outpatient follow-up-> looks like she had an appt yesterday which will need to be rescheduled: patient aware Assessment & Plan (12/01/2019 11:09 AM CDT): Tonsillar cancer (dx 2012) s/p surgery and ADVANCE SCOUT in remission. Unfortunately patient continues to smoke. - outpatient follow-up-> looks like she had an appt today which will need to be rescheduled. 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 Unfortunately patient continues to smoke. [...] 10/22/2018, Surgical History Surgery Date Site/Laterality Comments MS DELIVERY ONLY Section - (Added by TW Conv) MS BX/EXC LYMPH NODE OPEN SUPERFICIAL Biopsy Lymph [...] on file Legal Sex Female 2:35 AM LEAD WORKER OF HOUSEKEEPING AND LAUNDRY Gender Identity Not on file Sexual Orientation [...] Hemoglobin A1C 12/11/2020 06/11/2020, 100 03/2019, 03/30/2017 Fall Risk Assessment 06/15/2021 06/15/2020 Covid-19 Vaccine (3 - 2 6 season) 2024 05/18/2020, 04/26/2020 Influenza Vaccine [...] A1C 5.4 4.0 - 5.6 % [facility] Estimated Average Glucose 108 mg/dL [facility] [...] LAB BLOOD ORDERABLES Samira juarez Result [facility] Department [place] [address] * (ABNORMAL) Lipid panel (06/11/2020 6:30 PM CDT) Cholesterol 169 30 - 199 mg/dL [facility] Comment: Interpretive Data Ages < or = [...] revised on 2017. Triglycerides 137 <=149 mg/dL [facility] Comment: Interpretive Data Ages < or = [...] revised on 2017. HDL 34(L) >=40 mg/dL [facility] Comment: Interpretive Data Ages < or = [...] on 2017. LDL, calculated 108 <=129 mg/dL [facility] Comment: Interpretive Data Ages < or = [...] revised on 2017. Non-HDL Cholesterol 135 mg/dL [facility] Comment: Interpretive Data Ages < or = [...] last revised on 2017. Chol/HDL ratio 5 [facility] Blood specimen (specimen) 06/11/2020 6:30 PM CDT 06/11/2020 7:15 PM CDT Narrative [facility] - 06/12/2020 12:03 AM CDT Reflex us Makeda Orozco MD LAB BLOOD ORDERABLES Samira juarez Result [facility] Department of Laboratories [place], [place] [id number] from Last 3 Months or Most Recently Relevant to Health Maintenance Insurance MEDICARE [facility] MEDICARE [facility] MEDICARE Advance Directives For more information, please contact: [phone] * Full Code (Latest Code Status on File) Date Activated Date Inactivated Comments 06/11/2020 5:44 PM 06/15/2020 6:17 PM * Full Code Date Activated Date Inactivated Comments 12/01/2019 4:10 PM 12/02/2019 5:34 PM Care Teams Electrocardiograph Repairer Relationship Specialty Start Date End Date Hien Rogel NP [address] [place] [address] PCP - General Family Medicine 10/07/23
--- OUTSIDE RECORDS SUMMARY | 2025-01-12 13:19 | XMS_ITS | Encounter Summary ---
Author Organization [facility] Address [facility] [place] [address] Care Team Providers Care Screw Machine Set Up Operator Tool Name Role Phone Carmine Devine MD Unavailable Ely Wisdom MD Unavailable [phone] Carmine Daniel MD Unavailable [phone] Evans Garcia MD Unavailable [phone] Juan Ricketts MD Primary Care Provider [phone] Hien Rogel NP Primary Care Provider [phone] Encounter Details Date Type Department Care Team (Late st Contact Info) Description 01/11/2024 Abstract [facility] [address] Jose Barrow MA Social History Tobacco Use [...] AM CDT Legal Sex Female 9:56 AM BUGGYMAN Gender Identity Not on file Sexual Orientation [...] st Contact Info) Description 01/23/2025 8:30 AM BUGGYMAN Allied Health/[facility] [address] [place], [place] [address] Wilmer Holman MD [facility]. [facility] [address] [place], [place] [address] 01/23/2025 9:00 AM BUGGYMAN [facility], [facility] [address] [place], [place] [id number] Nita Alex, ANP-BC [facility] [address] [place] [address] 02/27/2025 2:35 PM BUGGYMAN Allied Health/Nurse Visit [facility], [address] [place] [address] Wilmer Holman MD [facility] [address] [place] [address] 09/15/2025 8:00 AM CDT Office Visit [facility] - [facility] [address] [place] [address] Logan Justin DO [address] [facility] [address] [place] [address] documented as of this encounter Procedures Procedure [...] on filedocumented in this encounter Care Teams Screw Machine Set Up Operator Tool Relationship Specialty Start Date End Date Juan Ricketts MD [address] [place] [address] PCP - General FAMILY PRACTICE 11/30/22 03/02/24 Hien Rogel NP [address] [address] PCP - General Nurse Practitioner Family 03/03/24 Carmine Devine MD [address] [address] VASCULAR SURGERY 07/14/22 Ely Wisdom MD [address] [place] [address] Referring Physician NEPHROLOGY 07/14/22 Carmine Daniel MD [address] [place] [address] MEDICAL OFFICE [facility] [address] [place] [address] INTERNAL MEDICINE 07/14/22 Evans Garcia MD [address] [place] [address] [address] [place] [address] INTERNAL MEDICINE 07/15/22 documented as of this encounter
--- OUTSIDE RECORDS SUMMARY | 2025-01-12 13:19 | XMS_ITS | Clinical Summary ---
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 Continues to smoke unfortunately. 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 Continues to smoke unfortunately. Currently in contemplative stage of quitting Thoracic aortic aneurysm without rupture 018 Cardiac pacemaker in situ 03/02/2017 Overview (12/09/2022): Micra leadless pacemaker implanted in 2018 for frequent pauses Encounters Date Type Department Care Team Description 01/09/2025 Telephone [facility] THREE [facility], [address] [address] Wilmer Holman MD Information (CRMD form) 11/29/2024 2:05 PM CDT Allied Health/Nurse [facility] THREE [facility], [address] [address] Wilmer Holman MD Remote Device Check 11/29/2024 Travel 10/18/2024 6:51 AM CDT - 10/18/2024 11:59 PM CDT Hospital Encounter [facility] Nuclear [place] [address] Wilmer Holman MD Discharge Disposition: Home or Self Care (Routine Discharge) 10/18/2024 Results Follow-Up [facility], [address] [address] Capri Ny RN NM PHARM NUC STRESS [...] AM CDT Legal Sex Female 9:56 AM COOK HELPER MEAT Gender Identity Not on file Sexual Orientation [...] st Contact Info) Description 01/23/2025 8:30 AM COOK HELPER MEAT Allied Health/Nurse Visit [facility] THREE [facility], [address] [place] [address] Wilmer Holman MD Three [facility]. [address] [place], [place] [address] 01/23/2025 9:00 AM COOK HELPER MEAT Office Visit [facility], [address] [place] [address] Nita Alex, [facility]- Three [facility]. [address] [place] [address] 02/27/2025 2:35 PM COOK HELPER MEAT Allied Health/Nurse Visit [facility], [address] [place] [address] Wilmer Holman MD Three [facility]. [address] [place] [address] 09/15/2025 8:00 AM CDT Office Visit [facility] Multispecialty Care - [facility] [address] [place] [address] Maribel Downs DO [address] [facility] [address] [place], [place] [id number] Health Maintenance Due Date Last Done Comments [...] 03/08/2021 09/05/2020, 04/1 04/2020, 12/01/2019 PHQ-2 (Physician [place]) 03/02/2024 COVID-19 Vaccine ( season) 2024 12/17/2020, [...] this topic Medical Devices Implanted Type Area Hearth Feeder Device Identifier Shelf Expiration Date Model / Serial / Lot Mdt Micra Pacemaker-04/06/19 18 Implanted:2017 by Evans Garcia RT Student (Quantity not on file) Pacemaker [employer] CARDIAC RHYTHM AND HEART FAILURE - DIV M [id number] / [id number] / Description:MRI Conditional under following conditions: Static [...] AM CDT Coronary artery calcification Diabetes mellitus ([facility]/HCC HHS/HCC) Hyperlipidemia Hypertension CT LUNG SCREENING Routine [...] Myocardial Perfusion Imaging Pat.Name: DESTIN TAVERA Pat.ID: [id number] St.Date: 10/18/2024 Refer.MD: Wilmer Holman [id number] Exam Time: 7:06:00 AM Study Type:SAMINA NC [...] 62 % Max BP: 142/58 Max RPP: [id number] O2 sat: 98 % Symptoms and Complications: Arrhythmias: None Reason for Stopping Test: Protocol completed Stress Induced Symptoms: None Complications: None ECG Findings: No significant changes <Signed> 10/18/2024 09:14 AM Wilmer Holman M.D. Stress interpretation <Electronic Signature> 10/18/2024 03:50 PM Otis Graham M.D. Nuclear interpretation Procedure Note Otis Graham MD - 10/18/2024 Myocardial Perfusion Imaging Pat.Name: DESTIN TAVERA Pat.ID: [id number] .Date: 10/18/2024 Refer.MD: Wilmer Holman [id number] Exam Time: 7:06:00 AM Study Type:SAMINA NC HT MUSCLE IMAGE SPECT MULTI Height: 63 in Weight: 142 lb BSA: 1.67 m2 Age: 2 1950,74Y Sex: F Sonogrphr: Adela Doty [facility] Pat. Stat.:Outpatient Reason for Study:Shortness of breath, [...] 62 % Max BP: 142/58 Max RPP: 61237 O2 sat: 98 % Symptoms and Complications: [...] July 2025 Thank you for choosing the [facility] Lung Screening Program. Ordered By: MARIBEL DOWNS Interpreted By: Jules Hallman MD, 09/05/2024 12:18 PM Narrative 09/05/2024 12:22 PM CDT [place] [id number] EXAM: LUNG SCREENING LOW-DOSE CT THORAX WITHOUT [...] Procedure Note Jules Hallman MD - 09/05/2024 [facility] [address] [place], [place] [address] EXAM: LUNG SCREENING LOW-DOSE CT THORAX WITHOUT [...] July 2025 Thank you for choosing the [facility] Lung ScreeningProgram. Ordered By: MARIBEL DOWNS Interpreted By: Jules Hallman MD, 09/05/2024 12:18 PM Maribel Downs DO CT Final Resu lt * LIPID PANEL (07/14/2024) CHOLESTEROL 182 TRIGLYCERIDES 117 HDL 46 DIRECT LDL 88 us Default History Genericprovider LABORATORY Edited Result - Final * HEMOGLOBIN, GLYCOSYLATED (09/05/2020 4:40 AM CDT) HGB A1C 5.5 <5.7 % 09/05/2020 9:57 AM CDT [facility] Comment: ADA GUIDELINES 2010 5.7 TO 6.4% INCREASED RISK OF DIABETES > OR = 6.5% CONSISTENT WITH DIABETES ESTIMATED AVG GLUCOSE 111 mg/dL 09/05/2020 9:57 AM CDT [facility] 09/05/2020 4:40 AM CDT Miya Hurst PA-C LABORATORY Final Result [facility] [address] [place] [address], from Last 3 Months or Most Recently Relevant to Health Maintenance Insurance [facility] Advance Directives * Full Code (Latest Code Status on File) Date Activated Date Inactivated Comments 07/12/2022 10:50 PM 07/14/2022 1:43 PM * Full Code Date Activated Date Inactivated Comments 09/04/2020 1:40 PM 09/05/2020 7:04 PM Care Teams Automatic Engraver Relationship Specialty Start Date End Date Hien Rogel NP [address] [place] [address] PCP - General Nurse Practitioner Family 03/03/24 Carmine Devine MD [address] [address] VASCULAR SURGERY 07/14/22 Ely Wisdom MD [address] [facility] [address] [place] [address] Referring Physician NEPHROLOGY 07/14/22 Cramine Daniel MD [address] [place] [address] MEDICAL OFFICE BUILDING [address] [place] [address] INTERNAL MEDICINE 07/14/22 Evans Garcia MD [address] [place] [address] INTERNAL MEDICINE 07/15/22
--- OUTSIDE RECORDS SUMMARY | 2025-01-12 13:19 | XMS_ITS | Clinical Summary ---
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 Assessment & Plan (04/16/2021 3:55 PM BOATING SAFETY OFFICER): Patient has bilateral carotid artery stenosis [...] duplex. Assessment & Plan (04/05/2021 7:37 AM BOATING SAFETY OFFICER): Patient has bilateral carotid artery stenosis [...] atorvastatin Assessment & Plan (04/16/2021 3:55 PM BOATING SAFETY OFFICER): Followed by her PCP chronic and stable. She is on Lipitor for a lipid lowering medication and I recommend she continue it. Assessment & Plan (04/05/2021 7:38 AM BOATING SAFETY OFFICER): Followed by her PCP. Chronic and [...] valsartan Assessment & Plan (04/16/2021 3:56 PM BOATING SAFETY OFFICER): Followed by her PCP chronic and stable. I recommend she continue her amlodipine and Diovan for blood pressure control. Assessment & Plan (04/05/2021 7:38 AM BOATING SAFETY OFFICER): Followed by her PCP. Chronic and [...] quitting. Assessment & Plan (04/16/2021 3:56 PM BOATING SAFETY OFFICER): Patient is a current everyday smoker. 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 Continues to smoke unfortunately. 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 Continues to smoke unfortunately. 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 Continues to smoke unfortunately. 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 Continues to smoke unfortunately. 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 Continues to smoke unfortunately. 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 Unfortunately patient continues to smoke. 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 Unfortunately patient continues to smoke. - outpatient follow-up-> looks like she had an appt today which will need to be rescheduled. 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 Unfortunately patient continues to [...] on file Legal Sex Female 2:35 AM BOATING SAFETY OFFICER Gender Identity Not on file Sexual Orientation [...] A1C 5.4 4.0 - 5.6 % [facility] Estimated Average Glucose 108 mg/dL [facility] [...] LAB BLOOD ORDERABLES Samira juarez Result [facility] Department [place] [address] * (ABNORMAL) Lipid panel (06/11/2020 6:30 PM CDT) Cholesterol 169 30 - 199 mg/dL [facility] Comment: Interpretive Data Ages < [...] revised on 2017. Triglycerides 137 <=149 mg/dL [facility] Comment: Interpretive Data Ages [...] revised on 2017. HDL 34(L) >=40 mg/dL [facility] Comment: Interpretive Data Ages [...] on 2017. LDL, calculated 108 <=129 mg/dL [facility] Comment: Interpretive Data Ages [...] revised on 2017. Non-HDL Cholesterol 135 mg/dL [facility] Comment: Interpretive Data Ages [...] last revised on 2017. Chol/HDL ratio 5 [facility] Blood specimen (specimen) 06/11/2020 6:30 PM CDT 06/11/2020 7:15 PM CDT Narrative [facility] - 06/12/2020 12:03 AM CDT Reflex us Makeda Orozco MD LAB BLOOD ORDERABLES Samira juarez Result [facility] [address] [facility] Department of Laboratories [place], [place] [id number] from Last 3 Months or Most Recently Relevant to Health Maintenance Insurance MEDICARE [facility] MEDICARE [facility] MEDICARE Advance Directives For more information, please contact: [phone] * Full Code (Latest Code Status on File) Date Activated Date Inactivated Comments 06/11/2020 5:44 PM 06/15/2020 6:17 PM * Full Code Date Activated Date Inactivated Comments 12/01/2019 4:10 PM 12/02/2019 5:34 PM Care Teams Scroll Assembler Relationship Specialty Start Date End Date Hien Rogel NP [address] [place] [address] PCP - General Family Medicine 10/07/23
--- OUTSIDE RECORDS SUMMARY | 2025-01-12 13:19 | XMS_ITS | Clinical Summary ---
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 Continues to smoke unfortunately. Currently [...] Comments Blood Pressure 132/70 02/13/2021 11:08 AM DIRECTOR REVENUE Pulse - - Temperature 36.9 C (98.5 F) 02/13/2021 11:08 AM DIRECTOR REVENUE Respiratory Rate 18 02/13/2021 11:08 AM DIRECTOR REVENUE Oxygen Saturation - - Inhaled Oxygen Concentration - - Weight 67.6 kg (149 lb) 02/13/2021 11:08 AM DIRECTOR REVENUE Height 160 cm (5' 3) 02/13/2021 11:08 AM DIRECTOR REVENUE Body Mass Index 26.39 02/13/2021 11:08 AM DIRECTOR REVENUE Plan of Treatment Health Maintenance Due Date Last Done Comments COVID-19 Vaccine ( season) 2024, 04/26/2020 Influenza Vaccine (#1) 2024 12/03/2017 Pneumococcal PPSV23/PCV13 65 + Years / Low and Medium Risk Completed 10/22/2018, 11/10/2017, 02/15/2013 Insurance MEDICARE [employer] MEDICARE SUPPLEMENT Care Teams Business Mgr Relationship Specialty Start Date End Date Manan Gil MD [address] [place] [address] PCP - General Family Medicine 12/07/18
--- OUTSIDE RECORDS SUMMARY | 2025-01-12 13:19 | XMS_ITS | Encounter Summary ---
Author Organization [facility] Address [address] [place] [address] Care Team Providers Care Green Lumber Grader Name Role Phone Carmine Devine MD Unavailable Ely Wisdom MD Unavailable Carmine Daniel MD Unavailable [phone] Evans Garcia MD Unavailable [phone] Hien Rogel NP Primary Care Provider [phone] Reason for Visit * Reason Onset Date Comments Information 01/09/2025 CRMD form Encounter Details Date Type Department Care Team ([facility] Contact Info) Description 01/09/2025 Telephone [facility], [facility] [address] [place] [address] Wilmer Holman MD [facility]. [facility] [address] [place] [address] Information (CRMD form) Social History [...] AM CDT Legal Sex Female 9:56 AM RECREATIONAL VEHICLE REPAIRER Gender Identity Not on file Sexual Orientation [...] AM CST CRMD form for Arnav/procedure faxed EATIONAL VEHICLE REPAIRER documented in this encounter Plan of Treatment Upcoming Encounters Date Type Department Care Team (Late st Contact Info) Description 01/23/2025 8:30 AM RECREATIONAL VEHICLE REPAIRER [facility] [address] [place] [address] Wilmer Holman MD [facility]. [address] [place] [address] 01/23/2025 9:00 AM RECREATIONAL VEHICLE REPAIRER Office Visit [facility], [address] [place] [address] Nita Alex, ANP- [facility]. [address] [place] [address] 02/27/2025 2:35 PM RECREATIONAL VEHICLE REPAIRER Allied Health/Nurse Visit [facility], [address] [place] [address] Wilmer Holman MD [facility]. [address] [place] [address] 09/15/2025 8:00 AM CDT Office Visit [facility] Multispecialty Care - [facility] [address] [facility] [address] [place] [address] Logan Justin DO [address] [facility] [address] [place] [address] documented as of this encounter Visit Diagnoses Not on filedocumented in this encounter Care Teams Green Lumber Grader Relationship Specialty Start Date End Date Hien Rogel NP [address] [place] [id number] PCP - General Nurse Practitioner Family 03/03/24 Carmine Devine MD [address] [place] [address] VASCULAR SURGERY 07/14/22 Ely Wisdom MD [address] [facility] [address] [place] [address] Referring Physician NEPHROLOGY 07/14/22 Carmine Daniel MD [address] [place] [address] MEDICAL OFFICE BUILDING [address] [place] [address] INTERNAL MEDICINE 07/14/22 Evans Garcia MD [address] [facility] [address] [place] [address] INTERNAL MEDICINE 07/15/22 documented as of this encounter
--- OUTSIDE RECORDS SUMMARY | 2025-01-12 13:20 | XMS_ITS | Encounter Summary ---
Author Organization [facility] Address [address] [facility] [address] [place] [address] Phone Care Team Providers Care Laryngologist Name Role Phone Sinan Arriola MD Primary Care Provider [phone] Manan Gil MD Primary Care Provider [phone] Hien Rogel NP Primary Care Provider [phone] Encounter Details Date Type Department Care Team (Late st Contact Info) Description 04/07/2017 Orders Only [facility] Carmine Devine MD [address] [facility] [id number] [place], [place] [id number] Social History Tobacco Use Types Packs/Day Years Used Date Smoking Tobacco: Never Assessed Comments Unknown Sex and Gender Information Value Date Recorded Sex Assigned at Not on file Legal Sex Female 2:35 AM CRYSTAL FINISHER Gender Identity Not on file Sexual Orientation [...] documented as of this encounter Care Teams Laryngologist Relationship Specialty Start Date End Date Sinan Arriola MD PCP - General 03/13/17 10/13/18 Manan Gil MD [address] [facility] [address] [place] [address] PCP - General Internal Medicine 10/14/18 10/06/23 Hien oRgel NP [address] [place] [address] PCP - General Family Medicine 10/07/23 documented as of this encounter
--- OUTSIDE RECORDS SUMMARY | 2025-01-12 13:20 | XMS_ITS ---
Author Organization [facility] Address [address] [place] [address] Care Team Providers Care 4 H Youth Development Specialist Name Role Phone Hien Rogel NP Primary Care Provider [phone] Active Problems Problem Noted Date Diagnosed Date [...] duplex. Assessment & Plan (04/16/2021 3:55 PM MARKETING ASSOCIATE): Patient has bilateral carotid artery stenosis measuring 50-79% on today's duplex. She is currently on medications for blood pressure control, aspirin and a statin which she will remain on at this time. I also told her that she absolutely must stop smoking. I will have her follow up in 1 year with a repeat carotid artery duplex. Assessment & Plan (04/05/2021 7:37 AM MARKETING ASSOCIATE): Patient has bilateral carotid artery stenosis but [...] atorvastatin Assessment & Plan (04/16/2021 3:55 PM MARKETING ASSOCIATE): Followed by her PCP chronic and stable. She is on Lipitor for a lipid lowering medication and I recommend she continue it. Assessment & Plan (04/05/2021 7:38 AM MARKETING ASSOCIATE): Followed by her PCP. Chronic and stable. [...] valsartan Assessment & Plan (04/16/2021 3:56 PM MARKETING ASSOCIATE): Followed by her PCP chronic and stable. I recommend she continue her amlodipine and Diovan for blood pressure control. Assessment & Plan (04/05/2021 7:38 AM MARKETING ASSOCIATE): Followed by her PCP. Chronic and stable. [...] quitting. Assessment & Plan (04/16/2021 3:56 PM MARKETING ASSOCIATE): Patient is a current everyday smoker. 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 Continues to smoke unfortunately. 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 Continues to smoke unfortunately. 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 Continues to smoke unfortunately. 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 Continues to smoke unfortunately. 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 Continues to smoke unfortunately. 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 Unfortunately patient continues to smoke. 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 Unfortunately patient continues to smoke. - outpatient follow-up-> looks like she had an appt today which will need to be rescheduled. 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 Unfortunately patient continues to smoke. [...]
[2025-01-12 14:12] LABS: Add Urine Microscopic? YES; Appearance Urine Clear (Clear); Glucose Urine UA Negative (Negative); Leukocyte Esterase Ur Trace LEU/UL (Negative); Need Manual Microscopic Reviewed; Nitrate Urine Negative (Negative); Specific Grav Ur 1.018 (1.001-1.035)
[2025-01-12 14:41] VITALS: BP 129/79; PULSE 84; RESP 16; O2SAT 99
--- NOTE | 2025-01-12 15:13 | ED.GENADULT ---
HPI - General Adult General Chief complaint: Unspecified Stated complaint: low abd pain/prolapsed female organ Time Seen by Provider: 01/12/25 12:40 History of Present Illness HPI narrative: Patient is a 74-year-old female who presents ER with concerns for something coming out of her vagina. She has been having issues with urination and has recently been started on oxybutynin. Today while using the restroom she knows something coming from her vagina. Originally felt like there might have been a tampon coming out but she does not use them. No bleeding or discharge noted. She does not see a storage garage manager. Related Data Home Medications ?Medication ?Instructions ?Recorded ?Confirmed ?Last Taken ?Type omega-3 fatty acids 1,000 mg 1,000 mg PO BID 04/12/19 01/12/25 Unknown History capsule (Fish Oil Concentrate) albuterol sulfate 90 mcg/actuation 1 inh inhalation Q4H 06/11/23 01/09/25 Unknown History aerosol inhaler magnesium amino acid chelate 100 400 mg PO DAILY 06/11/23 01/12/25 Unknown History mg tablet ascorbic acid (vitamin C) 500 mg 500 mg PO DAILY 01/09/25 01/12/25 Unknown History tablet (C-500) ferrous sulfate 325 mg (65 mg 325 mg PO DAILY 01/09/25 01/12/25 Unknown History iron) tablet (FeroSul) Allergies Allergy/AdvReac Type Severity Reaction Status Date / Time No Known Allergies Allergy Verified 01/12/25 12:00 Review of Systems Constitutional: Constitutional: Reports no additional constitutional complaints Gastrointestinal: Gastrointestinal: Reports no additional gastrointestinal complaints Genitourinary: Genitourinary: Reports no additional female genitourinary complaints [facility] Past Medical History Medical History Locking of right knee Internal derangement of right knee Right knee injury Sleep disorder breathing Diverticulosis AAA (abdominal aortic aneurysm) PLMD (periodic limb movement disorder) COVID-19 vaccine series completed RBC microcytosis Cellulitis Skin lesion Neck abrasion Cervical strain Hemoptysis Vaccine counseling Post-menopausal Bilateral carotid artery stenosis Cardiac pacemaker Cervical radiculopathy History of head and neck cancer Pulmonary valve stenosis Right carotid bruit Second hand smoke exposure Family History Family History Mother Acute myocardial infarction Patient's mother is Father Family history of heart disease in male family member before age 55 Patient's father is Sibling Acute myocardial infarction Family history of coronary artery disease Patient's brother is Grandparent Family history of malignant neoplasm of breast Social History Social History Social History: Caffeine-daily Smoking packs per day: 1 Smoking cigarettes per day: 20.0 Years smoked: 60 Smoking pack-years: 60.00 Smoking status: Former smoker Tobacco type: cigarettes Second hand tobacco smoke exposure: Yes Smoking end date: 08/15/24 Additional smoking assessment comments: DENEIS ANY FORM OF TOBACCO USE Alcohol intake: former Substance use: never Substance use type: does not use Do You Feel Safe in your Home?: Yes Lack of Transportation: No Lack of Food: Sometimes True Current Housing: I Have Housing Concerned About Future Housing: No Difficulty Paying Gas/Electric Bills: Decline to Answer Difficulty Paying for Meds: YES Currently Unemployed: No Education: High School Diploma/GED Difficulty w/ Childcare or Family Care: No Living arrangements: with family Occupation/Education: other Additional occupation/education comments: disability Gender identity (if verbalized by the patient): Female Sexual Orientation (if Verbalized by the Patient): Straight or Heterosexual Spiritual care concerns: No Exam Narrative: GENERAL: Well-appearing, well-nourished, and in no acute distress. HEAD: Normocephalic, atraumatic. ENT: Mucous membranes moist. ABDOMEN: Soft, nontender, nondistended. : Normal external genitalia. No foreign body or piece of anatomy protruding from the Vagina. Normal cervix on speculum exam. Physiologic discharge no bleeding. EXTREMITIES: Normal range of motion. No edema. SKIN: Warm, dry, no rash. NEURO: Alert and oriented x3. PSYCH: Normal mood and affect. Course Course Emergency Course: unremarkable urine. Normal exam. Recommend follow-up with her urologist or storage garage manager. Discussed possibility of uterine prolapse, cystocele, rectocele. Vital Signs Vital signs: Vital Signs Temperature 98.3 F 01/12/25 11:57 Pulse Rate 82 01/12/25 11:57 Respiratory Rate 17 01/12/25 11:57 Blood Pressure 104/50 L 01/12/25 11:57 Pulse Oximetry 97 01/12/25 11:57 Oxygen Delivery Room Air 01/12/25 11:57 Temperature 98.3 F 01/12/25 11:57 Pulse Rate 84 01/12/25 14:41 Respiratory Rate 16 01/12/25 14:41 Blood Pressure 129/79 01/12/25 14:41 Pulse Oximetry 99 01/12/25 14:41 Oxygen Delivery Room Air 01/12/25 11:57 Medical Decision Making Differential Diagnosis Differential Diagnosis: Cystocele, rectocele, uterine prolapse, foreign body, infection Vital Signs Vital Signs: Vital Signs Temperature 98.3 F 01/12/25 11:57 Pulse Rate 82 01/12/25 11:57 Respiratory Rate 17 01/12/25 11:57 Blood Pressure 104/50 L 01/12/25 11:57 Pulse Oximetry 97 01/12/25 11:57 Oxygen Delivery Room Air 01/12/25 11:57 Temperature 98.3 F 01/12/25 11:57 Pulse Rate 84 01/12/25 14:41 Respiratory Rate 16 01/12/25 14:41 Blood Pressure 129/79 01/12/25 14:41 Pulse Oximetry 99 01/12/25 14:41 Oxygen Delivery Room Air 01/12/25 11:57 Lab Data Labs: Lab Results 01/12/25 Range/Units 13:57 Urine Color Yellow (Yellow) Urine Appearance Clear (Clear) Urine pH 6.5 (5.0-9.0) Ur Specific [place] 1.018 (1.001-1.035) Urine Protein 1+ H (Negative) mg/dL Urine Glucose (UA) Negative (Negative) mg/dL Urine Ketones Negative (Negative) mg/dL Ur Blood (Man) Negative (Negative) Urine Nitrate Negative (Negative) Urine Bilirubin Negative (Negative) Urine Urobilinogen 0.2 (<2.0) mg/dL Add Ur Microanalysis Reviewed Leukocyte Esterase Rfl Trace H (Negative) YESICA/UL Urine RBC 0-2 (0-2) /hpf Urine WBC 0-5 (0-3) /hpf Ur Squamous Epith Cells None seen (Few) /hpf Urine Bacteria None seen /hpf Urine Casts 3-5 Discharge Plan Discharge Clinical Impression: Genital disorder, female Patient Disposition: Home Condition: Stable Additional Instructions: You may have a disorder the vagina where your bladder, rectum, or uterus can protrude from her body. Follow-up with a storage garage manager. Return the ER if you cannot urinate, you have fever over 100.4? F, or you have additional concerns. Patient Language: Afghan Prescriptions: No Action aspirin [Adult Low Dose Aspirin] 81 mg tablet,delayed release (DR/EC) 81 mg PO DAILY Qty: 90 0RF thiamine HCl (vitamin B1) 100 mg tablet 100 mg PO DAILY Qty: 30 3RF amlodipine 10 mg tablet See Rx Instructions .ROUTE .COMPLEX Qty: 90 1RF Dose Instruction: Take 1 tablet by mouth once daily Rx Instructions: Take 1 tablet by mouth once daily albuterol sulfate 90 mcg/actuation HFA aerosol inhaler 1 inh inhalation Q4H ferrous sulfate [FeroSul] 325 mg (65 mg iron) tablet 325 mg PO DAILY ascorbic acid (vitamin C) [C-500] 500 mg tablet 500 mg PO DAILY omega-3 fatty acids [Fish Oil Concentrate] 1,000 mg capsule 1,000 mg PO BID Patient Comments: TAKES ONCE A DAY magnesium amino acid chelate 100 mg tablet 400 mg PO DAILY atorvastatin 40 mg tablet 40 mg PO DAILY Qty: 90 1RF ezetimibe 10 mg tablet 10 mg PO DAILY Qty: 90 1RF oxybutynin chloride 5 mg tablet extended release 24hr 5 mg PO DAILY Qty: 90 0RF valsartan 160 mg tablet See Rx Instructions .ROUTE .COMPLEX Qty: 90 1RF Dose Instruction: Take 1 tablet by mouth once daily Rx Instructions: Take 1 tablet by mouth once daily levothyroxine 88 mcg tablet See Rx Instructions .ROUTE .COMPLEX Qty: 90 0RF Dose Instruction: TAKE 1 TABLET BY MOUTH DAILY Rx Instructions: TAKE 1 TABLET BY MOUTH DAILY ropinirole 4 mg tablet See Rx Instructions .ROUTE .COMPLEX Qty: 180 0RF Dose Instruction: TAKE 1 TABLET BY MOUTH TWICE DAILY Rx Instructions: TAKE 1 TABLET BY MOUTH TWICE DAILY Follow-up/Referrals: Hien Rogel APRN [Primary Care Provider, Internal Medicine] Otis Becerra MD [Physician, SENIOR CIVIL ENGINEER] - 1 Week
[2025-01-12 15:26] VITALS: BP 124/55; PULSE 76; RESP 16; O2SAT 97
== END 2025-01-12 15:34 | disposition home or self-care (01) ==
PROVIDERS: Emergency Provider Emergency Medicine; PCP Nurse Practitioner Family
DX: N89.9 Noninflammatory disorder of vagina, unspecified (principal)
CPT/HCPCS: 81001; 99283

== ENCOUNTER 2025-02-07 03:15 | Day surgery (SDC) | payer MEDICARE, OTHER, SELFPAY ==
--- NOTE | 2025-01-09 07:48 | PC.NURSE ---
[facility] has started construction of its new state of the art ER which will open Spring 2026. With this, we anticipate parking may be a challenge for some our surgical patients and families. Parking spaces are limited but are available for all Surgical, obstetrics, and ER patients sharing this lot. If you arrive and find you are having a hard time finding a parking space, please note that we understand the challenges, please drive around the hospital and park near Hospital Entrance 1. When you enter this entrance, you can ask a volunteer to direct or take you back to the surgical waiting area to check in. We appreciate everyone?s understanding of these expected challenges while we build for your future. Report to the Outpatient Waiting Room, entrance under the green pavilion located off [address], at time __6 am on date _02/07/25 . Planned Procedure Time: __7:30 am .? Time changes happen often and if your time is changed the preop area will call you the afternoon before. - You and your visitor will be asked to self-screen and do not enter if you have any COVID symptoms. Please call surgeon if you need to reschedule. - A mask is optional within the hospital at this time. Patients may have clear liquids (water, carbonated beverages, clear teas, apple juice) until 3 hours prior to surgery( 4:30 am) with a maximum of 20 ounces. - No food from midnight until time of surgery and no smoking, or chewing tobacco (or any form of nicotine). No chewing gum, candy or mints. - Take only the following medications with a SIP of water on the morning of surgery: INHALER,AMLODIPINE,LEVOTHYROXINE DO NOT STOP ANY OF YOUR OTHER PRESCRIPTION MEDICATIONS PRIOR TO SURGERY EXCEPT THE FOLLOWING Hold all vitamins and supplements for 3 days per anesthesiologist.LAST DOSE 02/03/25 Medications to discontinue per physician _ASPIRIN HOLD 7 DAYS PRE OP PER DR ELIAS Date to take last dose 01/30/25 Please no make-up, nail mexican, hairspray, perfume, deodorant, or body powder the day of surgery.? No jewelry (including any body piercings) or valuables the day of surgery, leave them at home.? Please take a shower or bath the night before, or the morning of, surgery with an antibacterial soap.? Wear comfortable, loose fitting clothing.? Children are encouraged to wear pajamas. - Jewelry must be removed prior to entering the operating room.? Rings and piercings that are not removed may be cut off. - The hospital will not accept responsibility for valuables.? - Please leave all valuables, including medications, at home the day of surgery. If you are going home after surgery, a licensed laborer driver must drive you home.? - NO public transportation without another adult if you receive anesthesia. - We recommend that an adult stay with you for 24 hours following discharge. - We also recommend that you do not drive, make important decision, drink alcoholic beverages, or take any drugs that were not prescribed by your health care provider for at least 24 hours after your discharge time. For Pediatric surgeries, we recommend two adults accompany the child home. Follow any additional instructions given to you from your surgeon. VERBAL AND WRITTEN instructions given to _PATIENT and DAUGHTER_HOLA and asked if any additional questions and then verbalized understanding. Patient advised to call surgeon office or pre surgery nurse liaison [phone] if any additional questions.
[2025-01-09 08:50] VITALS: BP 155/58; PULSE 72; RESP 18; TEMP 37.3; O2SAT 98; BMI 26.6
[2025-02-07] VITALS (15 sets, daily range): BP systolic 112–151; BP diastolic 46–87; PULSE 71–98; RESP 10–18; TEMP 36.2–37.5; O2SAT 93–100
--- NOTE | ~2025-02-07 | XR_ITS ---
EXAMINATION: XR hip RT min 2V DATE: 02/07/2025 10:03 INDICATION: Postop TECHNIQUE: Right hip were obtained. COMPARISON: August 12 FINDINGS: Patient status post right hip arthroplasty hardware placement with bones and hardware in good anatomic alignment. IMPRESSION: 1. As above Reviewed, dictated and finalized at location A. ERANT TEACHER ASSISTANT IMPRESSION: 1. As above
--- OUTSIDE RECORDS SUMMARY | 2025-02-07 03:19 | XMS_ITS | Clinical Summary ---
Author Organization [facility] Address [address] [place] [address] Care Team Providers Care Photoengraving Printer Name Role Phone Hien Rogel NP Primary Care Provider [phone] Allergies No known active allergies Medications levothyroxine (SYNTHROID) 125 mcg tabletIndicatio ns:hypothyroidi sm Take 1 tablet (125 mcg total) by mouth fire watcher before breakfast 8 Active rOPINIRole (REQUIP) 4 mg tabletIndicatio ns:Restless Legs Syndrome Take 1 tablet (4 mg total) by mouth 2 (two) times a day 8 Active [id number] -dpa-fish oil 1,050-1,200 mg capsuleIndicati ons:hypertrigly ceridemia [...] duplex. Assessment & Plan (04/16/2021 3:55 PM RN CARDIOVASCULAR ICU): Patient has bilateral carotid artery stenosis measuring 50-79% on today's duplex. She is currently on medications for blood pressure control, aspirin and a statin which she will remain on at this time. I also told her that she absolutely must stop smoking. I will have her follow up in 1 year with a repeat carotid artery duplex. Assessment & Plan (04/05/2021 7:37 AM RN CARDIOVASCULAR ICU): Patient has bilateral carotid artery stenosis but [...] atorvastatin Assessment & Plan (04/16/2021 3:55 PM RN CARDIOVASCULAR ICU): Followed by her PCP chronic and stable. She is on Lipitor for a lipid lowering medication and I recommend she continue it. Assessment & Plan (04/05/2021 7:38 AM RN CARDIOVASCULAR ICU): Followed by her PCP. Chronic and stable. [...] valsartan Assessment & Plan (04/16/2021 3:56 PM RN CARDIOVASCULAR ICU): Followed by her PCP chronic and stable. I recommend she continue her amlodipine and Diovan for blood pressure control. Assessment & Plan (04/05/2021 7:38 AM RN CARDIOVASCULAR ICU): Followed by her PCP. Chronic and stable. [...] quitting. Assessment & Plan (04/16/2021 3:56 PM RN CARDIOVASCULAR ICU): Patient is a current everyday smoker. 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 Continues to smoke unfortunately. 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 Continues to smoke unfortunately. 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 Continues to smoke unfortunately. 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 Continues to smoke unfortunately. 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 Continues to smoke unfortunately. 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 Unfortunately patient continues to smoke. 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 Unfortunately patient continues to smoke. - outpatient follow-up-> looks like she had an appt today which will need to be rescheduled. 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 Unfortunately patient continues to smoke. [...] 10/22/2018, Surgical History Surgery Date Site/Laterality Comments IA DELIVERY ONLY Section - (Added by TW Conv) IA BX/EXC LYMPH NODE OPEN SUPERFICIAL Biopsy Lymph [...] on file Legal Sex Female 2:35 AM RN CARDIOVASCULAR ICU Gender Identity Not on file Sexual Orientation [...] A1C 5.4 4.0 - 5.6 % [facility] Estimated Average Glucose 108 mg/dL [facility] [...] LAB BLOOD ORDERABLES Samira juarez Result [facility] [address] Department [place] [address] * (ABNORMAL) Lipid panel (06/11/2020 6:30 PM CDT) Cholesterol 169 30 - 199 mg/dL [facility] Comment: Interpretive Data Ages < or = [...] revised on 2017. Triglycerides 137 <=149 mg/dL [facility] Comment: Interpretive Data Ages < or [...] revised on 2017. HDL 34(L) >=40 mg/dL [facility] Comment: Interpretive Data Ages < or [...] on 2017. LDL, calculated 108 <=129 mg/dL [facility] Comment: Interpretive Data Ages < or [...] revised on 2017. Non-HDL Cholesterol 135 mg/dL [facility] Comment: Interpretive Data Ages < or [...] last revised on 2017. Chol/HDL ratio 5 [facility] Blood specimen (specimen) 06/11/2020 6:30 PM CDT 06/11/2020 7:15 PM CDT Narrative [facility] - 06/12/2020 12:03 AM CDT Reflex us Makeda Orozco MD LAB BLOOD ORDERABLES Samira juarez Result [facility] [address] Department of Laboratories [place], [place] [id number] from Last 3 Months or Most Recently Relevant to Health Maintenance Insurance MEDICARE [facility] MEDICARE [facility] MEDICARE Advance Directives For more information, please contact: [phone] * Full Code (Latest Code Status on File) Date Activated Date Inactivated Comments 06/11/2020 5:44 PM 06/15/2020 6:17 PM * Full Code Date Activated Date Inactivated Comments 12/01/2019 4:10 PM 12/02/2019 5:34 PM Care Teams Photoengraving Printer Relationship Specialty Start Date End Date Hien Rogel NP [address] [place] [address] PCP - General Family Medicine 10/07/23
--- OUTSIDE RECORDS SUMMARY | 2025-02-07 03:19 | XMS_ITS | Clinical Summary ---
Author Organization [facility] Address [address] [place] [address] Phone Care Team Providers Care Correctional Treatment Specialist Name Role Phone Manan Gil MD Primary Care Provider Allergies No known active allergies Medications aspirin [...] Tonsillar cancer (dx 2012) s/p surgery and ORGANISATIONAL PSYCHOLOGIST in remission. Continues to smoke unfortunately. Currently [...] Comments Blood Pressure 132/70 02/13/2021 11:08 AM POTATO CHIP PROCESSING SUPERVISOR Pulse - - Temperature 36.9 C (98.5 F) 02/13/2021 11:08 AM POTATO CHIP PROCESSING SUPERVISOR Respiratory Rate 18 02/13/2021 11:08 AM POTATO CHIP PROCESSING SUPERVISOR Oxygen Saturation - - Inhaled Oxygen Concentration - - Weight 67.6 kg (149 lb) 02/13/2021 11:08 AM POTATO CHIP PROCESSING SUPERVISOR Height 160 cm (5' 3) 02/13/2021 11:08 AM POTATO CHIP PROCESSING SUPERVISOR Body Mass Index 26.39 02/13/2021 11:08 AM POTATO CHIP PROCESSING SUPERVISOR Plan of Treatment Health Maintenance Due Date Last Done Comments COVID-19 Vaccine ( season) 2024, 04/26/2020 Influenza Vaccine (#1) 2024 12/03/2017 Pneumococcal PPSV23/PCV13 65 + Years / Low and Medium Risk Completed 10/22/2018, 11/10/2017, 02/15/2013 Insurance MEDICARE [employer] MEDICARE SUPPLEMENT Care Teams Correctional Treatment Specialist Relationship Specialty Start Date End Date Manan Gil MD [address] [place] [address] PCP - General Family Medicine 12/07/18
--- OUTSIDE RECORDS SUMMARY | 2025-02-07 03:19 | XMS_ITS | Encounter Summary ---
Author Organization [facility] Address Formerly [facility] [place] [address] Care Team Providers Care Head Host/Hostess Name Role Phone Carmine Devine MD Unavailable Ely Wisdom MD Unavailable [phone] Carmine Daniel MD Unavailable [phone] Evans Garcia MD Unavailable [phone] Juan Ricketts MD Primary Care Provider [phone] Hien Rogel NP Primary Care Provider [phone] Encounter Details Date Type Department Care Team (Late st Contact Info) Description 01/11/2024 Abstract [facility] [address] Jose Barrow MA Social History Tobacco Use [...] AM CDT Legal Sex Female 9:56 AM GORE STITCHER Gender Identity Not on file Sexual Orientation [...] Care Team (Late st Contact Info) Description 02/27/2025 2:35 PM GORE STITCHER Allied Health/Nurse Visit [place] [address] [place], [place] [address] Wilmer Holman MD [facility]. [address] [place], [place] [id number] 09/15/2025 8:00 AM CDT Office Visit [facility] Multispecialty Care - [address] [place] [id number] Logan Justin DO [address] [facility] [address] [place] [address] 01/30/2026 9:30 AM GORE STITCHER Office Visit [facility] [address] [facility] [address], [address] [place], [place] [address] Wilmer Holman MD [address] [place] [address] documented as of this encounter Procedures Procedure Name Priority Date/Time Associated Diagnosis Comments LIPID PANEL Routine 07/14/2024 CBC (OUTSIDE LAB) Routine 08/18/2023 COMPREHENSIVE METABOLIC PANEL Routine 08/18/2023 LIPID PANEL Routine 08/18/2023 documented in this encounter Results * LIPID PANEL (07/14/2024) Pathologist [facility] CHOLESTEROL 182 TRIGLYCERIDES 117 HDL 46 DIRECT LDL 88 us Default History Genericprovider LABORATORY Edited Result - Final * (ABNORMAL) COMPREHENSIVE METABOLIC PANEL (08/18/2023) Pathologist [facility] SODIUM S/P/B 140 POTASSIUM S/P/B 4.4 CO2 [...] on filedocumented in this encounter Care Teams Head Host/Hostess Relationship Specialty Start Date End Date Juan Ricketts MD [address] [place] [id number] PCP - General FAMILY PRACTICE 11/30/22 03/02/24 Hien Rogel NP [address] [facility] [address] [place] [id number] PCP - General Nurse Practitioner Family 03/03/24 Carmine Devine MD [address] [facility] [address] [place] [address] VASCULAR SURGERY 07/14/22 Ely Wisdom MD [address] [facility] [address] [place] [address] Referring Physician NEPHROLOGY 07/14/22 Carmine Daniel MD [address] [place] [address] MEDICAL OFFICE BUILDING [address] [place] [address] INTERNAL MEDICINE 07/14/22 Evans Garcia MD [address] [address] INTERNAL MEDICINE 07/15/22 documented as of this encounter
--- OUTSIDE RECORDS SUMMARY | 2025-02-07 03:19 | XMS_ITS ---
Author Organization [facility] Address [address] [place] [address] Care Team Providers Care Physician Aide Name Role Phone Hien Rogel NP Primary Care Provider [phone] Active Problems Problem Noted Date Diagnosed Date [...] duplex. Assessment & Plan (04/16/2021 3:55 PM ADVANCED PRACTICE RN): Patient has bilateral carotid artery stenosis measuring 50-79% on today's duplex. She is currently on medications for blood pressure control, aspirin and a statin which she will remain on at this time. I also told her that she absolutely must stop smoking. I will have her follow up in 1 year with a repeat carotid artery duplex. Assessment & Plan (04/05/2021 7:37 AM ADVANCED PRACTICE RN): Patient has bilateral carotid artery stenosis but [...] atorvastatin Assessment & Plan (04/16/2021 3:55 PM ADVANCED PRACTICE RN): Followed by her PCP chronic and stable. She is on Lipitor for a lipid lowering medication and I recommend she continue it. Assessment & Plan (04/05/2021 7:38 AM ADVANCED PRACTICE RN): Followed by her PCP. Chronic and stable. [...] valsartan Assessment & Plan (04/16/2021 3:56 PM ADVANCED PRACTICE RN): Followed by her PCP chronic and stable. I recommend she continue her amlodipine and Diovan for blood pressure control. Assessment & Plan (04/05/2021 7:38 AM ADVANCED PRACTICE RN): Followed by her PCP. Chronic and stable. [...] quitting. Assessment & Plan (04/16/2021 3:56 PM ADVANCED PRACTICE RN): Patient is a current everyday smoker. 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 Continues to smoke unfortunately. 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 Continues to smoke unfortunately. 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 Continues to smoke unfortunately. 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 Continues to smoke unfortunately. 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 Continues to smoke unfortunately. Currently in contemplative stage of quitting Assessment & Plan (12/02/2019 11:59 AM CDT): Tonsillar cancer (dx 2013) s/p surgery and YARD PILOT in remission. Unfortunately patient continues to smoke. - outpatient follow-up-> looks like she had an appt yesterday which will need to be rescheduled: patient aware Assessment & Plan (12/01/2019 11:09 AM CDT): Tonsillar cancer (dx 2013) s/p surgery and YARD PILOT in remission. Unfortunately patient continues to smoke. - outpatient follow-up-> looks like she had an appt today which will need to be rescheduled. Assessment & Plan (11/30/2019 10:59 PM CDT): Tonsillar cancer (dx 2012) s/p surgery and YARD PILOT in remission. Unfortunately patient continues to smoke. [...]
--- OUTSIDE RECORDS SUMMARY | 2025-02-07 03:19 | XMS_ITS | Encounter Summary ---
Author Organization [facility] [employer] [facility] Address [address] [facility] [address] [place] [address] Phone Care Team Providers Care Refuse And Recycling Worker Name Role Phone Sinan Arriola MD Primary Care Provider [phone] Manan Gil MD Primary Care Provider [phone] Hien Rogel NP Primary Care Provider [phone] Encounter Details Date Type Department Care Team (Late st Contact Info) Description 04/07/2017 Orders Only [facility] Carmine Devine MD [address] [facility] [place] [id number] [place], [place] [id number] Social History Tobacco Use Types Packs/Day Years Used Date Smoking Tobacco: Never Assessed Comments Unknown Sex and Gender Information Value Date Recorded Sex Assigned at Not on file Legal Sex Female 2:35 AM RAW SHELLFISH PREPARER Gender Identity Not on file Sexual Orientation [...] documented as of this encounter Care Teams Refuse And Recycling Worker Relationship Specialty Start Date End Date Sinan Arriola MD PCP - General 03/13/17 10/13/18 Manna Gil MD [address] [facility] [address] [place] [address] PCP - General Internal Medicine 10/14/18 10/06/23 Hien Rogel NP [address] [place] [address] PCP - General Family Medicine 10/07/23 documented as of this encounter
--- OUTSIDE RECORDS SUMMARY | 2025-02-07 03:19 | XMS_ITS | Clinical Summary ---
Author Organization [facility] Address [address] [place] [address] Care Team Providers Care Oil Expeller Name Role Phone Carmine Devine MD Unavailable Ely Wisdom MD Unavailable [phone] Carmine Daniel MD Unavailable [phone] Evans Garcia MD Unavailable [phone] Hien Rogel NP Primary Care Provider [phone] Allergies No known active allergies Medications rOPINIRole 4 MG tablet Take 1 tablet (4 mg total) by mouth 2 (two) times a day. 05/15/19 21 Active fish oil 1000 MG Cap capsule [...] (10 mg total) by mouth daily. Active valsartan (DIOVAN) 160 MG tablet Take 1 tablet (160 mg total) by mouth daily. 09/29/19 24 Active atorvastatin (LIPITOR) 40 MG tablet Take 1 tablet (40 mg total) by mouth daily. 08/30/19 24 Active FEROSUL 325 (65 Fe) MG tablet Take 1 tablet (325 mg total) by mouth daily. 10/27/19 24 Active budesonide-form oterol (BREYNA) 80-4.5 MCG/ACT inhalerIndicati ons:Pulmonary emphysema, unspecified emphysema type (CMS/HCC HHS/HCC) Inhale 2 puffs into the lungs 2 (two) times daily. 6.9 g 6 03/18/19 25 Active Additional Information Patient taking differently:2 puff Inhalation 2 times daily,Takes PRN, Reported on 09/15/2024 HYDROcodone-jannette taminophen (NORCO) 5-325 MG tablet TAKE 1 TO 2 TABLETS BY MOUTH EVERY 12 HOURS NEEDED FOR PAIN 09/09/19 25 Active ezetimibe (ZETIA) 10 MG tablet TAKE 1 TABLET(10 MG) BY MOUTH DAILY 30 tablet 3 12/02/19 25 Active oxybutynin XL (DITROPAN-XL) 5 MG 24 hr tablet Take 1 tablet (5 mg total) by mouth daily. 01/07/20 25 Active levothyroxine (SYNTHROID) 88 MCG tablet Take 1 tablet (88 mcg total) by mouth daily. 11/02/19 25 Active gabapentin (NEURONTIN) 100 MG capsule Take 1 capsule (100 mg total) by mouth daily. 025 Discontinued levothyroxine (SYNTHROID) 100 MCG tablet Take 1 tablet (100 mcg total) by mouth daily. 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 Continues to smoke unfortunately. 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 Continues to smoke unfortunately. Currently in contemplative stage of quitting Thoracic aortic aneurysm without rupture 018 Cardiac pacemaker in situ 03/02/2017 Overview (12/09/2022): Micra leadless pacemaker implanted in 2018 for frequent pauses Encounters Date Type Department Care Team Description 01/23/2025 9:00 AM FIELD SUPERVISOR Office Visit [facility], [facility] [address] [place] [address] Nita Alex ANP- Hypertension 01/23/2025 8:30 AM FIELD SUPERVISOR Allied Health/Nurse Visit [facility], [facility] [address] [place] [address] Wilmer Holman MD Pacemaker Check 01/23/2025 Travel 01/09/2025 Telephone [facility], [facility] [address] [place] [address] Wilmer Holman MD Information (CRMD form) 11/29/2024 2:05 PM CDT Allied Health/Nurse [facility] [address] [place] [address] Wilmer Holman MD Remote Device Check 11/29/2024 Travel from Last 3 Months Immunizations Immunization [...] AM CDT Legal Sex Female 9:56 AM FIELD SUPERVISOR Gender Identity Not on file Sexual Orientation Not on file Last Filed Vital Signs Vital Sign Reading Time Taken Comments Blood Pressure 130/60 01/23/2025 8:47 AM FIELD SUPERVISOR rec heck Pulse 66 01/23/2025 8:34 AM FIELD SUPERVISOR Temperature 37.2 C (99 F) 09/15/2024 7:21 AM CDT Respiratory Rate 16 09/15/2024 7:21 AM CDT Oxygen Saturation 97% 01/23/2025 8:34 AM FIELD SUPERVISOR Inhaled Oxygen Concentration - - Weight 67.6 kg (149 lb) 01/23/2025 8:34 AM FIELD SUPERVISOR Height 160 cm (5' 3) 01/23/2025 8:34 AM FIELD SUPERVISOR Body Mass Index 26.39 01/23/2025 8:34 AM FIELD SUPERVISOR Plan of Treatment Upcoming Encounters Date Type Department Care Team (Late st Contact Info) Description 02/27/2025 2:35 PM FIELD SUPERVISOR Allied Health/Nurse Visit [facility] [facility], [address] [place] [address] Wilmer Holman MD Three [facility]. [address] [place] [address] 09/15/2025 8:00 AM CDT Office Visit [facility] Multispecialty Care - [facility] [address] [facility] [address] [place] [address] Maribel Downs DO [address] [facility] [address] [place] [address] 01/30/2026 9:30 AM FIELD SUPERVISOR Office Visit [facility] [address] [facility] [address], [address] [place] [address] Wilmer Holman MD [address] [facility] [address] [place] [address] Health Maintenance Due Date Last Done Comments [...] 2017 Hemoglobin A1C 03/08/2021 09/05/2020, 05/31, 12/01/2019 PHQ-2 (Physician [place]) 03/02/2024 COVID-19 Vaccine ( season) 2024 12/17/2020, [...] this topic Medical Devices Implanted Type Area Silver Cleaner Device Identifier Shelf Expiration Date Model / Serial / Lot Mdt Micra Pacemaker-04/06/19 18 Implanted:2017 by Evans Garcia RT Student (Quantity not on file) Pacemaker [employer] CARDIAC RHYTHM AND HEART FAILURE - DIV [id number] / [id number] / Description:MRI Conditional under following conditions: Static [...] July 2025 [address] for choosing the [facility] Screening Program. Ordered By: MARIBEL DOWNS Interpreted By: Jules Hallman MD, 09/05/2024 12:18 PM Narrative 09/05/2024 12:22 PM CDT [address] [address] EXAM: LUNG SCREENING LOW-DOSE CT THORAX WITHOUT [...] Procedure Note Jules Hallman MD - 09/05/2024 [facility] [address] [place], [place] [address] EXAM: LUNG SCREENING LOW-DOSE CT THORAX WITHOUT [...] July 2025 Thank you for choosing the [facility]. Ordered By: MARIBEL DOWNS Interpreted By: Jules Hallman MD, 09/05/2024 12:18 PM us Olafpriti Downs DO CT Final Resu lt * LIPID PANEL (07/14/2024) CHOLESTEROL 182 TRIGLYCERIDES 117 HDL 46 DIRECT LDL 88 us Default History Genericprovider LABORATORY Edited Result - Final * HEMOGLOBIN, GLYCOSYLATED (09/05/2020 4:40 AM CDT) HGB A1C 5.5 <5.7 % 09/05/2020 9:57 AM CDT [facility] Comment: ADA GUIDELINES 2010 5.7 TO 6.4% INCREASED RISK OF DIABETES > OR = 6.5% CONSISTENT WITH DIABETES ESTIMATED AVG GLUCOSE 111 mg/dL 09/05/2020 9:57 AM CDT [facility] 09/05/2020 4:40 AM CDT us Miya Hurst PA-C LABORATORY Final Result [facility] [address] [place] [address], from Last 3 Months or Most Recently Relevant to Health Maintenance Insurance MEDICARE [facility] Advance Directives * Full Code (Latest Code Status on File) Date Activated Date Inactivated Comments 07/12/2022 10:50 PM 07/14/2022 1:43 PM * Full Code Date Activated Date Inactivated Comments 09/04/2020 1:40 PM 09/05/2020 7:04 PM Care Teams Oil Expeller Relationship Specialty Start Date End Date Hien Rogel NP [address] [place] [phone] PCP - General Nurse Practitioner Family 03/03/24 Carmine Devine MD [address] [facility] [address] [place] [address] VASCULAR SURGERY 07/14/22 Ely Wisdom MD [address] [facility] [address] [place] [address] Referring Physician NEPHROLOGY 07/14/22 Carmine Daniel MD [address] [facility] [address] MEDICAL OFFICE BUILDING [address] [place] [address] INTERNAL MEDICINE 07/14/22 Evans Garcia MD [address] [facility] [address] [place] [address] INTERNAL MEDICINE 07/15/22
[2025-02-07] MEDS: ACETAMINOPHEN 500 MG TABLET 1000 MG PO (06:20)
[2025-02-07] MEDS: LACTATED RINGERS 1,000 ML 30 ML IV CONT ×2 (06:25→09:37)
[2025-02-07] MEDS: TRANEXAMIC ACID 1,000MG/ISO100 1,000 MG/100 ML BAG 200 MG IVPB (06:30)
--- NOTE | 2025-02-07 06:48 | WPDANESEPPF ---
Anes - Initial Pre Proc Eval Procedure: Operation Date: 02/07/25 07:30 Proposed Procedures p Right Total Hip Arthroplasty - Fabrice Morton MD Date/Time: 02/07/25 06:48 Surgeon: Fabrice Morton MD Pre Op Diagnosis: primary OA right hip Patient Data Age: 74 Gender: F Height: 1.6 m Weight: 66.2 kg Last Vital Signs Temp 37.3 C 02/07/25 06:10 Pulse 80 02/07/25 06:10 Resp 18 02/07/25 06:10 BP 150/61 H 02/07/25 06:10 Pulse Ox 98 02/07/25 06:10 O2 Del Method Room Air 02/07/25 06:10 Allergies Allergy/AdvReac Type Severity Reaction Status Date / Time No Known Allergies Allergy Verified 02/07/25 06:39 Home Medications ?Medication ?Instructions ?Recorded ?Confirmed ?Type omega-3 fatty acids 1,000 mg 1,000 mg PO BID 04/12/19 02/07/25 History capsule (Fish Oil Concentrate) aspirin 81 mg tablet,delayed 81 mg PO DAILY #90 tabs 12/12/19 02/07/25 Rx release (Adult Low Dose Aspirin) albuterol sulfate 90 mcg/actuation 1 inh inhalation Q4H PRN shortness 06/11/23 02/07/25 History aerosol inhaler of breath or wheezing magnesium amino acid chelate 100 400 mg PO DAILY 06/11/23 02/07/25 History mg tablet thiamine HCl (vitamin B1) 100 mg 100 mg PO DAILY #30 tabs 08/06/23 02/07/25 Rx tablet atorvastatin 40 mg tablet 40 mg PO DAILY #90 tabs 08/18/24 02/07/25 Rx amlodipine 10 mg tablet See Rx Instructions .Route 09/08/24 02/07/25 Rx .COMPLEX #90 tabs oxybutynin chloride 5 mg 5 mg PO DAILY #90 tabs 10/18/24 02/07/25 Rx tablet,extended release 24 hr valsartan 160 mg tablet See Rx Instructions .Route 10/24/24 02/07/25 Rx .COMPLEX #90 tabs levothyroxine 88 mcg tablet See Rx Instructions .Route 12/01/24 02/07/25 Rx .COMPLEX #90 tabs ropinirole 4 mg tablet See Rx Instructions .Route 12/01/24 02/07/25 Rx .COMPLEX #180 tabs ascorbic acid (vitamin C) 500 mg 500 mg PO DAILY 01/09/25 02/07/25 History tablet (C-500) Laboratory Tests 02/07/25 06:28 POC Capillary Glucose 100 mg/dl (65-105) Patient hx anesthesia problems: none Family hx anesthesia problems: none Results Review: All pre-operative results and documents have been reviewed as part of the pre-operative evaluation. [facility] Past Medical History Medical History Kidney disease Diabetes Cancer Locking of right knee Internal derangement of right knee Right knee injury Sleep disorder breathing Diverticulosis AAA (abdominal aortic aneurysm) PLMD (periodic limb movement disorder) COVID-19 vaccine series completed RBC microcytosis Cellulitis Skin lesion Neck abrasion Cervical strain Hemoptysis Vaccine counseling Post-menopausal Bilateral carotid artery stenosis Cardiac pacemaker Cervical radiculopathy History of head and neck cancer Pulmonary valve stenosis Right carotid bruit Second hand smoke exposure Family History Family History Mother Acute myocardial infarction Patient's mother is Father Family history of heart disease in male family member before age 55 Patient's father is Sibling Acute myocardial infarction Family history of coronary artery disease Patient's brother is Grandparent Family history of malignant neoplasm of breast Social History Social History Social History: Caffeine-daily Smoking packs per day: 1 Smoking cigarettes per day: 20.0 Years smoked: 60 Smoking pack-years: 60.00 Smoking status: Former smoker Tobacco type: cigarettes Second hand tobacco smoke exposure: Yes Smoking end date: 08/15/24 Additional smoking assessment comments: DENEIS ANY FORM OF TOBACCO USE Alcohol intake: former Substance use: never Substance use type: does not use Lack of Transportation: No Lack of Food: Sometimes True Current Housing: I Have Housing Concerned About Future Housing: No Difficulty Paying Gas/Electric Bills: Decline to Answer Difficulty Paying for Meds: YES Currently Unemployed: No Education: High School Diploma/GED Difficulty w/ Childcare or Family Care: No Living arrangements: with family Occupation/Education: other Additional occupation/education comments: disability Gender identity (if verbalized by the patient): Female Sexual Orientation (if Verbalized by the Patient): Straight or Heterosexual Spiritual care concerns: No Anes - Eval Final PreProcedure Day of Procedure 02/07/25 06:48 Patient weight: overweight Heart: regular rate and rhythm Lungs: clear to auscultation Airway: Mallampati scale class II Neurological: alert and oriented Last oral intake: >/= 8 hours ASA classification: III Emergent: no Anesthetic plan: proceed Anesthesia type and monitoring: general ETT and standard monitoring Results Review: All pre-operative results and documents have been reviewed as part of the pre-operative evaluation. Informed Consent: The patient's anesthetic plan and its attendant risks and benefits were discussed with the patient/family/POA. Questions were solicited and answers provided to the satisfaction of the patient/family/POA.
--- NOTE | 2025-02-07 07:22 | WPDHPUPDATE1 ---
History and Physical Update Update Date/Time: 02/07/25 07:22 History and Physical has been reviewed, including an updated exam of the patient. There are NO changes in the patient's condition. Risks, benefits, and alternatives have been discussed and questions answered. Patient agrees to proceed with procedure.
[2025-02-07] MEDS: ceFAZolin 2 GM in SODIUM CHLORIDE 0.9% IV 50 ML 100 ML IVPB ×2 (07:30→14:28)
[2025-02-07] MEDS: SODIUM CHLORIDE 0.9% IV 37.7 ML, MORPHINE SULFATE INJ (*CRX) 2 MG, ROPivacaine HCL 1% 2... INFILTRATE (08:12)
--- NOTE | 2025-02-07 09:41 | P.OP_ITS ---
Procedure Note - Detailed Date of Procedure 02/07/25 Pre-op Diagnosis Right hip degenerative arthritis. Post-op Diagnosis Same Procedure Performed Right Total Hip Arthroplasty Surgeon Fabrice Morton MD Hand Spinner Svitlana Flores RN-FA Anesthesia General Findings Custom femur optimal fit. Description of Procedure The patient was given preoperative antibiotics. A general anesthetic was administered. The patient was carefully placed in the lateral decubitus position. The shoulders and hips were carefully positioned for component and leg length positioning reference. The hip was prepped and draped in the usual sterile fashion. A longitudinal incision was created over the posterior aspect of the greater trochanter. Careful dissection was brought down through the deep fascia with electrocautery. A minimally invasive optimized posterior approach to the hip was performed. The short external rotators and capsule were taken down in an L-shaped capsulotomy. The piriformis was spared. The tissue was tagged for later repair using number 2 high strength suture. The femoral was dislocated and the neck was measured and cut according to the position of the F1 jig. The femoral head was removed. The acetabulum was carefully exposed. The inferior capsule was released. The labrum was resected. The acetabulum was sequentially reamed to 2 under the intended cup size. Degenerative cysts were curetted and bone grafted with reamings. The cup was impacted into position with excellent press-fit. Typical anatomic landmarks, including the bony contact points as well as the inferior transverse acetabular ligament were used to confirm cup positioning with preoperative templating. Attention was turned to the femur, which was carefully exposed. The hip was reamed and then broached sequentially. Excellent press-fit was obtained with the broach. The hip was trialed. Measurements were utilized, including the lesser trochanter as well as the center of the femoral head and the tip of the trochanter, and excellent assessment of the offset and leg lengths were confirmed. The real component was impacted into position. Trialing confirmed appropriate leg length and offset with soft tissue balancing as well apparent feel of the leg, both at the knee and the heel. Soft tissues were assessed using the the iliotibial band. Reduction of the posterior capsule and external rotators were also used as a secondary assessment. The hip was copiously irrigated with pulsatile lavage periodically throughout the procedure. The real components were then assembled and reduced. The hip was stable throughout typical maneuvers, including extension, external rotation to 70 degrees, the position of sleep as well as flexion to 90 degrees with internal rotation past 35 degrees. The shake test confirmed stability without impingement. Osteophytes were removed as necessary. The short external rotators and capsule were repaired back to the posterior trochanter through drill holes. The deep fascia was repaired with running numbe r 2 barbed suture, followed by 2-0 Stratafix suture and 3-0 Stratafix suture in the dermis. Steri-Strips were placed on the skin, followed by a sterile occlusive dressing. There were no complications. Meticulous hemostasis was maintained with the AquaMantys device. The patient was brought to the recovery room in stable condition. There were no complications. Implants Restore 3D custom femur size 3, was utilized with excellent press-fit. The 52 mm [place] acetabular component was impacted with excellent press-fit stability. Standard polyethylene liner the +4 (preplanned), 36 mm Biolox ceramic femoral head was utilized. Estimated Blood Loss 250 Drains No Packing No Pathology None sent Complications No immediate complications Condition Stable Disposition PACU [facility] Billing Surgery - Charge Forward: Surgery Billing
[2025-02-07] MEDS: fentaNYL CITRATE INJ (*CRX) 100 MCG/2 ML VIAL 25 MCG IV PUSH ×4 (09:46→10:20)
[2025-02-07] MEDS: PROPARACAINE HCL 0.5% 15 ML OPHTH SOLN 1 DROP EACH EYE (12:17)
[2025-02-07] MEDS: DICLOFENAC SODIUM 0.1% OPHTH SOLN 2.5 ML BOTTLE 1 DROP EACH EYE ×2 (12:19→22:41)
[2025-02-07] MEDS: oxyCODONE/ACETAMINOPHEN (*CRX) 5-325 MG TABLET 1 TABLET PO ×3 (13:09→23:35)
[2025-02-07] MEDS: ARTIFICIAL TEARS OPHTH SOLN 15 ML BOTTLE 1 DROP EACH EYE (13:58)
[2025-02-07] MEDS: SODIUM CHLORIDE 0.9% IV 1,000 ML 125 ML IV CONT (14:27)
[2025-02-07] MEDS: SENNA/DOCUSATE SODIUM TABLET 2 TAB PO (16:39)
[2025-02-07] MEDS: ASPIRIN 81 MG ENTERIC TABLET PO (20:32)
[2025-02-08 00:32] VITALS: BP 139/42; PULSE 81; RESP 18; TEMP 36.7; O2SAT 96
[2025-02-08 05:00] VITALS: BP 188/70; PULSE 88; RESP 18; TEMP 37.7; O2SAT 97
[2025-02-08] MEDS: DICLOFENAC SODIUM 0.1% OPHTH SOLN 2.5 ML BOTTLE 1 DROP EACH EYE (05:41)
[2025-02-08] MEDS: LEVOTHYROXINE SODIUM 88 MCG TABLET PO (05:41)
[2025-02-08 07:01] LABS: Hematocrit 28.7 % (37.0-47.0); Hemoglobin 9.0 g/dL (12.0-15.0); Immature Granulocyte Percent A 0.4 % (0-0.5); Lymphocytes Absolute Auto 0.86 K/mm3 (0.9-3.2); Mean Corpuscular HGB Conc 31.4 g/dl (32-36); Mean Corpuscular Hemoglobin 27.9 pg (26-34); Mean Corpuscular Volume 88.9 fl (80-100); Nucleated Red Blood Cells Absolute Auto 0.000 K/mm3 (0.0-0.012); Nucleated Red Blood Cells Perc 0.0 % (0.0-0.2); Platelet Count Result 267 k/mm3 (150-375); Red Blood Count 3.23 M/mm3 (4.2-5.4); White Blood Count 12.5 K/mm3 (4.5-10.0)
[2025-02-08 07:28] LABS: Anion Gap 3 mmol/L (4-12); Blood Urea Nitrogen 20 mg/dL (7-17); Calcium 8.4 mg/dL (8.4-10.2); Carbon Dioxide 23 mmol/L (22-30); Chloride 102 mmol/L (98-107); Estimated CRCL calculation 27 ml/min; Estimated Glomerular Filt Rate 36; Glucose 104 mg/dL (65-110); Potassium 4.3 mmol/L (3.4-5.0); Sodium 128 mmol/L (137-145)
[2025-02-08] MEDS: SENNA/DOCUSATE SODIUM TABLET 2 TAB PO (08:02)
[2025-02-08] MEDS: oxyBUTYnin CHLORIDE XL 5 MG TAB.ER.24 PO (08:02)
[2025-02-08] MEDS: ATORVASTATIN 40 MG TABLET PO (08:02)
[2025-02-08] MEDS: ASCORBIC ACID 500 MG TABLET PO (08:02)
[2025-02-08] MEDS: VALSARTAN 160 MG TABLET BY MOUTH (08:02)
[2025-02-08] MEDS: oxyCODONE/ACETAMINOPHEN (*CRX) 5-325 MG TABLET 1 TABLET PO ×2 (08:02→13:43)
[2025-02-08] MEDS: THIAMINE HCL 100 MG TABLET PO (08:02)
[2025-02-08] MEDS: ASPIRIN 81 MG ENTERIC TABLET PO (08:03)
--- NOTE | 2025-02-08 08:26 | PM.PNORT ---
Progress Note: A&P Assessment and Plan (1) Status post total hip replacement, right: Code(s): Z96.641 - Presence of right artificial hip joint Status: Acute (2) Orthopedic aftercare: Code(s): Z47.89 - Encounter for other orthopedic aftercare Status: Acute Plan Postop day 1: Total hip arthroplasty. Patient tolerated procedure well. She does have a low sodium. Eleno dilutional due to surgery. Encouraged her to limit fluid intake and increase sodium in her diet today. Will recheck later today. As long as it is trending up, I will still plan to discharge patient. Recheck with sodium at 131. Okay for discharge. Pain manageable with pain medication. No numbness or tingling. We had a lengthy discussion regarding postoperative wound care, limitations, expectations, and exercises. Patient shows good understanding. Patient has had initial physical therapy and is tolerating it well. DVT prophylaxis: 81 mg baby aspirin b.i.d. for 14 days. Short frequent walks. Pain medication: Percocet. Patient has followup appointment with Dr. Morton in 3 weeks Subjective Subjective Date/Time Seen: 02/08/25 08:26 Interval history: Patient resting comfortably. Working with formal physical therapy. Complains of restless legs. Review of Systems Review of Systems: All systems reviewed & are unremarkable except as noted in HPI and below Exam Narrative: 74 y/o female. Resting comfortably in bed. Wearing compression socks bilaterally. Dressing dry and intact with no drainage. Moderate swelling. No ecchymosis. No erythema. No hematoma. Range of motion limited due to pain. Calf nontender. Thigh nontender. Neurologic status intact. No varicosities. Distal pulses palpable. Objective Data Vital Signs Vital Signs: Vital Signs - 24 hr 02/07/25 09:37 02/07/25 09:50 02/07/25 10:00 Temperature 97.2 F L Pulse Rate 82 78 77 Respiratory Rate 10 L 14 14 Blood Pressure 122/54 L 129/57 L 151/57 H Pulse Oximetry 100 100 100 Oxygen Delivery Simple Face Mask Simple Face Mask Simple Face Mask Oxygen Flow Rate 8 8 8 02/07/25 10:06 02/07/25 10:15 02/07/25 10:28 Temperature Pulse Rate 72 Respiratory Rate 14 Blood Pressure 126/46 L Pulse Oximetry 100 95 94 Oxygen Delivery Room Air Room Air Nasal Cannula Oxygen Flow Rate 1 02/07/25 10:30 02/07/25 10:45 02/07/25 10:55 Temperature Pulse Rate 83 84 74 Respiratory Rate 14 14 Blood Pressure 121/53 L 112/56 L 121/49 L Pulse Oximetry 94 96 93 Oxygen Delivery Nasal Cannula Room Air Room Air Oxygen Flow Rate 1 02/07/25 11:10 02/07/25 11:40 02/07/25 12:40 Temperature Pulse Rate 80 71 98 Respiratory Rate Blood Pressure 137/54 L 134/48 L 130/87 Pulse Oximetry 94 99 96 Oxygen Delivery Room Air Room Air Room Air Oxygen Flow Rate 02/07/25 13:02 02/07/25 14:24 02/07/25 14:51 Temperature Pulse Rate Respiratory Rate Blood Pressure Pulse Oximetry Oxygen Delivery Room Air Room Air Room Air Oxygen Flow Rate 02/07/25 15:45 02/07/25 20:32 02/08/25 00:32 Temperature 97.8 F 99.5 F 98.0 F Pulse Rate 72 88 81 Respiratory Rate 16 18 18 Blood Pressure 136/52 L 135/50 L 139/42 L Pulse Oximetry 97 96 96 Oxygen Delivery Oxygen Flow Rate 02/08/25 05:00 Temperature 99.9 F H Pulse Rate 88 Respiratory Rate 18 Blood Pressure 188/70 H Pulse Oximetry 97 Oxygen Delivery Oxygen Flow Rate Intake/Output Intake/Output: Intake & Output 02/05/25 02/06/25 02/07/25 02/08/25 23:59 23:59 23:59 23:59 Intake Total 990 500 Balance 990 500 Meds/Results Medications: Active Medications Generic Name Dose Route Start Last Admin Trade Name Freq PRN Reason Stop Dose Admin Acetaminophen 500 mg 02/07/25 10:47 Acetaminophen 500 Mg Tablet PO Q6H PRN Pain Rated 1-3 Albuterol 1 puff 02/07/25 10:47 Albuterol Sulfate (*Sp) Aerosol 1 Puff INHALATION Q4H PRN Shortness Of Breath Or Wheezing Amlodipine Besylate 10 mg 02/08/25 09:00 02/08/25 08:02 Amlodipine Besylate 10 Mg Tablet BY MOUTH 10 mg DAILY ARSEN Administration Artificial Tears 1 drop 02/07/25 11:45 02/07/25 13:58 Artificial Tears Ophth Soln 15 Ml Bottle EACH EYE 1 drop Q2H PRN Administration Dry Eye(s) Ascorbic Acid 500 mg 02/08/25 09:00 02/08/25 08:02 Ascorbic Acid 500 Mg Tablet PO 500 mg DAILY ARSEN Administration Aspirin 81 mg 02/07/25 21:00 02/08/25 08:03 Aspirin 81 Mg Enteric Tablet PO 81 mg Q12HR ARSEN Administration Atorvastatin Calcium 40 mg 02/08/25 09:00 02/08/25 08:02 Atorvastatin 40 Mg Tablet PO 40 mg DAILY ARSEN Administration Diclofenac Sodium 1 drop 02/07/25 12:30 02/08/25 05:41 Diclofenac Sodium 0.1% Ophth Soln 2.5 Ml Bottle EACH EYE 02/11/25 12:29 1 drop Q8HR ARSEN Administration Hydromorphone HCl 1 mg 02/07/25 10:47 Hydromorphone Hcl Inj (*Crx) 1 Mg/Ml Syr IV PUSH Q2H PRN Breakthrough Pain Rated 7-10 or NPO Hydromorphone HCl 0.5 mg 02/07/25 10:47 Hydromorphone Hcl Inj (*Crx) 1 Mg/Ml Syr IV PUSH Q2H PRN Breakthrough Pain Rated 4-6 or NPO Sodium Chloride 1,000 mls @ 125 mls/hr 02/07/25 10:47 02/08/25 05:36 Normal Saline Iv IV CONT Not Given .Q8H ARSEN Ibuprofen 800 mg in 200 mls @ 400 mls/hr 02/07/25 10:47 Caldolor 800 Mg/200 Ml IVPB Q6H PRN Breakthrough Pain Rated 1-3 or NPO Levothyroxine Sodium 88 mcg 02/08/25 06:30 02/08/25 05:41 Levothyroxine Sodium 88 Mcg Tablet PO 88 mcg DAILY@0630 ARSEN Administration Miscellaneous Information 1 each 02/07/25 00:01 Magnesium Amino Acid Chelate Is Nonformulary. Can She Use Home Supply Or Hold While Hospit XX 03/09/25 00:00 [facility] Naloxone HCl 0.1 mg 02/07/25 10:47 Naloxone Hcl 0.4 Mg/Ml Vial IV PUSH Q2M PRN Opiate Reversal Non-Formulary Medication 400 mg 02/08/25 09:00 Magnesium Amino Acid Chelate PO 03/10/25 08:59 DAILY [facility] Ondansetron HCl 4 mg 02/07/25 10:47 Ondansetron Inj 4 Mg/2 Ml Vial IV PUSH Q4H PRN Nausea And Vomiting Oxybutynin Chloride 5 mg 02/08/25 09:00 02/08/25 08:02 Oxybutynin Chloride Xl 5 Mg Tab.Er.24 PO 5 mg DAILY ARSEN Administration Oxycodone/Acetaminophen 1 tablet 02/07/25 10:47 02/08/25 08:02 Oxycodone/Acetaminophen (*Crx) 5-325 Mg Tablet PO 1 tablet Q4H PRN Administration Pain Rated 4-6 Oxycodone/Acetaminophen 1 tab 02/07/25 10:47 Oxycodone/Acetaminophen (*Crx) 10-325 Mg Tablet PO Q6H PRN Pain Rated 7-10 Polyethylene Glycol 17 gm 02/08/25 09:00 02/08/25 08:03 Polyethylene Glycol 3350 17 Gm Powd.Pack PO Not Given QAM [facility] Ropinirole HCl 4 mg 02/07/25 17:00 02/08/25 08:01 Ropinirole Hcl 1 Mg Tablet BY MOUTH 4 mg BID ARSEN Administration Senna/Docusate Sodium 2 tab 02/07/25 17:00 02/08/25 08:02 Senna/Docusate Sodium Tablet PO 2 tab BID ARSEN Administration Thiamine HCl 100 mg 02/08/25 09:00 02/08/25 08:02 Thiamine Hcl 100 Mg Tablet PO 100 mg DAILY ARSEN Administration Valsartan 160 mg 02/08/25 09:00 02/08/25 08:02 Valsartan 160 Mg Tablet BY MOUTH 160 mg DAILY ARSEN Administration Radiology Results: ITS Impressions Hip X-Ray 02/07/25 10:10 IMPRESSION: 1. As above Labs Labs: Laboratory Results - last 24 hr 02/08/25 06:38 WBC 12.5 H RBC 3.23 L Hgb 9.0 L Hct 28.7 L MCV 88.9 MCH 27.9 MCHC 31.4 L RDW 16.2 H Plt Count 267 MPV 9.4 Immature Gran % (Auto) 0.4 Neut % (Auto) 81.1 H Lymph % (Auto) 6.9 L Coffey % (Auto) 11.3 H Eos % (Auto) 0.0 Baso % (Auto) 0.3 Lymph # (Auto) 0.86 L Coffey # (Auto) 1.4 H Eos # (Auto) 0.0 Baso # (Auto) 0.0 Abs Immat Gran (auto) 0.05 H Absolute Neuts (auto) 10.1 H Absolute Nucleated RBC 0.000 Nucleated RBC % 0.0 Sodium 128 L Potassium 4.3 Chloride 102 Carbon Dioxide 23 Anion Gap 3 L BUN 20 H D Creatinine 1.42 H Estim Creat Clear Calc 27 Estimated GFR 36 L Glucose 104 Calcium 8.4
[2025-02-08 12:34] LABS: Alanine Aminotransferase 13 U/L (6-35); Albumin Level 3.5 g/dL (3.5-5.1); Alkaline Phosphatase 90 U/L (38-126); Anion Gap 4 mmol/L (4-12); Aspartate Amino Transferase 32 U/L (14-36); Bilirubin,Total 0.7 mg/dL (0.2-1.3); Blood Urea Nitrogen 20 mg/dL (7-17); Calcium 8.9 mg/dL (8.4-10.2); Carbon Dioxide 26 mmol/L (22-30); Chloride 101 mmol/L (98-107); Estimated CRCL calculation 21 ml/min; Estimated Glomerular Filt Rate 27; Glucose 113 mg/dL (65-110); Potassium 4.3 mmol/L (3.4-5.0); Sodium 131 mmol/L (137-145); Total Protein 6.5 g/dL (6.3-8.2)
[2025-02-08 14:37] VITALS: BP 130/43; PULSE 97; RESP 16; TEMP 36.6; O2SAT 97
== END 2025-02-08 14:00 | disposition home or self-care (01) ==
LOC: ANHSURGERY 10:02 → ANH3MEDSUR 13:42
PROVIDERS: Physician Assistant Surgical; PCP Nurse Practitioner Family; Visit Provider Orthopaedic Surgery
PROC: (CPT 27130; principal; 2025-02-07 07:30)
DX: M16.11 Unilateral primary osteoarthritis, right hip (principal); I12.9 Hypertensive chronic kidney disease with stage 1 through stage 4 chronic kidney disease, or unspecified chronic kidney disease; N18.31 Chronic kidney disease, stage 3a; E03.9 Hypothyroidism, unspecified; G47.61 Periodic limb movement disorder; Z79.82 Long term (current) use of aspirin; Z79.51 Long term (current) use of inhaled steroids; Z95.0 Presence of cardiac pacemaker; Z87.891 Personal history of nicotine dependence; Z87.19 Personal history of other diseases of the digestive system; Z86.79 Personal history of other diseases of the circulatory system; Z80.3 Family history of malignant neoplasm of breast; Z82.49 Family history of ischemic heart disease and other diseases of the circulatory system
CPT/HCPCS: 27130; 36415; 73502; 80048; 80053; 82948; 85025; 86850; 86900; 86901; 97110; 97116; 97166; 97530; 97535; J0690; A9270; J0166; J1885; J2270; J2371; J2405; J2704; J2795; J3010; J3290; J7030; J7120